=== PATIENT | female | born 1970 | race Caucasian/White ===

== ENCOUNTER 2017-03-06 07:20 | Inpatient (IN) | payer BC, OTHER ==
[~2017-03-06] VITALS: Ht 170.2 cm; Wt 125.6 kg
[2017-03-06] MEDS ORDERED: DULO30CA47 PO (07:42)
[2017-03-06] MEDS ORDERED: GABA300C16 PO ×2 (07:42→10:13)
[2017-03-06] MEDS ORDERED: METH500T8 PO (07:42)
[2017-03-06] MEDS ORDERED: BUPR300T36 PO ×2 (07:42→10:10)
[2017-03-06] MEDS ORDERED: ZOLP10TA PO (07:42)
[2017-03-06] MEDS ORDERED: GABA-526 PO (07:42)
[2017-03-06] MEDS ORDERED: ETOD400T PO (07:42)
--- NOTE | 2017-03-06 07:56 | ERD ---
ER Documentation Chief Complaint Chief Complaint C/o lower back pain with pain goes to right leg; hx chronic back problem HPI This is a 46-year-old female who presents the emergency department today complaining of low back pain and right leg pain and numbness and tingling for the past 3 days it is getting worse. Patient states that she has a significant history of back pain and does see Dr. Kee, at the [facility]. States that a year ago she had disc replacement in her neck. States she last saw him 2 months ago. States that she called this morning and he has asked me to call him. ROS All systems reviewed and are negative except as per history of present illness. Medications Home Meds Reported Medications Zolpidem Tartrate* (Ambien*) 10 Mg Tablet, 10 MG PO QHS Y for INSOMNIA, TAB 03/06/17 Bupropion Hcl* (Bupropion XL*) 300 Mg Tab.sr.24h, 300 MG PO DAILY, TAB.SA 03/06/17 Duloxetine Hcl* (Duloxetine Hcl*) 30 Mg Capsule.dr, 30 MG PO DAILY, #30 CAP 03/06/17 Etodolac (Etodolac) 400 Mg Tablet, 400 MG PO Q6 Y for BID, TAB 03/06/17 Methocarbamol* (Methocarbamol*) 500 Mg Tablet, 1000 MG PO Q6, TAB 03/06/17 Gabapentin* (Gabapentin*) 600 Mg Tablet, 600 MG PO QID, #60 TAB 03/06/17 Gabapentin* (Gabapentin*) 300 Mg Capsule, 300 MG PO QID, #60 CAP 03/06/17 Allergies Allergies: Coded Allergies: No Known Allergy (Unverified , 03/06/17) PMhx/Soc History of Surgery: Yes (GALBLADER, , ANKLE, HERNIA, HMORRHOIDS, SPINE /NECK) Anesthesia Reaction: No Hx Neurological Disorder: No Hx Respiratory Disorders: No Hx Cardiac Disorders: No Hx Psychiatric Problems: No Hx Miscellaneous Medical Probl: Yes (CHRONIC BACK PAIN) Hx Alcohol Use: No Hx Substance Use: No Hx Tobacco Use: No Smoking Status: Never smoker Physical Exam Vitals Vital Signs Date Time Temp Pulse Resp B/P Pulse Ox O2 Delivery O2 Flow Rate FiO2 03/06/17 07:22 97.7 104 20 159/89 97 Physical Exam Const: obese, NAD Head: Atraumatic Eyes: Normal Conjunctiva ENT: Normal External Ears, Nose and Mouth. Neck: Full range of motion..~ No meningismus. Resp: Clear to auscultation bilaterally Cardio: Regular rate and rhythm, no murmurs Abd: Soft, non tender, non distended. Normal bowel sounds Skin: No petechiae or rashes Back: lumbar spine midline tenderness. Decreased range of motion secondary to pain. Positive straight leg raise. Pulses 2+. Distal neurovascularly intact. Ext: No cyanosis, or edema Neur: Awake and alert Psych: Normal Mood and Affect Results 24 hrs Current Medications Medications (Trade) Dose Ordered Sig/Merly Route PRN Reason Start Time Stop Time Status Last Admin Dose Admin Hydromorphone HCl (Dilaudid) 2 mg ONCE STAT IM 03/06/17 08:11 03/06/17 08:12 DC 03/06/17 08:16 Procedures/MDM This is a 46-year-old female who presents the emergency department today complaining of pain and right-sided leg pain that started 3 days ago and is getting worse. Patient has a long history of chronic back pain. She takes Percocet 01/27/2025 and 900 mg of gabapentin 4 times a day. 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 Patient brought her MRI with her and she does have a 5-6 mm disc protrusion at L4 and L5. I did do an Boody report has had no other visits to the emergency department. Cures report also shows patient's prescriptions for Percocet and zolpidem. She is getting them from the same provider Dr. Piedra, who she states is her pain management doctor. Symptoms at this time most consistent with acute exacerbation of chronic back pain. She has had no new trauma. Low suspicion for acute fracture or dislocation. Patient is afebrile and otherwise well-appearing. They have no loss of bowel or bladder control. Low suspicion for cauda equina or abscess. I discussed the patient with Dr. Gamble and he feels comfortable with me giving the patient IM Dilaudid. Patient was given 2 milligrams IM Dilaudid here in the emergency department . I spoke to her surgeon, Dr. Kee, who has asked the patient to be admitted to Dr. Davis, and that he will perform surgery over the weekend for the patient. I discussed the plan with the patient and she has agreed to be admitted. Any further orders placed will be placed will be placed by Dr. Gamble , the admitting physician, or Dr Parmar. Departure Diagnosis: Primary Impression: Back pain Back pain location: low back pain Chronicity: chronic Back pain laterality : right Sciatica presence: with sciatica Sciatica laterality: sciatica of right side Qualified Code: M54.41 - Chronic right-sided low back pain with right-sided sciatica Condition: LAUREEN Rosas PA-C Mar 06, 2017 07:56
[2017-03-06] MEDS ORDERED: HYDROmorphONE 2 MG/ML SYG IM STA (08:11)
[2017-03-06 09:11] LABS: BASOPHIL # 0.1 10^3/ul (0.0-0.1); BASOPHILS % 0.5 % (0.0-2.0); EOSINOPHILS # 0.2 10^3/ul (0.0-0.5); EOSINOPHILS % 1.8 % (0.0-7.0); HEMATOCRIT 42.9 % (37.0-47.0); HEMOGLOBIN 14.3 g/dl (12.0-16.0); LYMPHOCYTES # 2.6 10^3/ul (0.8-2.9); LYMPHOCYTES % 24.3 % (15.0-51.0); MEAN CORPUSCULAR HEMOGLOBIN 28.9 pg (29.0-33.0); MEAN CORPUSCULAR HGB CONC 33.3 g/dl (32.0-37.0); MEAN CORPUSCULAR VOLUME 86.8 fl (82.0-101.0); MEAN PLATELET VOLUME 10.3 fl (7.4-10.4); MONOCYTE # 0.6 10^3/ul (0.3-0.9); MONOCYTES % 5.9 % (0.0-11.0); NEUTROPHIL # 7.2 10^3/ul (1.6-7.5); PLATELET COUNT 369 10^3/UL (140-415); RED BLOOD COUNT 4.94 10^6/ul (4.20-5.40); RED CELL DISTRIBUTION WIDTH 13.9 % (11.5-14.5); WHITE BLOOD COUNT 10.7 10^3/ul (4.8-10.8)
--- NOTE | 2017-03-06 09:18 | RADRPT ---
PROCEDURE: XR Chest. CLINICAL INDICATION: Back pain. TECHNIQUE: Single frontal view of the chest was obtained. COMPARISON: None. FINDINGS: The heart and mediastinum are within normal limits. The lungs are clear. There is no pleural effusion or pneumothorax. The osseous structures are unremarkable. IMPRESSION: No acute pulmonary disease. RPTAT: HRSR Physician Nneka Date Time Electronically viewed and signed by Jess Chavira Physician on 03/06/2017 09:18 RR/
[2017-03-06] MEDS ORDERED: ONDANSETRON 4 MG INJ IV PRN (09:30)
[2017-03-06] MEDS ORDERED: ACETAMINOPHEN 325 MG TAB PO PRN (09:30)
[2017-03-06] MEDS ORDERED: PANTOPRAZOLE (EC) 40 MG TAB PO ONE (09:30)
[2017-03-06 09:34] LABS: INR 0.91; PROTIME 12.3 Sec (12.2-14.2)
[2017-03-06 09:35] LABS: PARTIAL THROMBOPLASTIN TIME 26.9 Sec (25.0-35.0)
[2017-03-06 09:36] LABS: ANION GAP 16 (8-16); BLOOD UREA NITROGEN 18 mg/dl (7-20); CARBON DIOXIDE 28 mmol/L (21-31); CHLORIDE 104 mmol/L (97-110); CREATININE 0.78 mg/dl (0.44-1.00); GLUCOSE 103 mg/dl (70-220); SODIUM 144 mmol/L (135-144)
[2017-03-06 09:49] LABS: TROPONIN-I < 0.012 ng/ml (0.00-0.12)
[2017-03-06] MEDS ORDERED: GABA-528 PO (10:11)
[2017-03-06] MEDS ORDERED: HYDROmorphONE 1 MG/ML SYG IV STA (10:32)
--- NOTE | 2017-03-06 11:26 | HP ---
DATE OF ADMISSION: 03/06/2017 CHIEF COMPLAINT: Severe back pain with radiculopathy. HISTORY OF PRESENT ILLNESS: This is a 46-year-old female with a past medical history of chronic low er back pain due to L3, L5, L4 disk herniation with underlying radiculopathy who presents to [facility] with worsening pain and inability to stand and numbness. The patient states t hat she has had ongoing chronic back pain for the last 3-1/2 years; however, over the course of the last several days and weeks, she has had worsening symptoms with acute severity and pain of her back radiating down to her leg with associated numbness, weakness, inability to walk. The patient, as a result, came into [facility] with plans for acute neurosurgical evaluation. The patient has been followed in the past by Dr. Morrison, neurosurgeon. The patient otherwise denies any hemoptysis, hematemesis or hematochezia. PAST MEDICAL HISTORY: History of depression, history of radiculopathy with chronic back pain, histo ry of neuropathy. PAST SURGICAL HISTORY: The patient has had previous surgery at her neck with disk replacement, gall bladder surgery, , hernia repair, hemorrhoid surgery. FAMILY HISTORY: Noncontributory. SOCIAL HISTORY: Does not drink, smoke or do drugs. ALLERGIES: NONE. MEDICATIONS: Reviewed and reconciled. REVIEW OF SYSTEMS: A 14-point review of systems was conducted. Pertinent positives stated in HPI, otherwise negative. PHYSICAL EXAMINATION: VITAL SIGNS: Blood pressure 135/77, respiration 18, pulse 90, temperature 98.2. HEENT: Head is normocephalic. NECK: Supple. HEART: Regular rate. LUNGS: Show diminished breath sounds at the base. ABDOMEN: Soft, nontender to palpation without rebound or guarding. EXTREMITIES: Negative for clubbing, cyanosis, no edema. DERMATOLOGIC: No rashes. MUSCULOSKELETAL: The patient has noted pain in her lower back lumbar region. The patient has pain in her lower extremities. NEUROLOGIC: Limited exam due to underlying pain, but no obvious focal deficits. LABORATORY DATA: Shows a BMP within normal limits. CBC: White count 7.7, hemoglobin 14.3, platele t count 369. Patient had a chest x-ray which showed no acute findings. ASSESSMENT AND PLAN: This is a 46-year-old female who presents with: 1. Acute on chronic lumbar radiculopathy with symptoms of paraesthesia, numbness and foot drop. Pl an is for the patient to undergo urgent neurosurgical evaluation by Dr. Morrison for consideration of p ossible surgical intervention. Would otherwise continue pain control with opiates. Would continue to monitor closely and follow up recommendations with neurosurgery. 2. History of depression. Continue Wellbutrin and Cymbalta. 3. Neuropathy. Continue Neurontin. 4. Gastrointestinal and deep venous thrombosis prophylaxis. Continue proton pump inhibitor and Kenia enox. 5. Insomnia. Continue Ambien. 6. Previous history of spinal and neck surgery. Please note I spent up to 25 minutes of face to face time with the patient. The patient is FULL COD E. Dictated By: SEBASTIAN RIVERO DO NR/CANDE Conf#: [id number] DID#: [id number]
[2017-03-06 11:43] LABS: ALBUMIN 4.9 g/dl (3.3-4.9); BILIRUBIN,INDIRECT 0.2 mg/dl (0-1.1); BILIRUBIN,TOTAL 0.2 mg/dl (0.2-1.3); TOTAL PROTEIN 7.9 g/dl (6.1-8.1)
[2017-03-06] MEDS ORDERED: GABAPENTIN 300 MG CAP PO SCH (13:00)
[2017-03-06] MEDS: METHOCARBAMOL 500 MG TAB PO SCH ×3 (13:12→23:54)
[2017-03-06] MEDS: GABAPENTIN 300 MG CAP PO SCH ×4 (14:21→21:48)
[2017-03-06] MEDS: HYDROCODONE/APAP (5/325) TAB PO PRN ×3 (14:25→20:16)
[2017-03-06 14:28] VITALS: TEMP 98.3
[2017-03-06 15:00] VITALS: BP 134/63; PULSE 101; RESP 16
[2017-03-06 15:09] VITALS: Ht 170.2 cm; Wt 125.6 kg
--- NOTE | 2017-03-06 15:34 | RADRPT ---
Echocardiogram Report Patient Name: MIGEL SOLIS Gender: Female Date: 1970 Study Date: 06-Mar-2017 Catering Truck Driver: Robert [facility] Location: [facility] Ref. Physician: SEBASTIAN RIVERO Quality: Adequate Procedures: Transthoracic echocardiogram with complete 2D, M-Mode, and doppler examination. Indications: R/O CHF. 2D/M Mode Doppler Measurement Value Normal Ranges Measurement Value Normal Ranges LVIDd 2D 4.3 3.5 - 5.6 cm AV Peak Kyler 1.8 m/sec LVIDs 2D 3.0 2.1 - 4.1 cm AV Peak PG 12.0 mmHg FS 2D 32.0 % LVOT Peak Kyler 1.3 m/sec LVPWd 2D 1.1 0.6 - 1.1 cm LVOT Peak PG 7.0 mmHg IVSd 2D 1.1 0.6 - 1.1 cm MV E Peak Kyler 0.9 m/sec IVS/LVPW 2D 1.0 MV A Peak Kyler 0.7 m/sec AoR Diam 2D 1.9 2.0 - 3.7 cm MV E/A 1.3 LA/Ao 2D 2 0 - 1 MV Decel Time 236 msec EDV 2D 82.3 cm3 MV E/A 1.3 ESV 2D 25.9 cm3 TR Peak Kyler 2.3 m/sec LA Dimen 2D 3.3 2.3 - 4.0 cm TR Peak PG 21.0 mmHg RVSP 24.0 mmHg Findings Left Ventricle: Normal left ventricular systolic function. Normal left ventricular cavity size. Normal left ventricular wall thickness. Ejection fraction is visually estimated at 60 %. Tissue Doppler/Mitral Doppler indices are consistent with impaired relaxation (Stage I diastolic dysfunction). Right Ventricle: Normal right ventricular size. Normal right ventricular systolic function. Left Atrium: The left atrium is normal in size. Right Atrium: The right atrium is normal in size. Mitral Valve: Normal appearance and function of the mitral valve with trace physiologic regurgitation. Aortic Valve: Normal appearance of the aortic valve. No significant aortic stenosis or insufficiency. Tricuspid Valve: Normal appearance of the tricuspid valve. Estimated peak PA systolic pressure 24 mmHg. There is trace tricuspid regurgitation. Pulmonic Valve: Pulmonic valve not well visualized. There is trace pulmonic regurgitation. Pericardium: Normal pericardium with no significant pericardial effusion. Aorta: Normal aortic root. IVC: Normal size and normal respiratory collapse consistent with normal right atrial pressure. Conclusions 1.Normal left ventricular systolic function. Normal left ventricular cavity size. Normal left ventricular wall thickness. Ejection fraction is visually estimated at 60 %. Tissue Doppler/Mitral Doppler indices are consistent with impaired relaxation (Stage I diastolic dysfunction). 2.Normal appearance and function of the mitral valve with trace physiologic regurgitation. 3.Normal appearance of the aortic valve. No significant aortic stenosis or insufficiency. 4.Normal appearance of the tricuspid valve. Estimated peak PA systolic pressure 24 mmHg. There is trace tricuspid regurgitation. Electronically Signed By: Delio Antonio 06-Mar-2017 15:33:17 -0800 Patient Name: MIGEL SOLIS Study Date: 06-Mar-[id number]
[2017-03-06] MEDS ORDERED: HYDROmorphONE 1 MG/ML SYG IV PRN (16:00)
--- NOTE | 2017-03-06 16:10 | CONS ---
Date/Time of Note Date/Time of Note DATE: 03/06/17 TIME: 16:01 Assessment/Plan Assessment/Plan Chief Complaint/Hosp Course 1. CV preop evaluation 2. severe LBP and radiculopathy 3. mildly abnormal ECG 4. Hx depression 5. obesity. Recommendations: At this point patient denied any anginal chest pain and has no major cardiac risk factor. No further cardiac workup would be indicated. Her echocardiogram showed normal LV systolic function as well. Patient however would have mild to moderate risk of cardiovascular events due to her poor exercise tolerance. I will give the patient empirically magnesium given her prolonged QT. Recommend avoidance of medication I will prolong QT. Other than that no further cardiac workup would be needed and patient will be considered optimized from the cardiac standpoint. Thank you for his referral. We will continue to follow along with you as needed basis. ERIKA HERNANDEZ MD FACC : Problems: Consultation Date/Type/Reason Admit Date/Time Mar 06, 2017 at 09:29 Date of Consultation: Mar 06, 2017 Type of Consultation: cardiology Reason for Consultation CV preop evaluation Referring Provider: SEBASTIAN RIVERO DO Hx of Present Illness CC: LBP HPI: Thank you for his referral. This is a pleasant 46-year-old female with reported history of back injury and severe back pain who was admitted through emergency room with complaint of severe lower back pain. Patient is being evaluated by neurosurgeon and is planned for neurosurgical intervention tomorrow. I was kindly asked to evaluate optimized from the cardiac standpoint prior to the surgery. Patient denies any left-sided chest pain or pressure to me. Denies any palpitation to me. She is unable to walk much due to her severe back pain over the past 2-1/2 years. However she is states that she has been able to swim quite a bit with no chest pain or pressure. She denies any history of cardiac disorder to me. Denies any palpitations syncope presyncope to me. She has had multiple surgeries before and denies any cardiac or anesthesia related complications during the surgeries. Allergies no known drug allergies PAST MEDICAL HISTORY: History of depression, history of radiculopathy with chronic back pain, history of neuropathy. PAST SURGICAL HISTORY: The patient has had previous surgery at her neck with disk replacement, gallbladder surgery, , hernia repair, hemorrhoid surgery. FAMILY HISTORY: Noncontributory. SOCIAL HISTORY: Does not drink, smoke or do drugs. MEDICATIONS: Reviewed as per medical reconciliation sheet which was personally reviewed. ROS: as above only Social History Smoking Status: Never smoker Exam/Review of Systems Vital Signs Vitals Vital Signs Date Time Temp Pulse Resp B/P Pulse Ox O2 Delivery O2 Flow Rate FiO2 03/06/17 15:00 98.2 101 16 134/63 96 Room Air Exam General: obese. no acute distress HEENT: NC/AT. pupils are equal. round. NECK: NO JVD. no stridor. CV: RRR. systolic murmur; no gallop or rubs. PULM: no wheezing or rhonchi. GI: SOFT, obese. NT, ND, no rebound or guarding Extremity: trace B/L LE edema. no clubbing. neuro: awake and alert, OX3. Psych: calm and pleasant rectal: deferred ECG: NSR and nonspecific T-wave abnormalities. Prolonged QT ECHO reviewed: 1. Normal left ventricular systolic function. Normal left ventricular cavity size. Normal left ventricular wall thickness. Ejection fraction is visually estimated at 60 %. Tissue Doppler/Mitral Doppler indices are consistent with impaired relaxation (Stage I diastolic dysfunction). 2. Normal appearance and function of the mitral valve with trace physiologic regurgitation. 3. Normal appearance of the aortic valve. No significant aortic stenosis or insufficiency. 4. Normal appearance of the tricuspid valve. Estimated peak PA systolic pressure 24 mmHg. There is trace tricuspid regurgitation. Results Result Diagram: 03/06/17 0855 03/06/17 0855 Results 24 hrs Laboratory Tests Test 03/06/17 08:35 03/06/17 08:55 Total Bilirubin 0.2 Direct Bilirubin 0.00 Indirect Bilirubin 0.2 Aspartate Amino Transf (AST/SGOT) 29 Alanine Aminotransferase (ALT/SGPT) 37 Alkaline Phosphatase 102 Total Protein 7.9 Albumin 4.9 White Blood Count 10.7 Red Blood Count 4.94 Hemoglobin 14.3 Hematocrit 42.9 Mean Corpuscular Volume 86.8 Mean Corpuscular Hemoglobin 28.9 L Mean Corpuscular Hemoglobin Concent 33.3 Red Cell Distribution Width 13.9 Platelet Count 369 Mean Platelet Volume 10.3 Neutrophils % 67.0 Lymphocytes % 24.3 Monocytes % 5.9 Eosinophils % 1.8 Basophils % 0.5 Nucleated Red Blood Cells % 0.0 Neutrophils # 7.2 Lymphocytes # 2.6 Monocytes # 0.6 Eosinophils # 0.2 Basophils # 0.1 Nucleated Red Blood Cells # 0.0 Prothrombin Time 12.3 Prothrombin Time Ratio 1.0 INR International Normalized Ratio 0.91 Activated Partial Thromboplast Time 26.9 Sodium Level 144 Potassium Level 4.0 Chloride Level 104 Carbon Dioxide Level 28 Anion Gap 16 Blood Urea Nitrogen 18 Creatinine 0.78 Glucose Level 103 Calcium Level 10.0 Troponin I < 0.012 Serum HCG, Qualitative NEGATIVE Medications Medications Current Medications Bupropion HCl (Wellbutrin Xl) 300 mg DAILY PO ; Start 03/07/17 at 09:00 Duloxetine HCl (Cymbalta) 30 mg DAILY PO ; Start 03/07/17 at 09:00 Gabapentin (Neurontin) 900 mg QID PO Last administered on 03/06/17 14:21; Admin Dose 900 MG; Start 03/06/17 at 13:00 Methocarbamol (Robaxin) 1,000 mg Q6 PO Last administered on 03/06/17 13:12; Admin Dose 1,000 MG; Start 03/06/17 at 12:00 Zolpidem Tartrate (Ambien) 10 mg QHS PRN PO INSOMNIA; Start 03/06/17 at 09:30 Enoxaparin Sodium (Lovenox) 40 mg DAILY SC ; Start 03/07/17 at 09:00 Acetaminophen/ Hydrocodone Bitart (Neal (5/325)) 1 tab Q4 PRN PO pain Last administered on 03/06/17 14:25; Admin Dose 1 TAB; Start 03/06/17 at 10:30 Hydromorphone HCl (Dilaudid) 1 mg Q6H PRN IV PAIN Last administered on 15:59; Admin Dose 1 MG; Start 03/06/17 at 16:00 ERIKA HERNANDEZ MD Mar 06, 2017 16:09
[2017-03-06] MEDS: ONDANSETRON 4 MG INJ IV PRN ×2 (17:14→23:54)
[2017-03-06] MEDS ORDERED: MAGNESIUM SULFATE 2 GM/50 ML 50 ML IVPB ONE (18:00)
[2017-03-06 19:40] VITALS: BP 123/65; RESP 18
[2017-03-06] MEDS: HYDROmorphONE 1 MG/ML SYG IV PRN (20:20)
--- NOTE | 2017-03-06 23:36 | CONS ---
Date/Time of Note Date/Time of Note DATE: 03/06/17 TIME: 19:00 Assessment/Plan Assessment/Plan Additional Assessment/Plan Date of consultation: 03/06/2017 Requesting physician: Emergency department Consulting service: Neurosurgery This is a 46-year-old female with chronic history of axial neck pain and low back pain for more than 2 years with associated upper and lower extremity radiating pain and numbness. The patient previously underwent C4-C5 and C5-C6 artificial disc replacement by me over a year ago and has done very well where she has had near full resolution of her preoperative axial neck pain, headaches as well as radiating pain and numbness to her shoulders and down her upper extremities. However, she has continued to have progressively increasing intractable axial low back pain with associated bilateral lower extremity pain and numbness in the L5 versus S1 distribution. Her symptoms are worsened with prolonged standing and walking and partially improved with sitting. The patient 's symptoms have increased to a point where she has now gone on disability and no longer able to continue work. Her pain is being managed partialy with the use of NSAIDs and Oxycodone. The patient has undergone extensive conservative management including physical therapy with focus on core strengthening over the past 2 years and has been evaluated and treated by at least 2 different interventional pain management physicians over the past year and half to 2 years. The interventional pain management procedures have included lumbar epidural steroid injections as well as trigger point injections with the most recent injections having occurred just a couple months ago. However, these treatment modalities have not been able to provide the patient with any meaningful improvement of her symptoms. The patient has been evaluated by me multiple times in clinic in regards to the above symptoms over the past year and a half. When the patient was evaluated by me initially, after reviewing her MR images of the lumbar spine and her signs and symptoms and her relatively young age, we discussed possible L4-L5 artificial disc replacement rather than L4-L5 fusion. The patient wanted to proceed with that procedure as soon as possible at the time, however, despite multiple requests from her insurance, the artificial disc replacement was denied with the insurance saying that lumbar artificial disc replacement was not covered under her insurance and the procedure was considered "experimental. " Since a year ago, the patient's symptoms have significantly worsened. The patient was last seen in my clinic about a month and a half ago and after reviewing her most recent MRI of the lumbar spine, it was determined that the patient's degenerative changes at L4-L5 had further deteriorated including further L4-L5 disc herniation and facet hypertrophy that together with some focal lumbar epidural lipomatosis was causing central and to a greater degree lateral recess stenosis greater on the right than the left. As a result the patient was now deemed to be a more suitable candidate for L4-L5 fusion rather than artificial disc replacement. Request for authorization was submitted to the insurance for this surgery and the authorization is currently pending. The patient also was being evaluated by her primary care physician for preoperative clearance. Since her last visit with me in clinic, the patient has developed further weakness of bilateral lower extremities specifically further foot drop greater on the right than the left over the past week with increased numbness. This was very concerning to the patient as a result the patient has presented to the [facility] emergency department for further evaluation and management. Over the past week, the patient has also developed further difficulty with walking as a result of the foot drop. The patient denies bowel or bladder dysfunction. Past medical history: Ankle surgery, cholecystectomy, hernia surgery, section, C4-C5 C5-C6 artificial disc replacement Allergies: No known drug allergies Family history: Noncontributory Medications: The patient's outside medications have been noted and reviewed Social history: The patient lives with her . She denies use of tobacco, alcohol, illicit or recreational drugs. Review of systems: Please see above for pertinent positives and negatives. The patient denies chest pain, shortness of breath or heartburn. Physical examination: Patient is seen at bedside. She is a pleasant female lying down in bed. She is obese. She is awake, alert and oriented 4. Her language is fluent. Face is symmetric. Muscle bulk and tone is normal bilateral upper and lower extremities. Motor strength in bilateral upper extremities is 5 minus out of 5 proximally and distally. Motor strength in bilateral lower extremities Is 5 minus out of 5 except for right EHL that is now 3+ out of 5, left EHL 4 out of 5, right ankle dorsiflexion 4 minus out of 5 and left ankle dorsiflexion 4 out of 5. Sensation to light touch is decreased involving the L5 versus S1 distribution bilaterally more severely on the right than the left and more specifically involving the lateral part of the right leg and the dorsum of the right foot. Straight leg raise greater than 30 Bilaterally causes pain radiating down the patients right and left lower extremities as well as axial low back pain. The patient has moderate tenderness involving the midline and the paraspinal regions at the lower lumbar and lumbosacral areas. Her lumbar flexion is decreased by 40-50% compared to baseline and the lumbar extension is decreased by 20-30% compared to baseline. The patient's gait demonstrates gross partial right footdrop. She has a kyphotic posture. IMAGING: The patient's recent MRI lumbar spine without contrast done at outside facility shows severe degeneration and collapse of the L4-L5 disc space with associated further disc herniation and facet arthropathy and hypertrophy. These changes together with focal epidural lipomatosis causes moderate to severe right and moderate left lateral recess stenosis impinging on the traversing bilateral L5 nerve roots. There is also moderate central canal stenosis at L4-L5. The patient also subsequently received an MRI of the thoracic spine at an outside facility at my request to further evaluate and incidentally found possible subcutaneous thoracolumbar mass thought to be a possible lipoma. However the dedicated MRI of the thoracic spine does not show an gross subcutaneous mass. Assessment/plan: As discussed above, since her last visit with me about a month and half ago the patient has developed further sensory motor loss mainly involving the L5 distribution with further foot drop greater on the right than the left indicating further irritation and injury to the L5 nerve root as a result of L4-L5 central lateral recess stenosis. This development further alarmed the patient brought her to the emergency department. I have had another very detailed discussion with the patient and her about her condition: lumbar radiculopathy in the L5 with further foot drop as well as neurogenic claudication. I have again discussed the various treatment options with the patient at this point that include continued conservative management including further physical therapy and more interventional pain management versus surgical intervention. The patient can wait and receive oral steroids however given the increased oot drop and numbness, she may be left with permanent foot drop and nerve injury if the thecal sac and traversing nerve roots are not decompressed. In regards to surgical intervention, the patient would be a good candidate for a minimally invasive L4-L5 transforaminal lumbar interbody arthrodesis and direct decompression of the lateral recesses and spinal canal with placement of intervertebral cage and posterior instrumented fusion with use of morcellized local autologous bone graft and allograft. A stand alone, decompressive lumbar surgery can remove pressure over the thecal sac and nerve roots but can further destabilize her lumbar spine and int he setting of lumbar facet hypertrophy and arthropathy can increase her continued intractable axial LBP. I have discussed the risk and benefits of the above operation in great detail with the patient and her with the risks including bleeding, infection, weakness, numbness, paralysis, bowel or bladder dysfunction, injury to the surrounding organs and tissues, cerebrospinal fluid leak, failure of improvement of symptoms or worsening of her symptoms, need for further surgeries including redo decompression or revision of the fusion or extension of the fusion and instrumentation as well as those risks associated with surgery and general anesthesia including deep venous thrombosis, palmar any embolism, heart attack, stroke, and . Also explained to the patient and her that in general with the above types of surgeries, patients can have about 60-80% improvement of their preoperative axial low back pain and further improvement of their radicular and neurogenic claudication symptoms. However, these results can vary amongst different patients. It'll also be very critical for the patient to receive aggressive postoperative physical therapy with focus placed on further core strengthening that can be started several months after surgery. The patient and her fully understand the above discussion and wish to proceed with the above surgery as soon as possible especially in light of the partial foot drop and numbness. The patient will be admitted by internal medicine and preoperative clearance will be obtained. The surgery will be scheduled for tomorrow. MIKE RUSSO MD Mar 06, 2017 23:36
[2017-03-06] MEDS: ZOLPIDEM 5 MG TAB PO PRN (23:54)
[2017-03-07] MEDS ORDERED: DEXTROSE 5%-0.45% NACL 1,000 ML IV SCH
[2017-03-07] MEDS: HYDROmorphONE 1 MG/ML SYG IV PRN ×2 (00:30→09:24)
[2017-03-07] MEDS: ZOLPIDEM 5 MG TAB PO PRN ×2 (01:00→01:32)
[2017-03-07 02:25] VITALS: BP 115/67; RESP 18
[2017-03-07] MEDS: METHOCARBAMOL 500 MG TAB PO SCH ×3 (05:29→17:22)
[2017-03-07 05:57] LABS: BASOPHIL # 0.1 10^3/ul (0.0-0.1); BASOPHILS % 0.6 % (0.0-2.0); EOSINOPHILS # 0.3 10^3/ul (0.0-0.5); EOSINOPHILS % 2.6 % (0.0-7.0); HEMATOCRIT 36.8 % (37.0-47.0); HEMOGLOBIN 12.1 g/dl (12.0-16.0); LYMPHOCYTES % 30.6 % (15.0-51.0); MEAN CORPUSCULAR HEMOGLOBIN 29.2 pg (29.0-33.0); MEAN CORPUSCULAR HGB CONC 32.9 g/dl (32.0-37.0); MEAN CORPUSCULAR VOLUME 88.7 fl (82.0-101.0); MEAN PLATELET VOLUME 10.7 fl (7.4-10.4); MONOCYTE # 0.9 10^3/ul (0.3-0.9); MONOCYTES % 8.8 % (0.0-11.0); NEUTROPHIL # 5.6 10^3/ul (1.6-7.5); PLATELET COUNT 316 10^3/UL (140-415); RED BLOOD COUNT 4.15 10^6/ul (4.20-5.40); RED CELL DISTRIBUTION WIDTH 13.8 % (11.5-14.5); WHITE BLOOD COUNT 9.8 10^3/ul (4.8-10.8)
[2017-03-07 06:31] LABS: CALCIUM 8.7 mg/dl (8.4-10.2); CREATININE 1.07 mg/dl (0.44-1.00); MAGNESIUM 2.4 mg/dl (1.7-2.5); PHOSPHORUS 4.8 mg/dl (2.5-4.9); POTASSIUM 3.4 mmol/L (3.5-5.1)
[2017-03-07] MEDS ORDERED: METOCLOPRAMIDE 10 MG INJ ONE ×2 (07:00→16:46)
[2017-03-07] MEDS ORDERED: EPHEDrine SULFATE 50 MG/5 ML SYG ONE (07:00)
[2017-03-07] MEDS ORDERED: CEFAZOLIN 1 GM INJ ONE (07:00)
[2017-03-07] MEDS ORDERED: ROCURONIUM 50 MG INJ ONE ×5 (07:00→22:19)
--- NOTE | 2017-03-07 07:06 | RADRPT ---
PROCEDURE: XR Lumbar Spine. CLINICAL INDICATION: Back pain. TECHNIQUE: Three views. AP, lateral and cone-down lateral view of the lumbar spine were obtained. COMPARISON: No prior studies are available for comparison. FINDINGS: There is transitional anatomy. For the purposes of this report, the last apparent true disc level is considered to be L5-S1. There is normal stature and alignment of the vertebrae. There is no fracture. There is no lytic or blastic lesion. There is disc space narrowing and osteophytes at L4-5. Surgical clips are present in the right upper quadrant of the abdomen. IMPRESSION: 1. Transitional anatomy as described above. Prior to any intervention, careful correlation with any accompanying imaging studies is required. 2. Disc space narrowing and osteophytes at L4-5. 3. Prior right upper quadrant abdomen surgery. RPTAT: QQ .Feliberto Joseph MD, MD Date Time Electronically viewed and signed by .Feliberto Joseph MD, on 03/07/2017 07:06 .R/
[2017-03-07] MEDS ORDERED: BUPIVACAINE 0.5% (SDV) 30 ML INJ ONE (07:10)
[2017-03-07] MEDS ORDERED: POLYMYXIN/BACITRACIN 1L IRRIG ONE ×2 (07:11→18:33)
[2017-03-07] MEDS ORDERED: BUPIVACAINE 0.5%/EPI (SDV) 30 ML INJ ONE (07:13)
[2017-03-07] MEDS ORDERED: LIDOCAINE 0.5% (MDV) 50 ML INJ ONE (07:13)
[2017-03-07 07:38] VITALS: BP 112/55; RESP 18
[2017-03-07] MEDS: GABAPENTIN 300 MG CAP PO SCH ×4 (08:37→21:00)
--- NOTE | 2017-03-07 08:42 | RADRPT ---
PROCEDURE: XR Chest. CLINICAL INDICATION: Preop evaluation. TECHNIQUE: PA and Lateral views of the chest were obtained. COMPARISON: Chest radiograph dated March 06, 2017. FINDINGS: The cardiomediastinal silhouette is within normal limits. The lungs are clear. No signs of pleural f luid or pneumothorax are seen. The osseous structures and soft tissues are unremarkable. IMPRESSION: No evidence for active cardiopulmonary disease. RPTAT:AAJJ Suman Rajan Physician Date Time Electronically viewed and signed by Suman Rajan Physician on 03/07/2017 08:42 QL/
[2017-03-07] MEDS: DULOXETINE 30 MG CAP DR PO SCH (08:51)
[2017-03-07] MEDS: BUPROPION (XL) 150 MG TAB PO SCH (08:51)
[2017-03-07] MEDS ORDERED: POTASSIUM CHLORIDE 20 MEQ in DEXTROSE 5% 100 ML IVPB ONE (09:00)
[2017-03-07] MEDS ORDERED: INFLUENZA VIRUS VACCINE 0.5 ML SYG IM* ONE (09:00)
[2017-03-07] MEDS ORDERED: ENOXAPARIN 40 MG/0.4 ML SYG SC SCH (09:00)
[2017-03-07] MEDS: ONDANSETRON 4 MG INJ IV PRN (10:46)
[2017-03-07] MEDS ORDERED: MIDAZOLAM 1 MG/ML 2 ML INJ ONE (16:45)
[2017-03-07] MEDS ORDERED: GELATIN SIZE 100 SPONGE ONE (16:48)
[2017-03-07] MEDS ORDERED: PROPOFOL 20 ML ONE (16:59)
[2017-03-07] MEDS ORDERED: FENTAnyl 50 MCG/ML VIAL ONE ×2 (16:59→23:03)
[2017-03-07] MEDS ORDERED: SUCCINYLCHOLINE CHLORIDE 100 MG/5 ML SYG IV ONE (17:43)
[2017-03-07] MEDS ORDERED: HYDROmorphONE 2 MG/ML SYG ONE (18:08)
[2017-03-07] MEDS ORDERED: ACETAMINOPHEN 1000MG/100ML IV 100 ML ONE (18:09)
[2017-03-07] MEDS ORDERED: DEXAMETHASONE 4 MG/ML 1 ML INJ ONE (18:13)
[2017-03-07] MEDS ORDERED: HYDROmorphONE (0.2 MG/ML) 10ML SYG IV PRN ×3 (18:30)
[2017-03-07] MEDS ORDERED: ONDANSETRON 4 MG INJ IV PRN (18:30)
[2017-03-07] MEDS ORDERED: DIPHENHYDRAMINE 50 MG INJ IV PRN (18:30)
[2017-03-07] MEDS ORDERED: MEPERIDINE 25 MG INJ IV PRN (18:30)
[2017-03-07 20:02] VITALS: PULSE 110
[2017-03-07] MEDS: THROMBIN 5000 UNIT VIAL ONE ×2 (20:14→20:16)
[2017-03-07] MEDS ORDERED: HEMOSTATIC MATRIX SYG ZFS ONE (20:15)
[2017-03-07] MEDS ORDERED: METOPROLOL 5 MG INJ ONE (22:20)
[2017-03-08] VITALS (27 sets, daily range): BP systolic 99–131; BP diastolic 52–83; PULSE 72–108; RESP 15–28
[2017-03-08] MEDS ORDERED: NEOSTIGMINE 3 MG/3 ML SYRINGE ONE (00:17)
[2017-03-08] MEDS ORDERED: GLYCOPYRROLATE 0.4 MG INJ ONE (00:17)
--- NOTE | 2017-03-08 00:54 | SIPON ---
Date/Time of Note Date/Time of Note DATE: 03/08/17 TIME: 00:53 Operative Report Preoperative Diagnosis L4-5 DDD, Stenosis and partial foot drop Postoperative Diagnosis Same as above Operation/Procedure Performed L4-5 TLIF Surgeon see signature line office services assistant N/A Anesthesia: general Estimated blood loss: 50 - 100 ml's Transfusion Required none Specimen None Grafts/Implants See OP report Complications none MIKE RUSSO MD Mar 08, 2017 00:54
[2017-03-08] MEDS ORDERED: NALOXONE (0.4 MG/ML) INJ IV PRN (01:00)
[2017-03-08] MEDS ORDERED: HYDROCODONE/APAP (10/325) TAB PO PRN (01:00)
[2017-03-08] MEDS: CEFAZOLIN 1 GM/50 ML (PMX) 50 ML IVPB SCH ×3 (01:00→18:29)
[2017-03-08] MEDS ORDERED: traMADol 50 MG TAB PO PRN (01:00)
[2017-03-08] MEDS ORDERED: BISACODYL 10 MG SUPP PR PRN (01:00)
[2017-03-08] MEDS ORDERED: HYDROmorphONE (0.2 MG/ML) 10ML SYG IV ONE (01:01)
[2017-03-08] MEDS: HYDROmorphONE (0.2 MG/ML) 10ML SYG IV PRN ×10 (01:18→02:10)
[2017-03-08] MEDS: MEPERIDINE 25 MG INJ IV PRN ×2 (01:21→02:16)
[2017-03-08] MEDS ORDERED: LABETALOL HCL 20MG INJ IV PRN (01:30)
[2017-03-08] MEDS ORDERED: hydrALAzine 20 MG INJ IV PRN (01:30)
[2017-03-08] MEDS ORDERED: ONDANSETRON 4 MG INJ IV PRN (01:30)
[2017-03-08] MEDS ORDERED: DIPHENHYDRAMINE 50 MG INJ IV PRN (01:30)
[2017-03-08] MEDS: D5W-0.45 NACL + KCL 20 MEQ 1,000 ML IV SCH ×3 (03:07→21:33)
[2017-03-08 03:10] LABS: ADD UMIC NO; UR ASCORBIC ACID NEGATIVE (NEGATIVE); UR BILIRUBIN (Dip) NEGATIVE (NEGATIVE); UR BLOOD (Dip) NEGATIVE (NEGATIVE); UR CLARITY CLEAR (CLEAR); UR COLOR YELLOW (YELLOW); UR GLUCOSE (Dip) NEGATIVE (NEGATIVE); UR KETONES (Dip) 1+ mg/dL (NEGATIVE); UR LEUKOCYTE ESTERASE (Dip) NEGATIVE Leu/ul (NEGATIVE); UR NITRITE (Dip) NEGATIVE (NEGATIVE); UR SPECIFIC GRAVITY (Dip) 1.013 (1.003-1.030); UR TOTAL PROTEIN (Dip) NEGATIVE (NEGATIVE); UR UROBILINOGEN (Dip) NEGATIVE (NEGATIVE)
[2017-03-08] MEDS: HYDROmorphONE 0.5 MG/0.5 ML SYG IV PRN ×7 (05:20→21:42)
[2017-03-08] MEDS: METHOCARBAMOL 500 MG TAB PO SCH ×2 (06:22)
--- NOTE | 2017-03-08 08:40 | RADRPT ---
PROCEDURE: X-ray fluoroscopy guidance CLINICAL INDICATION: L4-5 interbody fusion procedure. TECHNIQUE: Fluoroscopic guidance was utilized for an intraoperative procedure. Fluoro time: 49 seconds Number of images/sequences: 15 COMPARISON: None available FINDINGS: Surgical hardware seen overlapping the lumbar spine. L4-5 interbody fusion procedure was performed. This implant appears to be in appropriate location. Alignment is anatomic. Bony mineralization is no rmal. The normal lumbar lordosis is preserved. No other abnormality is identified. The bowel gas pat tern is unremarkable. IMPRESSION: 1. X-ray fluoroscopic guidance utilized for intraoperative procedure. 2. Lumbar spine interbody fusion procedure. RPTAT: HMJB .Estuardo Almeida MD, Date Time Electronically viewed and signed by .Estuardo Almeida MD, on 03/08/2017 07:07 .B/
[2017-03-08] MEDS: GABAPENTIN 300 MG CAP PO SCH ×4 (08:44→21:32)
[2017-03-08] MEDS: DULOXETINE 30 MG CAP DR PO SCH (08:44)
[2017-03-08] MEDS: DOCUSATE SODIUM 100 MG CAP PO SCH ×2 (08:44→21:32)
[2017-03-08] MEDS: BACLOFEN 10 MG TAB PO SCH ×3 (08:44→21:32)
[2017-03-08] MEDS: BUPROPION (XL) 150 MG TAB PO SCH (08:45)
[2017-03-08] MEDS: FAMOTIDINE 20 MG INJ IV SCH ×2 (08:45→21:32)
[2017-03-08] MEDS ORDERED: INFLUENZA VIRUS VACCINE 0.5 ML SYG IM* ONE (09:00)
--- NOTE | 2017-03-08 09:54 | CONS ---
Date/Time of Note Date/Time of Note DATE: 03/08/17 TIME: 09:41 Consult Date/Type/Reason Admit Date/Time Mar 06, 2017 at 09:29 Initial Consult Date 03/06/17 Type of Consultation: neph Ordering Provider: SEBASTIAN SHEEHAN DO Subjective This is a 46-year-old female with a past medical history of chronic lower back pain due to L3, L5, L4 disk herniation with underlying radiculopathy who presents to [facility] with worsening pain and inability to stand and numbness. The patient states that she has had ongoing chronic back pain for the last 3-1/2 years; however, over the course of the last several days and weeks, she has had worsening symptoms with acute severity and pain of her back radiating down to her leg with associated numbness, weakness, inability to walk. The patient, as a result, came into [facility] with plans for acute neurosurgical evaluation. The patient has been followed in the past by Dr. Morrison, neurosurgeon. The patient otherwise denies any hemoptysis, hematemesis or hematochezia. she is postop day 1 sp L4-5 TLIF. doing well. co muscle spasms and incisional pain. poc reviewed with dr. sheehan. MEDICATIONS: Reviewed. REVIEW OF SYSTEMS: A 14-point review of systems was conducted. Pertinent positives stated in HPI, otherwise negative. PHYSICAL EXAMINATION: HEENT: Head is normocephalic. NECK: Supple. HEART: Regular rate. LUNGS: Show diminished breath sounds at the base. ABDOMEN: Soft, nontender to palpation without rebound or guarding. EXTREMITIES: Negative for clubbing, cyanosis, no edema. DERMATOLOGIC: No rashes. MUSCULOSKELETAL: The patient has noted pain in her lower back lumbar region. The patient has pain in her lower extremities. NEUROLOGIC: Limited exam due to underlying pain, but no obvious focal deficits. Objective Vital Signs Date Time Temp Pulse Resp B/P Pulse Ox O2 Delivery O2 Flow Rate FiO2 03/08/17 08:08 87 03/08/17 07:57 98.0 18 108/56 98 03/08/17 03:00 Nasal Cannula 3.0 Intake and Output 03/07/17 03/07/17 03/08/17 15:00 23:00 07:00 Intake Total 410 ml 50 ml 600 ml Output Total 1100 ml 1400 ml Balance 410 ml -1050 ml -800 ml Results/Medications Result Diagram: 03/07/174 03/07/17 0434 Results 24 hrs Laboratory Tests Test 03/08/17 01:41 Urine Color YELLOW Urine Clarity CLEAR Urine pH 5.0 Urine Specific [place] 1.013 Urine Ketones 1+ H Urine Nitrite NEGATIVE Urine Bilirubin NEGATIVE Urine Urobilinogen NEGATIVE Urine Leukocyte Esterase NEGATIVE Urine Hemoglobin NEGATIVE Urine Random Creatinine 85.68 Urine Random Sodium 26 L Urine Glucose NEGATIVE Urine Total Protein NEGATIVE Medications Current Medications Bupropion HCl (Wellbutrin Xl) 300 mg DAILY PO Last administered on 03/08/17 08:45; Admin Dose 300 MG; Start 03/07/17 at 09:00 Duloxetine HCl (Cymbalta) 30 mg DAILY PO Last administered on 03/08/17 08:44 ; Admin Dose 30 MG; Start 03/07/17 at 09:00 Gabapentin (Neurontin) 900 mg QID PO Last administered on 03/08/17 08:44; Admin Dose 900 MG; Start 03/06/17 at 13:00 Zolpidem Tartrate (Ambien) 10 mg QHS PRN PO INSOMNIA Last administered on 03/07 01:32; Admin Dose 10 MG; Start 03/06/17 at 09:30 Ondansetron HCl 4 mg 4 mg Q6H PRN IV NAUSEA AND/OR VOMITING Last administered on 03/07/17 10:46; Admin Dose 4 MG; Start 03/06/17 at 16:30 Potassium Chloride/Dextrose/ Sod Cl 1,000 ml @ 100 mls/hr Q10H IV Last administered on 03/08/17 03:07; Admin Dose 100 MLS/HR; Start 03/08/17 at 00: 38 Cefazolin Sodium (Ancef 1 Gm/50 ml (Pmx)) 50 ml @ 100 mls/hr Q8H IVPB Last administered on 03/08/17 08:44; Admin Dose 100 MLS/HR; Start 03/08/17 at 01: 00; Stop 03/08/17 at 17:29 Bisacodyl (Dulcolax Supp) 10 mg DAILY PRN LA CONSTIPATION; Start 03/08/17 at 01:00 Docusate Sodium (Colace) 100 mg BID PO Last administered on 03/08/17 08:44; Admin Dose 100 MG; Start 03/08/17 at 09:00 Famotidine (Pepcid Iv) 20 mg BID IV Last administered on 03/08/17 08:45; Admin Dose 20 MG; Start 03/08/17 at 09:00 Naloxone HCl (Narcan) 0.2 mg Q2M PRN IV RR 8 BREATHS/MIN OR LESS; Start at 01:00 Acetaminophen/ Hydrocodone Bitart ([place] (10/325)) 2 tab Q6 PO ; Start at 12:00 Hydromorphone HCl (Dilaudid) 0.4 mg Q2H PRN IV BREAKTHROUGH PAIN Last administered on 03/08/17 08:30; Admin Dose 0.2 MG; Start 03/08/17 at 08:15 Tramadol HCl (Ultram) 50 mg Q6 PO ; Start 03/08/17 at 12:00 Baclofen (Lioresal) 10 mg TID PO Last administered on 03/08/17 08:44; Admin Dose 10 MG; Start 03/08/17 at 09:00 Assessment/Plan Chief Complaint/Hosp Course 1. Acute on chronic lumbar radiculopathy with symptoms of paraesthesia, numbness and foot drop. Plan is for the patient to undergo urgent neurosurgical evaluation by Dr. Morrison and is now pod #1 for L4-5 TLIF. Add flexeril for spasms. neurosurg fu. 2. History of depression. Continue Wellbutrin and Cymbalta. 3. Neuropathy. Continue Neurontin. 4. Gastrointestinal and deep venous thrombosis prophylaxis. Continue proton pump inhibitor and Lovenox. 5. Insomnia. Continue Ambien. 6. Previous history of spinal and neck surgery. Problems: HALEY CALERO MD Mar 08, 2017 09:54
[2017-03-08] MEDS: TIZANIDINE 2 MG TAB PO PRN (11:29)
[2017-03-08] MEDS ORDERED: HYDROmorphONE 0.2 MG/ML PCA IV SCH (12:00)
[2017-03-08] MEDS: HYDROCODONE/APAP (10/325) TAB PO SCH ×2 (12:00→16:24)
--- NOTE | 2017-03-08 12:04 | PN ---
DATE: 03/07/2017 The patient is a 46-year-old female with past medical history of chronic low back pain due to L3, L4 , L5 disk herniation, underlying radiculopathy, presented to [facility] with worse alison pain, inability to stand with numbness, foot drop. The patient had previous back surgery. See n by Dr. Morrison who went over the options and recommended to have L4-L5 laminectomy, fusion. The pat iekim has elected to do the surgical route instead of the medical route, made aware of the options an d is scheduled for procedure later today, and answered all of her questions regarding possibilities of pain and the like. Her past medical history, medications are all reviewed. A 14-point review of systems is conducted and pertinent positives and negatives are as stated in the HPI, otherwise nega tive. PHYSICAL EXAMINATION: VITAL SIGNS: Temperature 97.5, blood pressure 115/67. HEENT: Head is normocephalic, atraumatic. Pupils equal, round, reactive to light and accommodatio n. NECK: Supple. HEART: Regular rate and rhythm. LUNGS: Clear to auscultation. ABDOMEN: Soft, nontender, nondistended, with normal bowel sounds. EXTREMITIES: LABORATORY DATA: White count 9.8, hemoglobin 12, hematocrit 37. Sodium 139, potassium 3.4, BUN 20, creatinine 1.1. UA is reviewed on microscopy. Chest x-ray reviewed. IMPRESSION: 1. Acute on chronic lumbar radiculopathy with complication of paresthesia, numbness and foot drop. The patient is planned to go for L4-L5 laminectomy, fusion per Dr. Morrison's recommendations. The pa tiekim is medically optimized. Low risk for surgery. 2. History of depression. Continue Wellbutrin and Cymbalta. 3. Neuropathy. Continue Neurontin. 4. Insomnia. Continue Ambien. 5. Previous history of spinal and neck surgery. Followup for help with pump. Dictated By: HALEY CALERO MD DF/NTS Conf#: [id number] DID#: [id number] CC: SEBASTIAN RIVERO DO;*EndCC*
[2017-03-08] MEDS: oxyCODONE 5 MG TAB PO SCH ×2 (12:31→18:29)
[2017-03-08] MEDS: traMADol 50 MG TAB PO SCH ×2 (12:31→18:00)
[2017-03-08] MEDS: HYDROmorphONE 0.2 MG/ML PCA IV SCH ×3 (14:30→22:30)
--- NOTE | 2017-03-08 23:43 | OPR ---
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 Preoperative diagnosis: L4-L5 degenerative disc disease, disc herniation and stenosis with progressively increasing L5 radiculopathy with partial foot drop Postoperative diagnosis: Same as above Procedure performed: 1. Minimally invasive L4 decompressive laminectomy (more laminectomy performed than would be needed for a simple transforaminal lumbar interbody fusion) 2. Minimally invasive right L4-L5 total facetectomy for transforaminal lumbar interbody arthrodesis 3. Placement of intervertebral cage at L4-L5 (titanium 10 mm height lordotic TLIF cage) 4. L4-L5 minimally invasive posterior instrumentation (RTI Ackley 6.5 mm pedicle screws) 5. L4-L5 posterior arthrodesis 6. Intraoperative fluoroscopy with professional interpretation 7. Intraoperative microscope with microdissection 8. Intraoperative neurophysiologic monitoring including SSEP, MEP and EMG 9. CPT code modifier 22 for excess of difficulty in performing the L4-L5 facetectomy for L4-L5 interbody arthrodesis given the fact that the patient is morbidly obese with the depth from skin to bone being 10 cm. It took an additional 2 hours more than would be required for a traditional facetectomy for transforaminal lumbar interbody fusion given the above difficulty. 10. Bone marrow aspirate harvest 11. Local autologous morcellized bone graft harvest 12. Morcellized allograft demineralized bone matrix putty. Indication for procedure: Please see the inpatient consultation note during the same hospitalization for a full set of indications. Description of operative procedure: The patient was brought to the operating room. After general anesthesia was obtained she was placed prone on top of the open Edis table. Her arms were abducted less than 90 and placed in Superman position. All pressure points including the patient's breasts were noted and padded appropriately. The midline lumbar spine was marked. Then vertical paraspinal lumbar lines approximately 4-1/2-5 cm lateral to midline was marked on each side. After the skin was prepped and draped understands old- fashioned, the L4 and L5 pedicle entry points were located under AP and lateral fluoroscopy. Then a small linear incision connecting the spinal needle entry points was marked on each side. Local anesthetics were infiltrated into the marked incisions. The skin was incised down to the level of the fascia. Jamshidi needles were used in order to cannulate the L4 and L5 pedicles under combination of AP and lateral fluoroscopy. When the Jamshidi needle tip was at the junction of the pedicle vertebral body, another AP fluoroscopy was done to confirm that the medial wall of the pedicle was not breached. Then the Jamshidi needles were slightly advanced into the L4 and L5 vertebral bodies. She needles were then exchanged with K wires and the K wires were then tested with EMG stimulation and all the stimulation thresholds were greater than 12 mA. Then 6.5 mm diameter pedicle screws were placed at left L4 and L5 under direct lateral fluoroscopy. No screws were placed on the right side yet because he were doing the transforaminal lumbar interbody fusion from this side. The K wires were then bent to the side and stapled to the drapes. The sharp K wire was inserted under direct lateral fluoroscopy and placed over the right L4-L5 facet and Parallel to the L4-L5 disc space. Serial tube dilators were inserted and the posterior soft tissue was dissected off the facet complex. The final working tube which was the longest tube available, 9 cm that was still a bit short given the patient's large body habitus was inserted, medialized and placed parallel to the L4-L5 disc space. The L4-L5 disc space was significantly degenerated and collapsed when compared to the adjacent disc spaces. The tube was locked to the table in that position. The operating microscope was brought into the field. The soft tissue was dissected off the right L4-L5 facet complex and denuded. There was right L4-L5 facet arthropathy and hypertrophy. Using a combination of the high-speed drill, Kerrison rongeurs and curettes we then performed a total right L4-L5 facetectomy and foraminotomy. Right L4 decompressive laminectomy was also performed. The right L4-L5 neural foramen was completely decompressed. Soft tissue covering the exiting right L4 nerve was kept in tact to protect the nerve root. The ligamentum flavum was Intact as much as possible to protect the dura. However, due to the patient's extreme depth, doing the decompression and the facetectomy was extremely difficult. The L4-L5 annulus was then located and cut. Using a combination of increasing height pattern rajeev, the L4-L5 disc material was then mobilized and removed. Using the upgoing pituitary more disc material central and contralaterally was removed. The ventral epidural space was completely decompressed. The endplates were decorticated. The disc space was completely irrigated with antibiotic solution. The patient's bone quality overall appeared to be quite good. We were able to distract the disc space to a height of 10 mm with the rajeev. We decided to use the 12 mm height titanium lordotic cage. The cage was then packed with a combination of the locally harvested morcellized autologous bone graft, bone marrow aspirate that was harvested during the cannulation of the pedicles and demineralized bone matrix allograft putty. Some of the remaining combination of biologic material was packed into the anterior L4-L5 disc space. The titanium cage was then inserted under direct lateral fluoroscopy and medialized. It was then countersunk and we achieved excellent distraction of the collapsed L4-L5 disc space. However, when we attempted to unscrew the cage sales administration manager and disengage the sales administration manager from the cage, it became apparent that the disengaging screw was completely jammed and even with the use of pliers and vice-braille and talking books clerk, it was impossible to disengage the cage sales administration manager from the cage. The spine rep who was present intraoperatively even managed to contact the associate professor of biology of the cage and they were unable to provide us with any additional assistance. After spending over 1.5 hours trying to troubleshoot the jammed cage sales administration manager, we then had no choice but to try to remove the cage. We inserted a properly sized fabian on the contralateral side, the left side percutaneously. The setscrews were inserted and the disc space was then slightly distracted. This slight distraction then allowed the cage to become mobilized and loosened and then fortunately we were able to easily remove the cage. On examining the the sales administration manager it became obvious that the sales administration manager was completely jammed into the cage and even with the cage sales administration manager removed from the patient it was still impossible to disengage it from the cage. In order to minimize the chance of another jamming, a new sales administration manager that was available was then used to insert a 10 mm height lordotic titanium cage packed with the same combination of biologic material from the previous cage and it was inserted and medialized and countersunk under direct lateral fluoroscopy. The sales administration manager was then easily able to be disengaged from the cage. The ligamentum flavum over the thecal sac was then removed. The thecal sac was completely decompressed. There was an area of dural thinning was noted with the arachnoid layer visible. Once the thecal sac was completely decompressed, complete hemostasis was obtained, the wound was copiously irrigated with antibiotic solution. Then a piece of Surgicel was placed over the area of dural thinning. DuraSeal was applied over the exposed dura and the right L4-L5 neural foramen. Then the remaining biologic material was placed over the right L4-L5 foramen for posterior arthrodesis. The tube was then removed. 6.5 mm pedicle screws were also placed on the right side at L4 and L5. The percutaneous fabian was also inserted on the right side. Set screws were inserted. Both sides were then compressed. Screws were then fully tightened with the torque and counter torque wrench devices. The pedicle screw posts were then removed. A final AP and lateral x- ray showed good positioning of the hardware and excellent distraction of the collapsed disc space. The muscle and fascial layers were then reapproximated with interrupted sutures. A right epifascial medium Danial drain was inserted and the other end of the drain was brought out of the skin away from the incision site. The dermal layer was reapproximated with interrupted sutures on both sides. The skin was reapproximated with a simple running Rapide 3-0 suture. The Danial drain was secured at its exit site to the skin with a suture and connected to a ESSIE bulb. Sterile dressings were placed over the incision sites. The patient was then placed supine on the hospital bed. She was woken up, extubated and transported to the recovery room in stable condition. She was moving her upper and lower extremities in the PACU. Estimated blood loss: 100 cc Blood products administered: None Specimen removed: None Anesthesia: Gen. Incision: Bilateral paraspinal lumbar Skin closure: Rapide 3-0 simple running Patient condition: Stable Prognosis: Good Wound classification: ALOK Ron MD Mar 08, 2017 23:43
[2017-03-09] VITALS (14 sets, daily range): BP systolic 94–126; BP diastolic 46–71; PULSE 38–97; RESP 16–21
[2017-03-09] MEDS: TIZANIDINE 2 MG TAB PO PRN ×2 (00:12→08:30)
[2017-03-09] MEDS: oxyCODONE 5 MG TAB PO SCH ×4 (00:12→19:19)
[2017-03-09] MEDS: HYDROCODONE/APAP (10/325) TAB PO SCH ×4 (00:13→21:56)
[2017-03-09] MEDS: traMADol 50 MG TAB PO SCH ×4 (00:13→21:58)
[2017-03-09] MEDS: HYDROmorphONE 0.2 MG/ML PCA IV SCH ×7 (02:30→22:30)
[2017-03-09] MEDS: ONDANSETRON 4 MG INJ IV PRN ×2 (04:15→14:02)
[2017-03-09] MEDS: D5W-0.45 NACL + KCL 20 MEQ 1,000 ML IV SCH ×2 (08:35→16:38)
[2017-03-09] MEDS: BUPROPION (XL) 150 MG TAB PO SCH (08:52)
[2017-03-09] MEDS: DOCUSATE SODIUM 100 MG CAP PO SCH ×2 (08:53→21:39)
[2017-03-09] MEDS: GABAPENTIN 300 MG CAP PO SCH ×4 (08:53→21:39)
[2017-03-09] MEDS: BACLOFEN 10 MG TAB PO SCH ×3 (08:53→21:39)
[2017-03-09] MEDS: FAMOTIDINE 20 MG TAB PO SCH ×2 (08:53→21:39)
[2017-03-09] MEDS: DULOXETINE 30 MG CAP DR PO SCH (08:53)
--- NOTE | 2017-03-09 08:54 | PN ---
DATE: 03/09/2017 SUBJECTIVE: The patient is stable, complaining about pain which is controlled with current pain regimen. No other events noted. The patient denies any radicular pain or numbness in lower extremity. pt with wound on chin, a blister she stated that has denuded. OBJECTIVE: VITAL SIGNS: Blood pressure is 94/46, respiration 18, pulse 80, temperature 98.8. HEENT: Head is normocephalic. + wound on chin with denuded skin, and white exudate NECK: Supple. HEART: Regular rate. LUNGS: Show diminished breath sounds at the base. ABDOMEN: Soft, nontender to palpation without rebound or guarding. EXTREMITIES: Negative for clubbing, cyanosis. No edema. DERMATOLOGIC: No rashes. MUSCULOSKELETAL: No joint effusions. NEUROLOGIC: No change in exam. MEDICATIONS: Have been reviewed. LABORATORY DATA: Has been reviewed. ASSESSMENT AND PLAN: 1. Acute on chronic lumbar radiculopathy. The patient is status post L4-L5 laminectomy with fusion. The patient currently has underlying pain at the surgical site, but no radicular symptoms. We will continue current treatment plan. Follow up with surgery for any further recommendations. 2. Hypokalemia. We will continue to monitor and replete. 3. Renal insufficiency, likely due to hemodynamics, repeat a BNP level. Continue gentle IV hydration. 4. Chronic pain syndrome. Continue current pain regimen. Defer to neurosurgery for pain management. 5. Neuropathy. Continue Neurontin. 6. Insomnia. Continue Ambien. 7. Gastrointestinal and deep venous thrombosis prophylaxis. Continue proton pump inhibitor and sequential leg squeezers 8. Depression. Continue Cymbalta. 9. Chin wound with denuded skin and white exudate. ? infection. Will place wound care evaluation, get culture. Consider ID evaluation Dictated By: SEBASTIAN RIVERO DO NR/NTS Conf#: [id number] DID#: [id number]
[2017-03-09] MEDS: HYDROmorphONE 0.5 MG/0.5 ML SYG IV PRN ×2 (11:00→16:24)
[2017-03-09 13:15] LABS: BASOPHIL # 0.1 10^3/ul (0.0-0.1); BASOPHILS % 0.4 % (0.0-2.0); EOSINOPHILS # 0.1 10^3/ul (0.0-0.5); EOSINOPHILS % 0.9 % (0.0-7.0); HEMATOCRIT 31.2 % (37.0-47.0); HEMOGLOBIN 10.1 g/dl (12.0-16.0); LYMPHOCYTES # 2.4 10^3/ul (0.8-2.9); LYMPHOCYTES % 17.4 % (15.0-51.0); MEAN CORPUSCULAR HEMOGLOBIN 29.3 pg (29.0-33.0); MEAN CORPUSCULAR HGB CONC 32.4 g/dl (32.0-37.0); MEAN CORPUSCULAR VOLUME 90.4 fl (82.0-101.0); MEAN PLATELET VOLUME 10.2 fl (7.4-10.4); MONOCYTE # 1.4 10^3/ul (0.3-0.9); MONOCYTES % 9.7 % (0.0-11.0); NEUTROPHILS % 71.2 % (39.0-77.0); PLATELET COUNT 270 10^3/UL (140-415); RED BLOOD COUNT 3.45 10^6/ul (4.20-5.40); RED CELL DISTRIBUTION WIDTH 13.6 % (11.5-14.5)
[2017-03-09 13:32] LABS: CALCIUM 8.5 mg/dl (8.4-10.2); CREATININE 0.7 mg/dl (0.44-1.00); POTASSIUM 3.8 mmol/L (3.5-5.1)
[2017-03-09 14:47] LABS: MICROALBUMIN 0.7 mg/dL
--- NOTE | 2017-03-09 17:28 | CONS ---
Date/Time of Note Date/Time of Note DATE: 03/09/17 TIME: 17:22 Consult Date/Type/Reason Admit Date/Time Mar 06, 2017 at 09:29 Initial Consult Date 03/06/17 Type of Consultation: CARDIOLOGY Ordering Provider: SEBASTIAN RIVERO DO Subjective CARDIOLOGY FOLLOW UP NOTE: S: D/W STAFF and rhythm was reviewed. pt remains in NSR. s/p spinal surgery 03/07/17 she c/o severe back pain. no cp or pressure. no sob. O: General: obese. no acute distress HEENT: NC/AT. pupils are equal. round. NECK: NO JVD. no stridor. CV: RRR. systolic murmur; no gallop or rubs. PULM: no wheezing or rhonchi. GI: SOFT, obese. NT, ND, no rebound or guarding Extremity: trace B/L LE edema. no clubbing. neuro: awake and alert, OX3. Psych: calm and pleasant rectal: deferred ECG: NSR and nonspecific T-wave abnormalities. Prolonged QT ECHO reviewed: 1. Normal left ventricular systolic function. Normal left ventricular cavity size. Normal left ventricular wall thickness. Ejection fraction is visually estimated at 60 %. Tissue Doppler/Mitral Doppler indices are consistent with impaired relaxation (Stage I diastolic dysfunction). 2. Normal appearance and function of the mitral valve with trace physiologic regurgitation. 3. Normal appearance of the aortic valve. No significant aortic stenosis or insufficiency. 4. Normal appearance of the tricuspid valve. Estimated peak PA systolic pressure 24 mmHg. There is trace tricuspid regurgitation. Objective Vital Signs Date Time Temp Pulse Resp B/P Pulse Ox O2 Delivery O2 Flow Rate FiO2 03/09/17 16:11 82 03/09/17 15:34 98.2 18 98/54 96 03/09/17 15:28 Room Air 03/09/17 08:10 2.0 Intake and Output 03/08/17 03/08/17 03/09/17 15:00 23:00 07:00 Intake Total 1850 ml 1250 ml Output Total 900 ml 860 ml Balance 950 ml 390 ml Results/Medications Result Diagram: 03/09/17 1303 03/09/17 1303 Results 24 hrs Laboratory Tests Test 03/09/17 13:03 White Blood Count 14.0 #H Red Blood Count 3.45 L Hemoglobin 10.1 L Hematocrit 31.2 L Mean Corpuscular Volume 90.4 Mean Corpuscular Hemoglobin 29.3 Mean Corpuscular Hemoglobin Concent 32.4 Red Cell Distribution Width 13.6 Platelet Count 270 Mean Platelet Volume 10.2 Neutrophils % 71.2 Lymphocytes % 17.4 Monocytes % 9.7 Eosinophils % 0.9 Basophils % 0.4 Nucleated Red Blood Cells % 0.0 Neutrophils # 10.0 H Lymphocytes # 2.4 Monocytes # 1.4 H Eosinophils # 0.1 Basophils # 0.1 Nucleated Red Blood Cells # 0.0 Sodium Level 137 Potassium Level 3.8 Chloride Level 101 Carbon Dioxide Level 31 Anion Gap 9 Blood Urea Nitrogen 9 Creatinine 0.70 Glucose Level 104 Calcium Level 8.5 Medications Current Medications Bupropion HCl (Wellbutrin Xl) 300 mg DAILY PO Last administered on 03/09/17 08:52; Admin Dose 300 MG; Start 03/07/17 at 09:00 Duloxetine HCl (Cymbalta) 30 mg DAILY PO Last administered on 03/09/17 08:53 ; Admin Dose 30 MG; Start 03/07/17 at 09:00 Gabapentin (Neurontin) 900 mg QID PO Last administered on 03/09/17 14:02; Admin Dose 900 MG; Start 03/06/17 at 13:00 Zolpidem Tartrate (Ambien) 10 mg QHS PRN PO INSOMNIA Last administered on 03/07 01:32; Admin Dose 10 MG; Start 03/06/17 at 09:30 Ondansetron HCl 4 mg 4 mg Q6H PRN IV NAUSEA AND/OR VOMITING Last administered on 03/09/17 14:02; Admin Dose 4 MG; Start 03/06/17 at 16:30 Potassium Chloride/Dextrose/ Sod Cl (D5-1/2ns + KCl 20 Meq) 1,000 ml @ 100 mls/ hr Q10H IV Last administered on 03/09/17 08:35; Admin Dose 100 MLS/HR; Start 03/08/17 at 00:38 Bisacodyl (Dulcolax Supp) 10 mg DAILY PRN PA CONSTIPATION; Start 03/08/17 at 01:00 Docusate Sodium (Colace) 100 mg BID PO Last administered on 03/09/17 08:53; Admin Dose 100 MG; Start 03/08/17 at 09:00 Naloxone HCl (Narcan) 0.2 mg Q2M PRN IV RR 8 BREATHS/MIN OR LESS; Start at 01:00 Acetaminophen/ Hydrocodone Bitart ([place] (10/325)) 2 tab Q6 PO Last administered on 03/09/17 12:15; Admin Dose 2 TAB; Start 03/08/17 at 12:00 Tramadol HCl (Ultram) 50 mg Q6 PO Last administered on 03/09/17 13:01; Admin Dose 50 MG; Start 03/08/17 at 12:00 Baclofen (Lioresal) 10 mg TID PO Last administered on 03/09/17 14:01; Admin Dose 10 MG; Start 03/08/17 at 09:00 Tizanidine HCl (Zanaflex) 2 mg Q8H PRN PO muscle spasm Last administered on 08:30; Admin Dose 2 MG; Start 03/08/17 at 10:30 Hydromorphone HCl (Dilaudid) 0.4 mg Q1H PRN IV BREAKTHROUGH PAIN Last administered on 03/09/17 16:24; Admin Dose 0.4 MG; Start 03/08/17 at 11:30 Oxycodone HCl (Roxicodone) 5 mg Q6 PO Last administered on 03/09/17 15:01; Admin Dose 5 MG; Start 03/08/17 at 12:00 Hydromorphone HCl (Dilaudid FIELD CONTRACTOR) 0 MG/HR CONTINUOUS R... Q4H IV Last administered on 03/09/17 15:15; Admin Dose 6 MG; Start 03/08/17 at 14:30 Famotidine (Pepcid) 20 mg BID PO Last administered on 03/09/17 08:53; Admin Dose 20 MG; Start 03/09/17 at 09:00 Silver Sulfadiazine (Thermazene 1% 25 Gm) 1 applic DAILY TOP ; Start 03/10/17 at 09:00 Assessment/Plan Chief Complaint/Hosp Course 1. CV preop evaluation 2. severe LBP and radiculopathy; s/p surgery now 3. mildly abnormal ECG 4. Hx depression 5. obesity. Recommendations: cont current cardiac care post op care and pain management as per neurosurgery team DVT prophylaxis as per neurosurgery team, Thank you for his referral. We will continue to follow along with you as needed basis. ERIKA HERNANDEZ MD FACC : Problems: ERIKA HERNANDEZ MD Mar 09, 2017 17:28
[2017-03-10] VITALS (13 sets, daily range): BP systolic 95–120; BP diastolic 50–69; PULSE 73–90; RESP 17–20
[2017-03-10] MEDS: traMADol 50 MG TAB PO SCH ×5 (00:54→23:20)
[2017-03-10] MEDS: HYDROCODONE/APAP (10/325) TAB PO SCH ×5 (00:54→23:20)
[2017-03-10] MEDS: HYDROmorphONE 0.2 MG/ML PCA IV SCH ×7 (02:30→22:29)
[2017-03-10] MEDS: D5W-0.45 NACL + KCL 20 MEQ 1,000 ML IV SCH (03:06)
[2017-03-10] MEDS: TIZANIDINE 2 MG TAB PO PRN (04:50)
[2017-03-10] MEDS: oxyCODONE 5 MG TAB PO SCH ×5 (04:50→23:20)
[2017-03-10 08:16] LABS: BASOPHIL # 0.1 10^3/ul (0.0-0.1); BASOPHILS % 0.4 % (0.0-2.0); EOSINOPHILS # 0.3 10^3/ul (0.0-0.5); EOSINOPHILS % 2.5 % (0.0-7.0); HEMOGLOBIN 9.8 g/dl (12.0-16.0); LYMPHOCYTES % 17.3 % (15.0-51.0); MEAN CORPUSCULAR HEMOGLOBIN 28.8 pg (29.0-33.0); MEAN CORPUSCULAR HGB CONC 31.6 g/dl (32.0-37.0); MEAN CORPUSCULAR VOLUME 91.2 fl (82.0-101.0); MONOCYTE # 1.2 10^3/ul (0.3-0.9); MONOCYTES % 10.4 % (0.0-11.0); NEUTROPHILS % 68.8 % (39.0-77.0); PLATELET COUNT 253 10^3/UL (140-415); RED CELL DISTRIBUTION WIDTH 13.6 % (11.5-14.5); WHITE BLOOD COUNT 11.6 10^3/ul (4.8-10.8)
[2017-03-10 08:37] LABS: CALCIUM 8.3 mg/dl (8.4-10.2); CREATININE 0.77 mg/dl (0.44-1.00); MAGNESIUM 2.1 mg/dl (1.7-2.5); PHOSPHORUS 3.5 mg/dl (2.5-4.9)
[2017-03-10] MEDS: SILVER SULFADIAZINE 1% 25 GM CR TOP SCH (09:07)
[2017-03-10] MEDS: DULOXETINE 30 MG CAP DR PO SCH (09:08)
[2017-03-10] MEDS: BUPROPION (XL) 150 MG TAB PO SCH (09:08)
[2017-03-10] MEDS: GABAPENTIN 300 MG CAP PO SCH ×4 (09:08→20:01)
[2017-03-10] MEDS: FAMOTIDINE 20 MG TAB PO SCH ×2 (09:08→20:01)
[2017-03-10] MEDS: DOCUSATE SODIUM 100 MG CAP PO SCH ×2 (09:08→20:01)
[2017-03-10] MEDS: BACLOFEN 10 MG TAB PO SCH ×3 (09:08→20:01)
--- NOTE | 2017-03-10 09:19 | PN ---
DATE: 03/10/2017 SUBJECTIVE: The patient is stable. No events overnight. VITAL SIGNS: Blood pressure 103/58, respiration 18, pulse 75, temperature 98.8. HEENT: Head is normocephalic. The patient's chin has had noted wound which is improving. No activ e drainage. HEART: Regular rate. LUNGS: Show diminished breath sounds at base. ABDOMEN: Soft, nontender to palpation without rebound or guarding. EXTREMITIES: Negative for clubbing, cyanosis. No edema. DERMATOLOGIC: No rashes. MUSCULOSKELETAL: No joint effusions. NEUROLOGIC: No change in exam. MEDICATIONS: Reviewed. LABORATORY DATA: Shows white count 11.6, hemoglobin 9.8, platelet count is 253. BMP was within nor mal limits. ASSESSMENT AND PLAN: 1. Acute on chronic lumbar radiculopathy, status post L4-L5 laminectomy with fusion. The patient i s currently still having severe pain on TOWER CONTROL OPERATOR pump, will continue. Follow up with surgery for further recommendations and wean off TOWER CONTROL OPERATOR pump if possible. 2. Leukocytosis, etiology may be secondary to underlying facial wound. Will continue to monitor. We will place an Infectious Diseases consult for evaluation. 3. Chin wound with denuded skin, white exudate. Etiology may be infection versus an allergic react ion. Cultures have been sent. Follow up with wound care. Follow up with Infectious Disease. 4. Hypokalemia, improved. 5. Renal insufficiency. Etiology is secondary to hemodynamics. Renal function has improved. 6. Chronic pain syndrome. Continue current pain regimen. 7. Neuropathy. Continue Neurontin. 8. Insomnia. Continue Ambien. 9. Depression. Continue Zoloft. 10. Gastrointestinal and deep venous thrombosis prophylaxis. Dictated By: SEBASTIAN RIVERO DO NR/NTS Conf#: [id number] DID#: [id number] CC: SEBASTIAN RIVERO DO;*EndCC*
--- NOTE | 2017-03-10 12:02 | CONS ---
DATE OF ADMISSION: 03/06/2017 DATE OF CONSULTATION: 03/10/2017 TYPE OF CONSULTATION: Infectious Disease. REASON FOR CONSULTATION: Antibiotic management. HISTORY OF PRESENT ILLNESS: Dionne Schwartz is a 46-year-old female who comes in with severe back pa in and radiculopathy. PAST PROBLEMS: Include chronic low back pain due to L3, L4, L5 disk herniation with underlying radi culopathy. She presents with worsening pain and inability to stand, as well as numbness. She has h ad chronic back pain for the last 3-1/2 years; however, over the last few weeks she has had worsenin g symptoms and severity of her back pain. She came to [facility] for acute neurosurgical e valuation. She has been seen by Dr. Morrison, neurosurgery. Past problems also include history of depression, history of neuropathy. PAST SURGICAL HISTORY: She had disk replacement in her neck. She is status post cholecystectomy, s tatus post , status post hernia repair, status post hemorrhoid surgery. PAST MEDICAL HISTORY: Otherwise noncontributory. FAMILY HISTORY: Noncontributory. SOCIAL HISTORY: She does not smoke, drink or abuse drugs. ALLERGIES: NONE TO PENICILLIN, SULFA OR FOODS. MEDICATIONS: Per chart. REVIEW OF SYSTEMS: As per HPI. On admission, her white count was 7.7, hemoglobin 14.3, platelet count 369,000. HOSPITAL COURSE: The patient was noted to have foot drop. She was seen by Dr. Morrison, who took her to surgery. She had L4-L5 transforaminal interbody fusion, severity level III. She had L4-L5 trans foraminal interbody fusion level IV for acute back pain and for L4-L5 stenosis. According to Dr. Ra greenberg, she had acute on chronic lumbar radiculopathy. She has no radicular symptoms at this time. Her wounds are pending. She received cefazolin for her surgery and her white count today is 11.6. PHYSICAL EXAMINATION: GENERAL: The patient is a well-developed, well-nourished female who is alert, responsive, in no acu te distress. VITAL SIGNS: Stable. She is afebrile. SKIN: Without generalized rash. HEENT: Within normal limits. NECK: Supple. LYMPH NODES: None palpable. CHEST: Decreased breath sounds at the bases. HEART: Without murmur or gallop. ABDOMEN: Soft, nontender, without organosplenomegaly or masses. EXTREMITIES: Without cyanosis, clubbing, or edema. RECTAL AND GENITAL: Deferred. NEUROLOGIC AND PLAN: The patient status post neurosurgery. The wound itself is covered. IMPRESSION AND PLAN: At this point, there is no reason for antibiotic therapy. Aside from prophyla xis for surgery, which is already done. I will dictate my findings to Dr. Davis and to Dr. Morrison. Dictated By: ANNALEE MARES MD, JD/CANDE Conf#: [id number] DID#: [id number]
--- NOTE | 2017-03-10 13:51 | PN ---
Date/Time of Note Date/Time of Note DATE: 03/10/17 TIME: 13:51 Assessment/Plan VTE Prophylaxis VTE Prophylaxis Intervention: SCD's Lines/Catheters IV Catheter Type (from Nrsg): Peripheral IV Central line still needed: No Urinary Cath still in place: No Assessment/Plan Assessment/Plan Date of progress note: 03/09/2017 The patient is postop day 1 status post minimally invasive L4-L5 transforaminal lumbar interbody fusion and decompression. Her preoperative lower extremity radicular pain is almost fully resolved. The patient's bilateral ankle dorsiflexion motor strength has increased compared to preoperative status with a motor strength being 4+ out of 5 with bilateral EHLs and ankle dorsiflexion. She still has some numbness in the L5 versus S1 distribution bilaterally greater on the right than the left similar to preoperative status. The patient has postsurgical incisional low back pain. Her pain is being better controlled now with a combination of oral and IV pain medications. Her epifascial drain has had small serosanguineous discharge. The patient's strict bedrest flat in bed order has now been discontinued. The patient will be starting physical therapy this afternoon. Her bilateral lumbar incisions are clean dry and intact with dressing. The pending on how the patient does with physical therapy she may need to be transferred to acute rehabilitation versus home. The epifascial drain will be Kept in place for 1 week and it could be removed in an outpatient basis. MIKE RUSSO MD Mar 10, 2017 13:51
--- NOTE | 2017-03-10 16:02 | CONS ---
Date/Time of Note Date/Time of Note DATE: 03/10/17 TIME: 16:01 Consult Date/Type/Reason Admit Date/Time Mar 06, 2017 at 09:29 Initial Consult Date 03/06/17 Type of Consultation: CARDIOLOGY Ordering Provider: SEBASTIAN RIVERO DO Subjective CARDIOLOGY FOLLOW UP NOTE: S: D/W STAFF and rhythm was reviewed. pt remains in NSR. no significant arrhythmia over night. s/p spinal surgery 03/07/17 she c/o severe back pain. no cp or pressure. no sob. O: General: obese. no acute distress HEENT: NC/AT. pupils are equal. round. NECK: NO JVD. no stridor. CV: RRR. systolic murmur; no gallop or rubs. PULM: no wheezing or rhonchi. GI: SOFT, obese. NT, ND, no rebound or guarding Extremity: trace B/L LE edema. no clubbing. neuro: awake and alert, OX3. Psych: calm and pleasant rectal: deferred ECG: NSR and nonspecific T-wave abnormalities. Prolonged QT ECHO reviewed: 1. Normal left ventricular systolic function. Normal left ventricular cavity size. Normal left ventricular wall thickness. Ejection fraction is visually estimated at 60 %. Tissue Doppler/Mitral Doppler indices are consistent with impaired relaxation (Stage I diastolic dysfunction). 2. Normal appearance and function of the mitral valve with trace physiologic regurgitation. 3. Normal appearance of the aortic valve. No significant aortic stenosis or insufficiency. 4. Normal appearance of the tricuspid valve. Estimated peak PA systolic pressure 24 mmHg. There is trace tricuspid regurgitation. Objective Vital Signs Date Time Temp Pulse Resp B/P Pulse Ox O2 Delivery O2 Flow Rate FiO2 03/10/17 15:21 98.8 92 18 95/54 94 03/09/17 20:00 Nasal Cannula 2.0 Intake and Output 03/09/17 03/09/17 03/10/17 14:59 22:59 06:59 Intake Total 500 ml 1000 ml Output Total 590 ml Balance -90 ml 1000 ml Results/Medications Result Diagram: 03/10/17 0709 03/10/17 0709 Results 24 hrs Laboratory Tests Test 03/10/17 07:09 White Blood Count 11.6 H Red Blood Count 3.40 L Hemoglobin 9.8 L Hematocrit 31.0 L Mean Corpuscular Volume 91.2 Mean Corpuscular Hemoglobin 28.8 L Mean Corpuscular Hemoglobin Concent 31.6 L Red Cell Distribution Width 13.6 Platelet Count 253 Mean Platelet Volume 11.0 H Neutrophils % 68.8 Lymphocytes % 17.3 Monocytes % 10.4 Eosinophils % 2.5 Basophils % 0.4 Nucleated Red Blood Cells % 0.0 Neutrophils # 8.0 H Lymphocytes # 2.0 Monocytes # 1.2 H Eosinophils # 0.3 Basophils # 0.1 Nucleated Red Blood Cells # 0.0 Sodium Level 140 Potassium Level 4.0 Chloride Level 100 Carbon Dioxide Level 32 H Anion Gap 12 Blood Urea Nitrogen 7 Creatinine 0.77 Glucose Level 100 Calcium Level 8.3 L Phosphorus Level 3.5 Magnesium Level 2.1 Medications Current Medications Bupropion HCl (Wellbutrin Xl) 300 mg DAILY PO Last administered on 03/10/17 09:08; Admin Dose 300 MG; Start 03/07/17 at 09:00 Duloxetine HCl (Cymbalta) 30 mg DAILY PO Last administered on 03/10/17 09:08 ; Admin Dose 30 MG; Start 03/07/17 at 09:00 Gabapentin (Neurontin) 900 mg QID PO Last administered on 03/10/17 14:19; Admin Dose 900 MG; Start 03/06/17 at 13:00 Zolpidem Tartrate (Ambien) 10 mg QHS PRN PO INSOMNIA Last administered on 03/07 01:32; Admin Dose 10 MG; Start 03/06/17 at 09:30 Ondansetron HCl (Zofran Inj) 4 mg Q6H PRN IV NAUSEA AND/OR VOMITING Last administered on 03/09/17 14:02; Admin Dose 4 MG; Start 03/06/17 at 16:30 Bisacodyl (Dulcolax Supp) 10 mg DAILY PRN [place] CONSTIPATION; Start 03/08/17 at 01:00 Docusate Sodium (Colace) 100 mg BID PO Last administered on 03/10/17 09:08; Admin Dose 100 MG; Start 03/08/17 at 09:00 Naloxone HCl (Narcan) 0.2 mg Q2M PRN IV RR 8 BREATHS/MIN OR LESS; Start at 01:00 Acetaminophen/ Hydrocodone Bitart ([place] (325)) 2 tab Q6 PO Last administered on 03/10/17 14:19; Admin Dose 2 TAB; Start 03/08/17 at 12:00 Tramadol HCl (Ultram) 50 mg Q6 PO Last administered on 03/10/17 14:19; Admin Dose 50 MG; Start 03/08/17 at 12:00 Baclofen (Lioresal) 10 mg TID PO Last administered on 03/10/17 14:19; Admin Dose 10 MG; Start 03/08/17 at 09:00 Tizanidine HCl (Zanaflex) 2 mg Q8H PRN PO muscle spasm Last administered on 04:50; Admin Dose 2 MG; Start 03/08/17 at 10:30 Hydromorphone HCl (Dilaudid) 0.4 mg Q1H PRN IV BREAKTHROUGH PAIN Last administered on 03/09/17 16:24; Admin Dose 0.4 MG; Start 03/08/17 at 11:30 Oxycodone HCl (Roxicodone) 5 mg Q6 PO Last administered on 03/10/17 14:18; Admin Dose 5 MG; Start 03/08/17 at 12:00 Hydromorphone HCl (Dilaudid PATRON ATTENDANT) 0 MG/HR CONTINUOUS R... Q4H IV Last administered on 03/10/17 06:54; Admin Dose 6 MG; Start 03/08/17 at 14:30 Famotidine (Pepcid) 20 mg BID PO Last administered on 03/10/17 09:08; Admin Dose 20 MG; Start 03/09/17 at 09:00 Silver Sulfadiazine (Thermazene 1% 25 Gm) 1 applic DAILY TOP Last administered on 03/10/17 09:07; Admin Dose 1 APPLIC; Start 03/10/17 at 09:00 Assessment/Plan Chief Complaint/Hosp Course 1. CV preop evaluation 2. severe LBP and radiculopathy; s/p surgery now 3. mildly abnormal ECG 4. Hx depression 5. obesity. Recommendations: cont current cardiac care post op care and pain management as per neurosurgery team DVT prophylaxis as per neurosurgery team, Thank you for his referral. We will continue to follow along with you as needed basis. ERIKA HERNANDEZ MD FACC : Problems: ERIKA HERNANDEZ MD Mar 10, 2017 16:02
[2017-03-11] MEDS: HYDROmorphONE 0.2 MG/ML PCA IV SCH ×6 (02:30→22:30)
[2017-03-11 02:45] VITALS: BP 115/58; RESP 19
[2017-03-11] MEDS: HYDROCODONE/APAP (10/325) TAB PO SCH ×3 (05:03→17:37)
[2017-03-11] MEDS: traMADol 50 MG TAB PO SCH ×3 (05:03→17:36)
[2017-03-11] MEDS: oxyCODONE 5 MG TAB PO SCH ×3 (05:04→17:37)
[2017-03-11] MEDS: BACLOFEN 10 MG TAB PO SCH ×3 (07:48→20:46)
[2017-03-11 08:07] VITALS: BP 113/59; RESP 18
--- NOTE | 2017-03-11 08:35 | CONS ---
Date/Time of Note Date/Time of Note DATE: 03/11/17 TIME: 08:33 Consult Date/Type/Reason Admit Date/Time Mar 06, 2017 at 09:29 Initial Consult Date 03/06/17 Type of Consultation: CARDIOLOGY Ordering Provider: SEBASTIAN DAVIS DO Subjective CARDIOLOGY FOLLOW UP NOTE: S: D/W STAFF and dr Davis Pt is off of tele now pt remains in NSR. no significant arrhythmia over night. s/p spinal surgery 03/07/17 she still c/o severe back pain. no cp or pressure. no sob. O: General: obese. no acute distress HEENT: NC/AT. pupils are equal. round. NECK: NO JVD. no stridor. CV: RRR. systolic murmur; no gallop or rubs. PULM: no wheezing or rhonchi. GI: SOFT, obese. NT, ND, no rebound or guarding Extremity: trace B/L LE edema. no clubbing. neuro: awake and alert, OX3. Psych: calm and pleasant rectal: deferred ECG: NSR and nonspecific T-wave abnormalities. Prolonged QT ECHO reviewed: 1. Normal left ventricular systolic function. Normal left ventricular cavity size. Normal left ventricular wall thickness. Ejection fraction is visually estimated at 60 %. Tissue Doppler/Mitral Doppler indices are consistent with impaired relaxation (Stage I diastolic dysfunction). 2. Normal appearance and function of the mitral valve with trace physiologic regurgitation. 3. Normal appearance of the aortic valve. No significant aortic stenosis or insufficiency. 4. Normal appearance of the tricuspid valve. Estimated peak PA systolic pressure 24 mmHg. There is trace tricuspid regurgitation. Objective Vital Signs Date Time Temp Pulse Resp B/P Pulse Ox O2 Delivery O2 Flow Rate FiO2 03/11/17 08:07 97.8 96 18 113/59 96 03/09/17 20:00 Nasal Cannula 2.0 Intake and Output 03/10/17 03/10/17 03/11/17 14:59 22:59 06:59 Intake Total 700 ml 1000 ml Output Total 2205 ml 1000 ml 1305 ml Balance -1505 ml -1000 ml -305 ml Results/Medications Result Diagram: 03/10/17 0709 03/10/17 0709 Medications Current Medications Bupropion HCl (Wellbutrin Xl) 300 mg DAILY PO Last administered on 03/10/17t 09:08; Admin Dose 300 MG; Start 03/07/17 at 09:00 Duloxetine HCl (Cymbalta) 30 mg DAILY PO Last administered on 03/10/17 09:08 ; Admin Dose 30 MG; Start 03/07/17 at 09:00 Gabapentin (Neurontin) 900 mg QID PO Last administered on 03/10/17 20:01; Admin Dose 900 MG; Start 03/06/17 at 13:00 Zolpidem Tartrate (Ambien) 10 mg QHS PRN PO INSOMNIA Last administered on 03/07 01:32; Admin Dose 10 MG; Start 03/06/17 at 09:30 Ondansetron HCl (Zofran Inj) 4 mg Q6H PRN IV NAUSEA AND/OR VOMITING Last administered on 03/09/17 14:02; Admin Dose 4 MG; Start 03/06/17 at 16:30 Bisacodyl (Dulcolax Supp) 10 mg DAILY PRN [place] CONSTIPATION; Start 03/08/17 at 01:00 Docusate Sodium (Colace) 100 mg BID PO Last administered on 03/10/17 20:01; Admin Dose 100 MG; Start 03/08/17 at 09:00 Naloxone HCl (Narcan) 0.2 mg Q2M PRN IV RR 8 BREATHS/MIN OR LESS; Start at 01:00 Acetaminophen/ Hydrocodone Bitart ([place] (10/325)) 2 tab Q6 PO Last administered on 03/11/17 05:03; Admin Dose 2 TAB; Start 03/08/17 at 12:00 Tramadol HCl (Ultram) 50 mg Q6 PO Last administered on 03/11/17 05:03; Admin Dose 50 MG; Start 03/08/17 at 12:00 Baclofen (Lioresal) 10 mg TID PO Last administered on 03/11/17 07:48; Admin Dose 10 MG; Start 03/08/17 at 09:00 Tizanidine HCl (Zanaflex) 2 mg Q8H PRN PO muscle spasm Last administered on 04:50; Admin Dose 2 MG; Start 03/08/17 at 10:30 Hydromorphone HCl (Dilaudid) 0.4 mg Q1H PRN IV BREAKTHROUGH PAIN Last administered on 03/09/17 16:24; Admin Dose 0.4 MG; Start 03/08/17 at 11:30 Oxycodone HCl (Roxicodone) 5 mg Q6 PO Last administered on 03/11/17 05:04; Admin Dose 5 MG; Start 03/08/17 at 12:00 Hydromorphone HCl (Dilaudid BELT NOTCHER) 0 MG/HR CONTINUOUS R... Q4H IV Last administered on 03/10/17 20:30; Admin Dose 6 MG; Start 03/08/17 at 14:30 Famotidine (Pepcid) 20 mg BID PO Last administered on 03/10/17 20:01; Admin Dose 20 MG; Start 03/09/17 at 09:00 Silver Sulfadiazine (Thermazene 1% 25 Gm) 1 applic DAILY TOP Last administered on 03/10/17 09:07; Admin Dose 1 APPLIC; Start 03/10/17 at 09:00 Assessment/Plan Chief Complaint/Hosp Course 1. CV preop evaluation 2. severe LBP and radiculopathy; s/p surgery now 3. mildly abnormal ECG 4. Hx depression 5. obesity. Recommendations: cont current cardiac care post op care and pain management as per neurosurgery team DVT prophylaxis as per IM/ neurosurgery team, currently on SCD. consider adding lovenox once ok with neurosurgery Thank you for his referral. We will continue to follow along with you as needed basis. ERIKA HERNANDEZ MD FACC : Problems: ERIKA HERNANDEZ MD Mar 11, 2017 08:35
[2017-03-11] MEDS: FAMOTIDINE 20 MG TAB PO SCH ×2 (09:00→20:46)
[2017-03-11] MEDS ORDERED: ENOXAPARIN 40 MG/0.4 ML SYG SC SCH (09:00)
[2017-03-11] MEDS ORDERED: POLYETHYLENE GLYCOL 17 GM PACKET GTB PRN (09:00)
[2017-03-11] MEDS: DULOXETINE 30 MG CAP DR PO SCH (09:00)
[2017-03-11] MEDS: BUPROPION (XL) 150 MG TAB PO SCH (09:00)
[2017-03-11] MEDS: GABAPENTIN 300 MG CAP PO SCH ×4 (09:01→21:00)
[2017-03-11] MEDS: DOCUSATE SODIUM 100 MG CAP PO SCH ×2 (09:01→20:46)
[2017-03-11] MEDS: SENNA TAB PO SCH ×2 (09:04→20:46)
--- NOTE | 2017-03-11 09:36 | PN ---
DATE: 03/11/2017 SUBJECTIVE: The patient continues to complain of pain. I placed an acute rehabilitation regulation yesterday. The patient has worked minimally with physical therapy. No other events noted. OBJECTIVE: VITAL SIGNS: Blood pressure 113/59, respiration 18, pulse 76, temperature 97.8. HEENT: Head is normocephalic. NECK: Supple. HEART: Regular rate. LUNGS: Show diminished breath sounds at the base. ABDOMEN: Soft, nontender to palpation without rebound or guarding. EXTREMITIES: Negative for clubbing, cyanosis. No edema. DERMATOLOGIC: No rashes. MUSCULOSKELETAL: No joint effusions. NEUROLOGIC: No change in exam. MEDICATIONS: The patient's medications have been reviewed. LABORATORY DATA: From 03/10/2017 was reviewed. The patient had a white count of 11.6, hemoglobin 9 .8, hematocrit 35.0, platelet count 253. ASSESSMENT AND PLAN: 1. Acute on chronic lumbar radiculopathy, status post L4-L5 laminectomy and fusion. Patient radha fung continues to have severe pain on patient controlled analgesia pump. Patient has pain medication s. Continue Barn[place], continue Ultram, continue Neurontin and Baclofen. Monitor closely. Follow up [facility] neurosurgery for recommendations. 2. Leukocytosis, likely reactive. The patient's white count has been improving. Appreciate infect ious disease evaluation. No indication for antibiotics at this time. 3. with denuded skin, continue current wound care. 4. Renal insufficiency, resolved. 5. Chronic pain syndrome. Continue current pain regimen. We will adjust medications as stated abo ve. 6. Neuropathy. Continue Neurontin. 7. Insomnia, continue Ambien. 8. Depression. Continue Zoloft. 9. Gastrointestinal and deep venous thrombosis prophylaxis. DISPOSITION: Waiting for acute rehab evaluation. Otherwise, continue physical therapy. Dictated By: SEBASTIAN SIMMS/CANDE Conf#: [id number] DID#: [id number]
[2017-03-11] MEDS: SILVER SULFADIAZINE 1% 25 GM CR TOP SCH (11:44)
[2017-03-11] MEDS: SOD CHLORIDE 0.9% IVPB SCH ×2 (12:00→14:08)
[2017-03-11] MEDS: DAPTOMYCIN IVPB SCH ×2 (12:00→14:08)
--- NOTE | 2017-03-11 12:10 | PN ---
DATE: 03/11/2017 SUBJECTIVE: No acute changes. The patient is alert, up with PT, looks comfortable, no fevers. WBC today 11.6, platelets 253, neutrophils 68.8, BUN 7, creatinine 0.77. MICROBIOLOGY: The culture of the chain grew enterococcus species and alpha hemolytic strep species. PHYSICAL EXAMINATION: GENERAL: This is a morbidly obese, well-developed, middle-aged woman who is alert, in no distress. HEENT: Head atraumatic, normocephalic. Sclerae anicteric. Buccal mucosa pink. The patient has sw elling of her chin, painful on palpation with an open lesion. No drainage. NECK: Obese. CHEST: Rise symmetrical. Breath sounds diminished to bases. HEART: S1, S2. ABDOMEN: Soft, bowel tones present. EXTREMITIES: With trace edema. ASSESSMENT: 1. Chin cellulitis with possible underlying abscess, cultures grew enterococcus species and alpha h emolytic strep species. 2. Morbid obesity. 3. Chronic back pain, status post L4-L5 transforaminal interbody fusion done by Dr. Morrison on 2016 4. Acute kidney insufficiency, resolving. 5. Chronic pain syndrome. PLAN: We are going to start patient on daptomycin and observe. Consider ultrasound of the chin to rule out abscess formation. Follow orthopedic recommendations. Dictated By: JOHANNA GAXIOLA AUTOMATIC BOW MAKER MACHINE TENDER for ANNALEE HOLDER/CANDE Conf#: [id number] DID#: [id number]
[2017-03-11 14:58] VITALS: BP 119/59; RESP 18
--- NOTE | 2017-03-11 17:16 | RADRPT ---
PROCEDURE: Ultrasound of the soft tissues of the chin. CLINICAL INDICATION: Palpable lesion in the chin. TECHNIQUE: High-resolution sonography of the chin at the site of the palpable lesion was performed in the axial and sagittal planes. COMPARISON: None FINDINGS: At the site of the palpable lesion in the chin, there is a benign-appearing lymph node measuring 0.5 x 0.5 cm. There is no other cystic or solid abnormality at the site of the palpable lesion. IMPRESSION: 1. Benign-appearing 0.5 cm lymph node at the site of the palpable lesion in the chin. 2. Any further management regarding the palpable lesion should be based on clinical grounds. RPTAT: QQ .Feliberto Joseph MD, Date Time Electronically viewed and signed by .Feliberto Joseph MD, on 03/11/2017 17:15 .R/
[2017-03-11 19:40] VITALS: BP 113/59; RESP 20
[2017-03-11] MEDS: ZOLPIDEM 5 MG TAB PO PRN (20:46)
[2017-03-12] MEDS: HYDROmorphONE 0.2 MG/ML PCA IV SCH ×2 (02:30→04:33)
[2017-03-12 02:32] VITALS: BP 104/55; RESP 20
[2017-03-12] MEDS: oxyCODONE 5 MG TAB PO SCH ×3 (03:42→11:30)
[2017-03-12] MEDS: HYDROCODONE/APAP (10/325) TAB PO SCH ×5 (03:42→16:08)
[2017-03-12] MEDS: traMADol 50 MG TAB PO SCH ×3 (03:42→11:31)
[2017-03-12 05:17] LABS: BASOPHILS % 0.3 % (0.0-2.0); EOSINOPHILS # 0.2 10^3/ul (0.0-0.5); EOSINOPHILS % 2.1 % (0.0-7.0); HEMATOCRIT 29.8 % (37.0-47.0); HEMOGLOBIN 9.7 g/dl (12.0-16.0); LYMPHOCYTES # 1.5 10^3/ul (0.8-2.9); LYMPHOCYTES % 14.5 % (15.0-51.0); MEAN CORPUSCULAR HGB CONC 32.6 g/dl (32.0-37.0); MEAN PLATELET VOLUME 10.4 fl (7.4-10.4); MONOCYTE # 1.1 10^3/ul (0.3-0.9); MONOCYTES % 11.2 % (0.0-11.0); NEUTROPHIL # 7.1 10^3/ul (1.6-7.5); NEUTROPHILS % 71.6 % (39.0-77.0); PLATELET COUNT 285 10^3/UL (140-415); RED BLOOD COUNT 3.35 10^6/ul (4.20-5.40); RED CELL DISTRIBUTION WIDTH 13.4 % (11.5-14.5)
[2017-03-12 05:41] LABS: CALCIUM 8.3 mg/dl (8.4-10.2); CREATININE 0.58 mg/dl (0.44-1.00); MAGNESIUM 2.1 mg/dl (1.7-2.5); PHOSPHORUS 3.8 mg/dl (2.5-4.9); POTASSIUM 3.5 mmol/L (3.5-5.1)
--- NOTE | 2017-03-12 07:55 | CONS ---
Date/Time of Note Date/Time of Note DATE: 03/12/17 TIME: 07:53 Consult Date/Type/Reason Admit Date/Time Mar 06, 2017 at 09:29 Initial Consult Date 03/06/17 Type of Consultation: CARDIOLOGY Ordering Provider: SEBASTIAN DAVIS DO Subjective CARDIOLOGY FOLLOW UP NOTE: S: D/W STAFF and dr Davis s/p spinal surgery 03/07/17 she still c/o severe back pain. improves with pain meds only no cp or pressure. no sob. O: General: obese. no acute distress HEENT: NC/AT. pupils are equal. round. NECK: NO JVD. no stridor. CV: RRR. systolic murmur; no gallop or rubs. PULM: no wheezing or rhonchi. GI: SOFT, obese. NT, ND, no rebound or guarding Extremity: trace B/L LE edema. no clubbing. neuro: awake and alert, OX3. Psych: calm and pleasant rectal: deferred ECG: NSR and nonspecific T-wave abnormalities. Prolonged QT ECHO reviewed: 1. Normal left ventricular systolic function. Normal left ventricular cavity size. Normal left ventricular wall thickness. Ejection fraction is visually estimated at 60 %. Tissue Doppler/Mitral Doppler indices are consistent with impaired relaxation (Stage I diastolic dysfunction). 2. Normal appearance and function of the mitral valve with trace physiologic regurgitation. 3. Normal appearance of the aortic valve. No significant aortic stenosis or insufficiency. 4. Normal appearance of the tricuspid valve. Estimated peak PA systolic pressure 24 mmHg. There is trace tricuspid regurgitation. Objective Vital Signs Date Time Temp Pulse Resp B/P Pulse Ox O2 Delivery O2 Flow Rate FiO2 03/12/17 05:31 20 03/12/17 02:32 98.4 97 104/55 98 03/11/17 20:10 Nasal Cannula 2.0 Intake and Output 03/11/17 03/11/17 03/12/17 15:00 23:00 07:00 Intake Total 100 ml 680 ml 550 ml Output Total 500 ml 1101 ml Balance 100 ml 180 ml -551 ml Results/Medications Result Diagram: 03/12/17 0430 03/12/17 0430 Results 24 hrs Laboratory Tests Test 03/12/17 04:30 White Blood Count 10.0 Red Blood Count 3.35 L Hemoglobin 9.7 L Hematocrit 29.8 L Mean Corpuscular Volume 89.0 Mean Corpuscular Hemoglobin 29.0 Mean Corpuscular Hemoglobin Concent 32.6 Red Cell Distribution Width 13.4 Platelet Count 285 Mean Platelet Volume 10.4 Neutrophils % 71.6 Lymphocytes % 14.5 L Monocytes % 11.2 H Eosinophils % 2.1 Basophils % 0.3 Nucleated Red Blood Cells % 0.0 Neutrophils # 7.1 Lymphocytes # 1.5 Monocytes # 1.1 H Eosinophils # 0.2 Basophils # 0.0 Nucleated Red Blood Cells # 0.0 Sodium Level 138 Potassium Level 3.5 Chloride Level 99 Carbon Dioxide Level 34 H Anion Gap 9 Blood Urea Nitrogen 6 L Creatinine 0.58 Glucose Level 105 Calcium Level 8.3 L Phosphorus Level 3.8 Magnesium Level 2.1 Creatine Kinase 652 H Medications Current Medications Bupropion HCl (Wellbutrin Xl) 300 mg DAILY PO Last administered on 03/11/17 09:00; Admin Dose 300 MG; Start 03/07/17 at 09:00 Duloxetine HCl (Cymbalta) 30 mg DAILY PO Last administered on 03/11/17 09:00 ; Admin Dose 30 MG; Start 03/07/17 at 09:00 Gabapentin (Neurontin) 900 mg QID PO Last administered on 03/11/17 17:36; Admin Dose 900 MG; Start 03/06/17 at 13:00 Zolpidem Tartrate (Ambien) 10 mg QHS PRN PO INSOMNIA Last administered on 03/11 20:46; Admin Dose 10 MG; Start 03/06/17 at 09:30 Ondansetron HCl (Zofran Inj) 4 mg Q6H PRN IV NAUSEA AND/OR VOMITING Last administered on 03/09/17 14:02; Admin Dose 4 MG; Start 03/06/17 at 16:30 Bisacodyl (Dulcolax Supp) 10 mg DAILY PRN [place] CONSTIPATION; Start 03/08/17 at 01:00 Docusate Sodium (Colace) 100 mg BID PO Last administered on 03/11/17 20:46; Admin Dose 100 MG; Start 03/08/17 at 09:00 Naloxone HCl (Narcan) 0.2 mg Q2M PRN IV RR 8 BREATHS/MIN OR LESS; Start at 01:00 Tramadol HCl (Ultram) 50 mg Q6 PO Last administered on 03/12/17 03:42; Admin Dose 50 MG; Start 03/08/17 at 12:00 Baclofen (Lioresal) 10 mg TID PO Last administered on 03/11/17 20:46; Admin Dose 10 MG; Start 03/08/17 at 09:00 Tizanidine HCl (Zanaflex) 2 mg Q8H PRN PO muscle spasm Last administered on 04:50; Admin Dose 2 MG; Start 03/08/17 at 10:30 Hydromorphone HCl (Dilaudid) 0.4 mg Q1H PRN IV BREAKTHROUGH PAIN Last administered on 03/09/17 16:24; Admin Dose 0.4 MG; Start 03/08/17 at 11:30 Famotidine (Pepcid) 20 mg BID PO Last administered on 03/11/17 20:46; Admin Dose 20 MG; Start 03/09/17 at 09:00 Silver Sulfadiazine (Thermazene 1% 25 Gm) 1 applic DAILY TOP Last administered on 03/11/17 11:44; Admin Dose 1 APPLIC; Start 03/10/17 at 09:00 Oxycodone HCl (Roxicodone) 10 mg Q6 PO Last administered on 03/12/17 03:42; Admin Dose 10 MG; Start 03/11/17 at 12:00 Senna (Senokot) 1 tab BID PO Last administered on 03/11/17 20:46; Admin Dose 1 TAB; Start 03/11/17 at 09:00 Polyethylene Glycol 17 gm 17 gm DAILY PRN [place] CONSTIPATION; Start 03/11/17 at 09:00 Daptomycin/Sodium Chloride (Cubicin/NS) 100 ml @ 200 mls/hr Q24H IVPB Last administered on 03/11/17 14:08; Admin Dose 200 MLS/HR; Start 03/11/17 at 12: 00 Acetaminophen/ Hydrocodone Bitart ([place] (10325)) 2 tab Q4 PO ; Start at 09:00 Assessment/Plan Chief Complaint/Hosp Course 1. CV preop evaluation 2. severe LBP and radiculopathy; s/p surgery now 3. mildly abnormal ECG 4. Hx depression 5. obesity. Recommendations: cont current cardiac care post op care and pain management as per neurosurgery team DVT prophylaxis as per IM/ neurosurgery team, currently on SCD. consider adding lovenox once ok with neurosurgery awaiting acute rehab eval and treatment Thank you for his referral. We will continue to follow along with you as needed basis. ERIKA HERNANDEZ MD FACC : Problems: ERIKA HERNANDEZ MD Mar 12, 2017 07:54
[2017-03-12 08:06] VITALS: BP 107/50; RESP 20
[2017-03-12] MEDS: BUPROPION (XL) 150 MG TAB PO SCH (08:18)
[2017-03-12] MEDS: DULOXETINE 30 MG CAP DR PO SCH (08:18)
[2017-03-12] MEDS: BACLOFEN 10 MG TAB PO SCH ×2 (08:19→12:53)
[2017-03-12] MEDS: DOCUSATE SODIUM 100 MG CAP PO SCH (08:19)
[2017-03-12] MEDS: FAMOTIDINE 20 MG TAB PO SCH (08:27)
[2017-03-12] MEDS: GABAPENTIN 300 MG CAP PO SCH ×2 (08:27→12:53)
[2017-03-12] MEDS: SENNA TAB PO SCH (08:28)
[2017-03-12] MEDS: SILVER SULFADIAZINE 1% 25 GM CR TOP SCH (08:29)
--- NOTE | 2017-03-12 08:52 | PN ---
DATE: 03/12/2017 SUBJECTIVE: Patient is currently stable, continues to have pain. The patient was accepted to acute rehabilitation and anticipate possible transfer today. OBJECTIVE: VITAL SIGNS: Blood pressure is 107/50, respiratory rate 20, pulse 74, temperature 98.1. HEENT: Head is normocephalic. NECK: Supple. HEART: Regular rate. LUNGS: Show diminished breath sounds at the base. ABDOMEN: Soft, nontender to palpation. No rebound or guarding. EXTREMITIES: Negative for clubbing, cyanosis, no edema. DERMATOLOGIC: No rashes. MUSCULOSKELETAL: No joint effusions. NEUROLOGIC: No change in exam. MEDICATIONS: The patient's medications have been reviewed. LABORATORY DATA: Shows sodium 138, potassium 3.5, BUN 6, creatinine 0.58. White count 7.0, hemoglo bin 9.7, hematocrit 29.8, platelet count is 285. ASSESSMENT AND PLAN: 1. Acute on chronic lumbar radiculopathy, status post L4-L5 transforaminal fusion. The patient is currently stable, continues to have severe pain. Pain medications were adjusted. Will discontinue Dilaudid pump. Continue to monitor. 2. Leukocytosis secondary to chin cellulitis. Continue current antibiotic regimen. 3. Acute kidney injury secondary to hemodynamics, resolved. 4. Chronic pain syndrome. Continue current pain regimen. 5. Neuropathy. Continue Neurontin. 6. Insomnia. Continue Ambien. 7. Depression. Continue Zoloft. 8. Gastrointestinal and deep venous thrombosis prophylaxis. DISPOSITION: Anticipate transfer to acute rehabilitation. Dictated By: SEBASTIAN SIMMS/CANDE Conf#: [id number] DID#: [id number]
[2017-03-12] MEDS: HYDROmorphONE 0.5 MG/0.5 ML SYG IV PRN ×3 (10:12→12:54)
[2017-03-12] MEDS: SOD CHLORIDE 0.9% IVPB SCH (11:34)
[2017-03-12] MEDS: DAPTOMYCIN IVPB SCH (11:34)
--- NOTE | 2017-03-12 14:17 | PN ---
DATE: 03/12/2017 SUBJECTIVE: No events overnight. Patient is awake. Complaining of pain, looks comfortable, no fev ers. MICROBIOLOGY: The culture of the open area of the chin grew alpha hemolytic strep species, enteroco ccus and staph species. ANTIMICROBIALS: The patient is on daptomycin. ALLERGIES: NONE. PHYSICAL EXAMINATION: GENERAL: This is an obese, well-developed, middle-aged woman who is alert, in no distress. HEENT: Head atraumatic, normocephalic. Sclerae anicteric. Buccal mucosa pink. NECK: Supple. CHEST: Rise symmetrical. Breath sounds clear. HEART: S1, S2. ABDOMEN: Soft. Bowel sounds present. ASSESSMENT: 1. Facial cellulitis, specifically the chin, ultrasound revealed no evidence of abscess. 2. Chronic back pain status post spinal surgery on 03/08/2017. 3. Morbid obesity. 4. Chronic pain syndrome. PLAN: The patient remains stable. Continue present care, antibiotics, pain management and follow o rtho recommendations. Dictated By: JOHANNA GAXIOAL SHIPPING ASSOCIATE for ANNALEE HOLDER/CANDE Conf#: [id number] DID#: [id number] CC: SEBASTIAN RIVERO DO;*EndCC*
[2017-03-12] MEDS: HYDROmorphONE 2 MG/ML SYG IV PRN ×2 (14:51→16:15)
--- NOTE | 2017-03-13 08:36 | CONS ---
Date/Time of Note Date/Time of Note DATE: 03/13/17 TIME: 08:35 Consult Date/Type/Reason Admit Date/Time Mar 06, 2017 at 09:29 Initial Consult Date 03/06/17 Type of Consultation: CARDIOLOGY Ordering Provider: SEBASTIAN DAVIS DO Subjective CARDIOLOGY FOLLOW UP NOTE: S: D/W STAFF and dr Davis Pt is off of tele now and in rehab. s/p spinal surgery 03/07/17 she still c/o severe back pain. no cp or pressure. no sob. O: General: obese. no acute distress HEENT: NC/AT. pupils are equal. round. NECK: NO JVD. no stridor. CV: RRR. systolic murmur; no gallop or rubs. PULM: no wheezing or rhonchi. GI: SOFT, obese. NT, ND, no rebound or guarding Extremity: trace B/L LE edema. no clubbing. neuro: awake and alert, OX3. Psych: calm and pleasant rectal: deferred ECHO reviewed: 1. Normal left ventricular systolic function. Normal left ventricular cavity size. Normal left ventricular wall thickness. Ejection fraction is visually estimated at 60 %. Tissue Doppler/Mitral Doppler indices are consistent with impaired relaxation (Stage I diastolic dysfunction). 2. Normal appearance and function of the mitral valve with trace physiologic regurgitation. 3. Normal appearance of the aortic valve. No significant aortic stenosis or insufficiency. 4. Normal appearance of the tricuspid valve. Estimated peak PA systolic pressure 24 mmHg. There is trace tricuspid regurgitation. Objective Vital Signs Date Time Temp Pulse Resp B/P Pulse Ox O2 Delivery O2 Flow Rate FiO2 03/12/17 08:06 98.0 74 20 107/50 98 03/11/17 20:10 Nasal Cannula 2.0 Intake and Output 03/12/17 03/12/17 03/13/17 14:59 22:59 06:59 Output Total 4 ml Balance -4 ml Results/Medications Result Diagram: 03/12/1742903/12/17429 Assessment/Plan Chief Complaint/Hosp Course 1. s/p spinal surgery: debility in rehab now. 2. severe LBP and radiculopathy; s/p surgery now 3. mildly abnormal ECG 4. Hx depression 5. obesity. Recommendations: cont current cardiac care post op care and pain management as per neurosurgery team DVT prophylaxis as per IM/ neurosurgery team, currently on SCD. consider adding lovenox once ok with neurosurgery awaiting acute rehab eval and treatment Thank you for his referral. We will continue to follow along with you as needed basis. ERIKA HERNANDEZ MD FACC : Problems: ERIKA HERNANDEZ MD Mar 13, 2017 08:36
[2017-03-13] MEDS ORDERED: ENOXAPARIN 40 MG/0.4 ML SYG SC ONE (09:30)
== END 2017-03-12 16:54 | DRG 454 ==
LOC: FTE 07:20 → MS1 09:29 → TEL 03-07 16:49 → MS1 03-10 17:00
PROVIDERS: ADMIT Internal Medicine; ATTEND Internal Medicine
PROC: 0SG0071 Fusion of Lumbar Vertebral Joint with Autologous Tissue Substitute, Posterior Approach, Posterior Column, Open Approach (ICD-10-PCS; 2017-03-07)
PROC: 0SB20ZZ Excision of Lumbar Vertebral Disc, Open Approach (ICD-10-PCS; 2017-03-07)
PROC: 07DS3ZZ Extraction of Vertebral Bone Marrow, Percutaneous Approach (ICD-10-PCS; 2017-03-07)
PROC: 4A11X4G Monitoring of Peripheral Nervous Electrical Activity, Intraoperative, External Approach (ICD-10-PCS; 2017-03-07)
PROC: 0SG00AJ Fusion of Lumbar Vertebral Joint with Interbody Fusion Device, Posterior Approach, Anterior Column, Open Approach (ICD-10-PCS; principal; 2017-03-07 11:00)
DX: M51.16 Intervertebral disc disorders with radiculopathy, lumbar region (principal); N17.9 Acute kidney failure, unspecified; Z68.41 Body mass index [BMI] 40.0-44.9, adult; G62.9 Polyneuropathy, unspecified; L03.211 Cellulitis of face; M54.16 Radiculopathy, lumbar region; F32.9 Major depressive disorder, single episode, unspecified; G47.00 Insomnia, unspecified; E87.6 Hypokalemia; M48.061 Spinal stenosis, lumbar region without neurogenic claudication; E66.01 Morbid (severe) obesity due to excess calories; M21.372 Foot drop, left foot; M21.371 Foot drop, right foot
CPT/HCPCS: 36415; 71010; 71020; 72100; 72114; 76999; 80048; 80076; 81003; 82043; 82247; 82248; 82550; 83735; 84100; 84155; 84300; 84484; 84703; 85025; 85610; 85730; 86850; 86900; 86901; 87070; 90686; 93005; 93306; 96372; 96374; 97116; 97163; 97530; C1713; J0131; J0690; J1100; J1170; J1200; J1644; J1650; J2175; J2250; J2405; J2710; J2765; J3010; J3475; J3480; J7042; L0639

== ENCOUNTER 2017-03-12 17:52 | Inpatient (IN) | payer BC ==
[~2017-03-12] VITALS: Ht 167.6 cm; Wt 137.0 kg
[~2017-03-12 17:52] MED LIST: BUPR300T36 PO; DULO30CA47 PO; ETOD400T PO; GABA300C16 PO; METH500T8 PO; ZOLP10TA PO
[2017-03-12] MEDS ORDERED: NALOXONE (0.4 MG/ML) INJ IV PRN (19:00)
[2017-03-12] MEDS ORDERED: TIZANIDINE 2 MG TAB PO PRN (19:00)
[2017-03-12] MEDS ORDERED: BISACODYL 10 MG SUPP PR PRN (19:00)
[2017-03-12 19:30] VITALS: Ht 167.6 cm; Wt 137.0 kg
[2017-03-12] MEDS: oxyCODONE 5 MG TAB PO SCH (19:55)
[2017-03-12 20:00] VITALS: BP 123/65; RESP 18
[2017-03-12] MEDS: GABAPENTIN 300 MG CAP PO SCH (20:09)
[2017-03-12] MEDS: traMADol 50 MG TAB PO SCH (20:09)
[2017-03-12] MEDS: DOCUSATE SODIUM 100 MG CAP PO SCH (20:10)
[2017-03-12] MEDS: BACLOFEN 10 MG TAB PO SCH (20:10)
[2017-03-12] MEDS: FAMOTIDINE 20 MG TAB PO SCH (20:10)
[2017-03-12] MEDS: HYDROCODONE/APAP (10/325) TAB PO SCH (20:51)
[2017-03-12] MEDS: SENNA TAB PO SCH (21:00)
[2017-03-12] MEDS: ONDANSETRON 4 MG INJ IV PRN (21:32)
[2017-03-12] MEDS: HYDROmorphONE 2 MG/ML SYG IV PRN ×2 (21:35→23:33)
[2017-03-12] MEDS: ZOLPIDEM 5 MG TAB PO PRN (23:57)
[2017-03-13] MEDS: oxyCODONE 5 MG TAB PO SCH ×4 (01:30→17:24)
[2017-03-13] MEDS: traMADol 50 MG TAB PO SCH ×4 (01:30→17:25)
[2017-03-13] MEDS: HYDROCODONE/APAP (10/325) TAB PO SCH ×6 (01:59→21:04)
[2017-03-13 02:00] VITALS: BP 127/72; RESP 18
[2017-03-13] MEDS: HYDROmorphONE 2 MG/ML SYG IV PRN ×8 (03:03→23:16)
[2017-03-13 04:18] LABS: ADD UMIC YES; UR ASCORBIC ACID NEGATIVE (NEGATIVE); UR BACTERIA FEW /HPF (NONE SEEN); UR BILIRUBIN (Dip) NEGATIVE (NEGATIVE); UR BLOOD (Dip) 2+ mg/dL (NEGATIVE); UR CLARITY CLEAR (CLEAR); UR COLOR YELLOW (YELLOW); UR GLUCOSE (Dip) NEGATIVE (NEGATIVE); UR KETONES (Dip) NEGATIVE (NEGATIVE); UR LEUKOCYTE ESTERASE (Dip) NEGATIVE Leu/ul (NEGATIVE); UR NITRITE (Dip) NEGATIVE (NEGATIVE); UR RBC 47 /HPF (0-5); UR SPECIFIC GRAVITY (Dip) 1.004 (1.003-1.030); UR SQUAMOUS EPITHELIAL CELL FEW /HPF (FEW); UR TOTAL PROTEIN (Dip) NEGATIVE (NEGATIVE); UR UROBILINOGEN (Dip) NEGATIVE (NEGATIVE)
[2017-03-13] MEDS: ONDANSETRON 4 MG INJ IV PRN ×3 (05:36→17:48)
[2017-03-13] MEDS ORDERED: ACETAMINOPHEN 325 MG TAB PO PRN (06:30)
[2017-03-13] MEDS ORDERED: MAGNESIUM HYDROXIDE 30ML CUP PO PRN (06:30)
[2017-03-13 07:25] LABS: BASOPHIL # 0.1 10^3/ul (0.0-0.1); BASOPHILS % 0.5 % (0.0-2.0); EOSINOPHILS # 0.3 10^3/ul (0.0-0.5); HEMATOCRIT 29.7 % (37.0-47.0); HEMOGLOBIN 9.4 g/dl (12.0-16.0); LYMPHOCYTES # 2.2 10^3/ul (0.8-2.9); LYMPHOCYTES % 23.3 % (15.0-51.0); MEAN CORPUSCULAR HEMOGLOBIN 28.2 pg (29.0-33.0); MEAN CORPUSCULAR HGB CONC 31.6 g/dl (32.0-37.0); MEAN CORPUSCULAR VOLUME 89.2 fl (82.0-101.0); MEAN PLATELET VOLUME 10.5 fl (7.4-10.4); MONOCYTE # 0.9 10^3/ul (0.3-0.9); MONOCYTES % 9.6 % (0.0-11.0); NEUTROPHIL # 5.9 10^3/ul (1.6-7.5); NEUTROPHILS % 63.2 % (39.0-77.0); PLATELET COUNT 303 10^3/UL (140-415); RED BLOOD COUNT 3.33 10^6/ul (4.20-5.40); RED CELL DISTRIBUTION WIDTH 13.4 % (11.5-14.5); WHITE BLOOD COUNT 9.4 10^3/ul (4.8-10.8)
[2017-03-13 07:30] VITALS: BP 115/56; RESP 18
[2017-03-13 07:44] LABS: BILIRUBIN,INDIRECT 0.1 mg/dl (0-1.1); BILIRUBIN,TOTAL 0.1 mg/dl (0.2-1.3); CALCIUM 8.6 mg/dl (8.4-10.2); CREATININE 0.63 mg/dl (0.44-1.00); MAGNESIUM 2.2 mg/dl (1.7-2.5); PHOSPHORUS 4.3 mg/dl (2.5-4.9); POTASSIUM 3.5 mmol/L (3.5-5.1)
[2017-03-13] MEDS: FAMOTIDINE 20 MG TAB PO SCH ×2 (08:08→21:04)
[2017-03-13] MEDS: BACLOFEN 10 MG TAB PO SCH ×3 (08:08→21:04)
[2017-03-13] MEDS: DOCUSATE SODIUM 100 MG CAP PO SCH ×2 (08:08→21:04)
--- NOTE | 2017-03-13 08:38 | CONS ---
Date/Time of Note Date/Time of Note DATE: 03/13/17 TIME: 08:37 Consult Date/Type/Reason Admit Date/Time Mar 12, 2017 at 17:52 Initial Consult Date Type of Consultation: card Subjective CARDIOLOGY FOLLOW UP NOTE: S: D/W STAFF and dr Davis Pt is off of tele now and in rehab. s/p spinal surgery 03/07/17 she still c/o severe back pain. no cp or pressure. no sob. O: General: obese. no acute distress HEENT: NC/AT. pupils are equal. round. NECK: NO JVD. no stridor. CV: RRR. systolic murmur; no gallop or rubs. PULM: no wheezing or rhonchi. GI: SOFT, obese. NT, ND, no rebound or guarding Extremity: trace B/L LE edema. no clubbing. neuro: awake and alert, OX3. Psych: calm and pleasant rectal: deferred ECHO reviewed: 1. Normal left ventricular systolic function. Normal left ventricular cavity size. Normal left ventricular wall thickness. Ejection fraction is visually estimated at 60 %. Tissue Doppler/Mitral Doppler indices are consistent with impaired relaxation (Stage I diastolic dysfunction). 2. Normal appearance and function of the mitral valve with trace physiologic regurgitation. 3. Normal appearance of the aortic valve. No significant aortic stenosis or insufficiency. 4. Normal appearance of the tricuspid valve. Estimated peak PA systolic pressure 24 mmHg. There is trace tricuspid regurgitation. Objective Vital Signs Date Time Temp Pulse Resp B/P Pulse Ox O2 Delivery O2 Flow Rate FiO2 03/13/17 02:00 98.3 78 18 127/72 96 Intake and Output 03/12/17 03/12/17 03/13/17 15:00 23:00 07:00 Intake Total 1720 ml Output Total 5 ml Balance 1715 ml Results/Medications Result Diagram: 03/13/17 0618 03/13/17 0618 Results 24 hrs Laboratory Tests Test 03/13/17 02:50 03/13/17 06:18 Urine Color YELLOW Urine Clarity CLEAR Urine pH 7.0 Urine Specific [place] 1.004 Urine Ketones NEGATIVE Urine Nitrite NEGATIVE Urine Bilirubin NEGATIVE Urine Urobilinogen NEGATIVE Urine Leukocyte Esterase NEGATIVE Urine Microscopic RBC 47 H Urine Microscopic WBC 6 H Urine Squamous Epithelial Cells FEW Urine Bacteria FEW A Urine Hemoglobin 2+ H Urine Glucose NEGATIVE Urine Total Protein NEGATIVE White Blood Count 9.4 Red Blood Count 3.33 L Hemoglobin 9.4 L Hematocrit 29.7 L Mean Corpuscular Volume 89.2 Mean Corpuscular Hemoglobin 28.2 L Mean Corpuscular Hemoglobin Concent 31.6 L Red Cell Distribution Width 13.4 Platelet Count 303 Mean Platelet Volume 10.5 H Neutrophils % 63.2 Lymphocytes % 23.3 Monocytes % 9.6 Eosinophils % 3.0 Basophils % 0.5 Nucleated Red Blood Cells % 0.0 Neutrophils # 5.9 Lymphocytes # 2.2 Monocytes # 0.9 Eosinophils # 0.3 Basophils # 0.1 Nucleated Red Blood Cells # 0.0 Sodium Level 140 Potassium Level 3.5 Chloride Level 99 Carbon Dioxide Level 35 H Anion Gap 10 Blood Urea Nitrogen 6 L Creatinine 0.63 Glucose Level 88 Calcium Level 8.6 Phosphorus Level 4.3 Magnesium Level 2.2 Total Bilirubin 0.1 L Direct Bilirubin 0.00 Indirect Bilirubin 0.1 Aspartate Amino Transf (AST/SGOT) 38 Alanine Aminotransferase (ALT/SGPT) 56 Alkaline Phosphatase 112 Total Protein 6.0 L Albumin 3.0 L Globulin 3.00 Albumin/Globulin Ratio 1.00 Medications Current Medications Acetaminophen/ Hydrocodone Bitart ([place] (10)) 2 tab Q4 PO Last administered on 03/13/17 05:36; Admin Dose 2 TAB; Start 03/12/17 at 21:00 Baclofen (Lioresal) 10 mg TID PO Last administered on 03/13/17 08:08; Admin Dose 10 MG; Start 03/12/17 at 21:00 Bisacodyl 10 mg 10 mg DAILY PRN [place] CONSTIPATION; Start 03/12/17 at 19:00 Daptomycin/Sodium Chloride (Cubicin/NS) 100 ml @ 200 mls/hr Q24H IVPB ; Start 03/13/17 at 12:00 Docusate Sodium (Colace) 100 mg BID PO Last administered on 03/13/17 08:08; Admin Dose 100 MG; Start 03/12/17 at 21:00 Duloxetine HCl (Cymbalta) 30 mg DAILY PO ; Start 03/13/17 at 09:00 Famotidine (Pepcid) 20 mg BID PO Last administered on 03/13/17 08:08; Admin Dose 20 MG; Start 03/12/17 at 21:00 Gabapentin (Neurontin) 900 mg QID PO Last administered on 03/12/17 20:09; Admin Dose 900 MG; Start 03/12/17 at 21:00 Bupropion HCl (Wellbutrin Xl) 300 mg DAILY PO ; Start 03/13/17 at 09:00 Hydromorphone HCl (Dilaudid) 2 mg Q2H PRN IV BREAKTHROUGH PAIN Last administered on 03/13/17 08:08; Admin Dose 2 MG; Start 03/12/17 at 19:00 Naloxone HCl (Narcan) 0.2 mg Q2M PRN IV RR 8 BREATHS/MIN OR LESS; Start at 19:00 Ondansetron HCl (Zofran Inj) 4 mg Q6H PRN IV NAUSEA AND/OR VOMITING Last administered on 03/13/17 05:36; Admin Dose 4 MG; Start 03/12/17 at 19:00 Oxycodone HCl (Roxicodone) 10 mg Q6 PO Last administered on 03/13/17 06:35; Admin Dose 10 MG; Start 03/12/17 at 20:00 Polyethylene Glycol (Miralax) 17 gm DAILY PRN GTB CONSTIPATION; Start at 19:00 Senna (Senokot) 1 tab BID PO ; Start 03/12/17 at 21:00 Silver Sulfadiazine (Thermazene 1% 25 Gm) 1 applic DAILY TOP ; Start 03/13/17 at 09:00 Tizanidine HCl (Zanaflex) 2 mg Q8H PRN PO muscle spasm; Start 03/12/17 at 19: 00 Tramadol HCl (Ultram) 50 mg Q6 PO Last administered on 03/13/17 06:36; Admin Dose 50 MG; Start 03/12/17 at 20:00 Zolpidem Tartrate (Ambien) 10 mg QHS PRN PO INSOMNIA Last administered on 03/12 23:57; Admin Dose 10 MG; Start 03/12/17 at 19:00 Acetaminophen (Tylenol Tab) 650 mg Q4H PRN PO PAIN; Start 03/13/17 at 06:30 Magnesium Hydroxide (Milk Of Mag) 30 ml BID PRN PO CONSTIPATION; Start at 06:30 Lactulose (Enulose) 20 gm DAILY PRN PO CONSTIPATION; Start 03/13/17 at 06:30 Miscellaneous Information (Flu Vaccine Previously Dispensed) FLU VACCINE PREVIOU... NOTE PRN XX NOTE; Start 03/13/17 at 07:00 Assessment/Plan Chief Complaint/Hosp Course 1. s/p spinal surgery: debility in rehab now. 2. severe LBP and radiculopathy; s/p surgery now 3. mildly abnormal ECG 4. Hx depression 5. obesity. Recommendations: cont current cardiac care post op care and pain management as per neurosurgery team DVT prophylaxis as per IM/ neurosurgery team, currently on SCD. consider adding lovenox once ok with neurosurgery cont acute rehab eval and treatment Thank you for his referral. We will continue to follow along with you as needed basis. ERIKA HERNANDEZ MD [facility] Problems: ERIKA HERNANDEZ MD Mar 13, 2017 08:38
[2017-03-13] MEDS: DULOXETINE 30 MG CAP DR PO SCH (09:07)
[2017-03-13] MEDS: GABAPENTIN 300 MG CAP PO SCH ×3 (09:07→21:03)
[2017-03-13] MEDS: BUPROPION (XL) 150 MG TAB PO SCH (09:08)
[2017-03-13] MEDS: SENNA TAB PO SCH ×2 (09:08→21:00)
[2017-03-13] MEDS: SILVER SULFADIAZINE 1% 25 GM CR TOP SCH ×2 (09:08→17:47)
--- NOTE | 2017-03-13 11:42 | HP ---
DATE OF ADMISSION: 03/12/2017 CHIEF COMPLAINT: Status post L4-L5 transforaminal fusion. HISTORY OF PRESENT ILLNESS: A 46-year-old female with a past medical history of chronic lower back pain due to L3 to L5 disk herniation with underlying radiculopathy. The patient had significant wor sening of underlying pain over the last several days and as a result was brought to [facility] emergently. The patient was seen by the neurosurgeon, Dr. Morrison and underwent an L4-L5 transforaminal fusion. Postoperatively, the patient's course was complicated with cellulitis of he r chin, which is being treated with antibiotic therapy by infectious disease. Additionally, the barry malloy's postoperative course was complicated by severe pain. The patient was previously on a [employer] pum p, which was discontinued. Patient given a significant decline in his premorbid stable, was transfe rred to [facility] [place] for continued care. Upon my evaluation of the patient at this time, she is currently stable. Denies any fevers, chills, nausea, vomiting. PAST MEDICAL HISTORY: History of depression, history of chronic back pain, history of neuropathy. PAST SURGICAL HISTORY: Status post previous surgery for neck disk herniation, gallbladder surgery, , hernia repair. FAMILY HISTORY: Noncontributory. SOCIAL HISTORY: Does not drink, smoke or do drugs. ALLERGIES: NONE. MEDICATIONS: Have been reviewed and reconciled. REVIEW OF SYSTEMS: A 14-point review of systems was conducted. Pertinent positives stated in HPI, otherwise negative. PHYSICAL EXAMINATION: VITAL SIGNS: Blood pressure is 130/72, respirations 16, pulse 90. HEENT: Head is normocephalic. Pupils are reactive to light. The patient has underlying erythema o f the chin, which is improving. NECK: Supple. HEART: Regular rate. LUNGS: Show diminished breath sounds at the base. ABDOMEN: Soft, nontender to palpation without rebound or guarding. EXTREMITIES: Negative for clubbing, cyanosis, no edema. DERMATOLOGIC: The patient has no rashes. NEUROLOGIC: No focal deficits, although exam is somewhat limited due to lack of patient cooperation . MUSCULOSKELETAL: The patient has pain in the lower back with dressings clean, intact. LABORATORY DATA: Shows white count 9.4, hemoglobin 9.4, platelet count 303. Sodium 140, BUN 6, cre atinine 0.63, bicarb 35. ASSESSMENT AND PLAN: 1. Acute on chronic lumbar radiculopathy. The patient is status post L4-L5 transforaminal fusion. The patient is currently stable, continues to have pain. Continue physical therapy, occupational t herapy. Continue pain control. 2. Leukocytosis secondary to cellulitis, improving. Continue current antibiotic regimen. 3. Acute kidney injury secondary to hemodynamics, resolved. 4. Chronic pain syndrome. Continue current pain regimen. 5. Neuropathy. Continue Neurontin. 6. Insomnia. Continue Ambien. 7. Depression. Continue Zoloft. 8. Gastrointestinal and deep venous thrombosis prophylaxis. The patient is on proton pump inhibito r and will start the patient on Lovenox. Please note I spent up to 25 minutes of hyej-aj-keik time with the patient. The patient is FULL COD E. Dictated By: SEBASTIAN RIVERO DO NR/NTS Conf#: [id number] DID#: [id number] CC: CORAZON BETH MD;*EndCC*
--- NOTE | 2017-03-13 11:55 | CONS ---
DATE OF ADMISSION: 03/12/2017 DATE OF CONSULTATION: 03/13/2017 REHABILITATION POST ADMISSION PHYSICIAN EVALUATION REHABILITATION IMPAIRMENT CATEGORY: Lumbar spinal stenosis, radiculopathy and foot drop, status post decompressive laminectomy. ACTIVE COMORBIDITIES: 1. Polyneuropathy. 2. Acute pain syndrome. 3. History of depression. 4. History of cervical surgery. 5. Impairments in self-care and mobility. HISTORY OF PRESENT ILLNESS: The patient is a 46-year-old female with a history of chronic low back pain which had been worsening, in addition to the inability to stand despite conservative measures. The patient underwent a decompressive lumbar laminectomy at [facility]. Her postoperative course has been notable for significant pain, constipation, and significant impairments in self-care and mobility as compared to baseline. Patient has been cleared to transfer to the rehabilitation unit for comprehensive interdisciplinary rehab care. FUNCTIONAL HISTORY: Prior to recent events, she was independent in self-care tasks and mobility. Currently, she requires moderate assist for self-care and mobility tasks. I have reviewed the preadmission screen and the patient's current functional status is consistent with the preadmission screen. SOCIAL HISTORY: The patient lives at home and hopes to return there upon discharge. PAST MEDICAL HISTORY: 1. Chronic low back pain. 2. Polyneuropathy. 3. Depression. 4. History of cervical surgery. 5. History of gallbladder surgery. CURRENT MEDICATIONS: 1. [place] 2 tabs p.o. q.4h. 2. Baclofen 10 mg p.o. t.i.d. 3. Wellbutrin 300 mg p.o. daily. 4. Colace 100 mg p.o. b.i.d. 5. Cymbalta 30 mg p.o. daily. 6. Pepcid 20 mg p.o. b.i.d. 7. Neurontin 900 mg p.o. q.i.d 8. Dilaudid p.r.n. 9. Roxicodone 10 mg p.o. q.6h. 10. Senokot 1 p.o. b.i.d. 11. Zanaflex 2 mg p.o. q. p.r.n. 12. Ultram 50 mg p.o. q.6h 13. Ambien 10 mg p.o. at bedtime. ALLERGIES: THE PATIENT WITH NO KNOWN DRUG ALLERGIES. PHYSICAL EXAMINATION: VITAL SIGNS: The patient is currently afebrile with stable vital signs. HEENT: The extraocular motions are intact. Oropharynx is clear. NECK: Supple. LUNGS: Clear anteriorly. CARDIAC: S1, S2. ABDOMEN: Soft, nontender, positive bowel sounds. NEUROLOGIC: She is awake and alert. She is oriented x3. She can follow simple 1-step commands. Her cranial nerves are grossly intact. She demonstrates antigravity strength in bilateral upper extremity and lower extremity. PLAN: The patient has been admitted for comprehensive interdisciplinary acute rehab and is anticipated to tolerate 3 hours of daily therapy in divided doses for at least 5/7 days a week. The treatment plan will include: 1. Physical therapy to focus on bed mobility, transfers, and household ambulation with the goal of having the patient reach a standby assist level. 2. Occupational therapy to focus on hygiene, grooming, dressing, bathing, and toileting activities with the goal of having the patient reach a standby assist level. 3. Rehabilitation nursing for carryover of therapeutic interventions, the goal of continent of bowel and bladder, the goal of pain adequately managed on oral medications. ESTIMATED LENGTH OF STAY: 10 days. DISPOSITION GOAL: Home. Rehabilitation Barrier: pain Intervention For Barrier: Interdisciplinary rehabilitation I acknowledge that I performed a full physical examination on this patient within 24 hours of admission to the rehabilitation unit. I believe the patient is a good candidate for comprehensive interdisciplinary rehab care and is anticipated to make reasonable goals in a reasonable period of time as outlined above. Dictated By: CORAZON BEJARANO/CANDE Conf#: [id number] DID#: [id number] MTDD
[2017-03-13] MEDS: DAPTOMYCIN IVPB SCH (13:44)
[2017-03-13] MEDS: SOD CHLORIDE 0.9% IVPB SCH (13:44)
[2017-03-13 14:00] VITALS: BP 116/55; RESP 18
--- NOTE | 2017-03-13 15:15 | CONS ---
Date/Time of Note Date/Time of Note DATE: 03/13/17 TIME: 15:14 Assessment/Plan Assessment/Plan Chief Complaint/Hosp Course SUBJECTIVE: No events overnight. Patient is awake, looks comfortable, no fevers. MICROBIOLOGY: The culture of the open area of the chin grew alpha hemolytic strep species, enterococcus and staph species. ANTIMICROBIALS: The patient is on daptomycin. ALLERGIES: NONE. PHYSICAL EXAMINATION: GENERAL: This is an obese, well-developed, middle-aged woman who is alert, in no distress. HEENT: Head atraumatic, normocephalic. Sclerae anicteric. Buccal mucosa pink. NECK: Supple. CHEST: Rise symmetrical. Breath sounds clear. HEART: S1, S2. ABDOMEN: Soft. Bowel sounds present. ASSESSMENT: 1. Chin cellulitis with drainig wound, ultrasound revealed no evidence of abscess. 2. Chronic back pain status post spinal surgery on 03/08/2017. 3. Morbid obesity. 4. Chronic pain syndrome. PLAN: The patient remains stable. Continue present care, antibiotics. Problems: Consultation Date/Type/Reason Admit Date/Time Mar 12, 2017 at 17:52 Initial Consult Date Type of Consultation: ID Exam/Review of Systems Vital Signs Vitals Vital Signs Date Time Temp Pulse Resp B/P Pulse Ox O2 Delivery O2 Flow Rate FiO2 03/13/17 07:30 98.6 84 18 115/56 91 Intake and Output 03/12/17 03/12/17 03/13/17 15:00 23:00 07:00 Intake Total 1720 ml Output Total 5 ml Balance 1715 ml Results Result Diagram: 03/13/1718 03/13/17 0618 Results 24 hrs Laboratory Tests Test 03/13/17 02:50 03/13/17 06:18 Urine Color YELLOW Urine Clarity CLEAR Urine pH 7.0 Urine Specific [place] 1.004 Urine Ketones NEGATIVE Urine Nitrite NEGATIVE Urine Bilirubin NEGATIVE Urine Urobilinogen NEGATIVE Urine Leukocyte Esterase NEGATIVE Urine Microscopic RBC 47 H Urine Microscopic WBC 6 H Urine Squamous Epithelial Cells FEW Urine Bacteria FEW A Urine Hemoglobin 2+ H Urine Glucose NEGATIVE Urine Total Protein NEGATIVE White Blood Count 9.4 Red Blood Count 3.33 L Hemoglobin 9.4 L Hematocrit 29.7 L Mean Corpuscular Volume 89.2 Mean Corpuscular Hemoglobin 28.2 L Mean Corpuscular Hemoglobin Concent 31.6 L Red Cell Distribution Width 13.4 Platelet Count 303 Mean Platelet Volume 10.5 H Neutrophils % 63.2 Lymphocytes % 23.3 Monocytes % 9.6 Eosinophils % 3.0 Basophils % 0.5 Nucleated Red Blood Cells % 0.0 Neutrophils # 5.9 Lymphocytes # 2.2 Monocytes # 0.9 Eosinophils # 0.3 Basophils # 0.1 Nucleated Red Blood Cells # 0.0 Sodium Level 140 Potassium Level 3.5 Chloride Level 99 Carbon Dioxide Level 35 H Anion Gap 10 Blood Urea Nitrogen 6 L Creatinine 0.63 Glucose Level 88 Calcium Level 8.6 Phosphorus Level 4.3 Magnesium Level 2.2 Total Bilirubin 0.1 L Direct Bilirubin 0.00 Indirect Bilirubin 0.1 Aspartate Amino Transf (AST/SGOT) 38 Alanine Aminotransferase (ALT/SGPT) 56 Alkaline Phosphatase 112 Total Protein 6.0 L Albumin 3.0 L Globulin 3.00 Albumin/Globulin Ratio 1.00 Medications Medications Current Medications Acetaminophen/ Hydrocodone Bitart ([place] (10/325)) 2 tab Q4 PO Last administered on 03/13/17 13:44; Admin Dose 2 TAB; Start 03/12/17 at 21:00 Baclofen (Lioresal) 10 mg TID PO Last administered on 03/13/17 12:44; Admin Dose 10 MG; Start 03/12/17 at 21:00 Bisacodyl 10 mg 10 mg DAILY PRN [place] CONSTIPATION; Start 03/12/17 at 19:00 Daptomycin/Sodium Chloride (Cubicin/NS) 100 ml @ 200 mls/hr Q24H IVPB Last administered on 03/13/17 13:44; Admin Dose 200 MLS/HR; Start 03/13/17 at 12: 00 Docusate Sodium (Colace) 100 mg BID PO Last administered on 03/13/17 08:08; Admin Dose 100 MG; Start 03/12/17 at 21:00 Duloxetine HCl (Cymbalta) 30 mg DAILY PO Last administered on 03/13/17 09:07 ; Admin Dose 30 MG; Start 03/13/17 at 09:00 Famotidine (Pepcid) 20 mg BID PO Last administered on 03/13/17 08:08; Admin Dose 20 MG; Start 03/12/17 at 21:00 Bupropion HCl (Wellbutrin Xl) 300 mg DAILY PO Last administered on 03/13/17 09:08; Admin Dose 300 MG; Start 03/13/17 at 09:00 Hydromorphone HCl (Dilaudid) 2 mg Q2H PRN IV BREAKTHROUGH PAIN Last administered on 03/13/17 13:41; Admin Dose 2 MG; Start 03/12/17 at 19:00 Naloxone HCl (Narcan) 0.2 mg Q2M PRN IV RR 8 BREATHS/MIN OR LESS; Start at 19:00 Ondansetron HCl (Zofran Inj) 4 mg Q6H PRN IV NAUSEA AND/OR VOMITING Last administered on 03/13/17 13:45; Admin Dose 4 MG; Start 03/12/17 at 19:00 Oxycodone HCl (Roxicodone) 10 mg Q6 PO Last administered on 03/13/17 12:45; Admin Dose 10 MG; Start 03/12/17 at 20:00 Polyethylene Glycol (Miralax) 17 gm DAILY PRN GTB CONSTIPATION; Start at 19:00 Senna (Senokot) 1 tab BID PO Last administered on 03/13/17 09:08; Admin Dose 1 TAB; Start 03/12/17 at 21:00 Silver Sulfadiazine (Thermazene 1% 25 Gm) 1 applic DAILY TOP Last administered on 03/13/17 09:08; Admin Dose 1 APPLIC; Start 03/13/17 at 09:00 Tramadol HCl (Ultram) 50 mg Q6 PO Last administered on 03/13/17 13:45; Admin Dose 50 MG; Start 03/12/17 at 20:00 Zolpidem Tartrate (Ambien) 10 mg QHS PRN PO INSOMNIA Last administered on 03/12 23:57; Admin Dose 10 MG; Start 03/12/17 at 19:00 Acetaminophen (Tylenol Tab) 650 mg Q4H PRN PO PAIN; Start 03/13/17 at 06:30 Magnesium Hydroxide (Milk Of Mag) 30 ml BID PRN PO CONSTIPATION; Start at 06:30 Lactulose (Enulose) 20 gm DAILY PRN PO CONSTIPATION; Start 03/13/17 at 06:30 Miscellaneous Information (Flu Vaccine Previously Dispensed) FLU VACCINE PREVIOU... NOTE PRN XX NOTE; Start 03/13/17 at 07:00 Gabapentin (Neurontin) 600 mg TID PO Last administered on 03/13/17t 12:45; Admin Dose 600 MG; Start 03/13/17 at 13:00 Tizanidine HCl (Zanaflex) 2 mg BID PRN PO muscle spasm; Start 03/13/17 at 11: 00 JOHANNA GAXIOLA NP Mar 13, 2017 15:15
[2017-03-13] MEDS: TIZANIDINE 2 MG TAB PO PRN (15:51)
[2017-03-13 20:00] VITALS: BP 101/58; RESP 18
[2017-03-14] MEDS: HYDROCODONE/APAP (10/325) TAB PO SCH ×6 (01:00→20:36)
[2017-03-14 02:00] VITALS: BP 110/65; RESP 18
[2017-03-14] MEDS: ONDANSETRON 4 MG INJ IV PRN ×5 (02:27→17:34)
[2017-03-14] MEDS: HYDROmorphONE 2 MG/ML SYG IV PRN ×8 (02:27→21:53)
[2017-03-14] MEDS: TIZANIDINE 2 MG TAB PO PRN ×3 (02:33→10:58)
[2017-03-14] MEDS: oxyCODONE 5 MG TAB PO SCH ×5 (06:01→23:36)
[2017-03-14] MEDS: traMADol 50 MG TAB PO SCH ×2 (06:01)
[2017-03-14 07:30] VITALS: BP 103/53; RESP 18
--- NOTE | 2017-03-14 08:16 | CONS ---
Date/Time of Note Date/Time of Note DATE: 03/14/17 TIME: 08:16 Consult Date/Type/Reason Admit Date/Time Mar 12, 2017 at 17:52 Initial Consult Date Type of Consultation: ID Subjective participating with rehab Objective puylm-cta abd-soft mod assist Vital Signs Date Time Temp Pulse Resp B/P Pulse Ox O2 Delivery O2 Flow Rate FiO2 03/14/17 02:00 98.5 82 18 110/65 95 Intake and Output 03/13/17 03/13/17 03/14/17 15:00 23:00 07:00 Intake Total 100 ml 1600 ml 1500 ml Output Total 1410 ml Balance 100 ml 190 ml 1500 ml Results/Medications Result Diagram: 03/13/1761703/13/17617 Medications Current Medications Acetaminophen/ Hydrocodone Bitart ([place] (10/325)) 2 tab Q4 PO Last administered on 03/14/17 05:05; Admin Dose 2 TAB; Start 03/12/17 at 21:00 Baclofen (Lioresal) 10 mg TID PO Last administered on 03/13/17 21:04; Admin Dose 10 MG; Start 03/12/17 at 21:00 Bisacodyl 10 mg 10 mg DAILY PRN [place] CONSTIPATION; Start 03/12/17 at 19:00 Daptomycin/Sodium Chloride (Cubicin/NS) 100 ml @ 200 mls/hr Q24H IVPB Last administered on 03/13/17 13:44; Admin Dose 200 MLS/HR; Start 03/13/17 at 12: 00 Docusate Sodium (Colace) 100 mg BID PO Last administered on 03/13/17 21:04; Admin Dose 100 MG; Start 03/12/17 at 21:00 Duloxetine HCl (Cymbalta) 30 mg DAILY PO Last administered on 03/13/17 09:07 ; Admin Dose 30 MG; Start 03/13/17 at 09:00 Famotidine (Pepcid) 20 mg BID PO Last administered on 03/13/17 21:04; Admin Dose 20 MG; Start 03/12/17 at 21:00 Bupropion HCl (Wellbutrin Xl) 300 mg DAILY PO Last administered on 03/13/17 09:08; Admin Dose 300 MG; Start 03/13/17 at 09:00 Hydromorphone HCl (Dilaudid) 2 mg Q2H PRN IV BREAKTHROUGH PAIN Last administered on 03/14/17 07:23; Admin Dose 2 MG; Start 03/12/17 at 19:00 Naloxone HCl (Narcan) 0.2 mg Q2M PRN IV RR 8 BREATHS/MIN OR LESS; Start at 19:00 Oxycodone HCl (Roxicodone) 10 mg Q6 PO Last administered on 03/14/17 06:01; Admin Dose 10 MG; Start 03/12/17 at 20:00 Polyethylene Glycol (Miralax) 17 gm DAILY PRN GTB CONSTIPATION; Start at 19:00 Senna (Senokot) 1 tab BID PO Last administered on 03/13/17 09:08; Admin Dose 1 TAB; Start 03/12/17 at 21:00 Silver Sulfadiazine (Thermazene 1% 25 Gm) 1 applic DAILY TOP Last administered on 03/13/17 17:47; Admin Dose 1 APPLIC; Start 03/13/17 at 09:00 Zolpidem Tartrate (Ambien) 10 mg QHS PRN PO INSOMNIA Last administered on 03/12 23:57; Admin Dose 10 MG; Start 03/12/17 at 19:00 Acetaminophen (Tylenol Tab) 650 mg Q4H PRN PO PAIN; Start 03/13/17 at 06:30 Magnesium Hydroxide (Milk Of Mag) 30 ml BID PRN PO CONSTIPATION; Start at 06:30 Lactulose (Enulose) 20 gm DAILY PRN PO CONSTIPATION; Start 03/13/17 at 06:30 Miscellaneous Information (Flu Vaccine Previously Dispensed) FLU VACCINE PREVIOU... NOTE PRN XX NOTE; Start 03/13/17 at 07:00 Gabapentin (Neurontin) 600 mg TID PO Last administered on 03/13/17 21:03; Admin Dose 600 MG; Start 03/13/17 at 13:00 Tizanidine HCl (Zanaflex) 2 mg BID PRN PO muscle spasm Last administered on 02:33; Admin Dose 2 MG; Start 03/13/17 at 11:00 Ondansetron HCl (Zofran Inj) 4 mg Q4H PRN IV NAUSEA AND/OR VOMITING; Start at 07:58 Tramadol HCl (Ultram) 50 mg Q6H PRN PO PAIN; Start 03/14/17 at 08:30 Assessment/Plan Additional Assessment/Plan rehab- Lumbar spinal stenosis, radiculopathy and foot drop, status post decompressive laminectomy. Increase activities as tolerated Polyneuropathy. Acute pain syndrome-adjusting to pain meds. History of depression. History of cervical surgery. CORAZON BETH MD Mar 14, 2017 08:16
[2017-03-14] MEDS: DULOXETINE 30 MG CAP DR PO SCH (08:41)
[2017-03-14] MEDS: DOCUSATE SODIUM 100 MG CAP PO SCH ×2 (08:41→20:36)
[2017-03-14] MEDS: SENNA TAB PO SCH ×2 (08:42→20:36)
[2017-03-14] MEDS: BUPROPION (XL) 150 MG TAB PO SCH (08:42)
[2017-03-14] MEDS: BACLOFEN 10 MG TAB PO SCH ×3 (08:42→20:36)
[2017-03-14] MEDS: FAMOTIDINE 20 MG TAB PO SCH ×2 (08:43→20:36)
[2017-03-14] MEDS: GABAPENTIN 300 MG CAP PO SCH ×3 (08:43→20:36)
[2017-03-14] MEDS: LACTULOSE 30ML CUP PO PRN (10:20)
[2017-03-14] MEDS: SILVER SULFADIAZINE 1% 25 GM CR TOP SCH (10:59)
--- NOTE | 2017-03-14 11:26 | PN ---
Date/Time of Note Date/Time of Note DATE: 03/14/17 TIME: 11:25 Assessment/Plan VTE Prophylaxis VTE Prophylaxis Intervention: other Lines/Catheters IV Catheter Type (from Nrs): Saline Lock Urinary Cath still in place: Yes Reason Cath still needed: urinary retention Assessment/Plan Chief Complaint/Hosp Course A 46-year-old female with a past medical history of chronic lower back pain due to L3 to L5 disk herniation with underlying radiculopathy. The patient had significant worsening of underlying pain over the last several days and as a result was brought to [facility] emergently. The patient was seen by the neurosurgeon, Dr. Morrison and underwent an L4-L5 transforaminal fusion. Postoperatively, the patient's course was complicated with cellulitis of her chin, which is being treated with antibiotic therapy by infectious disease. Additionally, the patient's postoperative course was complicated by severe pain. The patient was previously on a [employer] pump, which was discontinued. Patient given a significant decline in his premorbid stable, was transferred to [facility] acute rehab for continued care. Upon my evaluation of the patient at this time, she is currently stable. Denies any fevers, chills, nausea, vomiting. REVIEW OF SYSTEMS: A 14-point review of systems was conducted. Pertinent positives stated in HPI, otherwise negative. PHYSICAL EXAMINATION: HEENT: Head is normocephalic. Pupils are reactive to light. The patient has underlying erythema of the chin, which is improving. NECK: Supple. HEART: Regular rate. LUNGS: Show diminished breath sounds at the base. ABDOMEN: Soft, nontender to palpation without rebound or guarding. EXTREMITIES: Negative for clubbing, cyanosis, no edema. DERMATOLOGIC: The patient has no rashes. NEUROLOGIC: No focal deficits, although exam is somewhat limited due to lack of patient cooperation. MUSCULOSKELETAL: The patient has pain in the lower back with dressings clean, intact. 1. Acute on chronic lumbar radiculopathy. The patient is status post L4-L5 transforaminal fusion. The patient is currently stable, continues to have pain. Continue physical therapy, occupational therapy. Continue pain control. 2. Leukocytosis secondary to cellulitis, improving. Continue current antibiotic regimen. 3. Acute kidney injury secondary to hemodynamics, resolved. 4. Chronic pain syndrome. Continue current pain regimen. 5. Neuropathy. Continue Neurontin. 6. Insomnia. Continue Ambien. 7. Depression. Continue Zoloft. 8. Gastrointestinal and deep venous thrombosis prophylaxis. The patient is on proton pump inhibitor and will start the patient on Lovenox. Problems: Exam/Review of Systems Vital Signs Vitals Vital Signs Date Time Temp Pulse Resp B/P Pulse Ox O2 Delivery O2 Flow Rate FiO2 03/14/17 07:30 98.6 77 18 103/53 98 Intake and Output 03/13/17 03/13/17 03/14/17 15:00 23:00 07:00 Intake Total 100 ml 1600 ml 1500 ml Output Total 1410 ml Balance 100 ml 190 ml 1500 ml Results Result Diagram: 03/13/1761703/13/17617 Medications Medications Current Medications Acetaminophen/ Hydrocodone Bitart ([place] (10/325)) 2 tab Q4 PO Last administered on 03/14/17 08:41; Admin Dose 2 TAB; Start 03/12/17 at 21:00 Baclofen (Lioresal) 10 mg TID PO Last administered on 03/14/17 08:42; Admin Dose 10 MG; Start 03/12/17 at 21:00 Bisacodyl 10 mg 10 mg DAILY PRN [place] CONSTIPATION; Start 03/12/17 at 19:00 Daptomycin/Sodium Chloride (Cubicin/NS) 100 ml @ 200 mls/hr Q24H IVPB Last administered on 03/13/17 13:44; Admin Dose 200 MLS/HR; Start 03/13/17 at 12: 00 Docusate Sodium (Colace) 100 mg BID PO Last administered on 03/14/17 08:41; Admin Dose 100 MG; Start 03/12/17 at 21:00 Duloxetine HCl (Cymbalta) 30 mg DAILY PO Last administered on 03/14/17 08:41 ; Admin Dose 30 MG; Start 03/13/17 at 09:00 Famotidine (Pepcid) 20 mg BID PO Last administered on 03/14/17 08:43; Admin Dose 20 MG; Start 03/12/17 at 21:00 Bupropion HCl (Wellbutrin Xl) 300 mg DAILY PO Last administered on 03/14/17 08:42; Admin Dose 300 MG; Start 03/13/17 at 09:00 Hydromorphone HCl (Dilaudid) 2 mg Q2H PRN IV BREAKTHROUGH PAIN Last administered on 03/14/17 10:19; Admin Dose 2 MG; Start 03/12/17 at 19:00 Naloxone HCl (Narcan) 0.2 mg Q2M PRN IV RR 8 BREATHS/MIN OR LESS; Start at 19:00 Oxycodone HCl (Roxicodone) 10 mg Q6 PO Last administered on 03/14/17 11:07; Admin Dose 10 MG; Start 03/12/17 at 20:00 Polyethylene Glycol (Miralax) 17 gm DAILY PRN GTB CONSTIPATION; Start at 19:00 Senna (Senokot) 1 tab BID PO Last administered on 03/14/17 08:42; Admin Dose 1 TAB; Start 03/12/17 at 21:00 Silver Sulfadiazine (Thermazene 1% 25 Gm) 1 applic DAILY TOP Last administered on 03/14/17 10:59; Admin Dose 1 APPLIC; Start 03/13/17 at 09:00 Zolpidem Tartrate (Ambien) 10 mg QHS PRN PO INSOMNIA Last administered on 03/12 23:57; Admin Dose 10 MG; Start 03/12/17 at 19:00 Acetaminophen (Tylenol Tab) 650 mg Q4H PRN PO PAIN; Start 03/13/17 at 06:30 Magnesium Hydroxide (Milk Of Mag) 30 ml BID PRN PO CONSTIPATION; Start at 06:30 Lactulose (Enulose) 20 gm DAILY PRN PO CONSTIPATION Last administered on 10:20; Admin Dose 20 GM; Start 03/13/17 at 06:30 Miscellaneous Information (Flu Vaccine Previously Dispensed) FLU VACCINE PREVIOU... NOTE PRN XX NOTE; Start 03/13/17 at 07:00 Gabapentin (Neurontin) 600 mg TID PO Last administered on 03/14/17 08:43; Admin Dose 600 MG; Start 03/13/17 at 13:00 Tizanidine HCl (Zanaflex) 2 mg BID PRN PO muscle spasm Last administered on 10:58; Admin Dose 2 MG; Start 03/13/17 at 11:00 Ondansetron HCl (Zofran Inj) 4 mg Q4H PRN IV NAUSEA AND/OR VOMITING; Start at 07:58 Tramadol HCl (Ultram) 50 mg Q6H PRN PO PAIN; Start 03/14/17 at 08:30 OBDULIA MONTAGUE DO Mar 14, 2017 11:26
[2017-03-14] MEDS: DAPTOMYCIN IVPB SCH (12:34)
[2017-03-14] MEDS: SOD CHLORIDE 0.9% IVPB SCH (12:34)
[2017-03-14] MEDS: POLYETHYLENE GLYCOL 17 GM PACKET GTB PRN (13:12)
[2017-03-14] MEDS: traMADol 50 MG TAB PO PRN ×2 (13:16→19:34)
--- NOTE | 2017-03-14 13:46 | CONS ---
Date/Time of Note Date/Time of Note DATE: 03/14/17 TIME: 13:44 Consult Date/Type/Reason Admit Date/Time Mar 12, 2017 at 17:52 Type of Consultation: cardiology Subjective CARDIOLOGY FOLLOW UP NOTE: S: D/W STAFF Pt is off of tele now and in rehab. s/p spinal surgery 03/07/17 she still c/o severe back pain. also c/o right toe numbness which now states has had for a few days no cp or pressure. no sob. O: General: obese. no acute distress HEENT: NC/AT. pupils are equal. round. NECK: NO JVD. no stridor. CV: RRR. systolic murmur; no gallop or rubs. PULM: no wheezing or rhonchi. GI: SOFT, obese. NT, ND, no rebound or guarding Extremity: trace B/L LE edema. no clubbing. neuro: awake and alert, OX3. Psych: calm and pleasant rectal: deferred ECHO reviewed: 1. Normal left ventricular systolic function. Normal left ventricular cavity size. Normal left ventricular wall thickness. Ejection fraction is visually estimated at 60 %. Tissue Doppler/Mitral Doppler indices are consistent with impaired relaxation (Stage I diastolic dysfunction). 2. Normal appearance and function of the mitral valve with trace physiologic regurgitation. 3. Normal appearance of the aortic valve. No significant aortic stenosis or insufficiency. 4. Normal appearance of the tricuspid valve. Estimated peak PA systolic pressure 24 mmHg. There is trace tricuspid regurgitation. Objective Vital Signs Date Time Temp Pulse Resp B/P Pulse Ox O2 Delivery O2 Flow Rate FiO2 03/14/17 07:30 98.6 77 18 103/53 98 Intake and Output 03/13/17 03/13/17 03/14/17 15:00 23:00 07:00 Intake Total 100 ml 1600 ml 1500 ml Output Total 1410 ml Balance 100 ml 190 ml 1500 ml Results/Medications Result Diagram: 03/13/1761703/13/17617 Medications Current Medications Acetaminophen/ Hydrocodone Bitart ([place] (10/325)) 2 tab Q4 PO Last administered on 03/14/17 12:59; Admin Dose 2 TAB; Start 03/12/17 at 21:00 Baclofen (Lioresal) 10 mg TID PO Last administered on 03/14/17 13:19; Admin Dose 10 MG; Start 03/12/17 at 21:00 Bisacodyl 10 mg 10 mg DAILY PRN AR CONSTIPATION; Start 03/12/17 at 19:00 Daptomycin/Sodium Chloride (Cubicin/NS) 100 ml @ 200 mls/hr Q24H IVPB Last administered on 03/14/17 12:34; Admin Dose 200 MLS/HR; Start 03/13/17 at 12: 00 Docusate Sodium (Colace) 100 mg BID PO Last administered on 03/14/17 08:41; Admin Dose 100 MG; Start 03/12/17 at 21:00 Duloxetine HCl (Cymbalta) 30 mg DAILY PO Last administered on 03/14/17 08:41 ; Admin Dose 30 MG; Start 03/13/17 at 09:00 Famotidine (Pepcid) 20 mg BID PO Last administered on 03/14/17 08:43; Admin Dose 20 MG; Start 03/12/17 at 21:00 Bupropion HCl (Wellbutrin Xl) 300 mg DAILY PO Last administered on 03/14/17 08:42; Admin Dose 300 MG; Start 03/13/17 at 09:00 Hydromorphone HCl (Dilaudid) 2 mg Q2H PRN IV BREAKTHROUGH PAIN Last administered on 03/14/17 12:35; Admin Dose 2 MG; Start 03/12/17 at 19:00 Naloxone HCl (Narcan) 0.2 mg Q2M PRN IV RR 8 BREATHS/MIN OR LESS; Start at 19:00 Oxycodone HCl (Roxicodone) 10 mg Q6 PO Last administered on 03/14/17 11:07; Admin Dose 10 MG; Start 03/12/17 at 20:00 Polyethylene Glycol (Miralax) 17 gm DAILY PRN GTB CONSTIPATION Last administered on 03/14/17 13:12; Admin Dose 17 GM; Start 03/12/17 at 19:00 Senna (Senokot) 1 tab BID PO Last administered on 03/14/17 08:42; Admin Dose 1 TAB; Start 03/12/17 at 21:00 Silver Sulfadiazine (Thermazene 1% 25 Gm) 1 applic DAILY TOP Last administered on 03/14/17 10:59; Admin Dose 1 APPLIC; Start 03/13/17 at 09:00 Zolpidem Tartrate (Ambien) 10 mg QHS PRN PO INSOMNIA Last administered on 03/12 23:57; Admin Dose 10 MG; Start 03/12/17 at 19:00 Acetaminophen (Tylenol Tab) 650 mg Q4H PRN PO PAIN; Start 03/13/17 at 06:30 Magnesium Hydroxide (Milk Of Mag) 30 ml BID PRN PO CONSTIPATION; Start at 06:30 Lactulose (Enulose) 20 gm DAILY PRN PO CONSTIPATION Last administered on 10:20; Admin Dose 20 GM; Start 03/13/17 at 06:30 Miscellaneous Information (Flu Vaccine Previously Dispensed) FLU VACCINE PREVIOU... NOTE PRN XX NOTE; Start 03/13/17 at 07:00 Gabapentin (Neurontin) 600 mg TID PO Last administered on 03/14/17 12:59; Admin Dose 600 MG; Start 03/13/17 at 13:00 Tizanidine HCl (Zanaflex) 2 mg BID PRN PO muscle spasm Last administered on 10:58; Admin Dose 2 MG; Start 03/13/17 at 11:00 Ondansetron HCl (Zofran Inj) 4 mg Q4H PRN IV NAUSEA AND/OR VOMITING Last administered on 03/14/17 13:15; Admin Dose 4 MG; Start 03/14/17 at 07:58 Tramadol HCl (Ultram) 50 mg Q6H PRN PO PAIN Last administered on 03/14/17 13: 16; Admin Dose 50 MG; Start 03/14/17 at 08:30 Assessment/Plan Chief Complaint/Hosp Course 1. s/p spinal surgery: debility in rehab now. 2. severe LBP and radiculopathy; s/p surgery now 3. mildly abnormal ECG 4. Hx depression 5. obesity. Recommendations: cont current cardiac care post op care and pain management as per neurosurgery team. DVT prophylaxis as per IM/ neurosurgery team, currently on SCD. consider adding lovenox once ok with neurosurgery cont acute rehab eval and treatment as tolerated Thank you for his referral. We will continue to follow along with you as needed basis. ERIKA HERNANDEZ MD [facility] Problems: ERIKA HERNANDEZ MD Mar 14, 2017 13:46
[2017-03-14 14:00] VITALS: BP 110/55; RESP 18
[2017-03-14 19:36] VITALS: BP 126/80; RESP 18
[2017-03-14] MEDS: ZOLPIDEM 5 MG TAB PO PRN (23:36)
[2017-03-15] MEDS: HYDROCODONE/APAP (10/325) TAB PO SCH ×7 (01:00→21:28)
[2017-03-15] MEDS: HYDROmorphONE 2 MG/ML SYG IV PRN ×6 (01:23→22:22)
[2017-03-15] MEDS: oxyCODONE 5 MG TAB PO SCH ×3 (06:19→18:04)
[2017-03-15 07:00] VITALS: BP 104/50; RESP 18
[2017-03-15] MEDS: SILVER SULFADIAZINE 1% 25 GM CR TOP SCH (08:36)
[2017-03-15] MEDS: GABAPENTIN 300 MG CAP PO SCH ×3 (08:37→20:16)
[2017-03-15] MEDS: DOCUSATE SODIUM 100 MG CAP PO SCH ×2 (08:37→20:36)
[2017-03-15] MEDS: BUPROPION (XL) 150 MG TAB PO SCH (08:37)
[2017-03-15] MEDS: DULOXETINE 30 MG CAP DR PO SCH (08:37)
[2017-03-15] MEDS: FAMOTIDINE 20 MG TAB PO SCH ×2 (08:37→20:16)
[2017-03-15] MEDS: BACLOFEN 10 MG TAB PO SCH ×3 (08:37→20:16)
[2017-03-15] MEDS: SENNA TAB PO SCH ×2 (08:37→21:00)
[2017-03-15] MEDS: POLYETHYLENE GLYCOL 17 GM PACKET GTB PRN (10:09)
[2017-03-15] MEDS: LACTULOSE 30ML CUP PO PRN (10:09)
--- NOTE | 2017-03-15 10:15 | PN ---
Date/Time of Note Date/Time of Note DATE: 03/15/17 TIME: 10:14 Assessment/Plan VTE Prophylaxis VTE Prophylaxis Intervention: other Lines/Catheters IV Catheter Type (from Nrs): Saline Lock Urinary Cath still in place: Yes Reason Cath still needed: urinary retention Assessment/Plan Chief Complaint/Hosp Course A 46-year-old female with a past medical history of chronic lower back pain due to L3 to L5 disk herniation with underlying radiculopathy. The patient had significant worsening of underlying pain over the last several days and as a result was brought to [facility] emergently. The patient was seen by the neurosurgeon, Dr. Morrison and underwent an L4-L5 transforaminal fusion. Postoperatively, the patient's course was complicated with cellulitis of her chin, which is being treated with antibiotic therapy by infectious disease. Additionally, the patient's postoperative course was complicated by severe pain. The patient was previously on a [employer] pump, which was discontinued. Patient given a significant decline in his premorbid stable, was transferred to [facility] acute rehab for continued care. Upon my evaluation of the patient at this time, she is currently stable. Denies any fevers, chills, nausea, vomiting. REVIEW OF SYSTEMS: A 14-point review of systems was conducted. Pertinent positives stated in HPI, otherwise negative. PHYSICAL EXAMINATION: HEENT: Head is normocephalic. Pupils are reactive to light. The patient has underlying erythema of the chin, which is improving. NECK: Supple. HEART: Regular rate. LUNGS: Show diminished breath sounds at the base. ABDOMEN: Soft, nontender to palpation without rebound or guarding. EXTREMITIES: Negative for clubbing, cyanosis, no edema. DERMATOLOGIC: The patient has no rashes. NEUROLOGIC: No focal deficits, although exam is somewhat limited due to lack of patient cooperation. MUSCULOSKELETAL: The patient has pain in the lower back with dressings clean, intact. 1. Acute on chronic lumbar radiculopathy. The patient is status post L4-L5 transforaminal fusion. The patient is currently stable, continues to have pain. Continue physical therapy, occupational therapy. Continue pain control. 2. Leukocytosis secondary to cellulitis, improving. Continue current antibiotic regimen. 3. Acute kidney injury secondary to hemodynamics, resolved. 4. Chronic pain syndrome. Continue current pain regimen. 5. Neuropathy. Continue Neurontin. 6. Insomnia. Continue Ambien. 7. Depression. Continue Zoloft. 8. Gastrointestinal and deep venous thrombosis prophylaxis. The patient is on proton pump inhibitor and will start the patient on Lovenox. Problems: Exam/Review of Systems Vital Signs Vitals Vital Signs Date Time Temp Pulse Resp B/P Pulse Ox O2 Delivery O2 Flow Rate FiO2 03/15/17 07:00 98.5 79 18 104/50 96 Intake and Output 03/14/17 03/14/17 03/15/17 15:00 23:00 07:00 Intake Total 550 ml 2600 ml 1400 ml Output Total 300 ml 1250 ml 2000 ml Balance 250 ml 1350 ml -600 ml Results Result Diagram: 03/13/1761703/13/17617 Medications Medications Current Medications Acetaminophen/ Hydrocodone Bitart ([place] (10/325)) 2 tab Q4 PO Last administered on 03/15/17 10:09; Admin Dose 2 TAB; Start 03/12/17 at 21:00 Baclofen (Lioresal) 10 mg TID PO Last administered on 03/15/17 08:37; Admin Dose 10 MG; Start 03/12/17 at 21:00 Bisacodyl 10 mg 10 mg DAILY PRN [place] CONSTIPATION; Start 03/12/17 at 19:00 Daptomycin/Sodium Chloride (Cubicin/NS) 100 ml @ 200 mls/hr Q24H IVPB Last administered on 03/14/17 12:34; Admin Dose 200 MLS/HR; Start 03/13/17 at 12: 00 Docusate Sodium (Colace) 100 mg BID PO Last administered on 03/15/17 08:37; Admin Dose 100 MG; Start 03/12/17 at 21:00 Duloxetine HCl (Cymbalta) 30 mg DAILY PO Last administered on 03/15/17 08:37 ; Admin Dose 30 MG; Start 03/13/17 at 09:00 Famotidine (Pepcid) 20 mg BID PO Last administered on 03/15/17 08:37; Admin Dose 20 MG; Start 03/12/17 at 21:00 Bupropion HCl (Wellbutrin Xl) 300 mg DAILY PO Last administered on 03/15/17 08:37; Admin Dose 300 MG; Start 03/13/17 at 09:00 Hydromorphone HCl (Dilaudid) 2 mg Q2H PRN IV BREAKTHROUGH PAIN Last administered on 03/15/17 08:36; Admin Dose 2 MG; Start 03/12/17 at 19:00 Naloxone HCl (Narcan) 0.2 mg Q2M PRN IV RR 8 BREATHS/MIN OR LESS; Start at 19:00 Oxycodone HCl (Roxicodone) 10 mg Q6 PO Last administered on 03/15/17 06:19; Admin Dose 10 MG; Start 03/12/17 at 20:00 Polyethylene Glycol (Miralax) 17 gm DAILY PRN GTB CONSTIPATION Last administered on 03/15/17 10:09; Admin Dose 17 GM; Start 03/12/17 at 19:00 Senna (Senokot) 1 tab BID PO Last administered on 03/15/17 08:37; Admin Dose 1 TAB; Start 03/12/17 at 21:00 Silver Sulfadiazine (Thermazene 1% 25 Gm) 1 applic DAILY TOP Last administered on 03/15/17 08:36; Admin Dose 1 APPLIC; Start 03/13/17 at 09:00 Zolpidem Tartrate (Ambien) 10 mg QHS PRN PO INSOMNIA Last administered on 03/14 23:36; Admin Dose 10 MG; Start 03/12/17 at 19:00 Acetaminophen (Tylenol Tab) 650 mg Q4H PRN PO PAIN; Start 03/13/17 at 06:30 Magnesium Hydroxide (Milk Of Mag) 30 ml BID PRN PO CONSTIPATION; Start at 06:30 Lactulose (Enulose) 20 gm DAILY PRN PO CONSTIPATION Last administered on 10:09; Admin Dose 20 GM; Start 03/13/17 at 06:30 Miscellaneous Information (Flu Vaccine Previously Dispensed) FLU VACCINE PREVIOU... NOTE PRN XX NOTE; Start 03/13/17 at 07:00 Gabapentin (Neurontin) 600 mg TID PO Last administered on 03/15/17 08:37; Admin Dose 600 MG; Start 03/13/17 at 13:00 Tizanidine HCl (Zanaflex) 2 mg BID PRN PO muscle spasm Last administered on 10:42; Admin Dose 2 MG; Start 03/13/17 at 11:00 Ondansetron HCl (Zofran Inj) 4 mg Q4H PRN IV NAUSEA AND/OR VOMITING Last administered on 03/14/17 17:34; Admin Dose 4 MG; Start 03/14/17 at 07:58 Tramadol HCl (Ultram) 50 mg Q6H PRN PO PAIN Last administered on 03/14/17 19: 34; Admin Dose 50 MG; Start 03/14/17 at 08:30 OBDULIA MONTAGUE DO Mar 15, 2017 10:15
--- NOTE | 2017-03-15 12:45 | CONS ---
Date/Time of Note Date/Time of Note DATE: 03/15/17 TIME: 12:44 Consult Date/Type/Reason Admit Date/Time Mar 12, 2017 at 17:52 Type of Consultation: cardiology Subjective CARDIOLOGY FOLLOW UP NOTE: S: D/W STAFF Pt is still in rehab. s/p spinal surgery 03/07/17 she still c/o severe back pain. no cp or pressure. no sob. O: General: obese. no acute distress HEENT: NC/AT. pupils are equal. round. NECK: NO JVD. no stridor. CV: RRR. systolic murmur; no gallop or rubs. PULM: no wheezing or rhonchi. GI: SOFT, obese. NT, ND, no rebound or guarding Extremity: trace B/L LE edema. no clubbing. neuro: awake and alert, OX3. Psych: calm and pleasant rectal: deferred ECHO reviewed: 1. Normal left ventricular systolic function. Normal left ventricular cavity size. Normal left ventricular wall thickness. Ejection fraction is visually estimated at 60 %. Tissue Doppler/Mitral Doppler indices are consistent with impaired relaxation (Stage I diastolic dysfunction). 2. Normal appearance and function of the mitral valve with trace physiologic regurgitation. 3. Normal appearance of the aortic valve. No significant aortic stenosis or insufficiency. 4. Normal appearance of the tricuspid valve. Estimated peak PA systolic pressure 24 mmHg. There is trace tricuspid regurgitation. Objective Vital Signs Date Time Temp Pulse Resp B/P Pulse Ox O2 Delivery O2 Flow Rate FiO2 03/15/17 07:00 98.5 79 18 104/50 96 Intake and Output 03/14/17 03/14/17 03/15/17 15:00 23:00 07:00 Intake Total 550 ml 2600 ml 1400 ml Output Total 300 ml 1250 ml 2000 ml Balance 250 ml 1350 ml -600 ml Results/Medications Result Diagram: 03/13/1718 03/13/1718 Medications Current Medications Acetaminophen/ Hydrocodone Bitart ([place] (10/325)) 2 tab Q4 PO Last administered on 03/15/17 10:09; Admin Dose 2 TAB; Start 03/12/17 at 21:00 Baclofen (Lioresal) 10 mg TID PO Last administered on 03/15/17 08:37; Admin Dose 10 MG; Start 03/12/17 at 21:00 Bisacodyl 10 mg 10 mg DAILY PRN [place] CONSTIPATION; Start 03/12/17 at 19:00 Daptomycin/Sodium Chloride (Cubicin/NS) 100 ml @ 200 mls/hr Q24H IVPB Last administered on 03/14/17 12:34; Admin Dose 200 MLS/HR; Start 03/13/17 at 12: 00 Docusate Sodium (Colace) 100 mg BID PO Last administered on 03/15/17 08:37; Admin Dose 100 MG; Start 03/12/17 at 21:00 Duloxetine HCl (Cymbalta) 30 mg DAILY PO Last administered on 03/15/17 08:37 ; Admin Dose 30 MG; Start 03/13/17 at 09:00 Famotidine (Pepcid) 20 mg BID PO Last administered on 03/15/17 08:37; Admin Dose 20 MG; Start 03/12/17 at 21:00 Bupropion HCl (Wellbutrin Xl) 300 mg DAILY PO Last administered on 03/15/17 08:37; Admin Dose 300 MG; Start 03/13/17 at 09:00 Hydromorphone HCl (Dilaudid) 2 mg Q2H PRN IV BREAKTHROUGH PAIN Last administered on 03/15/17 08:36; Admin Dose 2 MG; Start 03/12/17 at 19:00 Naloxone HCl (Narcan) 0.2 mg Q2M PRN IV RR 8 BREATHS/MIN OR LESS; Start at 19:00 Oxycodone HCl (Roxicodone) 10 mg Q6 PO Last administered on 03/15/17 12:06; Admin Dose 10 MG; Start 03/12/17 at 20:00 Polyethylene Glycol (Miralax) 17 gm DAILY PRN GTB CONSTIPATION Last administered on 03/15/17 10:09; Admin Dose 17 GM; Start 03/12/17 at 19:00 Senna (Senokot) 1 tab BID PO Last administered on 03/15/17 08:37; Admin Dose 1 TAB; Start 03/12/17 at 21:00 Silver Sulfadiazine (Thermazene 1% 25 Gm) 1 applic DAILY TOP Last administered on 03/15/17 08:36; Admin Dose 1 APPLIC; Start 03/13/17 at 09:00 Zolpidem Tartrate (Ambien) 10 mg QHS PRN PO INSOMNIA Last administered on 03/14 23:36; Admin Dose 10 MG; Start 03/12/17 at 19:00 Acetaminophen (Tylenol Tab) 650 mg Q4H PRN PO PAIN; Start 03/13/17 at 06:30 Magnesium Hydroxide (Milk Of Mag) 30 ml BID PRN PO CONSTIPATION; Start at 06:30 Lactulose (Enulose) 20 gm DAILY PRN PO CONSTIPATION Last administered on 10:09; Admin Dose 20 GM; Start 03/13/17 at 06:30 Miscellaneous Information (Flu Vaccine Previously Dispensed) FLU VACCINE PREVIOU... NOTE PRN XX NOTE; Start 03/13/17 at 07:00 Gabapentin (Neurontin) 600 mg TID PO Last administered on 03/15/17 08:37; Admin Dose 600 MG; Start 03/13/17 at 13:00 Tizanidine HCl (Zanaflex) 2 mg BID PRN PO muscle spasm Last administered on 10:42; Admin Dose 2 MG; Start 03/13/17 at 11:00 Ondansetron HCl (Zofran Inj) 4 mg Q4H PRN IV NAUSEA AND/OR VOMITING Last administered on 03/14/17 17:34; Admin Dose 4 MG; Start 03/14/17 at 07:58 Tramadol HCl (Ultram) 50 mg Q6H PRN PO PAIN Last administered on 03/14/17 19: 34; Admin Dose 50 MG; Start 03/14/17 at 08:30 Assessment/Plan Chief Complaint/Hosp Course 1. s/p spinal surgery: debility in rehab now. 2. severe LBP and radiculopathy; s/p surgery now 3. mildly abnormal ECG 4. Hx depression 5. obesity. Recommendations: cont current cardiac care post op care and pain management as per neurosurgery team. DVT prophylaxis as per IM/ neurosurgery team, currently on SCD. consider adding lovenox once ok with neurosurgery cont acute rehab eval and treatment as tolerated Thank you for his referral. We will continue to follow along with you as needed basis. ERIKA HERNANDEZ MD [facility] Problems: ERIKA HERNANDEZ MD Mar 15, 2017 12:45
[2017-03-15] MEDS: DAPTOMYCIN IVPB SCH (13:01)
[2017-03-15] MEDS: SOD CHLORIDE 0.9% IVPB SCH (13:01)
[2017-03-15 14:00] VITALS: BP 117/58; RESP 18
[2017-03-15] MEDS: ONDANSETRON 4 MG INJ IV PRN ×2 (14:00→20:20)
--- NOTE | 2017-03-15 17:58 | CONS ---
Date/Time of Note Date/Time of Note DATE: 03/15/17 TIME: 17:49 Assessment/Plan Assessment/Plan Chief Complaint/Hosp Course ID PROGRESS NOTE CURRENT ABX: DAY #5 => Daptomycin 24H INTERVAL SUMMARY * Fluid collection on chin not draining, not much improvement, "numb" when she touches it, likely needs to be drained by surgeon. * Facial WOUND CULTURE Final Organism 1 ENTEROCOCCUS SPECIES QUANTITY 3+ Organism 2 ALPHA HEMOLYTIC STREP SPP QUANTITY 1+ . VIRIDANS GROUP Organism 3 COAGULASE NEGATIVE STAPH QUANTITY SCANT GROWTH PHYSICAL EXAMINATION: GENERAL: VSS, afebrile, NAD HEENT: Large fluid collection subcutaneous chin w/erythema, not draining NECK: Supple, trach midline CHEST: Equal chest rise bilaterally, without dyspnea on observation ABDOMEN: Large, Soft, NT EXT: Warm, moves all ext SKIN: No rash, no diaphoresis ID ASSESSMENT: 46 yo morbid obese F admit with: 1. SIRS w/resolving leukocytosis 2. Facial/chin cellulitis w/fluid collection on chin no longer draining * Ultrasound revealed no evidence of abscess. 3. Lumbar spinal stenosis -> severe DJD/DDD w/BLEXT radiculopathy, peripheral neuropathy-> s/p decompression surgery on 03/08/2017. 4. Chronic pain syndrome, mobility limiting 5. Acute kidney injury secondary to hemodynamics, resolved. ABX ALLERGIES: None INVASIVES: PIV CURRENT ABX: DAY #5 => Daptomycin ID RECOMMENDATIONS/PLAN: 1. Fluid collection chin not much improvement, "numb" when she touches it, no longer draining on its own -> likely needs to be drained by surgeon 2. Continue ABX, consider surgical consult, ID team consultants will continue to follow . Problems: Consultation Date/Type/Reason Admit Date/Time Mar 12, 2017 at 17:52 Initial Consult Date Exam/Review of Systems Vital Signs Vitals Vital Signs Date Time Temp Pulse Resp B/P Pulse Ox O2 Delivery O2 Flow Rate FiO2 03/15/17 14:00 97.8 81 18 117/58 96 Intake and Output 03/14/17 03/14/17 03/15/17 15:00 23:00 07:00 Intake Total 550 ml 2600 ml 1400 ml Output Total 300 ml 1250 ml 2000 ml Balance 250 ml 1350 ml -600 ml Results Result Diagram: 03/13/1718 03/13/1718 Medications Medications Current Medications Acetaminophen/ Hydrocodone Bitart ([place] ()) 2 tab Q4 PO Last administered on 03/15/17 17:11; Admin Dose 2 TAB; Start 03/12/17 at 21:00 Baclofen (Lioresal) 10 mg TID PO Last administered on 03/15/17 13:01; Admin Dose 10 MG; Start 03/12/17 at 21:00 Bisacodyl 10 mg 10 mg DAILY PRN [place] CONSTIPATION Last administered on 15:50; Admin Dose 10 MG; Start 03/12/17 at 19:00 Daptomycin/Sodium Chloride (Cubicin/NS) 100 ml @ 200 mls/hr Q24H IVPB Last administered on 03/15/17 13:01; Admin Dose 200 MLS/HR; Start 03/13/17 at 12: 00 Docusate Sodium (Colace) 100 mg BID PO Last administered on 03/15/17 08:37; Admin Dose 100 MG; Start 03/12/17 at 21:00 Duloxetine HCl (Cymbalta) 30 mg DAILY PO Last administered on 03/15/17 08:37 ; Admin Dose 30 MG; Start 03/13/17 at 09:00 Famotidine (Pepcid) 20 mg BID PO Last administered on 03/15/17 08:37; Admin Dose 20 MG; Start 03/12/17 at 21:00 Bupropion HCl (Wellbutrin Xl) 300 mg DAILY PO Last administered on 03/15/17 08:37; Admin Dose 300 MG; Start 03/13/17 at 09:00 Hydromorphone HCl (Dilaudid) 2 mg Q2H PRN IV BREAKTHROUGH PAIN Last administered on 03/15/17 15:56; Admin Dose 2 MG; Start 03/12/17 at 19:00 Naloxone HCl (Narcan) 0.2 mg Q2M PRN IV RR 8 BREATHS/MIN OR LESS; Start at 19:00 Oxycodone HCl (Roxicodone) 10 mg Q6 PO Last administered on 03/15/17 12:06; Admin Dose 10 MG; Start 03/12/17 at 20:00 Polyethylene Glycol (Miralax) 17 gm DAILY PRN GTB CONSTIPATION Last administered on 03/15/17 10:09; Admin Dose 17 GM; Start 03/12/17 at 19:00 Senna (Senokot) 1 tab BID PO Last administered on 03/15/17 08:37; Admin Dose 1 TAB; Start 03/12/17 at 21:00 Silver Sulfadiazine (Thermazene 1% 25 Gm) 1 applic DAILY TOP Last administered on 03/15/17 08:36; Admin Dose 1 APPLIC; Start 03/13/17 at 09:00 Zolpidem Tartrate (Ambien) 10 mg QHS PRN PO INSOMNIA Last administered on 03/14 23:36; Admin Dose 10 MG; Start 03/12/17 at 19:00 Acetaminophen (Tylenol Tab) 650 mg Q4H PRN PO PAIN; Start 03/13/17 at 06:30 Magnesium Hydroxide (Milk Of Mag) 30 ml BID PRN PO CONSTIPATION; Start at 06:30 Miscellaneous Information (Flu Vaccine Previously Dispensed) FLU VACCINE PREVIOU... NOTE PRN XX NOTE; Start 03/13/17 at 07:00 Gabapentin (Neurontin) 600 mg TID PO Last administered on 03/15/17 13:01; Admin Dose 600 MG; Start 03/13/17 at 13:00 Tizanidine HCl (Zanaflex) 2 mg BID PRN PO muscle spasm Last administered on 10:42; Admin Dose 2 MG; Start 03/13/17 at 11:00 Ondansetron HCl (Zofran Inj) 4 mg Q4H PRN IV NAUSEA AND/OR VOMITING Last administered on 03/15/17 14:00; Admin Dose 4 MG; Start 03/14/17 at 07:58 Tramadol HCl (Ultram) 50 mg Q6H PRN PO PAIN Last administered on 03/14/17 19: 34; Admin Dose 50 MG; Start 03/14/17 at 08:30 Lactulose (Enulose) 20 gm BID PRN PO CONSTIPATION; Start 03/15/17 at 21:00 LING ADAMES NP Mar 15, 2017 17:58
[2017-03-15] MEDS: TIZANIDINE 2 MG TAB PO PRN (18:04)
[2017-03-15 20:00] VITALS: BP 102/53; RESP 18
[2017-03-15] MEDS ORDERED: LACTULOSE 30ML CUP PO PRN (21:00)
[2017-03-16] MEDS: ZOLPIDEM 5 MG TAB PO PRN ×2 (00:05→23:16)
[2017-03-16] MEDS: HYDROmorphONE 2 MG/ML SYG IV PRN ×9 (00:22→21:50)
[2017-03-16] MEDS: HYDROCODONE/APAP (10/325) TAB PO SCH ×6 (01:00→21:54)
[2017-03-16 02:00] VITALS: BP 107/54; RESP 20
[2017-03-16] MEDS: ONDANSETRON 4 MG INJ IV PRN ×2 (05:09→10:11)
[2017-03-16] MEDS: TIZANIDINE 2 MG TAB PO PRN ×2 (05:09→13:19)
[2017-03-16] MEDS: oxyCODONE 5 MG TAB PO SCH ×5 (06:06→23:17)
[2017-03-16 07:00] VITALS: BP 95/45; RESP 18
[2017-03-16] MEDS: SENNA TAB PO SCH ×2 (08:35→20:10)
[2017-03-16] MEDS: FAMOTIDINE 20 MG TAB PO SCH ×2 (08:35→20:10)
[2017-03-16] MEDS: DULOXETINE 30 MG CAP DR PO SCH (08:35)
[2017-03-16] MEDS: BACLOFEN 10 MG TAB PO SCH ×3 (08:35→20:09)
[2017-03-16] MEDS: DOCUSATE SODIUM 100 MG CAP PO SCH ×2 (08:35→20:10)
[2017-03-16] MEDS: GABAPENTIN 300 MG CAP PO SCH ×3 (08:35→20:10)
[2017-03-16] MEDS: traMADol 50 MG TAB PO PRN ×2 (08:42→18:31)
[2017-03-16] MEDS: BUPROPION (XL) 150 MG TAB PO SCH (09:00)
--- NOTE | 2017-03-16 10:13 | PN ---
DATE: 03/16/2017 SUBJECTIVE: The patient's pain is still present, although slowly improving. No other events noted. OBJECTIVE: VITAL SIGNS: Blood pressure is 95/45, respiration 18, pulse 73, temperature 98.2. HEENT: Head is normocephalic. NECK: Supple. HEART: Regular rate. LUNGS: Show diminished breath sounds at the base. ABDOMEN: Soft, nontender to palpation. No rebound or guarding. EXTREMITIES: Negative for clubbing, cyanosis, no edema. DERMATOLOGIC: No rashes. MUSCULOSKELETAL: No joint effusions. NEUROLOGIC: No change in exam. MEDICATIONS: Have been reviewed. LABORATORY DATA: Has been reviewed. No new labs. ASSESSMENT AND PLAN: 1. Acute on chronic lumbar radiculopathy. The patient is status post L4-L5 transforaminal fusion. The patient is currently stable. Continue physical therapy, occupational therapy, continue pain co ntrol. 2. Cellulitis, improving. Continue current antibiotic regimen. 3. Acute kidney injury. Etiology is secondary to hemodynamics, resolved. 4. Chronic pain syndrome. Continue current pain regimen. 5. Neuropathy. Continue Neurontin. 6. Insomnia. Continue Ambien. 7. Depression. Continue Zoloft. 8. Gastrointestinal and deep venous thrombosis prophylaxis. Continue proton pump inhibitor and [place] enox. Dictated By: SEBASTIAN SIMMS/CANDE Conf#: [id number] DID#: [id number]
[2017-03-16] MEDS: SILVER SULFADIAZINE 1% 25 GM CR TOP SCH (10:21)
--- NOTE | 2017-03-16 12:43 | CONS ---
Date/Time of Note Date/Time of Note DATE: 03/16/17 TIME: 12:43 Consult Date/Type/Reason Admit Date/Time Mar 12, 2017 at 17:52 Objective Vital Signs Date Time Temp Pulse Resp B/P Pulse Ox O2 Delivery O2 Flow Rate FiO2 03/16/17 07:00 98.2 73 18 95/45 99 03/16/17 02:00 Room Air Intake and Output 03/15/17 03/15/17 03/16/17 15:00 23:00 07:00 Intake Total 100 ml 2400 ml 1200 ml Output Total 1 ml 2001 ml 1001 ml Balance 99 ml 399 ml 199 ml INTERDISCIPLINARY TEAM CONFERENCE BOWEL- Cont [id number]-Emmtk-rb today or tomorrow SKIN- intact OT- DRESSING-min/mod BATHING-min/mod TOILETING-min/mod PT- BED MOBILITY-min/mod TRANSFERS-min/mod AMBULATION-min/mod 40 feet A/P- Interdisciplinary team conference held today. Please see interdisciplinary sheet. Working toward d.c. on 03/26 with post discharge follow up of physical therapy, occupational therapy. Results/Medications Result Diagram: 03/13/17 0618 03/13/17 0618 Medications Current Medications Acetaminophen/ Hydrocodone Bitart ([place] (10/325)) 2 tab Q4 PO Last administered on 03/16/17 08:41; Admin Dose 2 TAB; Start 03/12/17 at 21:00 Baclofen (Lioresal) 10 mg TID PO Last administered on 03/16/17 08:35; Admin Dose 10 MG; Start 03/12/17 at 21:00 Bisacodyl 10 mg 10 mg DAILY PRN [place] CONSTIPATION Last administered on 15:50; Admin Dose 10 MG; Start 03/12/17 at 19:00 Daptomycin/Sodium Chloride (Cubicin/NS) 100 ml @ 200 mls/hr Q24H IVPB Last administered on 03/15/17 13:01; Admin Dose 200 MLS/HR; Start 03/13/17 at 12: 00 Docusate Sodium (Colace) 100 mg BID PO Last administered on 03/16/17 08:35; Admin Dose 100 MG; Start 03/12/17 at 21:00 Duloxetine HCl (Cymbalta) 30 mg DAILY PO Last administered on 03/16/17 08:35 ; Admin Dose 30 MG; Start 03/13/17 at 09:00 Famotidine (Pepcid) 20 mg BID PO Last administered on 03/16/17 08:35; Admin Dose 20 MG; Start 03/12/17 at 21:00 Bupropion HCl (Wellbutrin Xl) 300 mg DAILY PO Last administered on 03/16/17 09:00; Admin Dose 300 MG; Start 03/13/17 at 09:00 Hydromorphone HCl (Dilaudid) 2 mg Q2H PRN IV BREAKTHROUGH PAIN Last administered on 03/16/17 12:16; Admin Dose 2 MG; Start 03/12/17 at 19:00 Naloxone HCl (Narcan) 0.2 mg Q2M PRN IV RR 8 BREATHS/MIN OR LESS; Start at 19:00 Oxycodone HCl (Roxicodone) 10 mg Q6 PO Last administered on 03/16/17 12:05; Admin Dose 10 MG; Start 03/12/17 at 20:00 Polyethylene Glycol (Miralax) 17 gm DAILY PRN GTB CONSTIPATION Last administered on 03/15/17 10:09; Admin Dose 17 GM; Start 03/12/17 at 19:00 Senna (Senokot) 1 tab BID PO Last administered on 03/16/17 08:35; Admin Dose 1 TAB; Start 03/12/17 at 21:00 Silver Sulfadiazine (Thermazene 1% 25 Gm) 1 applic DAILY TOP Last administered on 03/16/17 10:21; Admin Dose 1 APPLIC; Start 03/13/17 at 09:00 Zolpidem Tartrate (Ambien) 10 mg QHS PRN PO INSOMNIA Last administered on 03/16 00:05; Admin Dose 10 MG; Start 03/12/17 at 19:00 Acetaminophen (Tylenol Tab) 650 mg Q4H PRN PO PAIN; Start 03/13/17 at 06:30 Magnesium Hydroxide (Milk Of Mag) 30 ml BID PRN PO CONSTIPATION; Start at 06:30 Miscellaneous Information (Flu Vaccine Previously Dispensed) FLU VACCINE PREVIOU... NOTE PRN XX NOTE; Start 03/13/17 at 07:00 Gabapentin (Neurontin) 600 mg TID PO Last administered on 03/16/17 08:35; Admin Dose 600 MG; Start 03/13/17 at 13:00 Tizanidine HCl (Zanaflex) 2 mg BID PRN PO muscle spasm Last administered on 05:09; Admin Dose 2 MG; Start 03/13/17 at 11:00 Ondansetron HCl (Zofran Inj) 4 mg Q4H PRN IV NAUSEA AND/OR VOMITING Last administered on 03/16/17 10:11; Admin Dose 4 MG; Start 03/14/17 at 07:58 Tramadol HCl (Ultram) 50 mg Q6H PRN PO PAIN Last administered on 03/16/17 08: 42; Admin Dose 50 MG; Start 03/14/17 at 08:30 Lactulose (Enulose) 20 gm BID PRN PO CONSTIPATION; Start 03/15/17 at 21:00 CORAZON BETH MD Mar 16, 2017 12:43
[2017-03-16] MEDS: SOD CHLORIDE 0.9% IVPB SCH (13:09)
[2017-03-16] MEDS: DAPTOMYCIN IVPB SCH (13:09)
[2017-03-16 14:00] VITALS: BP 111/59; RESP 18
--- NOTE | 2017-03-16 14:33 | CONS ---
Date/Time of Note Date/Time of Note DATE: 03/16/17 TIME: 14:31 Consult Date/Type/Reason Admit Date/Time Mar 12, 2017 at 17:52 Type of Consultation: id Objective Vital Signs Date Time Temp Pulse Resp B/P Pulse Ox O2 Delivery O2 Flow Rate FiO2 03/16/17 07:00 98.2 73 18 95/45 99 03/16/17 02:00 Room Air Intake and Output 03/15/17 03/15/17 03/16/17 15:00 23:00 07:00 Intake Total 100 ml 2400 ml 1200 ml Output Total 1 ml 2001 ml 1001 ml Balance 99 ml 399 ml 199 ml Results/Medications Result Diagram: 03/13/1761703/13/17617 Medications Current Medications Acetaminophen/ Hydrocodone Bitart ([place] (10325)) 2 tab Q4 PO Last administered on 03/16/17 13:10; Admin Dose 2 TAB; Start 03/12/17 at 21:00 Baclofen (Lioresal) 10 mg TID PO Last administered on 03/16/17 13:09; Admin Dose 10 MG; Start 03/12/17 at 21:00 Bisacodyl 10 mg 10 mg DAILY PRN [place] CONSTIPATION Last administered on 15:50; Admin Dose 10 MG; Start 03/12/17 at 19:00 Daptomycin/Sodium Chloride (Cubicin/NS) 100 ml @ 200 mls/hr Q24H IVPB Last administered on 03/16/17 13:09; Admin Dose 200 MLS/HR; Start 03/13/17 at 12: 00 Docusate Sodium (Colace) 100 mg BID PO Last administered on 03/16/17 08:35; Admin Dose 100 MG; Start 03/12/17 at 21:00 Duloxetine HCl (Cymbalta) 30 mg DAILY PO Last administered on 03/16/17 08:35 ; Admin Dose 30 MG; Start 03/13/17 at 09:00 Famotidine (Pepcid) 20 mg BID PO Last administered on 03/16/17 08:35; Admin Dose 20 MG; Start 03/12/17 at 21:00 Bupropion HCl (Wellbutrin Xl) 300 mg DAILY PO Last administered on 03/16/17 09:00; Admin Dose 300 MG; Start 03/13/17 at 09:00 Hydromorphone HCl (Dilaudid) 2 mg Q2H PRN IV BREAKTHROUGH PAIN Last administered on 03/16/17 14:04; Admin Dose 2 MG; Start 03/12/17 at 19:00 Naloxone HCl (Narcan) 0.2 mg Q2M PRN IV RR 8 BREATHS/MIN OR LESS; Start at 19:00 Oxycodone HCl (Roxicodone) 10 mg Q6 PO Last administered on 03/16/17 12:05; Admin Dose 10 MG; Start 03/12/17 at 20:00 Polyethylene Glycol (Miralax) 17 gm DAILY PRN GTB CONSTIPATION Last administered on 03/15/17 10:09; Admin Dose 17 GM; Start 03/12/17 at 19:00 Senna (Senokot) 1 tab BID PO Last administered on 03/16/17 08:35; Admin Dose 1 TAB; Start 03/12/17 at 21:00 Silver Sulfadiazine (Thermazene 1% 25 Gm) 1 applic DAILY TOP Last administered on 03/16/17 10:21; Admin Dose 1 APPLIC; Start 03/13/17 at 09:00 Zolpidem Tartrate (Ambien) 10 mg QHS PRN PO INSOMNIA Last administered on 03/16 00:05; Admin Dose 10 MG; Start 03/12/17 at 19:00 Acetaminophen (Tylenol Tab) 650 mg Q4H PRN PO PAIN; Start 03/13/17 at 06:30 Magnesium Hydroxide (Milk Of Mag) 30 ml BID PRN PO CONSTIPATION; Start at 06:30 Miscellaneous Information (Flu Vaccine Previously Dispensed) FLU VACCINE PREVIOU... NOTE PRN XX NOTE; Start 03/13/17 at 07:00 Gabapentin (Neurontin) 600 mg TID PO Last administered on 03/16/17 13:09; Admin Dose 600 MG; Start 03/13/17 at 13:00 Tizanidine HCl (Zanaflex) 2 mg BID PRN PO muscle spasm Last administered on 13:19; Admin Dose 2 MG; Start 03/13/17 at 11:00 Ondansetron HCl (Zofran Inj) 4 mg Q4H PRN IV NAUSEA AND/OR VOMITING Last administered on 03/16/17 10:11; Admin Dose 4 MG; Start 03/14/17 at 07:58 Tramadol HCl (Ultram) 50 mg Q6H PRN PO PAIN Last administered on 03/16/17 08: 42; Admin Dose 50 MG; Start 03/14/17 at 08:30 Lactulose (Enulose) 20 gm BID PRN PO CONSTIPATION; Start 03/15/17 at 21:00 Assessment/Plan Chief Complaint/Hosp Course SUBJECTIVE: No events overnight. Patient is awake, looks comfortable, no fevers. MICROBIOLOGY: The culture of the open area of the chin grew alpha hemolytic strep species, enterococcus and staph species. ANTIMICROBIALS: The patient is on daptomycin. ALLERGIES: NONE. PHYSICAL EXAMINATION: GENERAL: This is an obese, well-developed, middle-aged woman who is alert, in no distress. HEENT: Head atraumatic, normocephalic. Sclerae anicteric. Buccal mucosa pink. NECK: Supple. CHEST: Rise symmetrical. Breath sounds clear. HEART: S1, S2. ABDOMEN: Soft. Bowel sounds present. ASSESSMENT: 1. Cellulitis of the chin. 2. Chronic back pain status post spinal surgery on 03/08/2017. 3. Morbid obesity. 4. Chronic pain syndrome. PLAN: The patient remains stable. Continue present care, antibiotics, consider surgical eval as patient has significant firmness and numbness of the chin despite abx. [facility] staff Problems: JOHANNA GAXIOLA NP Mar 16, 2017 14:33
--- NOTE | 2017-03-16 18:31 | CONS ---
Date/Time of Note Date/Time of Note DATE: 03/16/17 TIME: 18:30 Consult Date/Type/Reason Admit Date/Time Mar 12, 2017 at 17:52 Type of Consultation: card Subjective CARDIOLOGY FOLLOW UP NOTE: S: D/W STAFF Pt is still in rehab. s/p spinal surgery 03/07/17 she still c/o severe back pain. c/o pain at IV site no cp or pressure. no sob. O: General: obese. no acute distress HEENT: NC/AT. pupils are equal. round. NECK: NO JVD. no stridor. CV: RRR. systolic murmur; no gallop or rubs. PULM: no wheezing or rhonchi. GI: SOFT, obese. NT, ND, no rebound or guarding Extremity: trace B/L LE edema. no clubbing. neuro: awake and alert, OX3. Psych: calm and pleasant rectal: deferred ECHO reviewed: 1. Normal left ventricular systolic function. Normal left ventricular cavity size. Normal left ventricular wall thickness. Ejection fraction is visually estimated at 60 %. Tissue Doppler/Mitral Doppler indices are consistent with impaired relaxation (Stage I diastolic dysfunction). 2. Normal appearance and function of the mitral valve with trace physiologic regurgitation. 3. Normal appearance of the aortic valve. No significant aortic stenosis or insufficiency. 4. Normal appearance of the tricuspid valve. Estimated peak PA systolic pressure 24 mmHg. There is trace tricuspid regurgitation. Objective Vital Signs Date Time Temp Pulse Resp B/P Pulse Ox O2 Delivery O2 Flow Rate FiO2 03/16/17 14:00 97.9 85 18 111/59 97 03/16/17 02:00 Room Air Intake and Output 03/15/17 03/15/17 03/16/17 15:00 23:00 07:00 Intake Total 100 ml 2400 ml 1200 ml Output Total 1 ml 2001 ml 1001 ml Balance 99 ml 399 ml 199 ml Results/Medications Result Diagram: 03/13/1718 03/13/17 0618 Medications Current Medications Acetaminophen/ Hydrocodone Bitart ([place] (10/325)) 2 tab Q4 PO Last administered on 03/16/17 17:54; Admin Dose 2 TAB; Start 03/12/17 at 21:00 Baclofen (Lioresal) 10 mg TID PO Last administered on 03/16/17 13:09; Admin Dose 10 MG; Start 03/12/17 at 21:00 Bisacodyl 10 mg 10 mg DAILY PRN [place] CONSTIPATION Last administered on 15:50; Admin Dose 10 MG; Start 03/12/17 at 19:00 Daptomycin/Sodium Chloride (Cubicin/NS) 100 ml @ 200 mls/hr Q24H IVPB Last administered on 03/16/17 13:09; Admin Dose 200 MLS/HR; Start 03/13/17 at 12: 00 Docusate Sodium (Colace) 100 mg BID PO Last administered on 03/16/17 08:35; Admin Dose 100 MG; Start 03/12/17 at 21:00 Duloxetine HCl (Cymbalta) 30 mg DAILY PO Last administered on 03/16/17 08:35 ; Admin Dose 30 MG; Start 03/13/17 at 09:00 Famotidine (Pepcid) 20 mg BID PO Last administered on 03/16/17 08:35; Admin Dose 20 MG; Start 03/12/17 at 21:00 Bupropion HCl (Wellbutrin Xl) 300 mg DAILY PO Last administered on 03/16/17 09:00; Admin Dose 300 MG; Start 03/13/17 at 09:00 Hydromorphone HCl (Dilaudid) 2 mg Q2H PRN IV BREAKTHROUGH PAIN Last administered on 03/16/17 17:49; Admin Dose 2 MG; Start 03/12/17 at 19:00 Naloxone HCl (Narcan) 0.2 mg Q2M PRN IV RR 8 BREATHS/MIN OR LESS; Start at 19:00 Oxycodone HCl (Roxicodone) 10 mg Q6 PO Last administered on 03/16/17 17:53; Admin Dose 10 MG; Start 03/12/17 at 20:00 Polyethylene Glycol (Miralax) 17 gm DAILY PRN GTB CONSTIPATION Last administered on 03/15/17 10:09; Admin Dose 17 GM; Start 03/12/17 at 19:00 Senna (Senokot) 1 tab BID PO Last administered on 03/16/17 08:35; Admin Dose 1 TAB; Start 03/12/17 at 21:00 Silver Sulfadiazine (Thermazene 1% 25 Gm) 1 applic DAILY TOP Last administered on 03/16/17 10:21; Admin Dose 1 APPLIC; Start 03/13/17 at 09:00 Zolpidem Tartrate (Ambien) 10 mg QHS PRN PO INSOMNIA Last administered on 03/16 00:05; Admin Dose 10 MG; Start 03/12/17 at 19:00 Acetaminophen (Tylenol Tab) 650 mg Q4H PRN PO PAIN; Start 03/13/17 at 06:30 Magnesium Hydroxide (Milk Of Mag) 30 ml BID PRN PO CONSTIPATION; Start at 06:30 Miscellaneous Information (Flu Vaccine Previously Dispensed) FLU VACCINE PREVIOU... NOTE PRN XX NOTE; Start 03/13/17 at 07:00 Gabapentin (Neurontin) 600 mg TID PO Last administered on 03/16/17 13:09; Admin Dose 600 MG; Start 03/13/17 at 13:00 Tizanidine HCl (Zanaflex) 2 mg BID PRN PO muscle spasm Last administered on 13:19; Admin Dose 2 MG; Start 03/13/17 at 11:00 Ondansetron HCl (Zofran Inj) 4 mg Q4H PRN IV NAUSEA AND/OR VOMITING Last administered on 03/16/17 10:11; Admin Dose 4 MG; Start 03/14/17 at 07:58 Tramadol HCl (Ultram) 50 mg Q6H PRN PO PAIN Last administered on 03/16/17 08: 42; Admin Dose 50 MG; Start 03/14/17 at 08:30 Lactulose (Enulose) 20 gm BID PRN PO CONSTIPATION; Start 03/15/17 at 21:00 Assessment/Plan Chief Complaint/Hosp Course 1. s/p spinal surgery: debility in rehab now. 2. severe LBP and radiculopathy; s/p surgery now 3. mildly abnormal ECG 4. Hx depression 5. obesity. Recommendations: cont current cardiac care cont post op care and pain management as per neurosurgery team. DVT prophylaxis as per IM/ neurosurgery team, currently on SCD. consider adding lovenox/ heparin once ok with neurosurgery cont acute rehab eval and treatment as tolerated Thank you for his referral. We will continue to follow along with you as needed basis. ERIKA HERNANDEZ MD [facility] Problems: ERIKA HERNANDEZ MD 20, 2017 18:31
[2017-03-16] MEDS ORDERED: ENOXAPARIN 40 MG/0.4 ML SYG SC ONE (19:00)
[2017-03-16 20:00] VITALS: BP 100/50; RESP 18
[2017-03-16] MEDS: ENOXAPARIN 40 MG/0.4 ML SYG SC SCH (20:19)
[2017-03-17] MEDS: HYDROmorphONE 2 MG/ML SYG IV PRN ×8 (04:13→22:32)
[2017-03-17] MEDS: HYDROCODONE/APAP (10/325) TAB PO SCH ×6 (04:13→23:54)
[2017-03-17] MEDS: oxyCODONE 5 MG TAB PO SCH ×4 (05:31→23:33)
[2017-03-17] MEDS: TIZANIDINE 2 MG TAB PO PRN ×2 (05:52→15:21)
[2017-03-17] MEDS: traMADol 50 MG TAB PO PRN ×2 (05:52→21:04)
[2017-03-17 05:55] VITALS: BP 96/52; PULSE 77; RESP 16
[2017-03-17 08:00] VITALS: BP 108/60; RESP 19
[2017-03-17] MEDS: DOCUSATE SODIUM 100 MG CAP PO SCH ×2 (08:40→20:40)
[2017-03-17] MEDS: ENOXAPARIN 40 MG/0.4 ML SYG SC SCH (08:41)
[2017-03-17] MEDS: FAMOTIDINE 20 MG TAB PO SCH ×2 (08:42→20:40)
[2017-03-17] MEDS: BACLOFEN 10 MG TAB PO SCH ×3 (08:42→20:40)
[2017-03-17] MEDS: DULOXETINE 30 MG CAP DR PO SCH (08:42)
[2017-03-17] MEDS: BUPROPION (XL) 150 MG TAB PO SCH (08:43)
[2017-03-17] MEDS: SENNA TAB PO SCH ×2 (08:43→20:40)
[2017-03-17] MEDS: GABAPENTIN 300 MG CAP PO SCH ×3 (08:43→20:40)
[2017-03-17] MEDS: SILVER SULFADIAZINE 1% 25 GM CR TOP SCH (08:44)
[2017-03-17] MEDS: DIPHENHYDRAMINE 25 MG CAP PO PRN ×2 (08:47→19:29)
--- NOTE | 2017-03-17 09:43 | PN ---
DATE: 03/17/2017 SUBJECTIVE: The patient is stable. No events overnight. The patient continues to have fluid colle ction on her chin without any significant change. OBJECTIVE: VITAL SIGNS: Blood pressure is 96/52, respirations 16, pulse 77, temperature 98.8. HEENT: Head is normocephalic. Patient's chin has noted fluctuant lesion. NECK: Supple. HEART: Regular rate. LUNGS: Show diminished breath sounds at the base. ABDOMEN: Soft, nontender to palpation. No rebound or guarding. EXTREMITIES: Negative for clubbing, cyanosis, no edema. DERMATOLOGIC: No rashes. MUSCULOSKELETAL: No joint effusions. NEUROLOGIC: No change in exam. MEDICATIONS: Have been reviewed. LABORATORY DATA: Has been reviewed. No new labs. ASSESSMENT AND PLAN: 1. Acute on chronic lumbar radiculopathy. The patient is status post L4-L5 transforaminal effusion . The patient is currently stable. Continue physical therapy and occupational therapy, continue pa in control. 2. Cellulitis of the chin with possible abscess. The patient is currently on IV antibiotics. The patient may require drainage. We will follow up with infectious disease. 3. Acute kidney injury secondary to hemodynamics. Renal function is improved. 4. Chronic pain syndrome. Continue current pain regimen. 5. Neuropathy. Continue Neurontin. 6. Insomnia. Continue Ambien. 7. Depression. Continue Zoloft. 8. Gastrointestinal and deep venous thrombosis prophylaxis. Continue proton pump inhibitor and [place] enox. Dictated By: SEBASTIAN SIMMS/CANDE Conf#: [id number] DID#: [id number]
--- NOTE | 2017-03-17 10:41 | CONS ---
Date/Time of Note Date/Time of Note DATE: 03/17/17 TIME: 10:05 Consult Date/Type/Reason Admit Date/Time Mar 12, 2017 at 17:52 Type of Consultation: card Subjective Patient still receiving IV pain medications however overall pain control continues to improve Objective Lungs clear abdomen soft Minimal assist ambulation Vital Signs Date Time Temp Pulse Resp B/P Pulse Ox O2 Delivery O2 Flow Rate FiO2 03/17/17 05:55 98.8 77 16 96/52 100 Room Air Intake and Output 03/16/17 03/16/17 03/17/17 15:00 23:00 07:00 Intake Total 100 ml 1600 ml 800 ml Output Total 0 ml 1000 ml Balance 100 ml 600 ml 800 ml Results/Medications Result Diagram: 03/13/1761703/13/17617 Medications Current Medications Acetaminophen/ Hydrocodone Bitart ([place] (10/325)) 2 tab Q4 PO Last administered on 03/17/17 08:40; Admin Dose 2 TAB; Start 03/12/17 at 21:00 Baclofen (Lioresal) 10 mg TID PO Last administered on 03/17/17 08:42; Admin Dose 10 MG; Start 03/12/17 at 21:00 Bisacodyl 10 mg 10 mg DAILY PRN [place] CONSTIPATION Last administered on 15:50; Admin Dose 10 MG; Start 03/12/17 at 19:00 Daptomycin/Sodium Chloride (Cubicin/NS) 100 ml @ 200 mls/hr Q24H IVPB Last administered on 03/16/17 13:09; Admin Dose 200 MLS/HR; Start 03/13/17 at 12: 00 Docusate Sodium (Colace) 100 mg BID PO Last administered on 03/17/17 08:40; Admin Dose 100 MG; Start 03/12/17 at 21:00 Duloxetine HCl (Cymbalta) 30 mg DAILY PO Last administered on 03/17/17 08:42 ; Admin Dose 30 MG; Start 03/13/17 at 09:00 Famotidine (Pepcid) 20 mg BID PO Last administered on 03/17/17 08:42; Admin Dose 20 MG; Start 03/12/17 at 21:00 Bupropion HCl (Wellbutrin Xl) 300 mg DAILY PO Last administered on 03/17/17 08:43; Admin Dose 300 MG; Start 03/13/17 at 09:00 Hydromorphone HCl (Dilaudid) 2 mg Q2H PRN IV BREAKTHROUGH PAIN Last administered on 03/17/17 09:24; Admin Dose 2 MG; Start 03/12/17 at 19:00 Naloxone HCl (Narcan) 0.2 mg Q2M PRN IV RR 8 BREATHS/MIN OR LESS; Start at 19:00 Oxycodone HCl (Roxicodone) 10 mg Q6 PO Last administered on 03/17/17 05:31; Admin Dose 10 MG; Start 03/12/17 at 20:00 Polyethylene Glycol (Miralax) 17 gm DAILY PRN GTB CONSTIPATION Last administered on 03/15/17 10:09; Admin Dose 17 GM; Start 03/12/17 at 19:00 Senna (Senokot) 1 tab BID PO Last administered on 03/17/17 08:43; Admin Dose 1 TAB; Start 03/12/17 at 21:00 Silver Sulfadiazine (Thermazene 1% 25 Gm) 1 applic DAILY TOP Last administered on 03/17/17 08:44; Admin Dose 1 APPLIC; Start 03/13/17 at 09:00 Zolpidem Tartrate (Ambien) 10 mg QHS PRN PO INSOMNIA Last administered on 03/16 23:16; Admin Dose 10 MG; Start 03/12/17 at 19:00 Acetaminophen (Tylenol Tab) 650 mg Q4H PRN PO PAIN; Start 03/13/17 at 06:30 Magnesium Hydroxide (Milk Of Mag) 30 ml BID PRN PO CONSTIPATION; Start at 06:30 Miscellaneous Information (Flu Vaccine Previously Dispensed) FLU VACCINE PREVIOU... NOTE PRN XX NOTE; Start 03/13/17 at 07:00 Gabapentin (Neurontin) 600 mg TID PO Last administered on 03/17/17 08:43; Admin Dose 600 MG; Start 03/13/17 at 13:00 Tizanidine HCl (Zanaflex) 2 mg BID PRN PO muscle spasm Last administered on 05:52; Admin Dose 2 MG; Start 03/13/17 at 11:00 Ondansetron HCl (Zofran Inj) 4 mg Q4H PRN IV NAUSEA AND/OR VOMITING Last administered on 03/16/17 10:11; Admin Dose 4 MG; Start 03/14/17 at 07:58 Tramadol HCl (Ultram) 50 mg Q6H PRN PO PAIN Last administered on 03/17/17 05: 52; Admin Dose 50 MG; Start 03/14/17 at 08:30 Lactulose (Enulose) 20 gm BID PRN PO CONSTIPATION; Start 03/15/17 at 21:00 Enoxaparin Sodium (Lovenox) 40 mg DAILY SC Last administered on 03/17/17 08: 41; Admin Dose 40 MG; Start 03/16/17 at 19:00 Diphenhydramine HCl (Benadryl) 25 mg Q6H PRN PO ITCHING Last administered on 08:47; Admin Dose 25 MG; Start 03/17/17 at 08:30 Assessment/Plan Additional Assessment/Plan rehab- Lumbar spinal stenosis, radiculopathy and foot drop, status post decompressive laminectomy. Continue treatment plan, patient continues to progress with the treatment plan Polyneuropathy. Acute pain syndrome-work on transition to oral pain meds -Lee discontinued today. Patient voiding History of depression. History of cervical surgery. CORAZON BETH MD Mar 17, 2017 10:41
[2017-03-17] MEDS: SOD CHLORIDE 0.9% IVPB SCH (13:16)
[2017-03-17] MEDS: DAPTOMYCIN IVPB SCH (13:16)
--- NOTE | 2017-03-17 15:00 | CONS ---
Date/Time of Note Date/Time of Note DATE: 03/17/17 TIME: 14:59 Assessment/Plan Assessment/Plan Chief Complaint/Hosp Course SUBJECTIVE: No events overnight. Patient is awake, looks comfortable MICROBIOLOGY: The culture of the open area of the chin grew alpha hemolytic strep species, enterococcus and staph species. ANTIMICROBIALS: Daptomycin. ALLERGIES: NONE. PHYSICAL EXAMINATION: GENERAL: This is an obese, well-developed, middle-aged woman who is alert, in no distress. HEENT: Head atraumatic, normocephalic. Sclerae anicteric. Buccal mucosa pink. NECK: Supple. CHEST: Rise symmetrical. Breath sounds clear. HEART: S1, S2. ABDOMEN: Soft. Bowel sounds present. ASSESSMENT: 1. Cellulitis of the chin. 2. Chronic back pain status post spinal surgery on 03/08/2017. 3. Morbid obesity. 4. Chronic pain syndrome. PLAN: The patient remains stable. Continue present care, antibiotics, await for surgical input. dw staff Problems: Consultation Date/Type/Reason Admit Date/Time Mar 12, 2017 at 17:52 Type of Consultation: ID Exam/Review of Systems Vital Signs Vitals Vital Signs Date Time Temp Pulse Resp B/P Pulse Ox O2 Delivery O2 Flow Rate FiO2 03/17/17 08:00 98.5 86 19 108/60 96 03/17/17 05:55 Room Air Intake and Output 03/16/17 03/16/17 03/17/17 15:00 23:00 07:00 Intake Total 100 ml 1600 ml 800 ml Output Total 0 ml 1000 ml Balance 100 ml 600 ml 800 ml Results Result Diagram: 03/13/1718 03/13/17 0618 Medications Medications Current Medications Acetaminophen/ Hydrocodone Bitart ([employer] (10/325)) 2 tab Q4 PO Last administered on 03/17/17 14:54; Admin Dose 2 TAB; Start 03/12/17 at 21:00 Baclofen (Lioresal) 10 mg TID PO Last administered on 03/17/17 12:48; Admin Dose 10 MG; Start 03/12/17 at 21:00 Bisacodyl 10 mg 10 mg DAILY PRN [place] CONSTIPATION Last administered on 15:50; Admin Dose 10 MG; Start 03/12/17 at 19:00 Daptomycin/Sodium Chloride (Cubicin/NS) 100 ml @ 200 mls/hr Q24H IVPB Last administered on 03/17/17 13:16; Admin Dose 200 MLS/HR; Start 03/13/17 at 12: 00 Docusate Sodium (Colace) 100 mg BID PO Last administered on 03/17/17 08:40; Admin Dose 100 MG; Start 03/12/17 at 21:00 Duloxetine HCl (Cymbalta) 30 mg DAILY PO Last administered on 03/17/17 08:42 ; Admin Dose 30 MG; Start 03/13/17 at 09:00 Famotidine (Pepcid) 20 mg BID PO Last administered on 03/17/17 08:42; Admin Dose 20 MG; Start 03/12/17 at 21:00 Bupropion HCl (Wellbutrin Xl) 300 mg DAILY PO Last administered on 03/17/17 08:43; Admin Dose 300 MG; Start 03/13/17 at 09:00 Hydromorphone HCl (Dilaudid) 2 mg Q2H PRN IV BREAKTHROUGH PAIN Last administered on 03/17/17 12:40; Admin Dose 2 MG; Start 03/12/17 at 19:00 Naloxone HCl (Narcan) 0.2 mg Q2M PRN IV RR 8 BREATHS/MIN OR LESS; Start at 19:00 Oxycodone HCl (Roxicodone) 10 mg Q6 PO Last administered on 03/17/17 13:16; Admin Dose 10 MG; Start 03/12/17 at 20:00 Polyethylene Glycol (Miralax) 17 gm DAILY PRN GTB CONSTIPATION Last administered on 03/15/17 10:09; Admin Dose 17 GM; Start 03/12/17 at 19:00 Senna (Senokot) 1 tab BID PO Last administered on 03/17/17 08:43; Admin Dose 1 TAB; Start 03/12/17 at 21:00 Silver Sulfadiazine (Thermazene 1% 25 Gm) 1 applic DAILY TOP Last administered on 03/17/17 08:44; Admin Dose 1 APPLIC; Start 03/13/17 at 09:00 Zolpidem Tartrate (Ambien) 10 mg QHS PRN PO INSOMNIA Last administered on 03/16 23:16; Admin Dose 10 MG; Start 03/12/17 at 19:00 Acetaminophen (Tylenol Tab) 650 mg Q4H PRN PO PAIN; Start 03/13/17 at 06:30 Magnesium Hydroxide (Milk Of Mag) 30 ml BID PRN PO CONSTIPATION; Start at 06:30 Miscellaneous Information (Flu Vaccine Previously Dispensed) FLU VACCINE PREVIOU... NOTE PRN XX NOTE; Start 03/13/17 at 07:00 Gabapentin (Neurontin) 600 mg TID PO Last administered on 03/17/17 13:17; Admin Dose 600 MG; Start 03/13/17 at 13:00 Tizanidine HCl (Zanaflex) 2 mg BID PRN PO muscle spasm Last administered on 05:52; Admin Dose 2 MG; Start 03/13/17 at 11:00 Ondansetron HCl (Zofran Inj) 4 mg Q4H PRN IV NAUSEA AND/OR VOMITING Last administered on 03/16/17 10:11; Admin Dose 4 MG; Start 03/14/17 at 07:58 Tramadol HCl (Ultram) 50 mg Q6H PRN PO PAIN Last administered on 03/17/17 05: 52; Admin Dose 50 MG; Start 03/14/17 at 08:30 Lactulose (Enulose) 20 gm BID PRN PO CONSTIPATION; Start 03/15/17 at 21:00 Enoxaparin Sodium (Lovenox) 40 mg DAILY SC Last administered on 03/17/17 08: 41; Admin Dose 40 MG; Start 03/16/17 at 19:00 Diphenhydramine HCl (Benadryl) 25 mg Q6H PRN PO ITCHING Last administered on 08:47; Admin Dose 25 MG; Start 03/17/17 at 08:30 JOHANNA GAXIOLA NP Mar 17, 2017 14:59
[2017-03-17] MEDS: ONDANSETRON 4 MG INJ IV PRN (16:06)
--- NOTE | 2017-03-17 17:36 | CONS ---
Date/Time of Note Date/Time of Note DATE: 03/17/17 TIME: 17:36 Assessment/Plan Assessment/Plan Chief Complaint/Hosp Course 1. Chin cellulitis/pressure injury -abx -monitor -hot packs 2. Anemia -monitor 3. BMI 49 -diet optimization encouraged -exercise encouraged 4. Chronic pain syndrome -medical management 5. S/p back surgery -cont pain management -cont acute rehab therapy 6. Depression history: -cont medical management Thank you. Patient seen and examined in collaboration with Dr. Tay Varela. Problems: Consultation Date/Type/Reason Admit Date/Time Mar 12, 2017 at 17:52 Date of Consultation: Mar 17, 2017 Type of Consultation: surgical Reason for Consultation Possible chin abscess Referring Provider: SEBASTIAN RIVERO DO Hx of Present Illness Dionne Schwartz is a 46-year-old female with a past medical history of chronic lower back pain due to L3 to L5 disk herniation with underlying radiculopathy. She then underwent an L4-L5 transforaminal fusion. During her hospitalization, she was also placed on [employer] pump for pain management, which was subsequently discontinued. She is currently in the acute rehab for ongoing physical therapy. She was also noted to have cellulitis of her chin postoperatively. She is being treated with antibiotic therapy by infectious disease. Constitutional: No chills, No diaphoresis, No febrile Eyes: No visual change ENT: No sore throat Respiratory: No cough, No shortness of breath Cardiovascular: No chest pain, No lightheadedness Gastrointestinal: No constipation, No decreased appetite, No nausea Genitourinary: No dysuria, No flank pain Musculoskeletal: back pain (improved) Skin: other Neurologic: No focal-weakness Psychological: No confusion, No depression Past Medical History depression, history of chronic back pain, history of neuropathy. Past Surgical History gallbladder surgery, , hernia repair, back surgery Family History Significant Family History: no pertinent family hx Social History Alcohol Use: none Smoking Status: Never smoker Drug Use: none Exam/Review of Systems Vital Signs Vitals Vital Signs Date Time Temp Pulse Resp B/P Pulse Ox O2 Delivery O2 Flow Rate FiO2 03/17/17 08:00 98.5 86 19 108/60 96 03/17/17 05:55 Room Air Intake and Output 03/16/17 03/16/17 03/17/17 15:00 23:00 07:00 Intake Total 100 ml 1600 ml 800 ml Output Total 0 ml 1000 ml Balance 100 ml 600 ml 800 ml Exam Constitutional: alert, obese, oriented, No distress Psych: nl mood/affect, No anxiety, No confusion Head: atraumatic, normocephalic Eyes: EOMI, nl conjunctiva, No PERRL ENMT: mucosa pink and moist, nl external ears & nose, other (Chin erythema) Neck: non-tender, supple Respiratory: normal air movement, No congested cough Cardiovascular: regular rate and rhythm, No edema Gastrointestinal: non-tender, soft, No rebound or guarding Musculoskeletal: nl gait and stance, No nl extremities to inspection Extremities: No calf tenderness, No edema Neurological: nl mental status, nl speech, nl strength Skin: nl turgor, rash or lesions (chin erythema/induration: no open areas) Lymph: nl lymph nodes Results Result Diagram: 03/13/1761703/13/17617 Medications Medications Current Medications Acetaminophen/ Hydrocodone Bitart ([place] (10/325)) 2 tab Q4 PO Last administered on 03/17/17 14:54; Admin Dose 2 TAB; Start 03/12/17 at 21:00 Baclofen (Lioresal) 10 mg TID PO Last administered on 03/17/17 12:48; Admin Dose 10 MG; Start 03/12/17 at 21:00 Bisacodyl 10 mg 10 mg DAILY PRN [place] CONSTIPATION Last administered on 15:50; Admin Dose 10 MG; Start 03/12/17 at 19:00 Daptomycin/Sodium Chloride (Cubicin/NS) 100 ml @ 200 mls/hr Q24H IVPB Last administered on 03/17/17 13:16; Admin Dose 200 MLS/HR; Start 03/13/17 at 12: 00 Docusate Sodium (Colace) 100 mg BID PO Last administered on 03/17/17 08:40; Admin Dose 100 MG; Start 03/12/17 at 21:00 Duloxetine HCl (Cymbalta) 30 mg DAILY PO Last administered on 03/17/17 08:42 ; Admin Dose 30 MG; Start 03/13/17 at 09:00 Famotidine (Pepcid) 20 mg BID PO Last administered on 03/17/17 08:42; Admin Dose 20 MG; Start 03/12/17 at 21:00 Bupropion HCl (Wellbutrin Xl) 300 mg DAILY PO Last administered on 03/17/17 08:43; Admin Dose 300 MG; Start 03/13/17 at 09:00 Hydromorphone HCl (Dilaudid) 2 mg Q2H PRN IV BREAKTHROUGH PAIN Last administered on 03/17/17 15:49; Admin Dose 2 MG; Start 03/12/17 at 19:00 Naloxone HCl (Narcan) 0.2 mg Q2M PRN IV RR 8 BREATHS/MIN OR LESS; Start at 19:00 Oxycodone HCl (Roxicodone) 10 mg Q6 PO Last administered on 03/17/17 13:16; Admin Dose 10 MG; Start 03/12/17 at 20:00 Polyethylene Glycol (Miralax) 17 gm DAILY PRN GTB CONSTIPATION Last administered on 03/15/17 10:09; Admin Dose 17 GM; Start 03/12/17 at 19:00 Senna (Senokot) 1 tab BID PO Last administered on 03/17/17 08:43; Admin Dose 1 TAB; Start 03/12/17 at 21:00 Silver Sulfadiazine (Thermazene 1% 25 Gm) 1 applic DAILY TOP Last administered on 03/17/17 08:44; Admin Dose 1 APPLIC; Start 03/13/17 at 09:00 Zolpidem Tartrate (Ambien) 10 mg QHS PRN PO INSOMNIA Last administered on 03/16 23:16; Admin Dose 10 MG; Start 03/12/17 at 19:00 Acetaminophen (Tylenol Tab) 650 mg Q4H PRN PO PAIN; Start 03/13/17 at 06:30 Magnesium Hydroxide (Milk Of Mag) 30 ml BID PRN PO CONSTIPATION; Start at 06:30 Miscellaneous Information (Flu Vaccine Previously Dispensed) FLU VACCINE PREVIOU... NOTE PRN XX NOTE; Start 03/13/17 at 07:00 Gabapentin (Neurontin) 600 mg TID PO Last administered on 03/17/17 13:17; Admin Dose 600 MG; Start 03/13/17 at 13:00 Tizanidine HCl (Zanaflex) 2 mg BID PRN PO muscle spasm Last administered on 15:21; Admin Dose 2 MG; Start 03/13/17 at 11:00 Ondansetron HCl (Zofran Inj) 4 mg Q4H PRN IV NAUSEA AND/OR VOMITING Last administered on 03/17/17 16:06; Admin Dose 4 MG; Start 03/14/17 at 07:58 Tramadol HCl (Ultram) 50 mg Q6H PRN PO PAIN Last administered on 03/17/17 05: 52; Admin Dose 50 MG; Start 03/14/17 at 08:30 Lactulose (Enulose) 20 gm BID PRN PO CONSTIPATION; Start 03/15/17 at 21:00 Enoxaparin Sodium (Lovenox) 40 mg DAILY SC Last administered on 03/17/17 08: 41; Admin Dose 40 MG; Start 03/16/17 at 19:00 Diphenhydramine HCl (Benadryl) 25 mg Q6H PRN PO ITCHING Last administered on 08:47; Admin Dose 25 MG; Start 03/17/17 at 08:30 RANDOLPH GANN [employer] Mar 17, 2017 17:36
--- NOTE | 2017-03-17 18:51 | CONS ---
Date/Time of Note Date/Time of Note DATE: 03/17/17 TIME: 18:50 Consult Date/Type/Reason Admit Date/Time Mar 12, 2017 at 17:52 Type of Consultation: card Subjective CARDIOLOGY FOLLOW UP NOTE: S: D/W STAFF Pt is still in rehab. s/p spinal surgery 03/07/17 she still c/o back pain but she is able to do PT no cp or pressure. no sob. O: General: obese. no acute distress HEENT: NC/AT. pupils are equal. round. NECK: NO JVD. no stridor. CV: RRR. systolic murmur; no gallop or rubs. PULM: no wheezing or rhonchi. GI: SOFT, obese. NT, ND, no rebound or guarding Extremity: trace B/L LE edema. no clubbing. neuro: awake and alert, OX3. Psych: calm and pleasant rectal: deferred ECHO reviewed: 1. Normal left ventricular systolic function. Normal left ventricular cavity size. Normal left ventricular wall thickness. Ejection fraction is visually estimated at 60 %. Tissue Doppler/Mitral Doppler indices are consistent with impaired relaxation (Stage I diastolic dysfunction). 2. Normal appearance and function of the mitral valve with trace physiologic regurgitation. 3. Normal appearance of the aortic valve. No significant aortic stenosis or insufficiency. 4. Normal appearance of the tricuspid valve. Estimated peak PA systolic pressure 24 mmHg. There is trace tricuspid regurgitation. Objective Vital Signs Date Time Temp Pulse Resp B/P Pulse Ox O2 Delivery O2 Flow Rate FiO2 03/17/17 08:00 98.5 86 19 108/60 96 03/17/17 05:55 Room Air Intake and Output 03/16/17 03/16/17 03/17/17 14:59 22:59 06:59 Intake Total 100 ml 1600 ml 800 ml Output Total 0 ml 1000 ml Balance 100 ml 600 ml 800 ml Results/Medications Result Diagram: 03/13/1761703/13/17617 Medications Current Medications Acetaminophen/ Hydrocodone Bitart ([place] (10/325)) 2 tab Q4 PO Last administered on 03/17/17 14:54; Admin Dose 2 TAB; Start 03/12/17 at 21:00 Baclofen (Lioresal) 10 mg TID PO Last administered on 03/17/17 12:48; Admin Dose 10 MG; Start 03/12/17 at 21:00 Bisacodyl 10 mg 10 mg DAILY PRN [place] CONSTIPATION Last administered on 15:50; Admin Dose 10 MG; Start 03/12/17 at 19:00 Daptomycin/Sodium Chloride (Cubicin/NS) 100 ml @ 200 mls/hr Q24H IVPB Last administered on 03/17/17 13:16; Admin Dose 200 MLS/HR; Start 03/13/17 at 12: 00 Docusate Sodium (Colace) 100 mg BID PO Last administered on 03/17/17 08:40; Admin Dose 100 MG; Start 03/12/17 at 21:00 Duloxetine HCl (Cymbalta) 30 mg DAILY PO Last administered on 03/17/17 08:42 ; Admin Dose 30 MG; Start 03/13/17 at 09:00 Famotidine (Pepcid) 20 mg BID PO Last administered on 03/17/17 08:42; Admin Dose 20 MG; Start 03/12/17 at 21:00 Bupropion HCl (Wellbutrin Xl) 300 mg DAILY PO Last administered on 03/17/17 08:43; Admin Dose 300 MG; Start 03/13/17 at 09:00 Hydromorphone HCl (Dilaudid) 2 mg Q2H PRN IV BREAKTHROUGH PAIN Last administered on 03/17/17 18:40; Admin Dose 2 MG; Start 03/12/17 at 19:00 Naloxone HCl (Narcan) 0.2 mg Q2M PRN IV RR 8 BREATHS/MIN OR LESS; Start at 19:00 Oxycodone HCl (Roxicodone) 10 mg Q6 PO Last administered on 03/17/17 17:46; Admin Dose 10 MG; Start 03/12/17 at 20:00 Polyethylene Glycol (Miralax) 17 gm DAILY PRN GTB CONSTIPATION Last administered on 03/15/17 10:09; Admin Dose 17 GM; Start 03/12/17 at 19:00 Senna (Senokot) 1 tab BID PO Last administered on 03/17/17 08:43; Admin Dose 1 TAB; Start 03/12/17 at 21:00 Silver Sulfadiazine (Thermazene 1% 25 Gm) 1 applic DAILY TOP Last administered on 03/17/17 08:44; Admin Dose 1 APPLIC; Start 03/13/17 at 09:00 Zolpidem Tartrate (Ambien) 10 mg QHS PRN PO INSOMNIA Last administered on 03/16 23:16; Admin Dose 10 MG; Start 03/12/17 at 19:00 Acetaminophen (Tylenol Tab) 650 mg Q4H PRN PO PAIN; Start 03/13/17 at 06:30 Magnesium Hydroxide (Milk Of Mag) 30 ml BID PRN PO CONSTIPATION; Start at 06:30 Miscellaneous Information (Flu Vaccine Previously Dispensed) FLU VACCINE PREVIOU... NOTE PRN XX NOTE; Start 03/13/17 at 07:00 Gabapentin (Neurontin) 600 mg TID PO Last administered on 03/17/17 13:17; Admin Dose 600 MG; Start 03/13/17 at 13:00 Tizanidine HCl (Zanaflex) 2 mg BID PRN PO muscle spasm Last administered on 15:21; Admin Dose 2 MG; Start 03/13/17 at 11:00 Ondansetron HCl (Zofran Inj) 4 mg Q4H PRN IV NAUSEA AND/OR VOMITING Last administered on 03/17/17 16:06; Admin Dose 4 MG; Start 03/14/17 at 07:58 Tramadol HCl (Ultram) 50 mg Q6H PRN PO PAIN Last administered on 03/17/17 05: 52; Admin Dose 50 MG; Start 03/14/17 at 08:30 Lactulose (Enulose) 20 gm BID PRN PO CONSTIPATION; Start 03/15/17 at 21:00 Enoxaparin Sodium (Lovenox) 40 mg DAILY SC Last administered on 03/17/17 08: 41; Admin Dose 40 MG; Start 03/16/17 at 19:00 Diphenhydramine HCl (Benadryl) 25 mg Q6H PRN PO ITCHING Last administered on 08:47; Admin Dose 25 MG; Start 03/17/17 at 08:30 Assessment/Plan Chief Complaint/Hosp Course 1. s/p spinal surgery: debility in rehab now. 2. severe LBP and radiculopathy; s/p surgery now 3. mildly abnormal ECG 4. Hx depression 5. obesity. Recommendations: cont current cardiac care cont post op care and pain management as per neurosurgery team. DVT prophylaxis as per IM/ neurosurgery team, currently on lovenox cont acute rehab and PT treatment as tolerated Thank you for his referral. We will continue to follow along with you as needed basis. ERIKA HERNANDEZ MD FAC Problems: ERIKA HERNANDEZ MD Mar 17, 2017 18:51
[2017-03-17 20:00] VITALS: BP 106/56; RESP 18
[2017-03-17] MEDS: ZOLPIDEM 5 MG TAB PO PRN (23:33)
[2017-03-18] MEDS: HYDROCODONE/APAP (10/325) TAB PO SCH ×6 (01:00→20:34)
[2017-03-18 03:00] VITALS: BP 98/56; PULSE 80; RESP 16
[2017-03-18] MEDS: HYDROmorphONE 2 MG/ML SYG IV PRN ×8 (05:45→21:49)
[2017-03-18] MEDS: TIZANIDINE 2 MG TAB PO PRN ×2 (06:01→13:32)
[2017-03-18] MEDS: DIPHENHYDRAMINE 25 MG CAP PO PRN ×2 (06:15→20:31)
[2017-03-18] MEDS: oxyCODONE 5 MG TAB PO SCH ×4 (06:24→23:20)
[2017-03-18 07:30] VITALS: BP 104/55; RESP 18
[2017-03-18 07:40] LABS: BASOPHILS % 0.6 % (0.0-2.0); EOSINOPHILS # 0.3 10^3/ul (0.0-0.5); EOSINOPHILS % 3.8 % (0.0-7.0); HEMATOCRIT 29.6 % (37.0-47.0); HEMOGLOBIN 9.4 g/dl (12.0-16.0); LYMPHOCYTES # 2.5 10^3/ul (0.8-2.9); LYMPHOCYTES % 38.2 % (15.0-51.0); MEAN CORPUSCULAR HEMOGLOBIN 28.6 pg (29.0-33.0); MEAN CORPUSCULAR HGB CONC 31.8 g/dl (32.0-37.0); MEAN PLATELET VOLUME 9.9 fl (7.4-10.4); MONOCYTE # 0.6 10^3/ul (0.3-0.9); MONOCYTES % 8.6 % (0.0-11.0); NEUTROPHIL # 3.1 10^3/ul (1.6-7.5); NEUTROPHILS % 47.9 % (39.0-77.0); PLATELET COUNT 302 10^3/UL (140-415); RED BLOOD COUNT 3.29 10^6/ul (4.20-5.40); RED CELL DISTRIBUTION WIDTH 13.8 % (11.5-14.5); WHITE BLOOD COUNT 6.5 10^3/ul (4.8-10.8)
[2017-03-18] MEDS: SILVER SULFADIAZINE 1% 25 GM CR TOP SCH (07:47)
[2017-03-18] MEDS: FAMOTIDINE 20 MG TAB PO SCH ×2 (07:48→20:31)
[2017-03-18] MEDS: DOCUSATE SODIUM 100 MG CAP PO SCH ×2 (07:48→20:35)
[2017-03-18] MEDS: DULOXETINE 30 MG CAP DR PO SCH (07:48)
[2017-03-18] MEDS: BACLOFEN 10 MG TAB PO SCH ×3 (07:48→20:31)
[2017-03-18] MEDS: SENNA TAB PO SCH ×2 (07:49→20:35)
[2017-03-18] MEDS: BUPROPION (XL) 150 MG TAB PO SCH (07:49)
[2017-03-18] MEDS: GABAPENTIN 300 MG CAP PO SCH ×3 (07:49→20:31)
[2017-03-18] MEDS: ENOXAPARIN 40 MG/0.4 ML SYG SC SCH (07:52)
[2017-03-18 08:06] LABS: CREATININE 0.7 mg/dl (0.44-1.00); PHOSPHORUS 5.1 mg/dl (2.5-4.9)
--- NOTE | 2017-03-18 08:44 | CONS ---
Date/Time of Note Date/Time of Note DATE: 03/18/17 TIME: 08:43 Consult Date/Type/Reason Admit Date/Time Mar 12, 2017 at 17:52 Type of Consultation: card Subjective CARDIOLOGY FOLLOW UP NOTE: S: D/W STAFF Pt is still in rehab. s/p spinal surgery 03/07/17 she still c/o back pain which is worse after PT. but it is getting overall better. no cp or pressure. no sob. O: General: obese. no acute distress HEENT: NC/AT. pupils are equal. round. NECK: NO JVD. no stridor. CV: RRR. systolic murmur; no gallop or rubs. PULM: no wheezing or rhonchi. GI: SOFT, obese. NT, ND, no rebound or guarding Extremity: trace B/L LE edema. no clubbing. neuro: awake and alert, OX3. Psych: calm and pleasant rectal: deferred ECHO reviewed: 1. Normal left ventricular systolic function. Normal left ventricular cavity size. Normal left ventricular wall thickness. Ejection fraction is visually estimated at 60 %. Tissue Doppler/Mitral Doppler indices are consistent with impaired relaxation (Stage I diastolic dysfunction). 2. Normal appearance and function of the mitral valve with trace physiologic regurgitation. 3. Normal appearance of the aortic valve. No significant aortic stenosis or insufficiency. 4. Normal appearance of the tricuspid valve. Estimated peak PA systolic pressure 24 mmHg. There is trace tricuspid regurgitation. Objective Vital Signs Date Time Temp Pulse Resp B/P Pulse Ox O2 Delivery O2 Flow Rate FiO2 03/18/17 03:00 98.7 80 16 98/56 98 Room Air Intake and Output 03/17/17 03/17/17 03/18/17 15:00 23:00 07:00 Intake Total 600 ml 200 ml Balance 600 ml 200 ml Results/Medications Result Diagram: 03/18/17 0652 03/18/17 0652 Results 24 hrs Laboratory Tests Test 03/18/17 06:52 White Blood Count 6.5 # Red Blood Count 3.29 L Hemoglobin 9.4 L Hematocrit 29.6 L Mean Corpuscular Volume 90.0 Mean Corpuscular Hemoglobin 28.6 L Mean Corpuscular Hemoglobin Concent 31.8 L Red Cell Distribution Width 13.8 Platelet Count 302 Mean Platelet Volume 9.9 Neutrophils % 47.9 Lymphocytes % 38.2 Monocytes % 8.6 Eosinophils % 3.8 Basophils % 0.6 Nucleated Red Blood Cells % 0.0 Neutrophils # 3.1 Lymphocytes # 2.5 Monocytes # 0.6 Eosinophils # 0.3 Basophils # 0.0 Nucleated Red Blood Cells # 0.0 Sodium Level 142 Potassium Level 4.0 Chloride Level 103 Carbon Dioxide Level 30 Anion Gap 13 Blood Urea Nitrogen 9 Creatinine 0.70 Glucose Level 81 Calcium Level 9.0 Phosphorus Level 5.1 H Magnesium Level 2.0 Medications Current Medications Acetaminophen/ Hydrocodone Bitart ([place] (10325)) 2 tab Q4 PO Last administered on 03/18/17 06:24; Admin Dose 2 TAB; Start 03/12/17 at 21:00 Baclofen (Lioresal) 10 mg TID PO Last administered on 03/18/17 07:48; Admin Dose 10 MG; Start 03/12/17 at 21:00 Bisacodyl 10 mg 10 mg DAILY PRN [place] CONSTIPATION Last administered on 15:50; Admin Dose 10 MG; Start 03/12/17 at 19:00 Daptomycin/Sodium Chloride (Cubicin/NS) 100 ml @ 200 mls/hr Q24H IVPB Last administered on 03/17/17 13:16; Admin Dose 200 MLS/HR; Start 03/13/17 at 12: 00 Docusate Sodium (Colace) 100 mg BID PO Last administered on 03/18/17 07:48; Admin Dose 100 MG; Start 03/12/17 at 21:00 Duloxetine HCl (Cymbalta) 30 mg DAILY PO Last administered on 03/18/17 07:48 ; Admin Dose 30 MG; Start 03/13/17 at 09:00 Famotidine (Pepcid) 20 mg BID PO Last administered on 03/18/17 07:48; Admin Dose 20 MG; Start 03/12/17 at 21:00 Bupropion HCl (Wellbutrin Xl) 300 mg DAILY PO Last administered on 03/18/17 07:49; Admin Dose 300 MG; Start 03/13/17 at 09:00 Hydromorphone HCl (Dilaudid) 2 mg Q2H PRN IV BREAKTHROUGH PAIN Last administered on 03/18/17 07:47; Admin Dose 2 MG; Start 03/12/17 at 19:00 Naloxone HCl (Narcan) 0.2 mg Q2M PRN IV RR 8 BREATHS/MIN OR LESS; Start at 19:00 Oxycodone HCl (Roxicodone) 10 mg Q6 PO Last administered on 03/18/17 06:24; Admin Dose 10 MG; Start 03/12/17 at 20:00 Polyethylene Glycol (Miralax) 17 gm DAILY PRN GTB CONSTIPATION Last administered on 03/15/17 10:09; Admin Dose 17 GM; Start 03/12/17 at 19:00 Senna (Senokot) 1 tab BID PO Last administered on 03/18/17 07:49; Admin Dose 1 TAB; Start 03/12/17 at 21:00 Silver Sulfadiazine (Thermazene 1% 25 Gm) 1 applic DAILY TOP Last administered on 03/18/17 07:47; Admin Dose 1 APPLIC; Start 03/13/17 at 09:00 Zolpidem Tartrate (Ambien) 10 mg QHS PRN PO INSOMNIA Last administered on 03/17 23:33; Admin Dose 10 MG; Start 03/12/17 at 19:00 Acetaminophen (Tylenol Tab) 650 mg Q4H PRN PO PAIN; Start 03/13/17 at 06:30 Magnesium Hydroxide (Milk Of Mag) 30 ml BID PRN PO CONSTIPATION; Start at 06:30 Miscellaneous Information (Flu Vaccine Previously Dispensed) FLU VACCINE PREVIOU... NOTE PRN XX NOTE; Start 03/13/17 at 07:00 Gabapentin (Neurontin) 600 mg TID PO Last administered on 03/18/17 07:49; Admin Dose 600 MG; Start 03/13/17 at 13:00 Tizanidine HCl (Zanaflex) 2 mg BID PRN PO muscle spasm Last administered on 06:01; Admin Dose 2 MG; Start 03/13/17 at 11:00 Ondansetron HCl (Zofran Inj) 4 mg Q4H PRN IV NAUSEA AND/OR VOMITING Last administered on 03/17/17 16:06; Admin Dose 4 MG; Start 03/14/17 at 07:58 Tramadol HCl (Ultram) 50 mg Q6H PRN PO PAIN Last administered on 03/17/17 21: 04; Admin Dose 50 MG; Start 03/14/17 at 08:30 Lactulose (Enulose) 20 gm BID PRN PO CONSTIPATION; Start 03/15/17 at 21:00 Enoxaparin Sodium (Lovenox) 40 mg DAILY SC Last administered on 03/18/17 07: 52; Admin Dose 40 MG; Start 03/16/17 at 19:00 Diphenhydramine HCl (Benadryl) 25 mg Q6H PRN PO ITCHING Last administered on 06:15; Admin Dose 25 MG; Start 03/17/17 at 08:30 Assessment/Plan Chief Complaint/Hosp Course 1. s/p spinal surgery: debility in rehab now. 2. severe LBP and radiculopathy; s/p surgery now 3. mildly abnormal ECG 4. Hx depression 5. obesity. 6. anemia: stable. will monitor. Recommendations: cont current cardiac care cont post op care and pain management as per neurosurgery team. DVT prophylaxis as per IM/ neurosurgery team, currently on lovenox cont acute rehab and PT treatment as tolerated Thank you for his referral. We will continue to follow along with you as needed basis. ERIKA HERNANDEZ MD [facility] Problems: ERIKA HERNANDEZ MD Mar 18, 2017 08:44
--- NOTE | 2017-03-18 09:08 | CONS ---
Date/Time of Note Date/Time of Note DATE: 03/18/17 TIME: 09:06 Consult Date/Type/Reason Admit Date/Time Mar 12, 2017 at 17:52 Type of Consultation: card Subjective Patient pleased with her progress Objective Lungs clear to him and soft sba 75 feet Vital Signs Date Time Temp Pulse Resp B/P Pulse Ox O2 Delivery O2 Flow Rate FiO2 03/18/17 03:00 98.7 80 16 98/56 98 Room Air Intake and Output 03/17/17 03/17/17 03/18/17 15:00 23:00 07:00 Intake Total 600 ml 200 ml Balance 600 ml 200 ml Results/Medications Result Diagram: 03/18/17 0652 03/18/17 0652 Results 24 hrs Laboratory Tests Test 03/18/17 06:52 White Blood Count 6.5 # Red Blood Count 3.29 L Hemoglobin 9.4 L Hematocrit 29.6 L Mean Corpuscular Volume 90.0 Mean Corpuscular Hemoglobin 28.6 L Mean Corpuscular Hemoglobin Concent 31.8 L Red Cell Distribution Width 13.8 Platelet Count 302 Mean Platelet Volume 9.9 Neutrophils % 47.9 Lymphocytes % 38.2 Monocytes % 8.6 Eosinophils % 3.8 Basophils % 0.6 Nucleated Red Blood Cells % 0.0 Neutrophils # 3.1 Lymphocytes # 2.5 Monocytes # 0.6 Eosinophils # 0.3 Basophils # 0.0 Nucleated Red Blood Cells # 0.0 Sodium Level 142 Potassium Level 4.0 Chloride Level 103 Carbon Dioxide Level 30 Anion Gap 13 Blood Urea Nitrogen 9 Creatinine 0.70 Glucose Level 81 Calcium Level 9.0 Phosphorus Level 5.1 H Magnesium Level 2.0 Medications Current Medications Acetaminophen/ Hydrocodone Bitart ([place] (10/325)) 2 tab Q4 PO Last administered on 03/18/17 09:04; Admin Dose 2 TAB; Start 03/12/17 at 21:00 Baclofen (Lioresal) 10 mg TID PO Last administered on 03/18/17 07:48; Admin Dose 10 MG; Start 03/12/17 at 21:00 Bisacodyl 10 mg 10 mg DAILY PRN [place] CONSTIPATION Last administered on 15:50; Admin Dose 10 MG; Start 03/12/17 at 19:00 Daptomycin/Sodium Chloride (Cubicin/NS) 100 ml @ 200 mls/hr Q24H IVPB Last administered on 03/17/17 13:16; Admin Dose 200 MLS/HR; Start 03/13/17 at 12: 00 Docusate Sodium (Colace) 100 mg BID PO Last administered on 03/18/17 07:48; Admin Dose 100 MG; Start 03/12/17 at 21:00 Duloxetine HCl (Cymbalta) 30 mg DAILY PO Last administered on 03/18/17 07:48 ; Admin Dose 30 MG; Start 03/13/17 at 09:00 Famotidine (Pepcid) 20 mg BID PO Last administered on 03/18/17 07:48; Admin Dose 20 MG; Start 03/12/17 at 21:00 Bupropion HCl (Wellbutrin Xl) 300 mg DAILY PO Last administered on 03/18/17 07:49; Admin Dose 300 MG; Start 03/13/17 at 09:00 Hydromorphone HCl (Dilaudid) 2 mg Q2H PRN IV BREAKTHROUGH PAIN Last administered on 03/18/17 07:47; Admin Dose 2 MG; Start 03/12/17 at 19:00 Naloxone HCl (Narcan) 0.2 mg Q2M PRN IV RR 8 BREATHS/MIN OR LESS; Start at 19:00 Oxycodone HCl (Roxicodone) 10 mg Q6 PO Last administered on 03/18/17 06:24; Admin Dose 10 MG; Start 03/12/17 at 20:00 Polyethylene Glycol (Miralax) 17 gm DAILY PRN GTB CONSTIPATION Last administered on 03/15/17 10:09; Admin Dose 17 GM; Start 03/12/17 at 19:00 Senna (Senokot) 1 tab BID PO Last administered on 03/18/17 07:49; Admin Dose 1 TAB; Start 03/12/17 at 21:00 Silver Sulfadiazine (Thermazene 1% 25 Gm) 1 applic DAILY TOP Last administered on 03/18/17 07:47; Admin Dose 1 APPLIC; Start 03/13/17 at 09:00 Zolpidem Tartrate (Ambien) 10 mg QHS PRN PO INSOMNIA Last administered on 03/17 23:33; Admin Dose 10 MG; Start 03/12/17 at 19:00 Acetaminophen (Tylenol Tab) 650 mg Q4H PRN PO PAIN; Start 03/13/17 at 06:30 Magnesium Hydroxide (Milk Of Mag) 30 ml BID PRN PO CONSTIPATION; Start at 06:30 Miscellaneous Information (Flu Vaccine Previously Dispensed) FLU VACCINE PREVIOU... NOTE PRN XX NOTE; Start 03/13/17 at 07:00 Gabapentin (Neurontin) 600 mg TID PO Last administered on 03/18/17 07:49; Admin Dose 600 MG; Start 03/13/17 at 13:00 Tizanidine HCl (Zanaflex) 2 mg BID PRN PO muscle spasm Last administered on 06:01; Admin Dose 2 MG; Start 03/13/17 at 11:00 Ondansetron HCl (Zofran Inj) 4 mg Q4H PRN IV NAUSEA AND/OR VOMITING Last administered on 03/17/17 16:06; Admin Dose 4 MG; Start 03/14/17 at 07:58 Tramadol HCl (Ultram) 50 mg Q6H PRN PO PAIN Last administered on 03/17/17 21: 04; Admin Dose 50 MG; Start 03/14/17 at 08:30 Lactulose (Enulose) 20 gm BID PRN PO CONSTIPATION; Start 03/15/17 at 21:00 Enoxaparin Sodium (Lovenox) 40 mg DAILY SC Last administered on 03/18/17 07: 52; Admin Dose 40 MG; Start 03/16/17 at 19:00 Diphenhydramine HCl (Benadryl) 25 mg Q6H PRN PO ITCHING Last administered on 06:15; Admin Dose 25 MG; Start 03/17/17 at 08:30 Assessment/Plan Additional Assessment/Plan rehab- Lumbar spinal stenosis, radiculopathy and foot drop, status post decompressive laminectomy. continued steady progress with rehab program Polyneuropathy. Acute pain syndrome-work on transition to oral pain meds - voiding History of depression. History of cervical surgery Integ- healing. CORAZON BETH MD Mar 18, 2017 09:08
--- NOTE | 2017-03-18 09:50 | PN ---
DATE: 03/18/2017 SUBJECTIVE: The patient is stable. No events overnight. OBJECTIVE: VITAL SIGNS: Blood pressure is 98/56, respirations 16, pulse 80, temperature 98.6. HEENT: Head is normocephalic. NECK: Supple. HEART: Regular rate. LUNGS: Show diminished breath sounds at the base. ABDOMEN: Soft, nontender to palpation without rebound or guarding. EXTREMITIES: Negative for clubbing, cyanosis, no edema. DERMATOLOGIC: No rashes. MUSCULOSKELETAL: No joint effusions. NEUROLOGIC: No change in exam. MEDICATIONS: The patient's medications have been reviewed. LABORATORY DATA: Showed sodium 142, potassium 4.0, BUN 9, creatinine 0.70. White count 6.5, hemogl obin 9.4, platelet count is 302. ASSESSMENT AND PLAN: 1. Acute on chronic lumbar radiculopathy. The patient is status post L4 to L5 transforaminal fusio n. The patient is currently stable. Continue physical therapy, continue pain control. 2. Cellulitis of right chin with possible abscess. Continue antibiotic therapy. Appreciate surger y's evaluation. Continue warm compresses. 3. Chronic pain syndrome. Continue current pain regimen. 4. Neuropathy. Continue Neurontin. 5. Insomnia. Continue Ambien. 6. Depression. Continue Zoloft. 7. Status post acute kidney injury. 8. Anemia. Monitor hemoglobin and hematocrit levels. 9. Gastrointestinal and deep venous thrombosis prophylaxis. Continue proton pump inhibitor and [place] enox. Dictated By: SEBASTIAN SIMMS/NTS Conf#: [id number] DID#: [id number] CC: CORAZON BETH MD;*EndCC*
[2017-03-18] MEDS: SOD CHLORIDE 0.9% IVPB SCH (12:00)
[2017-03-18] MEDS ORDERED: INFLUENZA VIRUS VACCINE 0.5 ML (DISPENSING) IM* ONE (12:00)
[2017-03-18] MEDS: DAPTOMYCIN IVPB SCH (12:00)
[2017-03-18] MEDS: traMADol 50 MG TAB PO PRN (13:31)
[2017-03-18 14:00] VITALS: BP 105/52; RESP 18
[2017-03-18 20:00] VITALS: BP 118/62; RESP 18
--- NOTE | 2017-03-18 21:26 | PN ---
Date/Time of Note Date/Time of Note DATE: 03/18/17 TIME: 21:26 Assessment/Plan Lines/Catheters IV Catheter Type (from Nrsg): Saline [place] in Place (from Nrsg): No Assessment/Plan Chief Complaint/Hosp Course 1. Chin cellulitis/pressure injury -abx -monitor -hot packs 2. Anemia -monitor 3. BMI 49 -diet optimization encouraged -exercise encouraged 4. Chronic pain syndrome -medical management 5. S/p back surgery -cont pain management -cont acute rehab therapy 6. Depression history: -cont medical management Thank you. Patient seen and examined in collaboration with Dr. Tay Varela. Problems: Subjective 24 Hr Interval Summary Chin with some improvement with hot pack. No fevers, chills, sob, congested cough, cp, palpitations, morales, dizziness, n/v/d/dysuria. Exam/Review of Systems Vital Signs Vitals Vital Signs Date Time Temp Pulse Resp B/P Pulse Ox O2 Delivery O2 Flow Rate FiO2 03/21/17 19:59 97.8 75 18 110/62 97 03/21/17 13:35 Room Air Intake and Output 03/21/17 03/21/17 03/22/17 15:00 23:00 07:00 Intake Total 100 ml 1600 ml Balance 100 ml 1600 ml Exam Free Text/Dictation Constitutional: alert, obese, oriented, No distress Psych: nl mood/affect, No anxiety, No confusion Head: atraumatic, normocephalic Eyes: EOMI, nl conjunctiva, No PERRL ENMT: mucosa pink and moist, nl external ears & nose, other (Chin erythema) Neck: non-tender, supple Respiratory: normal air movement, No congested cough Cardiovascular: regular rate and rhythm, No edema Gastrointestinal: non-tender, soft, No rebound or guarding Musculoskeletal: nl gait and stance, No nl extremities to inspection Extremities: No calf tenderness, No edema Neurological: nl mental status, nl speech, nl strength Skin: nl turgor, rash or lesions (chin erythema/induration-min improved: no open areas) Lymph: nl lymph nodes Results Result Diagram: 03/18/17 0652 03/18/17 0652 RANDOLPH GANN NP Mar 18, 2017 21:26
[2017-03-19] MEDS: HYDROmorphONE 2 MG/ML SYG IV PRN ×11 (00:15→23:33)
[2017-03-19] MEDS: TIZANIDINE 2 MG TAB PO PRN ×3 (00:16→18:21)
[2017-03-19] MEDS: ZOLPIDEM 5 MG TAB PO PRN (00:18)
[2017-03-19] MEDS: HYDROCODONE/APAP (10/325) TAB PO SCH ×6 (01:00→20:32)
[2017-03-19 02:06] VITALS: BP 114/60; RESP 18
[2017-03-19 07:00] VITALS: BP 107/55; RESP 18
[2017-03-19] MEDS: oxyCODONE 5 MG TAB PO SCH ×3 (07:33→17:54)
[2017-03-19] MEDS: ONDANSETRON 4 MG INJ IV PRN (07:39)
[2017-03-19] MEDS: BACLOFEN 10 MG TAB PO SCH ×3 (09:11→20:31)
[2017-03-19] MEDS: DOCUSATE SODIUM 100 MG CAP PO SCH ×2 (09:11→20:34)
[2017-03-19] MEDS: FAMOTIDINE 20 MG TAB PO SCH ×2 (09:11→20:30)
[2017-03-19] MEDS: DULOXETINE 30 MG CAP DR PO SCH (09:12)
[2017-03-19] MEDS: GABAPENTIN 300 MG CAP PO SCH ×3 (09:12→20:30)
[2017-03-19] MEDS: BUPROPION (XL) 150 MG TAB PO SCH (09:12)
[2017-03-19] MEDS: SENNA TAB PO SCH ×2 (09:12→20:34)
[2017-03-19] MEDS: ENOXAPARIN 40 MG/0.4 ML SYG SC SCH (09:16)
[2017-03-19] MEDS: SILVER SULFADIAZINE 1% 25 GM CR TOP SCH (09:32)
--- NOTE | 2017-03-19 10:15 | CONS ---
Date/Time of Note Date/Time of Note DATE: 03/19/17 TIME: 10:14 Consult Date/Type/Reason Admit Date/Time Mar 12, 2017 at 17:52 Type of Consultation: card Subjective Patient with no new complaints Objective pulm-cta cga/sba ambulation Vital Signs Date Time Temp Pulse Resp B/P Pulse Ox O2 Delivery O2 Flow Rate FiO2 03/19/17 02:06 98.3 72 18 114/60 94 03/18/17 03:00 Room Air Intake and Output 03/18/17 03/18/17 03/19/17 15:00 23:00 07:00 Intake Total 400 ml 1150 ml 1160 ml Balance 400 ml 1150 ml 1160 ml Results/Medications Result Diagram: 03/18/17 0652 03/18/17 0652 Results 24 hrs Laboratory Tests Test 03/19/17 08:09 Creatine Kinase 966 H Medications Current Medications Acetaminophen/ Hydrocodone Bitart ([place] (10/325)) 2 tab Q4 PO Last administered on 03/19/17 07:34; Admin Dose 2 TAB; Start 03/12/17 at 21:00 Baclofen (Lioresal) 10 mg TID PO Last administered on 03/19/17 09:11; Admin Dose 10 MG; Start 03/12/17 at 21:00 Bisacodyl 10 mg 10 mg DAILY PRN [place] CONSTIPATION Last administered on 15:50; Admin Dose 10 MG; Start 03/12/17 at 19:00 Daptomycin/Sodium Chloride (Cubicin/NS) 100 ml @ 200 mls/hr Q24H IVPB Last administered on 03/18/17 12:00; Admin Dose 200 MLS/HR; Start 03/13/17 at 12: 00 Docusate Sodium (Colace) 100 mg BID PO Last administered on 03/19/17 09:11; Admin Dose 100 MG; Start 03/12/17 at 21:00 Duloxetine HCl (Cymbalta) 30 mg DAILY PO Last administered on 03/19/17 09:12 ; Admin Dose 30 MG; Start 03/13/17 at 09:00 Famotidine (Pepcid) 20 mg BID PO Last administered on 03/19/17 09:11; Admin Dose 20 MG; Start 03/12/17 at 21:00 Bupropion HCl (Wellbutrin Xl) 300 mg DAILY PO Last administered on 03/19/17 09:12; Admin Dose 300 MG; Start 03/13/17 at 09:00 Hydromorphone HCl (Dilaudid) 2 mg Q2H PRN IV BREAKTHROUGH PAIN Last administered on 03/19/17 09:29; Admin Dose 2 MG; Start 03/12/17 at 19:00 Naloxone HCl (Narcan) 0.2 mg Q2M PRN IV RR 8 BREATHS/MIN OR LESS; Start at 19:00 Oxycodone HCl (Roxicodone) 10 mg Q6 PO Last administered on 03/19/17 07:33; Admin Dose 10 MG; Start 03/12/17 at 20:00 Polyethylene Glycol (Miralax) 17 gm DAILY PRN GTB CONSTIPATION Last administered on 03/15/17 10:09; Admin Dose 17 GM; Start 03/12/17 at 19:00 Senna (Senokot) 1 tab BID PO Last administered on 03/19/17 09:12; Admin Dose 1 TAB; Start 03/12/17 at 21:00 Silver Sulfadiazine (Thermazene 1% 25 Gm) 1 applic DAILY TOP Last administered on 03/19/17 09:32; Admin Dose 1 APPLIC; Start 03/13/17 at 09:00 Zolpidem Tartrate (Ambien) 10 mg QHS PRN PO INSOMNIA Last administered on 03/19 00:18; Admin Dose 10 MG; Start 03/12/17 at 19:00 Acetaminophen (Tylenol Tab) 650 mg Q4H PRN PO PAIN; Start 03/13/17 at 06:30 Magnesium Hydroxide (Milk Of Mag) 30 ml BID PRN PO CONSTIPATION; Start at 06:30 Gabapentin (Neurontin) 600 mg TID PO Last administered on 03/19/17 09:12; Admin Dose 600 MG; Start 03/13/17 at 13:00 Tizanidine HCl (Zanaflex) 2 mg BID PRN PO muscle spasm Last administered on 05:39; Admin Dose 2 MG; Start 03/13/17 at 11:00 Ondansetron HCl (Zofran Inj) 4 mg Q4H PRN IV NAUSEA AND/OR VOMITING Last administered on 03/19/17 07:39; Admin Dose 4 MG; Start 03/14/17 at 07:58 Tramadol HCl (Ultram) 50 mg Q6H PRN PO PAIN Last administered on 03/18/17 13: 31; Admin Dose 50 MG; Start 03/14/17 at 08:30 Lactulose (Enulose) 20 gm BID PRN PO CONSTIPATION; Start 03/15/17 at 21:00 Enoxaparin Sodium (Lovenox) 40 mg DAILY SC Last administered on 03/19/17 09: 16; Admin Dose 40 MG; Start 03/16/17 at 19:00 Diphenhydramine HCl (Benadryl) 25 mg Q6H PRN PO ITCHING Last administered on 20:31; Admin Dose 25 MG; Start 03/17/17 at 08:30 Assessment/Plan Additional Assessment/Plan rehab- Lumbar spinal stenosis, radiculopathy and foot drop, status post decompressive laminectomy. continued rehab program Polyneuropathy. Acute pain syndrome-continue current meds History of depression. History of cervical surgery Integ- healing. CORAZON BETH MD Mar 19, 2017 10:15
--- NOTE | 2017-03-19 11:18 | PN ---
DATE: 03/19/2017 SUBJECTIVE: The patient is stable. No events overnight. No fevers, chills, nausea, vomiting. OBJECTIVE: VITAL SIGNS: Blood pressure 114/60, respiration 18, pulse 72, temperature 98.3. HEENT: Head is normocephalic. NECK: Supple. HEART: Regular rate. LUNGS: Show diminished breath sounds at base. ABDOMEN: Soft, nontender to palpation without rebound or guarding. EXTREMITIES: Negative for clubbing, cyanosis, no edema. DERMATOLOGIC: No rashes. MUSCULOSKELETAL: No joint effusions. NEUROLOGIC: No change in exam. MEDICATIONS: Have been reviewed. LABORATORY DATA: Has been reviewed. ASSESSMENT AND PLAN: 1. Acute on chronic radiculopathy. The patient is status post L4-L5 transforaminal fusion. The pa tient is currently stable. Continue physical therapy. 2. Cellulitis of right chin with possible abscess. Continue current antibiotic regimen. Appreciat e surgical evaluation. Continue warm compresses; continue follow up with infectious disease. 3. Chronic pain syndrome. Continue current pain regimen. 4. Neuropathy. Continue Neurontin. 5. Insomnia. Continue Ambien. 6. Depression. Continue Zoloft. 7. Status post-acute kidney injury. 8. Anemia. Monitor hemoglobin and hematocrit levels. 9. Gastrointestinal and deep venous thrombosis prophylaxis. Continue proton pump inhibitor and [place] enox. Dictated By: SEBASTIAN SIMMS/CANDE Conf#: [id number] DID#: [id number]
--- NOTE | 2017-03-19 12:56 | CONS ---
Date/Time of Note Date/Time of Note DATE: 03/19/17 TIME: 12:56 Assessment/Plan Assessment/Plan Chief Complaint/Hosp Course SUBJECTIVE: No events overnight. Patient is awake, looks comfortable MICROBIOLOGY: The culture of the open area of the chin grew alpha hemolytic strep species, enterococcus and staph species. ANTIMICROBIALS: Daptomycin. ALLERGIES: NONE. PHYSICAL EXAMINATION: GENERAL: This is an obese, well-developed, middle-aged woman who is alert, in no distress. HEENT: Head atraumatic, normocephalic. Sclerae anicteric. Buccal mucosa pink. NECK: Supple. CHEST: Rise symmetrical. Breath sounds clear. HEART: S1, S2. ABDOMEN: Soft. Bowel sounds present. ASSESSMENT: 1. Cellulitis of the chin. 2. Chronic back pain status post spinal surgery on 03/08/2017. 3. Morbid obesity. 4. Chronic pain syndrome. PLAN: The patient remains stable. Continue present care, antibiotics, f/u surgical rec-s. dw staff Problems: Consultation Date/Type/Reason Admit Date/Time Mar 12, 2017 at 17:52 Type of Consultation: ID Exam/Review of Systems Vital Signs Vitals Vital Signs Date Time Temp Pulse Resp B/P Pulse Ox O2 Delivery O2 Flow Rate FiO2 03/19/17 07:00 97.8 79 18 107/55 93 03/18/17 03:00 Room Air Intake and Output 03/18/17 03/18/17 03/19/17 15:00 23:00 07:00 Intake Total 400 ml 1150 ml 1160 ml Balance 400 ml 1150 ml 1160 ml Results Result Diagram: 03/18/17 0652 03/18/17 0652 Results 24 hrs Laboratory Tests Test 03/19/17 08:09 Creatine Kinase 966 H Medications Medications Current Medications Acetaminophen/ Hydrocodone Bitart ([place] (10/325)) 2 tab Q4 PO Last administered on 03/19/17 11:54; Admin Dose 2 TAB; Start 03/12/17 at 21:00 Baclofen (Lioresal) 10 mg TID PO Last administered on 03/19/17 11:56; Admin Dose 10 MG; Start 03/12/17 at 21:00 Bisacodyl 10 mg 10 mg DAILY PRN [place] CONSTIPATION Last administered on 15:50; Admin Dose 10 MG; Start 03/12/17 at 19:00 Daptomycin/Sodium Chloride (Cubicin/NS) 100 ml @ 200 mls/hr Q24H IVPB Last administered on 03/18/17 12:00; Admin Dose 200 MLS/HR; Start 03/13/17 at 12: 00 Docusate Sodium (Colace) 100 mg BID PO Last administered on 03/19/17 09:11; Admin Dose 100 MG; Start 03/12/17 at 21:00 Duloxetine HCl (Cymbalta) 30 mg DAILY PO Last administered on 03/19/17 09:12 ; Admin Dose 30 MG; Start 03/13/17 at 09:00 Famotidine (Pepcid) 20 mg BID PO Last administered on 03/19/17 09:11; Admin Dose 20 MG; Start 03/12/17 at 21:00 Bupropion HCl (Wellbutrin Xl) 300 mg DAILY PO Last administered on 03/19/17 09:12; Admin Dose 300 MG; Start 03/13/17 at 09:00 Hydromorphone HCl (Dilaudid) 2 mg Q2H PRN IV BREAKTHROUGH PAIN Last administered on 03/19/17 12:01; Admin Dose 2 MG; Start 03/12/17 at 19:00 Naloxone HCl (Narcan) 0.2 mg Q2M PRN IV RR 8 BREATHS/MIN OR LESS; Start at 19:00 Oxycodone HCl (Roxicodone) 10 mg Q6 PO Last administered on 03/19/17 11:56; Admin Dose 10 MG; Start 03/12/17 at 20:00 Polyethylene Glycol (Miralax) 17 gm DAILY PRN GTB CONSTIPATION Last administered on 03/15/17 10:09; Admin Dose 17 GM; Start 03/12/17 at 19:00 Senna (Senokot) 1 tab BID PO Last administered on 03/19/17 09:12; Admin Dose 1 TAB; Start 03/12/17 at 21:00 Silver Sulfadiazine (Thermazene 1% 25 Gm) 1 applic DAILY TOP Last administered on 03/19/17 09:32; Admin Dose 1 APPLIC; Start 03/13/17 at 09:00 Zolpidem Tartrate (Ambien) 10 mg QHS PRN PO INSOMNIA Last administered on 03/19 00:18; Admin Dose 10 MG; Start 03/12/17 at 19:00 Acetaminophen (Tylenol Tab) 650 mg Q4H PRN PO PAIN; Start 03/13/17 at 06:30 Magnesium Hydroxide (Milk Of Mag) 30 ml BID PRN PO CONSTIPATION; Start at 06:30 Gabapentin (Neurontin) 600 mg TID PO Last administered on 03/19/17 11:55; Admin Dose 600 MG; Start 03/13/17 at 13:00 Tizanidine HCl (Zanaflex) 2 mg BID PRN PO muscle spasm Last administered on 05:39; Admin Dose 2 MG; Start 03/13/17 at 11:00 Ondansetron HCl (Zofran Inj) 4 mg Q4H PRN IV NAUSEA AND/OR VOMITING Last administered on 03/19/17 07:39; Admin Dose 4 MG; Start 03/14/17 at 07:58 Tramadol HCl (Ultram) 50 mg Q6H PRN PO PAIN Last administered on 03/18/17 13: 31; Admin Dose 50 MG; Start 03/14/17 at 08:30 Lactulose (Enulose) 20 gm BID PRN PO CONSTIPATION; Start 03/15/17 at 21:00 Enoxaparin Sodium (Lovenox) 40 mg DAILY SC Last administered on 03/19/17 09: 16; Admin Dose 40 MG; Start 03/16/17 at 19:00 Diphenhydramine HCl (Benadryl) 25 mg Q6H PRN PO ITCHING Last administered on 20:31; Admin Dose 25 MG; Start 03/17/17 at 08:30 JOHANNA GAXIOLA NP Mar 19, 2017 12:56
[2017-03-19 14:00] VITALS: BP 111/51; RESP 18
[2017-03-19] MEDS: DAPTOMYCIN IVPB SCH (15:07)
[2017-03-19] MEDS: SOD CHLORIDE 0.9% IVPB SCH (15:07)
[2017-03-19] MEDS: traMADol 50 MG TAB PO PRN (18:21)
[2017-03-19] MEDS: DIPHENHYDRAMINE 25 MG CAP PO PRN ×2 (18:21→20:30)
[2017-03-19 19:31] VITALS: BP 108/57; RESP 19
--- NOTE | 2017-03-19 23:59 | PN ---
Date/Time of Note Date/Time of Note DATE: 03/19/17 TIME: 23:59 Assessment/Plan Lines/Catheters IV Catheter Type (from Nrsg): Mid Line Lee in Place (from Nrsg): No Assessment/Plan Chief Complaint/Hosp Course 1. Chin cellulitis/pressure injury -abx -monitor -US 2. Anemia -monitor 3. BMI 49 -diet optimization encouraged -exercise encouraged 4. Chronic pain syndrome -medical management Thank you, Problems: Subjective 24 Hr Interval Summary No f/c/n/v. No cp/sob. No cough. No morales/dizzy/visual or acute neuro changes. No dysuria. Chin stable and improving. Exam/Review of Systems Vital Signs Vitals Vital Signs Date Time Temp Pulse Resp B/P Pulse Ox O2 Delivery O2 Flow Rate FiO2 03/21/17 13:35 97.7 79 18 107/55 95 Room Air Intake and Output 03/20/17 03/20/17 03/21/17 14:59 22:59 06:59 Intake Total 1800 ml 1510 ml Balance 1800 ml 1510 ml Exam Constitutional: alert, obese, oriented, No distress Psych: nl mood/affect, No anxiety, No confusion Head: atraumatic, normocephalic Eyes: EOMI, nl conjunctiva, No PERRL ENMT: mucosa pink and moist, nl external ears & nose, other (Chin erythema with small scab) Neck: non-tender, supple Respiratory: normal air movement, No congested cough Cardiovascular: regular rate and rhythm, No edema Gastrointestinal: non-tender, soft, No rebound or guarding Musculoskeletal: nl gait and stance, No nl extremities to inspection Extremities: No calf tenderness, No edema Neurological: nl mental status, nl speech, nl strength Skin: nl turgor, rash or lesions (chin erythema) Lymph: nl lymph nodes Results Result Diagram: 03/18/17 0652 03/18/17 0652 SHAYY MONTAGUE MD Mar 19, 2017 23:59
[2017-03-20] MEDS: HYDROCODONE/APAP (10/325) TAB PO SCH ×6 (01:00→20:13)
[2017-03-20] MEDS: HYDROmorphONE 2 MG/ML SYG IV PRN ×6 (01:35→23:46)
[2017-03-20] MEDS: ZOLPIDEM 5 MG TAB PO PRN (01:39)
[2017-03-20 02:28] VITALS: BP 116/54; RESP 18
[2017-03-20] MEDS: TIZANIDINE 2 MG TAB PO PRN (06:24)
[2017-03-20] MEDS: DIPHENHYDRAMINE 25 MG CAP PO PRN ×2 (06:24→13:50)
[2017-03-20] MEDS: oxyCODONE 5 MG TAB PO SCH ×5 (06:55→23:43)
[2017-03-20 07:30] VITALS: BP 119/59; RESP 18
[2017-03-20] MEDS: BACLOFEN 10 MG TAB PO SCH ×3 (08:09→20:12)
--- NOTE | 2017-03-20 08:28 | CONS ---
Date/Time of Note Date/Time of Note DATE: 03/20/17 TIME: 08:27 Consult Date/Type/Reason Admit Date/Time Mar 12, 2017 at 17:52 Type of Consultation: ID Subjective Overall improving Objective Lungs clear Standby assist ambulation Vital Signs Date Time Temp Pulse Resp B/P Pulse Ox O2 Delivery O2 Flow Rate FiO2 03/20/17 02:28 98.5 72 18 116/54 95 03/18/17 03:00 Room Air Intake and Output 03/19/17 03/19/17 03/20/17 15:00 23:00 07:00 Intake Total 2700 ml 250 ml Output Total 1601 ml Balance 1099 ml 250 ml Results/Medications Result Diagram: 03/18/1752 03/18/17 0652 Medications Current Medications Acetaminophen/ Hydrocodone Bitart ([place] (10/325)) 2 tab Q4 PO Last administered on 03/19/17 20:32; Admin Dose 2 TAB; Start 03/12/17 at 21:00 Baclofen (Lioresal) 10 mg TID PO Last administered on 03/20/17 08:09; Admin Dose 10 MG; Start 03/12/17 at 21:00 Bisacodyl 10 mg 10 mg DAILY PRN [place] CONSTIPATION Last administered on 15:50; Admin Dose 10 MG; Start 03/12/17 at 19:00 Daptomycin/Sodium Chloride (Cubicin/NS) 100 ml @ 200 mls/hr Q24H IVPB Last administered on 03/19/17 15:07; Admin Dose 200 MLS/HR; Start 03/13/17 at 12: 00 Docusate Sodium (Colace) 100 mg BID PO Last administered on 03/19/17 09:11; Admin Dose 100 MG; Start 03/12/17 at 21:00 Duloxetine HCl (Cymbalta) 30 mg DAILY PO Last administered on 03/19/17 09:12 ; Admin Dose 30 MG; Start 03/13/17 at 09:00 Famotidine (Pepcid) 20 mg BID PO Last administered on 03/19/17 20:30; Admin Dose 20 MG; Start 03/12/17 at 21:00 Bupropion HCl (Wellbutrin Xl) 300 mg DAILY PO Last administered on 03/19/17 09:12; Admin Dose 300 MG; Start 03/13/17 at 09:00 Hydromorphone HCl (Dilaudid) 2 mg Q2H PRN IV BREAKTHROUGH PAIN Last administered on 03/20/17 01:35; Admin Dose 2 MG; Start 03/12/17 at 19:00 Naloxone HCl (Narcan) 0.2 mg Q2M PRN IV RR 8 BREATHS/MIN OR LESS; Start at 19:00 Oxycodone HCl (Roxicodone) 10 mg Q6 PO Last administered on 03/20/17 06:55; Admin Dose 10 MG; Start 03/12/17 at 20:00 Polyethylene Glycol (Miralax) 17 gm DAILY PRN GTB CONSTIPATION Last administered on 03/15/17 10:09; Admin Dose 17 GM; Start 03/12/17 at 19:00 Senna (Senokot) 1 tab BID PO Last administered on 03/19/17 09:12; Admin Dose 1 TAB; Start 03/12/17 at 21:00 Silver Sulfadiazine (Thermazene 1% 25 Gm) 1 applic DAILY TOP Last administered on 03/19/17 09:32; Admin Dose 1 APPLIC; Start 03/13/17 at 09:00 Zolpidem Tartrate (Ambien) 10 mg QHS PRN PO INSOMNIA Last administered on 03/20 01:39; Admin Dose 10 MG; Start 03/12/17 at 19:00 Acetaminophen (Tylenol Tab) 650 mg Q4H PRN PO PAIN; Start 03/13/17 at 06:30 Magnesium Hydroxide (Milk Of Mag) 30 ml BID PRN PO CONSTIPATION; Start at 06:30 Gabapentin (Neurontin) 600 mg TID PO Last administered on 03/19/17 20:30; Admin Dose 600 MG; Start 03/13/17 at 13:00 Tizanidine HCl (Zanaflex) 2 mg BID PRN PO muscle spasm Last administered on 06:24; Admin Dose 2 MG; Start 03/13/17 at 11:00 Ondansetron HCl (Zofran Inj) 4 mg Q4H PRN IV NAUSEA AND/OR VOMITING Last administered on 03/19/17 07:39; Admin Dose 4 MG; Start 03/14/17 at 07:58 Tramadol HCl (Ultram) 50 mg Q6H PRN PO PAIN Last administered on 03/19/17 18: 21; Admin Dose 50 MG; Start 03/14/17 at 08:30 Lactulose (Enulose) 20 gm BID PRN PO CONSTIPATION; Start 03/15/17 at 21:00 Enoxaparin Sodium (Lovenox) 40 mg DAILY SC Last administered on 03/19/17 09: 16; Admin Dose 40 MG; Start 03/16/17 at 19:00 Diphenhydramine HCl (Benadryl) 25 mg Q6H PRN PO ITCHING Last administered on 06:24; Admin Dose 25 MG; Start 03/17/17 at 08:30 Hydromorphone HCl (Dilaudid) 2 mg ONCE PRN IV PAIN; Start 03/19/17 at 21:00 Assessment/Plan Additional Assessment/Plan rehab- Lumbar spinal stenosis, radiculopathy and foot drop, status post decompressive laminectomy. continued rehab plan Polyneuropathy. Acute pain syndrome-continue current meds through the weekend, and begin taper of IV medications Thursday History of depression. History of cervical surgery Integ- healing. CORAZON BETH MD Mar 20, 2017 08:28
[2017-03-20] MEDS: BUPROPION (XL) 150 MG TAB PO SCH (09:27)
[2017-03-20] MEDS: SENNA TAB PO SCH ×2 (09:28→20:12)
[2017-03-20] MEDS: DOCUSATE SODIUM 100 MG CAP PO SCH ×2 (09:28→20:11)
[2017-03-20] MEDS: GABAPENTIN 300 MG CAP PO SCH ×3 (09:28→20:12)
[2017-03-20] MEDS: DULOXETINE 30 MG CAP DR PO SCH (09:28)
[2017-03-20] MEDS: FAMOTIDINE 20 MG TAB PO SCH ×2 (09:28→20:11)
[2017-03-20] MEDS: SILVER SULFADIAZINE 1% 25 GM CR TOP SCH (09:29)
[2017-03-20] MEDS: ENOXAPARIN 40 MG/0.4 ML SYG SC SCH (09:33)
[2017-03-20] MEDS: SOD CHLORIDE 0.9% IVPB SCH (12:17)
[2017-03-20] MEDS: DAPTOMYCIN IVPB SCH (12:17)
--- NOTE | 2017-03-20 13:05 | PN ---
DATE: 03/20/2017 SUBJECTIVE: The patient is stable. No events overnight. OBJECTIVE: VITAL SIGNS: Blood pressure 119/59, pulse 74, respiration 18, temperature 98.7. HEENT: Head is normocephalic. NECK: Supple. HEART: Regular rate. LUNGS: Show diminished breath sounds at base. ABDOMEN: Soft, nontender to palpation. No rebound or guarding. EXTREMITIES: Negative for clubbing, cyanosis, no edema. DERMATOLOGIC: No rashes. MUSCULOSKELETAL: No joint effusions. NEUROLOGIC: No change in exam. MEDICATIONS: Have been reviewed. LABORATORY DATA: Has been reviewed. ASSESSMENT AND PLAN: 1. Acute on chronic radiculopathy. The patient is status post L4-L5 transforaminal fusion. The pa tient is currently stable. Continue physical therapy. 2. Cellulitis of right chin with possible fluid collection abscess. The patient has been seen by I nfectious Disease and General Surgery. Continue antibiotic therapy, continue warm compresses. 3. Chronic pain syndrome. Continue current pain regimen. 4. Neuropathy. Continue Neurontin. 5. Insomnia. Continue Ambien. 6. Depression. Continue Zoloft. 7. Status post acute kidney injury. 8. Anemia. Monitor hemoglobin and hematocrit levels. 9. Gastrointestinal and deep venous thrombosis prophylaxis. Continue proton pump inhibitor and [place] enox. Dictated By: SEBASTIAN SIMMS/CANDE Conf#: [id number] DID#: [id number] CC: CORAZON BETH MD;*EndCC*
[2017-03-20 14:00] VITALS: BP 134/63; RESP 18
--- NOTE | 2017-03-20 16:07 | CONS ---
Date/Time of Note Date/Time of Note DATE: 03/20/17 TIME: 16:07 Consult Date/Type/Reason Admit Date/Time Mar 12, 2017 at 17:52 Type of Consultation: card Subjective CARDIOLOGY FOLLOW UP NOTE: S: D/W STAFF Pt is still in rehab. s/p spinal surgery 03/07/17 she still c/o back pain which is worse after PT. but it is getting overall better. no cp or pressure. no sob. O: General: obese. no acute distress HEENT: NC/AT. pupils are equal. round. NECK: NO JVD. no stridor. CV: RRR. systolic murmur; no gallop or rubs. PULM: no wheezing or rhonchi. GI: SOFT, obese. NT, ND, no rebound or guarding Extremity: trace B/L LE edema. no clubbing. neuro: awake and alert, OX3. Psych: calm and pleasant rectal: deferred ECHO reviewed: 1. Normal left ventricular systolic function. Normal left ventricular cavity size. Normal left ventricular wall thickness. Ejection fraction is visually estimated at 60 %. Tissue Doppler/Mitral Doppler indices are consistent with impaired relaxation (Stage I diastolic dysfunction). 2. Normal appearance and function of the mitral valve with trace physiologic regurgitation. 3. Normal appearance of the aortic valve. No significant aortic stenosis or insufficiency. 4. Normal appearance of the tricuspid valve. Estimated peak PA systolic pressure 24 mmHg. There is trace tricuspid regurgitation. Objective Vital Signs Date Time Temp Pulse Resp B/P Pulse Ox O2 Delivery O2 Flow Rate FiO2 03/20/17 14:00 98.5 82 18 134/63 95 03/18/17 03:00 Room Air Intake and Output 03/19/17 03/19/17 03/20/17 15:00 23:00 07:00 Intake Total 2700 ml 250 ml Output Total 1601 ml Balance 1099 ml 250 ml Results/Medications Result Diagram: 03/18/17 0652 03/18/17 0652 Medications Current Medications Acetaminophen/ Hydrocodone Bitart ([place] (10/325)) 2 tab Q4 PO Last administered on 03/20/17 09:29; Admin Dose 2 TAB; Start 03/12/17 at 21:00 Baclofen (Lioresal) 10 mg TID PO Last administered on 03/20/17 13:08; Admin Dose 10 MG; Start 03/12/17 at 21:00 Bisacodyl 10 mg 10 mg DAILY PRN [place] CONSTIPATION Last administered on 15:50; Admin Dose 10 MG; Start 03/12/17 at 19:00 Daptomycin/Sodium Chloride (Cubicin/NS) 100 ml @ 200 mls/hr Q24H IVPB Last administered on 03/20/17 12:17; Admin Dose 200 MLS/HR; Start 03/13/17 at 12: 00 Docusate Sodium (Colace) 100 mg BID PO Last administered on 03/20/17 09:28; Admin Dose 100 MG; Start 03/12/17 at 21:00 Duloxetine HCl (Cymbalta) 30 mg DAILY PO Last administered on 03/20/17 09:28 ; Admin Dose 30 MG; Start 03/13/17 at 09:00 Famotidine (Pepcid) 20 mg BID PO Last administered on 03/20/17 09:28; Admin Dose 20 MG; Start 03/12/17 at 21:00 Bupropion HCl (Wellbutrin Xl) 300 mg DAILY PO Last administered on 03/20/17 09:27; Admin Dose 300 MG; Start 03/13/17 at 09:00 Hydromorphone HCl (Dilaudid) 2 mg Q2H PRN IV BREAKTHROUGH PAIN Last administered on 03/20/17 16:01; Admin Dose 2 MG; Start 03/12/17 at 19:00 Naloxone HCl (Narcan) 0.2 mg Q2M PRN IV RR 8 BREATHS/MIN OR LESS; Start at 19:00 Oxycodone HCl (Roxicodone) 10 mg Q6 PO Last administered on 03/20/17 12:17; Admin Dose 10 MG; Start 03/12/17 at 20:00 Polyethylene Glycol (Miralax) 17 gm DAILY PRN GTB CONSTIPATION Last administered on 03/15/17 10:09; Admin Dose 17 GM; Start 03/12/17 at 19:00 Senna (Senokot) 1 tab BID PO Last administered on 03/20/17 09:28; Admin Dose 1 TAB; Start 03/12/17 at 21:00 Silver Sulfadiazine (Thermazene 1% 25 Gm) 1 applic DAILY TOP Last administered on 03/20/17 09:29; Admin Dose 1 APPLIC; Start 03/13/17 at 09:00 Zolpidem Tartrate (Ambien) 10 mg QHS PRN PO INSOMNIA Last administered on 03/20 01:39; Admin Dose 10 MG; Start 03/12/17 at 19:00 Acetaminophen (Tylenol Tab) 650 mg Q4H PRN PO PAIN; Start 03/13/17 at 06:30 Magnesium Hydroxide (Milk Of Mag) 30 ml BID PRN PO CONSTIPATION; Start at 06:30 Gabapentin (Neurontin) 600 mg TID PO Last administered on 03/20/17 13:08; Admin Dose 600 MG; Start 03/13/17 at 13:00 Tizanidine HCl (Zanaflex) 2 mg BID PRN PO muscle spasm Last administered on 06:24; Admin Dose 2 MG; Start 03/13/17 at 11:00 Ondansetron HCl (Zofran Inj) 4 mg Q4H PRN IV NAUSEA AND/OR VOMITING Last administered on 03/19/17 07:39; Admin Dose 4 MG; Start 03/14/17 at 07:58 Tramadol HCl (Ultram) 50 mg Q6H PRN PO PAIN Last administered on 03/19/17 18: 21; Admin Dose 50 MG; Start 03/14/17 at 08:30 Lactulose (Enulose) 20 gm BID PRN PO CONSTIPATION; Start 03/15/17 at 21:00 Enoxaparin Sodium (Lovenox) 40 mg DAILY SC Last administered on 03/20/17 09: 33; Admin Dose 40 MG; Start 03/16/17 at 19:00 Diphenhydramine HCl (Benadryl) 25 mg Q6H PRN PO ITCHING Last administered on 13:50; Admin Dose 25 MG; Start 03/17/17 at 08:30 Hydromorphone HCl (Dilaudid) 2 mg ONCE PRN IV PAIN; Start 03/19/17 at 21:00 Assessment/Plan Chief Complaint/Hosp Course 1. s/p spinal surgery: debility in rehab now. 2. severe LBP and radiculopathy; s/p surgery now 3. mildly abnormal ECG 4. Hx depression 5. obesity. 6. anemia: stable. will monitor. Recommendations: cont current cardiac care cont post op care and pain management as per neurosurgery team. DVT prophylaxis as per IM/ neurosurgery team, currently on lovenox cont acute rehab and PT treatment as tolerated Thank you for his referral. We will continue to follow along with you as needed basis. ERIKA HERNANDEZ MD [facility] Problems: ERIKA HERNANDEZ MD Mar 20, 2017 16:07
[2017-03-20] MEDS: traMADol 50 MG TAB PO PRN (19:28)
[2017-03-20 20:00] VITALS: BP 112/62; RESP 18
--- NOTE | 2017-03-20 20:29 | CONS ---
Date/Time of Note Date/Time of Note DATE: 03/20/17 TIME: 20:22 Assessment/Plan Assessment/Plan Chief Complaint/Hosp Course ID PROGRESS NOTE CURRENT ABX: DAY #10 => Daptomycin 24H INTERVAL SUMMARY * Not much improvement in chin fluid collection, not draining, still numb to touch, she feels blister forming which I am not able to appreciate on inspection w/flashlight? * Facial WOUND CULTURE Final Organism 1 ENTEROCOCCUS SPECIES QUANTITY 3+ Organism 2 ALPHA HEMOLYTIC STREP SPP QUANTITY 1+ . VIRIDANS GROUP Organism 3 COAGULASE NEGATIVE STAPH QUANTITY SCANT GROWTH PHYSICAL EXAMINATION: GENERAL: VSS, afebrile, NAD HEENT: Large fluid collection subcutaneous chin w/erythema, not draining NECK: Supple, trach midline CHEST: Equal chest rise bilaterally, without dyspnea on observation ABDOMEN: Large, Soft, NT EXT: Warm, moves all ext SKIN: No rash, no diaphoresis ID ASSESSMENT: 46 yo morbid obese F admit with: 1. SIRS w/resolving leukocytosis 2. Facial/chin cellulitis w/fluid collection on chin ?deep tissue injury? => hx of chin pressure trauma during lumbar surgery * Ultrasound revealed no evidence of abscess; rather Benign-appearing 0.5 cm lymph node at the site of the palpable lesion in the chin. 3. Lumbar spinal stenosis -> severe DJD/DDD w/BLEXT radiculopathy, peripheral neuropathy-> s/p decompression surgery on 03/08/2017. 4. Chronic pain syndrome, mobility limiting 5. Acute kidney injury secondary to hemodynamics, resolved. ABX ALLERGIES: None INVASIVES: PIV CURRENT ABX: DAY #10=> Daptomycin ID RECOMMENDATIONS/PLAN: 1. Not much improvement - she is concerned why ? Hx of deep tissue injury during surgery? * US w/lymphadenopathy ? no abscess? => Consider CT soft tissue chin to delineate tissue further. 2. She is waiting surgical f/u; I advised her not an emergency, surgery can f/u next week. . . Problems: Consultation Date/Type/Reason Admit Date/Time Mar 12, 2017 at 17:52 Type of Consultation: ID Exam/Review of Systems Vital Signs Vitals Vital Signs Date Time Temp Pulse Resp B/P Pulse Ox O2 Delivery O2 Flow Rate FiO2 03/20/17 14:00 98.5 82 18 134/63 95 03/18/17 03:00 Room Air Intake and Output 03/19/17 03/19/17 03/20/17 15:00 23:00 07:00 Intake Total 2700 ml 250 ml Output Total 1601 ml Balance 1099 ml 250 ml Results Result Diagram: 03/18/1765103/18/1752 Medications Medications Current Medications Acetaminophen/ Hydrocodone Bitart ([place] (10/325)) 2 tab Q4 PO Last administered on 03/20/17 20:13; Admin Dose 2 TAB; Start 03/12/17 at 21:00 Baclofen (Lioresal) 10 mg TID PO Last administered on 03/20/17 20:12; Admin Dose 10 MG; Start 03/12/17 at 21:00 Bisacodyl 10 mg 10 mg DAILY PRN [place] CONSTIPATION Last administered on 15:50; Admin Dose 10 MG; Start 03/12/17 at 19:00 Daptomycin/Sodium Chloride (Cubicin/NS) 100 ml @ 200 mls/hr Q24H IVPB Last administered on 03/20/17 12:17; Admin Dose 200 MLS/HR; Start 03/13/17 at 12: 00 Docusate Sodium (Colace) 100 mg BID PO Last administered on 03/20/17 20:11; Admin Dose 100 MG; Start 03/12/17 at 21:00 Duloxetine HCl (Cymbalta) 30 mg DAILY PO Last administered on 03/20/17 09:28 ; Admin Dose 30 MG; Start 03/13/17 at 09:00 Famotidine (Pepcid) 20 mg BID PO Last administered on 03/20/17 20:11; Admin Dose 20 MG; Start 03/12/17 at 21:00 Bupropion HCl (Wellbutrin Xl) 300 mg DAILY PO Last administered on 03/20/17 09:27; Admin Dose 300 MG; Start 03/13/17 at 09:00 Hydromorphone HCl (Dilaudid) 2 mg Q2H PRN IV BREAKTHROUGH PAIN Last administered on 03/20/17 16:01; Admin Dose 2 MG; Start 03/12/17 at 19:00 Naloxone HCl (Narcan) 0.2 mg Q2M PRN IV RR 8 BREATHS/MIN OR LESS; Start at 19:00 Oxycodone HCl (Roxicodone) 10 mg Q6 PO Last administered on 03/20/17 18:31; Admin Dose 10 MG; Start 03/12/17 at 20:00 Polyethylene Glycol (Miralax) 17 gm DAILY PRN GTB CONSTIPATION Last administered on 03/15/17 10:09; Admin Dose 17 GM; Start 03/12/17 at 19:00 Senna (Senokot) 1 tab BID PO Last administered on 03/20/17 20:12; Admin Dose 1 TAB; Start 03/12/17 at 21:00 Silver Sulfadiazine (Thermazene 1% 25 Gm) 1 applic DAILY TOP Last administered on 03/20/17 09:29; Admin Dose 1 APPLIC; Start 03/13/17 at 09:00 Zolpidem Tartrate (Ambien) 10 mg QHS PRN PO INSOMNIA Last administered on 03/20 01:39; Admin Dose 10 MG; Start 03/12/17 at 19:00 Acetaminophen (Tylenol Tab) 650 mg Q4H PRN PO PAIN; Start 03/13/17 at 06:30 Magnesium Hydroxide (Milk Of Mag) 30 ml BID PRN PO CONSTIPATION; Start at 06:30 Gabapentin (Neurontin) 600 mg TID PO Last administered on 03/20/17 20:12; Admin Dose 600 MG; Start 03/13/17 at 13:00 Tizanidine HCl (Zanaflex) 2 mg BID PRN PO muscle spasm Last administered on 06:24; Admin Dose 2 MG; Start 03/13/17 at 11:00 Ondansetron HCl (Zofran Inj) 4 mg Q4H PRN IV NAUSEA AND/OR VOMITING Last administered on 03/19/17 07:39; Admin Dose 4 MG; Start 03/14/17 at 07:58 Tramadol HCl (Ultram) 50 mg Q6H PRN PO PAIN Last administered on 03/20/17 19: 28; Admin Dose 50 MG; Start 03/14/17 at 08:30 Lactulose (Enulose) 20 gm BID PRN PO CONSTIPATION; Start 03/15/17 at 21:00 Enoxaparin Sodium (Lovenox) 40 mg DAILY SC Last administered on 03/20/17 09: 33; Admin Dose 40 MG; Start 03/16/17 at 19:00 Diphenhydramine HCl (Benadryl) 25 mg Q6H PRN PO ITCHING Last administered on t 13:50; Admin Dose 25 MG; Start 03/17/17 at 08:30 Hydromorphone HCl (Dilaudid) 2 mg ONCE PRN IV PAIN; Start 03/19/17 at 21:00 LING ADAMES NP Mar 20, 2017 20:29
[2017-03-21] MEDS: HYDROCODONE/APAP (10/325) TAB PO SCH ×6 (00:50→21:17)
[2017-03-21] MEDS: ZOLPIDEM 5 MG TAB PO PRN (00:51)
[2017-03-21] MEDS: DIPHENHYDRAMINE 25 MG CAP PO PRN ×3 (00:58→20:04)
[2017-03-21 02:00] VITALS: BP 120/65; RESP 18
[2017-03-21] MEDS: oxyCODONE 5 MG TAB PO SCH ×3 (05:24→18:07)
[2017-03-21] MEDS: HYDROmorphONE 2 MG/ML SYG IV PRN ×5 (07:01→22:46)
[2017-03-21 07:30] VITALS: BP 116/62; RESP 18
--- NOTE | 2017-03-21 08:44 | PN ---
DATE: 03/21/2017 SUBJECTIVE: The patient is stable. No events overnight. OBJECTIVE: VITAL SIGNS: Blood pressure is 134/63, temperature 98.8, pulse 84, respiration 18. HEENT: Head is normocephalic. NECK: Supple. HEART: Regular rate. LUNGS: Show diminished breath sounds at the base. ABDOMEN: Soft, nontender to palpation. No rebound or guarding. EXTREMITIES: Negative for clubbing, cyanosis, no edema. DERMATOLOGIC: No rashes. MUSCULOSKELETAL: No joint effusions. NEUROLOGIC: No change in exam. MEDICATIONS: The patient's medications have been reviewed. LABORATORY DATA: Has been reviewed. No new labs. ASSESSMENT AND PLAN: 1. Acute on chronic radiculopathy. The patient is status post L4 to L5 fusion. The patient is cur rently stable. Continue physical therapy. 2. Cellulitis, right chin. The patient is clinically improving. Continue current antibiotic regim en. 3. Chronic pain syndrome. Continue current pain regimen. 4. Neuropathy. Continue Neurontin. 5. Insomnia. Continue Ambien. 6. Depression. Continue Zoloft. 7. Status post acute kidney injury. 8. Anemia. Monitor hemoglobin and hematocrit levels. 9. Gastrointestinal and deep venous thrombosis prophylaxis. Continue proton pump inhibitor and [place] enox. Dictated By: SEBASTIAN RIVERO DO NR/NTS Conf#: [id number] DID#: [id number] CC: CORAZON BETH MD;*End*
[2017-03-21] MEDS: BACLOFEN 10 MG TAB PO SCH ×3 (08:56→20:04)
[2017-03-21] MEDS: DOCUSATE SODIUM 100 MG CAP PO SCH ×3 (08:56→21:00)
[2017-03-21] MEDS: SENNA TAB PO SCH ×3 (08:56→21:00)
[2017-03-21] MEDS: DULOXETINE 30 MG CAP DR PO SCH (08:56)
[2017-03-21] MEDS: GABAPENTIN 300 MG CAP PO SCH ×3 (08:57→20:03)
[2017-03-21] MEDS: BUPROPION (XL) 150 MG TAB PO SCH (08:57)
[2017-03-21] MEDS: FAMOTIDINE 20 MG TAB PO SCH ×2 (08:57→20:04)
[2017-03-21] MEDS: SILVER SULFADIAZINE 1% 25 GM CR TOP SCH (09:01)
[2017-03-21] MEDS: ENOXAPARIN 40 MG/0.4 ML SYG SC SCH (09:04)
--- NOTE | 2017-03-21 10:15 | CONS ---
Date/Time of Note Date/Time of Note DATE: 03/21/17 TIME: 10:15 Consult Date/Type/Reason Admit Date/Time Mar 12, 2017 at 17:52 Type of Consultation: ID Subjective Overall pain under good control Objective pulm-cta sba ambulation Vital Signs Date Time Temp Pulse Resp B/P Pulse Ox O2 Delivery O2 Flow Rate FiO2 03/21/17 07:30 99.0 91 18 116/62 95 03/18/17 03:00 Room Air Intake and Output 03/20/17 03/20/17 03/21/17 15:00 23:00 07:00 Intake Total 1800 ml 1510 ml Balance 1800 ml 1510 ml Results/Medications Result Diagram: 03/18/1752 03/18/17 0652 Medications Current Medications Acetaminophen/ Hydrocodone Bitart ([place] (10325)) 2 tab Q4 PO Last administered on 03/21/17 08:57; Admin Dose 2 TAB; Start 03/12/17 at 21:00 Baclofen (Lioresal) 10 mg TID PO Last administered on 03/21/17 08:56; Admin Dose 10 MG; Start 03/12/17 at 21:00 Bisacodyl 10 mg 10 mg DAILY PRN [place] CONSTIPATION Last administered on 15:50; Admin Dose 10 MG; Start 03/12/17 at 19:00 Daptomycin/Sodium Chloride (Cubicin/NS) 100 ml @ 200 mls/hr Q24H IVPB Last administered on 03/20/17 12:17; Admin Dose 200 MLS/HR; Start 03/13/17 at 12: 00 Docusate Sodium (Colace) 100 mg BID PO Last administered on 03/20/17 20:11; Admin Dose 100 MG; Start 03/12/17 at 21:00 Duloxetine HCl (Cymbalta) 30 mg DAILY PO Last administered on 03/21/17 08:56 ; Admin Dose 30 MG; Start 03/13/17 at 09:00 Famotidine (Pepcid) 20 mg BID PO Last administered on 03/21/17 08:57; Admin Dose 20 MG; Start 03/12/17 at 21:00 Bupropion HCl (Wellbutrin Xl) 300 mg DAILY PO Last administered on 03/21/17 08:57; Admin Dose 300 MG; Start 03/13/17 at 09:00 Hydromorphone HCl (Dilaudid) 2 mg Q2H PRN IV BREAKTHROUGH PAIN Last administered on 03/21/17 07:01; Admin Dose 2 MG; Start 03/12/17 at 19:00 Naloxone HCl (Narcan) 0.2 mg Q2M PRN IV RR 8 BREATHS/MIN OR LESS; Start at 19:00 Oxycodone HCl (Roxicodone) 10 mg Q6 PO Last administered on 03/21/17 05:24; Admin Dose 10 MG; Start 03/12/17 at 20:00 Polyethylene Glycol (Miralax) 17 gm DAILY PRN GTB CONSTIPATION Last administered on 03/15/17 10:09; Admin Dose 17 GM; Start 03/12/17 at 19:00 Senna (Senokot) 1 tab BID PO Last administered on 03/20/17 20:12; Admin Dose 1 TAB; Start 03/12/17 at 21:00 Silver Sulfadiazine (Thermazene 1% 25 Gm) 1 applic DAILY TOP Last administered on 03/21/17 09:01; Admin Dose 1 APPLIC; Start 03/13/17 at 09:00 Zolpidem Tartrate (Ambien) 10 mg QHS PRN PO INSOMNIA Last administered on 03/21 00:51; Admin Dose 10 MG; Start 03/12/17 at 19:00 Acetaminophen (Tylenol Tab) 650 mg Q4H PRN PO PAIN; Start 03/13/17 at 06:30 Magnesium Hydroxide (Milk Of Mag) 30 ml BID PRN PO CONSTIPATION; Start at 06:30 Gabapentin (Neurontin) 600 mg TID PO Last administered on 03/21/17 08:57; Admin Dose 600 MG; Start 03/13/17 at 13:00 Tizanidine HCl (Zanaflex) 2 mg BID PRN PO muscle spasm Last administered on 06:24; Admin Dose 2 MG; Start 03/13/17 at 11:00 Ondansetron HCl (Zofran Inj) 4 mg Q4H PRN IV NAUSEA AND/OR VOMITING Last administered on 03/19/17 07:39; Admin Dose 4 MG; Start 03/14/17 at 07:58 Tramadol HCl (Ultram) 50 mg Q6H PRN PO PAIN Last administered on 03/20/17 19: 28; Admin Dose 50 MG; Start 03/14/17 at 08:30 Lactulose (Enulose) 20 gm BID PRN PO CONSTIPATION; Start 03/15/17 at 21:00 Enoxaparin Sodium (Lovenox) 40 mg DAILY SC Last administered on 03/21/17 09: 04; Admin Dose 40 MG; Start 03/16/17 at 19:00 Diphenhydramine HCl (Benadryl) 25 mg Q6H PRN PO ITCHING Last administered on 00:58; Admin Dose 25 MG; Start 03/17/17 at 08:30 Hydromorphone HCl (Dilaudid) 2 mg ONCE PRN IV PAIN; Start 03/19/17 at 21:00 Assessment/Plan Additional Assessment/Plan rehab- Lumbar spinal stenosis /radic with foot drop, s/p lami; polyneuropathy Progressing well with treatment plan. Continue rehab Integ- Chin cellulitis improving CORAZON BETH MD Mar 21, 2017 10:15
[2017-03-21] MEDS: TIZANIDINE 2 MG TAB PO PRN ×2 (10:32→22:46)
[2017-03-21] MEDS: DAPTOMYCIN IVPB SCH (13:24)
[2017-03-21] MEDS: SOD CHLORIDE 0.9% IVPB SCH (13:24)
[2017-03-21 13:35] VITALS: BP 107/55; PULSE 79; RESP 18
--- NOTE | 2017-03-21 18:20 | PN ---
Date/Time of Note Date/Time of Note DATE: 03/20/17 TIME: 18:19 Assessment/Plan Lines/Catheters IV Catheter Type (from Nrsg): Mid Line Lee in Place (from Nrsg): No Assessment/Plan Chief Complaint/Hosp Course 1. Chin cellulitis/pressure injury -abx -monitor -US 2. Anemia -monitor 3. BMI 49 -diet optimization encouraged -exercise encouraged 4. Chronic pain syndrome -medical management Thank you, Late entry 03/20 Problems: Subjective 24 Hr Interval Summary No f/c/n/v. No cp/sob. No cough. No morales/dizzy/visual or acute neuro changes. No dysuria. Chin stable and improving. Exam/Review of Systems Vital Signs Vitals Vital Signs Date Time Temp Pulse Resp B/P Pulse Ox O2 Delivery O2 Flow Rate FiO2 03/21/17 13:35 97.7 79 18 107/55 95 Room Air Intake and Output 03/20/17 03/20/17 03/21/17 14:59 22:59 06:59 Intake Total 1800 ml 1510 ml Balance 1800 ml 1510 ml Exam Free Text/Dictation Constitutional: alert, obese, oriented, No distress Psych: nl mood/affect, No anxiety, No confusion Head: atraumatic, normocephalic Eyes: EOMI, nl conjunctiva, No PERRL ENMT: mucosa pink and moist, nl external ears & nose, other (Chin erythema with small scab) Neck: non-tender, supple Respiratory: normal air movement, No congested cough Cardiovascular: regular rate and rhythm, No edema Gastrointestinal: non-tender, soft, No rebound or guarding Musculoskeletal: nl gait and stance, No nl extremities to inspection Extremities: No calf tenderness, No edema Neurological: nl mental status, nl speech, nl strength Skin: nl turgor, rash or lesions (chin erythema) Lymph: nl lymph nodes Results Result Diagram: 03/18/17 0652 03/18/17 0652 SHAYY MONTAGUE MD Mar 21, 2017 18:20
--- NOTE | 2017-03-21 18:21 | PN ---
Date/Time of Note Date/Time of Note DATE: 03/21/17 TIME: 18:20 Assessment/Plan Lines/Catheters IV Catheter Type (from Nrsg): Mid Line Lee in Place (from Nrsg): No Assessment/Plan Chief Complaint/Hosp Course 1. Chin cellulitis/pressure injury -abx -monitor -US 2. Anemia -monitor 3. BMI 49 -diet optimization encouraged -exercise encouraged 4. Chronic pain syndrome -medical management Thank you, Problems: Subjective 24 Hr Interval Summary No f/c/n/v. No cp/sob. No cough. No morales/dizzy/visual or acute neuro changes. No dysuria. Chin stable and improving. Exam/Review of Systems Vital Signs Vitals Vital Signs Date Time Temp Pulse Resp B/P Pulse Ox O2 Delivery O2 Flow Rate FiO2 03/21/17 13:35 97.7 79 18 107/55 95 Room Air Intake and Output 03/20/17 03/20/17 03/21/17 14:59 22:59 06:59 Intake Total 1800 ml 1510 ml Balance 1800 ml 1510 ml Exam Free Text/Dictation Constitutional: alert, obese, oriented, No distress Psych: nl mood/affect, No anxiety, No confusion Head: atraumatic, normocephalic Eyes: EOMI, nl conjunctiva, No PERRL ENMT: mucosa pink and moist, nl external ears & nose, other (Chin erythema with small scab) Neck: non-tender, supple Respiratory: normal air movement, No congested cough Cardiovascular: regular rate and rhythm, No edema Gastrointestinal: non-tender, soft, No rebound or guarding Musculoskeletal: nl gait and stance, No nl extremities to inspection Extremities: No calf tenderness, No edema Neurological: nl mental status, nl speech, nl strength Skin: nl turgor, rash or lesions (chin erythema) Lymph: nl lymph nodes Results Result Diagram: 03/18/17 0652 03/18/17 0652 SHAYY MONTAGUE MD Mar 21, 2017 18:21
[2017-03-21 19:59] VITALS: BP 110/62; RESP 18
[2017-03-22] MEDS: ZOLPIDEM 5 MG TAB PO PRN (00:16)
[2017-03-22] MEDS: oxyCODONE 5 MG TAB PO SCH ×4 (00:16→17:48)
[2017-03-22] MEDS: HYDROCODONE/APAP (10/325) TAB PO SCH ×6 (00:33→20:37)
[2017-03-22] MEDS: HYDROmorphONE 2 MG/ML SYG IV PRN ×12 (04:08→23:35)
[2017-03-22] MEDS: BACLOFEN 10 MG TAB PO SCH ×3 (07:41→20:37)
[2017-03-22 08:00] VITALS: BP 112/68; PULSE 70; RESP 18
[2017-03-22] MEDS: FAMOTIDINE 20 MG TAB PO SCH ×2 (08:13→20:37)
[2017-03-22] MEDS: DOCUSATE SODIUM 100 MG CAP PO SCH ×2 (08:13→21:00)
[2017-03-22] MEDS: GABAPENTIN 300 MG CAP PO SCH ×3 (08:13→20:36)
[2017-03-22] MEDS: DULOXETINE 30 MG CAP DR PO SCH (08:13)
[2017-03-22] MEDS: SENNA TAB PO SCH ×2 (08:13→20:39)
[2017-03-22] MEDS: SILVER SULFADIAZINE 1% 25 GM CR TOP SCH (09:45)
[2017-03-22] MEDS: ENOXAPARIN 40 MG/0.4 ML SYG SC SCH (09:45)
--- NOTE | 2017-03-22 10:23 | PN ---
DATE: 03/22/2017 SUBJECTIVE: The patient is stable. No events overnight. PHYSICAL EXAMINATION: OBJECTIVE: VITAL SIGNS: Blood pressure is 116/62, temperature 99.0 L, respiration 18, pulse 98.1. HEENT: Head is normocephalic. NECK: Supple. HEART: Regular rate. LUNGS: Show diminished breath sounds at base. ABDOMEN: Soft, nontender to palpation without rebound or guarding. EXTREMITIES: Negative for clubbing, cyanosis, or edema. DERMATOLOGIC: No rashes. MUSCULOSKELETAL: No joint effusions. NEUROLOGIC: No change in exam. MEDICATIONS: The patient's medications have been reviewed. LABORATORY DATA: Has been reviewed. No new labs. ASSESSMENT AND PLAN: 1. Acute on chronic radiculopathy. The patient is status post surgery of L4-L5 transforaminal effu sions. The patient is currently stable. Continue physical therapy. 2. Right carrion cellulitis, improving. Continue current antibiotic regimen. 3. Chronic pain syndrome. Continue current pain regimen. 4. Neuropathy. Continue Neurontin. 5. Insomnia continue Ambien. 6. CMP. 7. Depression. Continue Zoloft. 8. Status post acute kidney injury. 9. Anemia. Monitor hemoglobin and hematocrit levels. 10. Gastrointestinal prophylaxis. Continue proton pump inhibitor and Lovenox. Dictated By: SEBASTIAN SIMMS/CANDE Conf#: [id number] DID#: [id number]
[2017-03-22] MEDS: BUPROPION (XL) 150 MG TAB PO SCH (11:12)
[2017-03-22] MEDS: DAPTOMYCIN IVPB SCH (13:55)
[2017-03-22] MEDS: SOD CHLORIDE 0.9% IVPB SCH (13:55)
[2017-03-22] MEDS: DIPHENHYDRAMINE 25 MG CAP PO PRN ×2 (14:01→21:48)
[2017-03-22] MEDS: TIZANIDINE 2 MG TAB PO PRN ×2 (15:39→21:48)
[2017-03-22] MEDS: traMADol 50 MG TAB PO PRN (17:49)
[2017-03-22 19:35] VITALS: BP 115/62; RESP 18
--- NOTE | 2017-03-22 22:04 | PN ---
Date/Time of Note Date/Time of Note DATE: 03/22/17 TIME: 22:03 Assessment/Plan Lines/Catheters IV Catheter Type (from Nrsg): Mid Line Lee in Place (from Nrsg): No Assessment/Plan Chief Complaint/Hosp Course 1. Chin cellulitis/pressure injury -abx -monitor -US 2. Anemia -monitor 3. BMI 49 -diet optimization encouraged -exercise encouraged 4. Chronic pain syndrome -medical management Thank you, Problems: Subjective 24 Hr Interval Summary No f/c/n/v. No cp/sob. No cough. No morales/dizzy/visual or acute neuro changes. No dysuria. Chin stable and improving. Exam/Review of Systems Vital Signs Vitals Vital Signs Date Time Temp Pulse Resp B/P Pulse Ox O2 Delivery O2 Flow Rate FiO2 03/22/17 19:35 98.3 84 18 115/62 96 03/22/17 08:00 Room Air Intake and Output 03/21/17 03/21/17 03/22/17 15:00 23:00 07:00 Intake Total 100 ml 1600 ml 850 ml Balance 100 ml 1600 ml 850 ml Exam Free Text/Dictation Constitutional: alert, obese, oriented, No distress Psych: nl mood/affect, No anxiety, No confusion Head: atraumatic, normocephalic Eyes: EOMI, nl conjunctiva, No PERRL ENMT: mucosa pink and moist, nl external ears & nose, other (Chin erythema with small scab) Neck: non-tender, supple Respiratory: normal air movement, No congested cough Cardiovascular: regular rate and rhythm, No edema Gastrointestinal: non-tender, soft, No rebound or guarding Musculoskeletal: nl gait and stance, No nl extremities to inspection Extremities: No calf tenderness, No edema Neurological: nl mental status, nl speech, nl strength Skin: nl turgor, rash or lesions (chin erythema) Lymph: nl lymph nodes Results Result Diagram: 03/18/17 0652 03/18/17 0652 SHAYY MONTAGUE MD Mar 22, 2017 22:04
[2017-03-23] MEDS: ZOLPIDEM 5 MG TAB PO PRN ×2 (00:06→22:56)
[2017-03-23] MEDS: oxyCODONE 5 MG TAB PO SCH ×5 (00:06→23:59)
[2017-03-23] MEDS: HYDROCODONE/APAP (10/325) TAB PO SCH ×6 (01:00→20:03)
[2017-03-23 02:00] VITALS: BP 116/58; PULSE 78; RESP 18
[2017-03-23] MEDS: HYDROmorphONE 2 MG/ML SYG IV PRN ×10 (03:58→22:53)
[2017-03-23] MEDS: DIPHENHYDRAMINE 25 MG CAP PO PRN ×3 (04:41→19:22)
[2017-03-23 07:04] LABS: CREATININE 0.71 mg/dl (0.44-1.00)
[2017-03-23 08:09] VITALS: BP 128/60; RESP 20
[2017-03-23] MEDS: ENOXAPARIN 40 MG/0.4 ML SYG SC SCH (08:21)
[2017-03-23] MEDS: BACLOFEN 10 MG TAB PO SCH ×3 (08:22→20:03)
[2017-03-23] MEDS: SENNA TAB PO SCH ×3 (08:22→20:07)
[2017-03-23] MEDS: GABAPENTIN 300 MG CAP PO SCH ×3 (08:22→20:02)
[2017-03-23] MEDS: FAMOTIDINE 20 MG TAB PO SCH ×2 (08:22→20:03)
[2017-03-23] MEDS: DOCUSATE SODIUM 100 MG CAP PO SCH ×3 (08:23→20:06)
[2017-03-23] MEDS: DULOXETINE 30 MG CAP DR PO SCH (08:23)
[2017-03-23] MEDS: BUPROPION (XL) 150 MG TAB PO SCH ×2 (09:00→12:46)
[2017-03-23] MEDS: SILVER SULFADIAZINE 1% 25 GM CR TOP SCH (09:12)
--- NOTE | 2017-03-23 10:27 | PN ---
DATE: 03/23/2017 SUBJECTIVE: The patient is stable. No events overnight. OBJECTIVE: VITAL SIGNS: Blood pressure is 160/58, respiration 18, pulse 78, temperature 98.1. HEENT: Head is normocephalic. NECK: Supple. HEART: Regular rate. LUNGS: Show diminished breath sounds at the base. ABDOMEN: Soft, nontender to palpation without rebound or guarding. EXTREMITIES: Negative for clubbing, cyanosis, no edema. DERMATOLOGIC: No rashes. MUSCULOSKELETAL: No joint effusions. NEUROLOGIC: No change in exam. MEDICATIONS: The patient's medications have been reviewed. LABORATORY DATA: Have been reviewed. No new labs. ASSESSMENT AND PLAN: 1. Acute on chronic radiculopathy status post L4-L5 transforaminal effusions. The patient is curre ntly stable. Continue physical therapy. 2. Right chin cellulitis, improving. Continue current antibiotic regimen. 3. Chronic pain syndrome. Continue current pain regimen. 4. Neuropathy. Continue Neurontin. 5. Insomnia. Continue Ambien. 6. Depression. Continue Zoloft. 7. Status post acute kidney injury. 8. Anemia. Monitor hemoglobin and hematocrit levels. 9. Gastrointestinal and deep venous thrombosis prophylaxis. Continue proton pump inhibitor and [place] enox. Dictated By: SEBASTIAN SIMMS/CANDE Conf#: [id number] DID#: [id number]
--- NOTE | 2017-03-23 11:07 | PN ---
Date/Time of Note Date/Time of Note DATE: 03/23/17 TIME: 11:02 Assessment/Plan Lines/Catheters IV Catheter Type (from Nrsg): Mid Line Lee in Place (from Nrsg): No Assessment/Plan Chief Complaint/Hosp Course 1. Chin cellulitis/pressure injury -cont abx -monitor -hot packs intermittently 2. Anemia -monitor 3. BMI 49 -diet optimization encouraged -exercise encouraged 4. Chronic pain syndrome -medical management 5. S/p back surgery -cont pain management -cont acute rehab therapy 6. Depression history: -cont medical management Thank you. Patient seen and examined in collaboration with Dr. Tay Varela. Problems: Subjective 24 Hr Interval Summary Chin much improved in size. Redness much improved. Intermittent use of hot pack. No fevers, chills, sob, congested cough, cp, palpitations, morales, dizziness, n/v/d/dysuria. Exam/Review of Systems Vital Signs Vitals Vital Signs Date Time Temp Pulse Resp B/P Pulse Ox O2 Delivery O2 Flow Rate FiO2 03/23/17 08:09 98.8 20 128/60 93 Room Air 03/23/17 02:00 78 Intake and Output 03/22/17 03/22/17 03/23/17 15:00 23:00 07:00 Intake Total 100 ml 600 ml 400 ml Balance 100 ml 600 ml 400 ml Exam Free Text/Dictation Constitutional: alert, obese, oriented, No distress Psych: nl mood/affect, No anxiety, No confusion Head: atraumatic, normocephalic Eyes: EOMI, nl conjunctiva, No PERRL ENMT: mucosa pink and moist, nl external ears & nose, other (Chin erythema and induration much improved) Neck: non-tender, supple Respiratory: normal air movement, No congested cough Cardiovascular: regular rate and rhythm, No edema Gastrointestinal: non-tender, soft, No rebound or guarding Musculoskeletal: nl gait and stance, No nl extremities to inspection Extremities: No calf tenderness, No edema Neurological: nl mental status, nl speech, nl strength Skin: nl turgor, rash or lesions (chin erythema-improved) Lymph: nl lymph nodes Results Result Diagram: 03/23/17 0607 RANDOLPH GANN NP Mar 23, 2017 11:07
[2017-03-23] MEDS: SOD CHLORIDE 0.9% IVPB SCH (11:56)
[2017-03-23] MEDS: DAPTOMYCIN IVPB SCH (11:56)
--- NOTE | 2017-03-23 12:16 | CONS ---
Date/Time of Note Date/Time of Note DATE: 03/23/17 TIME: 12:14 Consult Date/Type/Reason Admit Date/Time Mar 12, 2017 at 17:52 Type of Consultation: surgical Ordering Provider: SEBASTIAN RIVERO DO Subjective Tapering of IV meds reviewed with patient Objective Vital Signs Date Time Temp Pulse Resp B/P Pulse Ox O2 Delivery O2 Flow Rate FiO2 03/23/17 08:09 98.8 20 128/60 93 Room Air 03/23/17 02:00 78 Intake and Output 03/22/17 03/22/17 03/23/17 15:00 23:00 07:00 Intake Total 100 ml 600 ml 400 ml Balance 100 ml 600 ml 400 ml INTERDISCIPLINARY TEAM CONFERENCE BOWEL- Cont BLADDER-Cont SKIN- intact OT- DRESSING-sba BATHING-sba TOILETING-sba PT- BED MOBILITY-sba TRANSFERS-sba AMBULATION-sba 150 feet A/P- Interdisciplinary team conference held today. Please see interdisciplinary sheet. Working toward d.c. on 03/26 with post discharge follow up of physical therapy, occupational therapy. Results/Medications Result Diagram: 03/23/17 0607 Results 24 hrs Laboratory Tests Test 03/23/17 06:07 Blood Urea Nitrogen 8 Creatinine 0.71 Medications Current Medications Acetaminophen/ Hydrocodone Bitart ([place] (10/325)) 2 tab Q4 PO Last administered on 03/23/17 09:13; Admin Dose 2 TAB; Start 03/12/17 at 21:00 Baclofen (Lioresal) 10 mg TID PO Last administered on 03/23/17 08:22; Admin Dose 10 MG; Start 03/12/17 at 21:00 Bisacodyl 10 mg 10 mg DAILY PRN [place] CONSTIPATION Last administered on 15:50; Admin Dose 10 MG; Start 03/12/17 at 19:00 Daptomycin/Sodium Chloride (Cubicin/NS) 100 ml @ 200 mls/hr Q24H IVPB Last administered on 03/23/17 11:56; Admin Dose 200 MLS/HR; Start 03/13/17 at 12: 00 Docusate Sodium (Colace) 100 mg BID PO Last administered on 03/23/17 08:23; Admin Dose 100 MG; Start 03/12/17 at 21:00 Duloxetine HCl (Cymbalta) 30 mg DAILY PO Last administered on 03/23/17 08:23 ; Admin Dose 30 MG; Start 03/13/17 at 09:00 Famotidine (Pepcid) 20 mg BID PO Last administered on 03/23/17 08:22; Admin Dose 20 MG; Start 03/12/17 at 21:00 Bupropion HCl (Wellbutrin Xl) 300 mg DAILY PO Last administered on 03/22/17 11:12; Admin Dose 300 MG; Start 03/13/17 at 09:00 Hydromorphone HCl (Dilaudid) 2 mg Q2H PRN IV BREAKTHROUGH PAIN Last administered on 03/23/17 10:35; Admin Dose 2 MG; Start 03/12/17 at 19:00 Naloxone HCl (Narcan) 0.2 mg Q2M PRN IV RR 8 BREATHS/MIN OR LESS; Start at 19:00 Oxycodone HCl (Roxicodone) 10 mg Q6 PO Last administered on 03/23/17 11:57; Admin Dose 10 MG; Start 03/12/17 at 20:00 Polyethylene Glycol (Miralax) 17 gm DAILY PRN GTB CONSTIPATION Last administered on 03/15/17 10:09; Admin Dose 17 GM; Start 03/12/17 at 19:00 Senna (Senokot) 1 tab BID PO Last administered on 03/23/17 08:22; Admin Dose 1 TAB; Start 03/12/17 at 21:00 Silver Sulfadiazine (Thermazene 1% 25 Gm) 1 applic DAILY TOP Last administered on 03/23/17 09:12; Admin Dose 1 APPLIC; Start 03/13/17 at 09:00 Zolpidem Tartrate (Ambien) 10 mg QHS PRN PO INSOMNIA Last administered on 03/23 00:06; Admin Dose 10 MG; Start 03/12/17 at 19:00 Acetaminophen (Tylenol Tab) 650 mg Q4H PRN PO PAIN; Start 03/13/17 at 06:30 Magnesium Hydroxide (Milk Of Mag) 30 ml BID PRN PO CONSTIPATION; Start at 06:30 Gabapentin (Neurontin) 600 mg TID PO Last administered on 03/23/17 08:22; Admin Dose 600 MG; Start 03/13/17 at 13:00 Tizanidine HCl (Zanaflex) 2 mg BID PRN PO muscle spasm Last administered on 21:48; Admin Dose 2 MG; Start 03/13/17 at 11:00 Ondansetron HCl (Zofran Inj) 4 mg Q4H PRN IV NAUSEA AND/OR VOMITING Last administered on 03/19/17 07:39; Admin Dose 4 MG; Start 03/14/17 at 07:58 Tramadol HCl (Ultram) 50 mg Q6H PRN PO PAIN Last administered on 03/22/17 17: 49; Admin Dose 50 MG; Start 03/14/17 at 08:30 Lactulose (Enulose) 20 gm BID PRN PO CONSTIPATION; Start 03/15/17 at 21:00 Enoxaparin Sodium (Lovenox) 40 mg DAILY SC Last administered on 03/23/17 08: 21; Admin Dose 40 MG; Start 03/16/17 at 19:00 Diphenhydramine HCl (Benadryl) 25 mg Q6H PRN PO ITCHING Last administered on 10:36; Admin Dose 25 MG; Start 03/17/17 at 08:30 Hydromorphone HCl (Dilaudid) 2 mg ONCE PRN IV PAIN; Start 03/19/17 at 21:00 CORAZON BETH MD Mar 23, 2017 12:16
--- NOTE | 2017-03-23 13:15 | CONS ---
Date/Time of Note Date/Time of Note DATE: 03/23/17 TIME: 13:14 Assessment/Plan Assessment/Plan Chief Complaint/Hosp Course SUBJECTIVE: No events overnight. Patient is awake, looks comfortable MICROBIOLOGY: The culture of the open area of the chin grew alpha hemolytic strep species, enterococcus and staph species. ANTIMICROBIALS: Daptomycin. ALLERGIES: NONE. PHYSICAL EXAMINATION: GENERAL: This is an obese, well-developed, middle-aged woman who is alert, in no distress. HEENT: Head atraumatic, normocephalic. Sclerae anicteric. Buccal mucosa pink. NECK: Supple. CHEST: Rise symmetrical. Breath sounds clear. HEART: S1, S2. ABDOMEN: Soft. Bowel sounds present. ASSESSMENT: 1. Cellulitis of the chin==> improved. 2. Chronic back pain status post spinal surgery on 03/08/2017. 3. Morbid obesity. 4. Chronic pain syndrome. PLAN: The patient remains stable. Continue present care, anticipate dc on oral Zyvox. dw pt Problems: Consultation Date/Type/Reason Admit Date/Time Mar 12, 2017 at 17:52 Type of Consultation: id Referring Provider: SEBASTIAN RIVERO DO Exam/Review of Systems Vital Signs Vitals Vital Signs Date Time Temp Pulse Resp B/P Pulse Ox O2 Delivery O2 Flow Rate FiO2 03/23/17 08:09 98.8 20 128/60 93 Room Air 03/23/17 02:00 78 Intake and Output 03/22/17 03/22/17 03/23/17 15:00 23:00 07:00 Intake Total 100 ml 600 ml 400 ml Balance 100 ml 600 ml 400 ml Results Result Diagram: 03/23/17 0607 Results 24 hrs Laboratory Tests Test 03/23/17 06:07 Blood Urea Nitrogen 8 Creatinine 0.71 Medications Medications Current Medications Acetaminophen/ Hydrocodone Bitart ([place] (10/325)) 2 tab Q4 PO Last administered on 03/23/17 09:13; Admin Dose 2 TAB; Start 03/12/17 at 21:00 Baclofen (Lioresal) 10 mg TID PO Last administered on 03/23/17 12:44; Admin Dose 10 MG; Start 03/12/17 at 21:00 Bisacodyl 10 mg 10 mg DAILY PRN [place] CONSTIPATION Last administered on 15:50; Admin Dose 10 MG; Start 03/12/17 at 19:00 Daptomycin/Sodium Chloride (Cubicin/NS) 100 ml @ 200 mls/hr Q24H IVPB Last administered on 03/23/17 11:56; Admin Dose 200 MLS/HR; Start 03/13/17 at 12: 00 Docusate Sodium (Colace) 100 mg BID PO Last administered on 03/23/17 08:23; Admin Dose 100 MG; Start 03/12/17 at 21:00 Duloxetine HCl (Cymbalta) 30 mg DAILY PO Last administered on 03/23/17 08:23 ; Admin Dose 30 MG; Start 03/13/17 at 09:00 Famotidine (Pepcid) 20 mg BID PO Last administered on 03/23/17 08:22; Admin Dose 20 MG; Start 03/12/17 at 21:00 Bupropion HCl (Wellbutrin Xl) 300 mg DAILY PO Last administered on 03/23/17 12:46; Admin Dose 300 MG; Start 03/13/17 at 09:00 Hydromorphone HCl (Dilaudid) 2 mg Q2H PRN IV BREAKTHROUGH PAIN Last administered on 03/23/17 12:43; Admin Dose 2 MG; Start 03/12/17 at 19:00 Naloxone HCl (Narcan) 0.2 mg Q2M PRN IV RR 8 BREATHS/MIN OR LESS; Start at 19:00 Oxycodone HCl (Roxicodone) 10 mg Q6 PO Last administered on 03/23/17 11:57; Admin Dose 10 MG; Start 03/12/17 at 20:00 Polyethylene Glycol (Miralax) 17 gm DAILY PRN GTB CONSTIPATION Last administered on 03/15/17 10:09; Admin Dose 17 GM; Start 03/12/17 at 19:00 Senna (Senokot) 1 tab BID PO Last administered on 03/23/17 08:22; Admin Dose 1 TAB; Start 03/12/17 at 21:00 Silver Sulfadiazine (Thermazene 1% 25 Gm) 1 applic DAILY TOP Last administered on 03/23/17 09:12; Admin Dose 1 APPLIC; Start 03/13/17 at 09:00 Zolpidem Tartrate (Ambien) 10 mg QHS PRN PO INSOMNIA Last administered on 03/23 00:06; Admin Dose 10 MG; Start 03/12/17 at 19:00 Acetaminophen (Tylenol Tab) 650 mg Q4H PRN PO PAIN; Start 03/13/17 at 06:30 Magnesium Hydroxide (Milk Of Mag) 30 ml BID PRN PO CONSTIPATION; Start at 06:30 Gabapentin (Neurontin) 600 mg TID PO Last administered on 03/23/17 12:44; Admin Dose 600 MG; Start 03/13/17 at 13:00 Tizanidine HCl (Zanaflex) 2 mg BID PRN PO muscle spasm Last administered on 21:48; Admin Dose 2 MG; Start 03/13/17 at 11:00 Ondansetron HCl (Zofran Inj) 4 mg Q4H PRN IV NAUSEA AND/OR VOMITING Last administered on 03/19/17 07:39; Admin Dose 4 MG; Start 03/14/17 at 07:58 Tramadol HCl (Ultram) 50 mg Q6H PRN PO PAIN Last administered on 03/22/17 17: 49; Admin Dose 50 MG; Start 03/14/17 at 08:30 Lactulose (Enulose) 20 gm BID PRN PO CONSTIPATION; Start 03/15/17 at 21:00 Enoxaparin Sodium (Lovenox) 40 mg DAILY SC Last administered on 03/23/17 08: 21; Admin Dose 40 MG; Start 03/16/17 at 19:00 Diphenhydramine HCl (Benadryl) 25 mg Q6H PRN PO ITCHING Last administered on 10:36; Admin Dose 25 MG; Start 03/17/17 at 08:30 Hydromorphone HCl (Dilaudid) 2 mg ONCE PRN IV PAIN; Start 03/19/17 at 21:00 JOHANNA GAXIOLA NP Mar 23, 2017 13:15
--- NOTE | 2017-03-23 16:16 | CONS ---
Date/Time of Note Date/Time of Note DATE: 03/23/17 TIME: 16:15 Consult Date/Type/Reason Admit Date/Time Mar 12, 2017 at 17:52 Type of Consultation: card Ordering Provider: SEBASTIAN RIVERO DO Subjective CARDIOLOGY FOLLOW UP NOTE: S: D/W STAFF. Pt is still in rehab. s/p spinal surgery 03/07/17 she still c/o back pain but is getting better and is able to do PT. no cp or pressure. no sob. O: General: obese. no acute distress HEENT: NC/AT. pupils are equal. round. NECK: NO JVD. no stridor. CV: RRR. systolic murmur; no gallop or rubs. PULM: no wheezing or rhonchi. GI: SOFT, obese. NT, ND, no rebound or guarding Extremity: trace B/L LE edema. no clubbing. neuro: awake and alert, OX3. Psych: calm and pleasant rectal: deferred ECHO reviewed: 1. Normal left ventricular systolic function. Normal left ventricular cavity size. Normal left ventricular wall thickness. Ejection fraction is visually estimated at 60 %. Tissue Doppler/Mitral Doppler indices are consistent with impaired relaxation (Stage I diastolic dysfunction). 2. Normal appearance and function of the mitral valve with trace physiologic regurgitation. 3. Normal appearance of the aortic valve. No significant aortic stenosis or insufficiency. 4. Normal appearance of the tricuspid valve. Estimated peak PA systolic pressure 24 mmHg. There is trace tricuspid regurgitation. Objective Vital Signs Date Time Temp Pulse Resp B/P Pulse Ox O2 Delivery O2 Flow Rate FiO2 03/23/17 08:09 98.8 20 128/60 93 Room Air 03/23/17 02:00 78 Intake and Output 03/22/17 03/22/17 03/23/17 14:59 22:59 06:59 Intake Total 100 ml 600 ml 400 ml Balance 100 ml 600 ml 400 ml Results/Medications Result Diagram: 03/23/17 0607 Results 24 hrs Laboratory Tests Test 03/23/17 06:07 Blood Urea Nitrogen 8 Creatinine 0.71 Medications Current Medications Acetaminophen/ Hydrocodone Bitart ([place] (10/325)) 2 tab Q4 PO Last administered on 03/23/17t 15:26; Admin Dose 2 TAB; Start 03/12/17 at 21:00 Baclofen (Lioresal) 10 mg TID PO Last administered on 03/23/17 12:44; Admin Dose 10 MG; Start 03/12/17 at 21:00 Bisacodyl 10 mg 10 mg DAILY PRN [place] CONSTIPATION Last administered on 15:50; Admin Dose 10 MG; Start 03/12/17 at 19:00 Daptomycin/Sodium Chloride (Cubicin/NS) 100 ml @ 200 mls/hr Q24H IVPB Last administered on 03/23/17 11:56; Admin Dose 200 MLS/HR; Start 03/13/17 at 12: 00 Docusate Sodium (Colace) 100 mg BID PO Last administered on 03/23/17 08:23; Admin Dose 100 MG; Start 03/12/17 at 21:00 Duloxetine HCl (Cymbalta) 30 mg DAILY PO Last administered on 03/23/17 08:23 ; Admin Dose 30 MG; Start 03/13/17 at 09:00 Famotidine (Pepcid) 20 mg BID PO Last administered on 03/23/17 08:22; Admin Dose 20 MG; Start 03/12/17 at 21:00 Bupropion HCl (Wellbutrin Xl) 300 mg DAILY PO Last administered on 03/23/17 12:46; Admin Dose 300 MG; Start 03/13/17 at 09:00 Hydromorphone HCl (Dilaudid) 2 mg Q2H PRN IV BREAKTHROUGH PAIN Last administered on 03/23/17 14:53; Admin Dose 2 MG; Start 03/12/17 at 19:00 Naloxone HCl (Narcan) 0.2 mg Q2M PRN IV RR 8 BREATHS/MIN OR LESS; Start at 19:00 Oxycodone HCl (Roxicodone) 10 mg Q6 PO Last administered on 03/23/17 11:57; Admin Dose 10 MG; Start 03/12/17 at 20:00 Polyethylene Glycol (Miralax) 17 gm DAILY PRN GTB CONSTIPATION Last administered on 03/15/17 10:09; Admin Dose 17 GM; Start 03/12/17 at 19:00 Senna (Senokot) 1 tab BID PO Last administered on 03/23/17 08:22; Admin Dose 1 TAB; Start 03/12/17 at 21:00 Silver Sulfadiazine (Thermazene 1% 25 Gm) 1 applic DAILY TOP Last administered on 03/23/17 09:12; Admin Dose 1 APPLIC; Start 03/13/17 at 09:00 Zolpidem Tartrate (Ambien) 10 mg QHS PRN PO INSOMNIA Last administered on 03/23 00:06; Admin Dose 10 MG; Start 03/12/17 at 19:00 Acetaminophen (Tylenol Tab) 650 mg Q4H PRN PO PAIN; Start 03/13/17 at 06:30 Magnesium Hydroxide (Milk Of Mag) 30 ml BID PRN PO CONSTIPATION; Start at 06:30 Gabapentin (Neurontin) 600 mg TID PO Last administered on 03/23/17 12:44; Admin Dose 600 MG; Start 03/13/17 at 13:00 Tizanidine HCl (Zanaflex) 2 mg BID PRN PO muscle spasm Last administered on 21:48; Admin Dose 2 MG; Start 03/13/17 at 11:00 Ondansetron HCl (Zofran Inj) 4 mg Q4H PRN IV NAUSEA AND/OR VOMITING Last administered on 03/19/17 07:39; Admin Dose 4 MG; Start 03/14/17 at 07:58 Tramadol HCl (Ultram) 50 mg Q6H PRN PO PAIN Last administered on 03/22/17 17: 49; Admin Dose 50 MG; Start 03/14/17 at 08:30 Lactulose (Enulose) 20 gm BID PRN PO CONSTIPATION; Start 03/15/17 at 21:00 Enoxaparin Sodium (Lovenox) 40 mg DAILY SC Last administered on 03/23/17 08: 21; Admin Dose 40 MG; Start 03/16/17 at 19:00 Diphenhydramine HCl (Benadryl) 25 mg Q6H PRN PO ITCHING Last administered on 10:36; Admin Dose 25 MG; Start 03/17/17 at 08:30 Hydromorphone HCl (Dilaudid) 2 mg ONCE PRN IV PAIN; Start 03/19/17 at 21:00 Assessment/Plan Chief Complaint/Hosp Course 1. s/p spinal surgery: debility in rehab now. 2. severe LBP and radiculopathy; s/p surgery now 3. mildly abnormal ECG 4. Hx depression 5. obesity. 6. anemia: stable. will monitor. Recommendations: cont current cardiac care cont post op care and pain management as per neurosurgery team. DVT prophylaxis as per IM/ neurosurgery team, currently on lovenox cont acute rehab and PT treatment as tolerated Thank you for his referral. We will continue to follow along with you as needed basis. ERIKA HERNANDEZ MD [facility] Problems: ERIKA HERNANDEZ MD Mar 23, 2017 16:16
[2017-03-24] MEDS: HYDROCODONE/APAP (10/325) TAB PO SCH ×7 (01:00→21:46)
[2017-03-24] MEDS: HYDROmorphONE 2 MG/ML SYG IV PRN ×10 (03:12→23:03)
[2017-03-24] MEDS: TIZANIDINE 2 MG TAB PO PRN ×2 (04:24→16:09)
[2017-03-24] MEDS: oxyCODONE 5 MG TAB PO SCH ×3 (06:15→19:25)
--- NOTE | 2017-03-24 08:09 | PN ---
Date/Time of Note Date/Time of Note DATE: 03/24/17 TIME: 08:07 Assessment/Plan Lines/Catheters IV Catheter Type (from Nrsg): Mid Line Lee in Place (from Nrsg): No Assessment/Plan Chief Complaint/Hosp Course 1. Chin cellulitis/pressure injury: much improved -cont abx -monitor -hot packs intermittently 2. Anemia -monitor 3. BMI 49 -diet optimization encouraged -exercise encouraged 4. Chronic pain syndrome -medical management 5. S/p back surgery -cont pain management -cont acute rehab therapy 6. Depression history: -cont medical management Thank you. Patient seen and examined in collaboration with Dr. Tay Varela. Problems: Subjective 24 Hr Interval Summary Chin redness and induration continuing to improve. No open areas noted. No fevers, chills, sob, congested cough, cp, palpitations, morales, dizziness, n/v/d/ dysuria. Exam/Review of Systems Vital Signs Vitals Vital Signs Date Time Temp Pulse Resp B/P Pulse Ox O2 Delivery O2 Flow Rate FiO2 03/23/17 08:09 98.8 20 128/60 93 Room Air 03/23/17 02:00 78 Intake and Output 03/23/17 03/23/17 03/24/17 15:00 23:00 07:00 Intake Total 100 ml 800 ml 650 ml Balance 100 ml 800 ml 650 ml Exam Free Text/Dictation Constitutional: alert, obese, oriented, No distress Psych: nl mood/affect, No anxiety, No confusion Head: atraumatic, normocephalic Eyes: EOMI, nl conjunctiva, No PERRL ENMT: mucosa pink and moist, nl external ears & nose, other (Chin erythema and induration improving) Neck: non-tender, supple Respiratory: normal air movement, No congested cough Cardiovascular: regular rate and rhythm, No edema Gastrointestinal: non-tender, soft, No rebound or guarding Musculoskeletal: nl gait and stance, No nl extremities to inspection Extremities: No calf tenderness, No edema Neurological: nl mental status, nl speech, nl strength Skin: nl turgor, rash or lesions (chin erythema-improved) Lymph: nl lymph nodes Results Result Diagram: 03/23/17 0607 RANDOLPH GANN NP Mar 24, 2017 08:09
[2017-03-24] MEDS: GABAPENTIN 300 MG CAP PO SCH ×3 (08:56→20:49)
[2017-03-24] MEDS: BUPROPION (XL) 150 MG TAB PO SCH (08:56)
[2017-03-24] MEDS: DULOXETINE 30 MG CAP DR PO SCH (08:56)
[2017-03-24] MEDS: FAMOTIDINE 20 MG TAB PO SCH ×2 (08:57→20:49)
[2017-03-24] MEDS: SENNA TAB PO SCH ×2 (08:57→20:49)
[2017-03-24] MEDS: BACLOFEN 10 MG TAB PO SCH ×3 (08:57→20:49)
[2017-03-24] MEDS: DOCUSATE SODIUM 100 MG CAP PO SCH ×2 (08:57→20:49)
[2017-03-24] MEDS: ENOXAPARIN 40 MG/0.4 ML SYG SC SCH (08:58)
[2017-03-24] MEDS: SILVER SULFADIAZINE 1% 25 GM CR TOP SCH (08:59)
--- NOTE | 2017-03-24 09:05 | PN ---
DATE: 03/24/2017 SUBJECTIVE: The patient is stable. No events overnight. OBJECTIVE: VITAL SIGNS: Blood pressure 128/60, respirations 20, temperature 98.8. HEENT: Head is normocephalic. NECK: Supple. HEART: Regular rate. LUNGS: Show diminished breath sounds at the base. ABDOMEN: Soft, nontender to palpation. No rebound or guarding. EXTREMITIES: Negative for clubbing, cyanosis, no edema. DERMATOLOGIC: No rashes. MUSCULOSKELETAL: No joint effusions. NEUROLOGIC: No change in exam. MEDICATIONS: Have been reviewed. LABORATORY DATA: Has been reviewed. No new labs. ASSESSMENT AND PLAN: 1. Acute on chronic radiculopathy, status post L4 to L5 transforaminal fusion. The patient is curr ently stable. Continue physical therapy. 2. Right carrion cellulitis, improving. Continue current antibiotic regimen. 3. Chronic pain syndrome. Continue current pain regimen. 4. Neuropathy. Continue Neurontin. 5. Insomnia. Continue Ambien. 6. Depression. Continue Zoloft. 7. Anemia. Monitor hemoglobin and hematocrit levels. 8. Status post acute kidney injury. 9. Gastrointestinal and deep venous thrombosis prophylaxis. Continue proton pump inhibitor and [place] enox. Dictated By: SEBASTIAN RIVERO DO NR/NTS Conf#: [id number] DID#: [id number] CC: CORAZON BETH MD;*End*
[2017-03-24 10:03] VITALS: BP 141/89; PULSE 92; RESP 20
--- NOTE | 2017-03-24 11:23 | CONS ---
Date/Time of Note Date/Time of Note DATE: 03/24/17 TIME: 11:22 Consult Date/Type/Reason Admit Date/Time Mar 12, 2017 at 17:52 Type of Consultation: card Ordering Provider: SEBASTIAN RIVERO DO Subjective Patient reports overall feeling better Objective pulm-cta sba ambulation and stairs Vital Signs Date Time Temp Pulse Resp B/P Pulse Ox O2 Delivery O2 Flow Rate FiO2 03/24/17 10:03 97.9 92 20 141/89 94 Room Air Intake and Output 03/23/17 03/23/17 03/24/17 15:00 23:00 07:00 Intake Total 100 ml 800 ml 650 ml Balance 100 ml 800 ml 650 ml Results/Medications Result Diagram: 03/23/17 0607 Medications Current Medications Acetaminophen/ Hydrocodone Bitart ([place] (10325)) 2 tab Q4 PO Last administered on 03/24/17 08:56; Admin Dose 2 TAB; Start 03/12/17 at 21:00 Baclofen (Lioresal) 10 mg TID PO Last administered on 03/24/17 08:57; Admin Dose 10 MG; Start 03/12/17 at 21:00 Bisacodyl 10 mg 10 mg DAILY PRN [place] CONSTIPATION Last administered on 15:50; Admin Dose 10 MG; Start 03/12/17 at 19:00 Daptomycin/Sodium Chloride (Cubicin/NS) 100 ml @ 200 mls/hr Q24H IVPB Last administered on 03/23/17 11:56; Admin Dose 200 MLS/HR; Start 03/13/17 at 12: 00 Docusate Sodium (Colace) 100 mg BID PO Last administered on 03/24/17 08:57; Admin Dose 100 MG; Start 03/12/17 at 21:00 Duloxetine HCl (Cymbalta) 30 mg DAILY PO Last administered on 03/24/17 08:56 ; Admin Dose 30 MG; Start 03/13/17 at 09:00 Famotidine (Pepcid) 20 mg BID PO Last administered on 03/24/17 08:57; Admin Dose 20 MG; Start 03/12/17 at 21:00 Bupropion HCl (Wellbutrin Xl) 300 mg DAILY PO Last administered on 03/24/17 08:56; Admin Dose 300 MG; Start 03/13/17 at 09:00 Hydromorphone HCl (Dilaudid) 2 mg Q2H PRN IV BREAKTHROUGH PAIN Last administered on 03/24/17 11:21; Admin Dose 2 MG; Start 03/12/17 at 19:00 Naloxone HCl (Narcan) 0.2 mg Q2M PRN IV RR 8 BREATHS/MIN OR LESS; Start at 19:00 Oxycodone HCl (Roxicodone) 10 mg Q6 PO Last administered on 03/24/17 06:15; Admin Dose 10 MG; Start 03/12/17 at 20:00 Polyethylene Glycol (Miralax) 17 gm DAILY PRN GTB CONSTIPATION Last administered on 03/15/17 10:09; Admin Dose 17 GM; Start 03/12/17 at 19:00 Senna (Senokot) 1 tab BID PO Last administered on 03/24/17 08:57; Admin Dose 1 TAB; Start 03/12/17 at 21:00 Silver Sulfadiazine (Thermazene 1% 25 Gm) 1 applic DAILY TOP Last administered on 03/24/17 08:59; Admin Dose 1 APPLIC; Start 03/13/17 at 09:00 Zolpidem Tartrate (Ambien) 10 mg QHS PRN PO INSOMNIA Last administered on 03/23 22:56; Admin Dose 10 MG; Start 03/12/17 at 19:00 Acetaminophen (Tylenol Tab) 650 mg Q4H PRN PO PAIN; Start 03/13/17 at 06:30 Magnesium Hydroxide (Milk Of Mag) 30 ml BID PRN PO CONSTIPATION; Start at 06:30 Gabapentin (Neurontin) 600 mg TID PO Last administered on 03/24/17 08:56; Admin Dose 600 MG; Start 03/13/17 at 13:00 Tizanidine HCl (Zanaflex) 2 mg BID PRN PO muscle spasm Last administered on 04:24; Admin Dose 2 MG; Start 03/13/17 at 11:00 Ondansetron HCl (Zofran Inj) 4 mg Q4H PRN IV NAUSEA AND/OR VOMITING Last administered on 03/19/17 07:39; Admin Dose 4 MG; Start 03/14/17 at 07:58 Tramadol HCl (Ultram) 50 mg Q6H PRN PO PAIN Last administered on 03/22/17 17: 49; Admin Dose 50 MG; Start 03/14/17 at 08:30 Lactulose (Enulose) 20 gm BID PRN PO CONSTIPATION; Start 03/15/17 at 21:00 Enoxaparin Sodium (Lovenox) 40 mg DAILY SC Last administered on 03/24/17 08: 58; Admin Dose 40 MG; Start 03/16/17 at 19:00 Diphenhydramine HCl (Benadryl) 25 mg Q6H PRN PO ITCHING Last administered on 19:22; Admin Dose 25 MG; Start 03/17/17 at 08:30 Hydromorphone HCl (Dilaudid) 2 mg ONCE PRN IV PAIN Last administered on 04:20; Admin Dose 2 MG; Start 03/19/17 at 21:00 Assessment/Plan Additional Assessment/Plan rehab- Lumbar spinal stenosis, radiculopathy and foot drop, status post decompressive laminectomy. Excellent progress. Anticipate dc on 03/26 Polyneuropathy. Acute pain syndrome-adjusting to pain meds. History of depression. History of cervical surgery. CORAZON BETH MD Mar 24, 2017 11:23
[2017-03-24] MEDS: DIPHENHYDRAMINE 25 MG CAP PO PRN ×2 (11:37→22:01)
[2017-03-24] MEDS: DAPTOMYCIN IVPB SCH (12:19)
[2017-03-24] MEDS: SOD CHLORIDE 0.9% IVPB SCH (12:19)
[2017-03-24] MEDS ORDERED: oxyCODONE 5 MG TAB PO SCH (12:47)
[2017-03-24] MEDS: ONDANSETRON 4 MG INJ IV PRN ×2 (12:52→18:28)
--- NOTE | 2017-03-24 14:58 | CONS ---
Date/Time of Note Date/Time of Note DATE: 03/24/17 TIME: 14:58 Consult Date/Type/Reason Admit Date/Time Mar 12, 2017 at 17:52 Type of Consultation: card Ordering Provider: SEBASTIAN RIVERO DO Subjective CARDIOLOGY FOLLOW UP NOTE: S: D/W STAFF. Pt is still in rehab. s/p spinal surgery 03/07/17 she has less back pain and is able to do PT. no cp or pressure. no sob. O: General: obese. no acute distress HEENT: NC/AT. pupils are equal. round. NECK: NO JVD. no stridor. CV: RRR. systolic murmur; no gallop or rubs. PULM: no wheezing or rhonchi. GI: SOFT, obese. NT, ND, no rebound or guarding Extremity: trace B/L LE edema. no clubbing. neuro: awake and alert, OX3. Psych: calm and pleasant rectal: deferred ECHO reviewed: 1. Normal left ventricular systolic function. Normal left ventricular cavity size. Normal left ventricular wall thickness. Ejection fraction is visually estimated at 60 %. Tissue Doppler/Mitral Doppler indices are consistent with impaired relaxation (Stage I diastolic dysfunction). 2. Normal appearance and function of the mitral valve with trace physiologic regurgitation. 3. Normal appearance of the aortic valve. No significant aortic stenosis or insufficiency. 4. Normal appearance of the tricuspid valve. Estimated peak PA systolic pressure 24 mmHg. There is trace tricuspid regurgitation. Objective Vital Signs Date Time Temp Pulse Resp B/P Pulse Ox O2 Delivery O2 Flow Rate FiO2 03/24/17 10:03 97.9 92 20 141/89 94 Room Air Intake and Output 03/23/17 03/23/17 03/24/17 15:00 23:00 07:00 Intake Total 100 ml 800 ml 650 ml Balance 100 ml 800 ml 650 ml Results/Medications Result Diagram: 03/23/17 0607 Medications Current Medications Acetaminophen/ Hydrocodone Bitart ([place] (10/325)) 2 tab Q4 PO Last administered on 03/24/17 14:19; Admin Dose 2 TAB; Start 03/12/17 at 21:00 Baclofen (Lioresal) 10 mg TID PO Last administered on 03/24/17 13:50; Admin Dose 10 MG; Start 03/12/17 at 21:00 Bisacodyl 10 mg 10 mg DAILY PRN [place] CONSTIPATION Last administered on 15:50; Admin Dose 10 MG; Start 03/12/17 at 19:00 Daptomycin/Sodium Chloride (Cubicin/NS) 100 ml @ 200 mls/hr Q24H IVPB Last administered on 03/24/17 12:19; Admin Dose 200 MLS/HR; Start 03/13/17 at 12: 00 Docusate Sodium (Colace) 100 mg BID PO Last administered on 03/24/17 08:57; Admin Dose 100 MG; Start 03/12/17 at 21:00 Duloxetine HCl (Cymbalta) 30 mg DAILY PO Last administered on 03/24/17 08:56 ; Admin Dose 30 MG; Start 03/13/17 at 09:00 Famotidine (Pepcid) 20 mg BID PO Last administered on 03/24/17 08:57; Admin Dose 20 MG; Start 03/12/17 at 21:00 Bupropion HCl (Wellbutrin Xl) 300 mg DAILY PO Last administered on 03/24/17 08:56; Admin Dose 300 MG; Start 03/13/17 at 09:00 Hydromorphone HCl (Dilaudid) 2 mg Q2H PRN IV BREAKTHROUGH PAIN Last administered on 03/24/17 13:49; Admin Dose 2 MG; Start 03/12/17 at 19:00 Naloxone HCl (Narcan) 0.2 mg Q2M PRN IV RR 8 BREATHS/MIN OR LESS; Start at 19:00 Oxycodone HCl (Roxicodone) 10 mg Q6 PO Last administered on 03/24/17 12:20; Admin Dose 10 MG; Start 03/12/17 at 20:00 Polyethylene Glycol (Miralax) 17 gm DAILY PRN GTB CONSTIPATION Last administered on 03/15/17 10:09; Admin Dose 17 GM; Start 03/12/17 at 19:00 Senna (Senokot) 1 tab BID PO Last administered on 03/24/17 08:57; Admin Dose 1 TAB; Start 03/12/17 at 21:00 Silver Sulfadiazine (Thermazene 1% 25 Gm) 1 applic DAILY TOP Last administered on 03/24/17 08:59; Admin Dose 1 APPLIC; Start 03/13/17 at 09:00 Zolpidem Tartrate (Ambien) 10 mg QHS PRN PO INSOMNIA Last administered on 03/23 22:56; Admin Dose 10 MG; Start 03/12/17 at 19:00 Acetaminophen (Tylenol Tab) 650 mg Q4H PRN PO PAIN; Start 03/13/17 at 06:30 Magnesium Hydroxide (Milk Of Mag) 30 ml BID PRN PO CONSTIPATION; Start at 06:30 Gabapentin (Neurontin) 600 mg TID PO Last administered on 03/24/17 13:50; Admin Dose 600 MG; Start 03/13/17 at 13:00 Tizanidine HCl (Zanaflex) 2 mg BID PRN PO muscle spasm Last administered on 04:24; Admin Dose 2 MG; Start 03/13/17 at 11:00 Ondansetron HCl (Zofran Inj) 4 mg Q4H PRN IV NAUSEA AND/OR VOMITING Last administered on 03/24/17 12:52; Admin Dose 4 MG; Start 03/14/17 at 07:58 Tramadol HCl (Ultram) 50 mg Q6H PRN PO PAIN Last administered on 03/22/17 17: 49; Admin Dose 50 MG; Start 03/14/17 at 08:30 Lactulose (Enulose) 20 gm BID PRN PO CONSTIPATION; Start 03/15/17 at 21:00 Enoxaparin Sodium (Lovenox) 40 mg DAILY SC Last administered on 03/24/17 08: 58; Admin Dose 40 MG; Start 03/16/17 at 19:00 Diphenhydramine HCl (Benadryl) 25 mg Q6H PRN PO ITCHING Last administered on 11:37; Admin Dose 25 MG; Start 03/17/17 at 08:30 Hydromorphone HCl (Dilaudid) 2 mg ONCE PRN IV PAIN Last administered on 04:20; Admin Dose 2 MG; Start 03/19/17 at 21:00 Assessment/Plan Chief Complaint/Hosp Course 1. s/p spinal surgery: debility in rehab now. 2. severe LBP and radiculopathy; s/p surgery now 3. mildly abnormal ECG 4. Hx depression 5. obesity. 6. anemia: stable. will monitor. Recommendations: cont current cardiac care cont post op care and pain management as per neurosurgery team. DVT prophylaxis as per IM/ neurosurgery team, currently on lovenox cont acute rehab and PT treatment as tolerated Thank you for his referral. We will continue to follow along with you as needed basis. ERIKA HERNANDEZ MD [facility] Problems: ERIKA HERNANDEZ MD Mar 24, 2017 14:58
[2017-03-24 20:56] VITALS: BP 122/63; PULSE 91; RESP 18
[2017-03-25] MEDS: ZOLPIDEM 5 MG TAB PO PRN (00:32)
[2017-03-25] MEDS: oxyCODONE 5 MG TAB PO SCH ×5 (00:32→23:28)
[2017-03-25] MEDS: HYDROCODONE/APAP (10/325) TAB PO SCH ×6 (01:32→20:57)
[2017-03-25 02:06] VITALS: BP 110/57; PULSE 87; RESP 16
[2017-03-25] MEDS: HYDROmorphONE 2 MG/ML SYG IV PRN ×4 (04:38→11:38)
[2017-03-25] MEDS: TIZANIDINE 2 MG TAB PO PRN (04:59)
[2017-03-25] MEDS: FAMOTIDINE 20 MG TAB PO SCH ×2 (07:48→20:48)
[2017-03-25] MEDS: SENNA TAB PO SCH ×2 (07:48→20:58)
[2017-03-25 08:00] VITALS: BP 129/79; PULSE 78; RESP 18
--- NOTE | 2017-03-25 08:30 | CONS ---
Date/Time of Note Date/Time of Note DATE: 03/25/17 TIME: 08:30 Consult Date/Type/Reason Admit Date/Time Mar 12, 2017 at 17:52 Type of Consultation: card Ordering Provider: SEBASTIAN RIVERO DO Subjective CARDIOLOGY FOLLOW UP NOTE: S: D/W STAFF. Pt is still in rehab. s/p spinal surgery 03/07/17 her pain is much better controlled. no cp or pressure. no sob. O: General: obese. no acute distress HEENT: NC/AT. pupils are equal. round. NECK: NO JVD. no stridor. CV: RRR. systolic murmur; no gallop or rubs. PULM: no wheezing or rhonchi. GI: SOFT, obese. NT, ND, no rebound or guarding Extremity: trace B/L LE edema. no clubbing. neuro: awake and alert, OX3. Psych: calm and pleasant rectal: deferred ECHO reviewed: 1. Normal left ventricular systolic function. Normal left ventricular cavity size. Normal left ventricular wall thickness. Ejection fraction is visually estimated at 60 %. Tissue Doppler/Mitral Doppler indices are consistent with impaired relaxation (Stage I diastolic dysfunction). 2. Normal appearance and function of the mitral valve with trace physiologic regurgitation. 3. Normal appearance of the aortic valve. No significant aortic stenosis or insufficiency. 4. Normal appearance of the tricuspid valve. Estimated peak PA systolic pressure 24 mmHg. There is trace tricuspid regurgitation. Objective Vital Signs Date Time Temp Pulse Resp B/P Pulse Ox O2 Delivery O2 Flow Rate FiO2 03/25/17 08:00 98.3 78 18 129/79 99 Room Air Intake and Output 03/24/17 03/24/17 03/25/17 15:00 23:00 07:00 Intake Total 800 ml 100 ml 500 ml Balance 800 ml 100 ml 500 ml Results/Medications Result Diagram: 03/23/17 0607 Medications Current Medications Acetaminophen/ Hydrocodone Bitart ([place] (10/325)) 2 tab Q4 PO Last administered on 03/25/17 06:14; Admin Dose 2 TAB; Start 03/12/17 at 21:00 Baclofen (Lioresal) 10 mg TID PO Last administered on 03/24/17 20:49; Admin Dose 10 MG; Start 03/12/17 at 21:00 Bisacodyl 10 mg 10 mg DAILY PRN [place] CONSTIPATION Last administered on 15:50; Admin Dose 10 MG; Start 03/12/17 at 19:00 Daptomycin/Sodium Chloride (Cubicin/NS) 100 ml @ 200 mls/hr Q24H IVPB Last administered on 03/24/17 12:19; Admin Dose 200 MLS/HR; Start 03/13/17 at 12: 00 Docusate Sodium (Colace) 100 mg BID PO Last administered on 03/24/17 20:49; Admin Dose 100 MG; Start 03/12/17 at 21:00 Duloxetine HCl (Cymbalta) 30 mg DAILY PO Last administered on 03/24/17 08:56 ; Admin Dose 30 MG; Start 03/13/17 at 09:00 Famotidine (Pepcid) 20 mg BID PO Last administered on 03/25/17 07:48; Admin Dose 20 MG; Start 03/12/17 at 21:00 Bupropion HCl (Wellbutrin Xl) 300 mg DAILY PO Last administered on 03/24/17 08:56; Admin Dose 300 MG; Start 03/13/17 at 09:00 Hydromorphone HCl (Dilaudid) 2 mg Q2H PRN IV BREAKTHROUGH PAIN Last administered on 03/25/17 07:48; Admin Dose 2 MG; Start 03/12/17 at 19:00 Naloxone HCl (Narcan) 0.2 mg Q2M PRN IV RR 8 BREATHS/MIN OR LESS; Start at 19:00 Oxycodone HCl (Roxicodone) 10 mg Q6 PO Last administered on 03/25/17 05:42; Admin Dose 10 MG; Start 03/12/17 at 20:00 Polyethylene Glycol (Miralax) 17 gm DAILY PRN GTB CONSTIPATION Last administered on 03/15/17 10:09; Admin Dose 17 GM; Start 03/12/17 at 19:00 Senna (Senokot) 1 tab BID PO Last administered on 03/25/17 07:48; Admin Dose 1 TAB; Start 03/12/17 at 21:00 Silver Sulfadiazine (Thermazene 1% 25 Gm) 1 applic DAILY TOP Last administered on 03/24/17 08:59; Admin Dose 1 APPLIC; Start 03/13/17 at 09:00 Zolpidem Tartrate (Ambien) 10 mg QHS PRN PO INSOMNIA Last administered on 03/25 00:32; Admin Dose 10 MG; Start 03/12/17 at 19:00 Acetaminophen (Tylenol Tab) 650 mg Q4H PRN PO PAIN; Start 03/13/17 at 06:30 Magnesium Hydroxide (Milk Of Mag) 30 ml BID PRN PO CONSTIPATION; Start at 06:30 Gabapentin (Neurontin) 600 mg TID PO Last administered on 03/24/17 20:49; Admin Dose 600 MG; Start 03/13/17 at 13:00 Tizanidine HCl (Zanaflex) 2 mg BID PRN PO muscle spasm Last administered on 04:59; Admin Dose 2 MG; Start 03/13/17 at 11:00 Ondansetron HCl (Zofran Inj) 4 mg Q4H PRN IV NAUSEA AND/OR VOMITING Last administered on 03/24/17 18:28; Admin Dose 4 MG; Start 03/14/17 at 07:58 Tramadol HCl (Ultram) 50 mg Q6H PRN PO PAIN Last administered on 03/22/17 17: 49; Admin Dose 50 MG; Start 03/14/17 at 08:30 Lactulose (Enulose) 20 gm BID PRN PO CONSTIPATION; Start 03/15/17 at 21:00 Enoxaparin Sodium (Lovenox) 40 mg DAILY SC Last administered on 03/24/17 08: 58; Admin Dose 40 MG; Start 03/16/17 at 19:00 Diphenhydramine HCl (Benadryl) 25 mg Q6H PRN PO ITCHING Last administered on 22:01; Admin Dose 25 MG; Start 03/17/17 at 08:30 Hydromorphone HCl (Dilaudid) 2 mg ONCE PRN IV PAIN Last administered on 04:20; Admin Dose 2 MG; Start 03/19/17 at 21:00 Assessment/Plan Chief Complaint/Hosp Course 1. s/p spinal surgery: debility in rehab now. 2. severe LBP and radiculopathy; s/p surgery now 3. mildly abnormal ECG 4. Hx depression 5. obesity. 6. anemia: stable. will monitor. Recommendations: cont current cardiac care cont post op care and pain management as per neurosurgery team. DVT prophylaxis as per IM/ neurosurgery team, currently on lovenox cont acute rehab and PT treatment as tolerated dc planning is in process. Thank you for his referral. We will continue to follow along with you as needed basis. ERIKA HERNANDEZ MD [facility] Problems: ERIKA HERNANDEZ MD Mar 25, 2017 08:30
[2017-03-25] MEDS: GABAPENTIN 300 MG CAP PO SCH ×3 (08:43→20:48)
[2017-03-25] MEDS: DOCUSATE SODIUM 100 MG CAP PO SCH ×2 (08:43→20:58)
[2017-03-25] MEDS: DULOXETINE 30 MG CAP DR PO SCH (08:43)
[2017-03-25] MEDS: BUPROPION (XL) 150 MG TAB PO SCH (08:44)
[2017-03-25] MEDS: ENOXAPARIN 40 MG/0.4 ML SYG SC SCH (08:48)
[2017-03-25] MEDS: BACLOFEN 10 MG TAB PO SCH ×3 (09:43→20:48)
[2017-03-25] MEDS: DIPHENHYDRAMINE 25 MG CAP PO PRN (09:52)
--- NOTE | 2017-03-25 10:19 | PN ---
DATE: 03/25/2017 SUBJECTIVE: The patient is stable. No events overnight. No fevers, chills, nausea, vomiting. OBJECTIVE: VITAL SIGNS: Blood pressure is 129/79, pulse 78, respiration 18, temperature 98.3. HEENT: Head is normocephalic. NECK: Supple. HEART: Regular rate. LUNGS: Show diminished breath sounds at the base. ABDOMEN: Soft, nontender to palpation. No rebound or guarding. EXTREMITIES: Negative for clubbing, cyanosis, no edema. DERMATOLOGIC: No rashes. MUSCULOSKELETAL: No joint effusions. NEUROLOGIC: No change in exam. MEDICATIONS: The patient's medications have been reviewed. LABORATORY DATA: Has been reviewed. ASSESSMENT AND PLAN: 1. Acute on chronic radiculopathy, status post L4 to L5 transforaminal fusion. The patient is curr ently stable. Continue physical therapy. 2. Cellulitis, improving. Patient is completing antibiotic course. 3. Chronic pain syndrome. Continue current pain regimen. 4. Neuropathy. Continue Neurontin. 5. Insomnia. Continue Ambien. 6. Depression. Continue Zoloft. 7. Anemia. Continue to monitor hemoglobin and hematocrit levels. 8. Status post acute kidney injury. 9. Gastrointestinal and deep venous thrombosis prophylaxis. Continue proton pump inhibitor and [place]ia enox. Dictated By: SEBASTIAN RIVERO DO NR/NTS Conf#: [id number] DID#: [id number] CC: CORAZON BETH MD;*EndCC*
[2017-03-25] MEDS ORDERED: HYDROmorphONE 2 MG TAB PO PRN (11:00)
--- NOTE | 2017-03-25 12:25 | PN ---
Date/Time of Note Date/Time of Note DATE: 03/25/17 TIME: 12:22 Assessment/Plan Lines/Catheters IV Catheter Type (from Nrsg): Mid Line Lee in Place (from Nrsg): No Assessment/Plan Chief Complaint/Hosp Course 1. Chin cellulitis/pressure injury: much improved -local care -monitor -abx course per ID 2. Anemia -monitor 3. BMI 49 -diet optimization encouraged -exercise encouraged 4. Chronic pain syndrome -medical management 5. S/p back surgery -cont pain management -cont acute rehab therapy 6. Depression history: -cont medical management Thank you. Patient seen and examined in collaboration with Dr. Tay Varela. Problems: Subjective 24 Hr Interval Summary Feels well. Chin continues to improved. Some numbness but some feeling returning. No fevers, chills, sob, congested cough, cp, palpitations, morales, dizziness, n/v/d/dysuria. Exam/Review of Systems Vital Signs Vitals Vital Signs Date Time Temp Pulse Resp B/P Pulse Ox O2 Delivery O2 Flow Rate FiO2 03/25/17 08:00 98.3 78 18 129/79 99 Room Air Intake and Output 03/24/17 03/24/17 03/25/17 14:59 22:59 06:59 Intake Total 800 ml 100 ml 500 ml Balance 800 ml 100 ml 500 ml Exam Free Text/Dictation Constitutional: alert, obese, oriented, No distress Psych: nl mood/affect, No anxiety, No confusion Head: atraumatic, normocephalic Eyes: EOMI, nl conjunctiva, No PERRL ENMT: mucosa pink and moist, nl external ears & nose, other (Chin erythema and induration much improved) Neck: non-tender, supple Respiratory: normal air movement, No congested cough Cardiovascular: regular rate and rhythm, No edema Gastrointestinal: non-tender, soft, No rebound or guarding Musculoskeletal: nl gait and stance, No nl extremities to inspection Extremities: No calf tenderness, No edema Neurological: nl mental status, nl speech, nl strength Skin: nl turgor, rash or lesions (chin erythema almost resolved) Lymph: nl lymph nodes Results Result Diagram: 03/23/17 0607 RANDOLPH GANN NP Mar 25, 2017 12:25
--- NOTE | 2017-03-25 12:53 | CONS ---
Date/Time of Note Date/Time of Note DATE: 03/25/17 TIME: 12:53 Consult Date/Type/Reason Admit Date/Time Mar 12, 2017 at 17:52 Type of Consultation: card Ordering Provider: SEBASTIAN RIVERO DO Subjective Overall improving Objective chin- improved pulm-cta s ambulation Vital Signs Date Time Temp Pulse Resp B/P Pulse Ox O2 Delivery O2 Flow Rate FiO2 03/25/17 08:00 98.3 78 18 129/79 99 Room Air Intake and Output 03/24/17 03/24/17 03/25/17 15:00 23:00 07:00 Intake Total 800 ml 100 ml 500 ml Balance 800 ml 100 ml 500 ml Results/Medications Result Diagram: 03/23/17 0607 Medications Current Medications Acetaminophen/ Hydrocodone Bitart ([place] (10325)) 2 tab Q4 PO Last administered on 03/25/17 08:43; Admin Dose 2 TAB; Start 03/12/17 at 21:00 Baclofen (Lioresal) 10 mg TID PO Last administered on 03/25/17 11:56; Admin Dose 10 MG; Start 03/12/17 at 21:00 Bisacodyl 10 mg 10 mg DAILY PRN [place] CONSTIPATION Last administered on 15:50; Admin Dose 10 MG; Start 03/12/17 at 19:00 Daptomycin/Sodium Chloride (Cubicin/NS) 100 ml @ 200 mls/hr Q24H IVPB Last administered on 03/24/17 12:19; Admin Dose 200 MLS/HR; Start 03/13/17 at 12: 00 Docusate Sodium (Colace) 100 mg BID PO Last administered on 03/25/17 08:43; Admin Dose 100 MG; Start 03/12/17 at 21:00 Duloxetine HCl (Cymbalta) 30 mg DAILY PO Last administered on 03/25/17 08:43 ; Admin Dose 30 MG; Start 03/13/17 at 09:00 Famotidine (Pepcid) 20 mg BID PO Last administered on 03/25/17 07:48; Admin Dose 20 MG; Start 03/12/17 at 21:00 Bupropion HCl (Wellbutrin Xl) 300 mg DAILY PO Last administered on 03/25/17 08:44; Admin Dose 300 MG; Start 03/13/17 at 09:00 Naloxone HCl (Narcan) 0.2 mg Q2M PRN IV RR 8 BREATHS/MIN OR LESS; Start at 19:00 Oxycodone HCl (Roxicodone) 10 mg Q6 PO Last administered on 03/25/17 11:57; Admin Dose 10 MG; Start 03/12/17 at 20:00 Polyethylene Glycol (Miralax) 17 gm DAILY PRN GTB CONSTIPATION Last administered on 03/15/17 10:09; Admin Dose 17 GM; Start 03/12/17 at 19:00 Senna (Senokot) 1 tab BID PO Last administered on 03/25/17 07:48; Admin Dose 1 TAB; Start 03/12/17 at 21:00 Zolpidem Tartrate (Ambien) 10 mg QHS PRN PO INSOMNIA Last administered on 03/25 00:32; Admin Dose 10 MG; Start 03/12/17 at 19:00 Acetaminophen (Tylenol Tab) 650 mg Q4H PRN PO PAIN; Start 03/13/17 at 06:30 Magnesium Hydroxide (Milk Of Mag) 30 ml BID PRN PO CONSTIPATION; Start at 06:30 Gabapentin (Neurontin) 600 mg TID PO Last administered on 03/25/17 08:43; Admin Dose 600 MG; Start 03/13/17 at 13:00 Tizanidine HCl (Zanaflex) 2 mg BID PRN PO muscle spasm Last administered on 04:59; Admin Dose 2 MG; Start 03/13/17 at 11:00 Ondansetron HCl (Zofran Inj) 4 mg Q4H PRN IV NAUSEA AND/OR VOMITING Last administered on 03/24/17 18:28; Admin Dose 4 MG; Start 03/14/17 at 07:58 Tramadol HCl (Ultram) 50 mg Q6H PRN PO PAIN Last administered on 03/22/17 17: 49; Admin Dose 50 MG; Start 03/14/17 at 08:30 Lactulose (Enulose) 20 gm BID PRN PO CONSTIPATION; Start 03/15/17 at 21:00 Enoxaparin Sodium (Lovenox) 40 mg DAILY SC Last administered on 03/25/17 08: 48; Admin Dose 40 MG; Start 03/16/17 at 19:00 Diphenhydramine HCl (Benadryl) 25 mg Q6H PRN PO ITCHING Last administered on t 09:52; Admin Dose 25 MG; Start 03/17/17 at 08:30 Hydromorphone HCl (Dilaudid) 1 mg Q2H PRN PO PAIN LEVEL 7-10; Start 03/25/17 at 14:00 Assessment/Plan Additional Assessment/Plan rehab- Lumbar spinal stenosis, radiculopathy and foot drop, status post decompressive laminectomy. Excellent progress, dc tomorrow Polyneuropathy. Acute pain syndrome-decrease IV pain meds History of depression. History of cervical surgery. CORAZON BETH MD Mar 25, 2017 12:53
[2017-03-25] MEDS: SOD CHLORIDE 0.9% IVPB SCH (13:56)
[2017-03-25] MEDS: DAPTOMYCIN IVPB SCH (13:56)
--- NOTE | 2017-03-25 15:18 | CONS ---
Date/Time of Note Date/Time of Note DATE: 03/25/17 TIME: 15:17 Assessment/Plan Assessment/Plan Chief Complaint/Hosp Course SUBJECTIVE: No events overnight. Patient is awake, feels good, no fevers MICROBIOLOGY: The culture of the open area of the chin grew alpha hemolytic strep species, enterococcus and staph species. ANTIMICROBIALS: Daptomycin. ALLERGIES: NONE. PHYSICAL EXAMINATION: GENERAL: This is an obese, well-developed, middle-aged woman who is alert, in no distress. HEENT: Head atraumatic, normocephalic. Sclerae anicteric. Buccal mucosa pink. NECK: Supple. CHEST: Rise symmetrical. Breath sounds clear. HEART: S1, S2. ABDOMEN: Soft. Bowel sounds present. ASSESSMENT: 1. Cellulitis of the chin==> improving 2. Chronic back pain status post spinal surgery on 03/08/2017. 3. Morbid obesity. 4. Chronic pain syndrome. PLAN: The patient remains stable. Continue present care, recommend dc on oral Zyvox for 7 more days, f/u with surgery and PMD OP. dw pt Problems: Consultation Date/Type/Reason Admit Date/Time Mar 12, 2017 at 17:52 Type of Consultation: id Referring Provider: SEBASTIAN RIVERO DO Exam/Review of Systems Vital Signs Vitals Vital Signs Date Time Temp Pulse Resp B/P Pulse Ox O2 Delivery O2 Flow Rate FiO2 03/25/17 08:00 98.3 78 18 129/79 99 Room Air Intake and Output 03/24/17 03/24/17 03/25/17 15:00 23:00 07:00 Intake Total 800 ml 100 ml 500 ml Balance 800 ml 100 ml 500 ml Results Result Diagram: 03/23/17 0607 Medications Medications Current Medications Acetaminophen/ Hydrocodone Bitart ([place] (10/325)) 2 tab Q4 PO Last administered on 03/25/17 14:11; Admin Dose 2 TAB; Start 03/12/17 at 21:00 Baclofen (Lioresal) 10 mg TID PO Last administered on 03/25/17 11:56; Admin Dose 10 MG; Start 03/12/17 at 21:00 Bisacodyl 10 mg 10 mg DAILY PRN [place] CONSTIPATION Last administered on 15:50; Admin Dose 10 MG; Start 03/12/17 at 19:00 Daptomycin/Sodium Chloride (Cubicin/NS) 100 ml @ 200 mls/hr Q24H IVPB Last administered on 03/25/17 13:56; Admin Dose 200 MLS/HR; Start 03/13/17 at 12: 00 Docusate Sodium (Colace) 100 mg BID PO Last administered on 03/25/17 08:43; Admin Dose 100 MG; Start 03/12/17 at 21:00 Duloxetine HCl (Cymbalta) 30 mg DAILY PO Last administered on 03/25/17 08:43 ; Admin Dose 30 MG; Start 03/13/17 at 09:00 Famotidine (Pepcid) 20 mg BID PO Last administered on 03/25/17 07:48; Admin Dose 20 MG; Start 03/12/17 at 21:00 Bupropion HCl (Wellbutrin Xl) 300 mg DAILY PO Last administered on 03/25/17 08:44; Admin Dose 300 MG; Start 03/13/17 at 09:00 Naloxone HCl (Narcan) 0.2 mg Q2M PRN IV RR 8 BREATHS/MIN OR LESS; Start at 19:00 Oxycodone HCl (Roxicodone) 10 mg Q6 PO Last administered on 03/25/17 11:57; Admin Dose 10 MG; Start 03/12/17 at 20:00 Polyethylene Glycol (Miralax) 17 gm DAILY PRN GTB CONSTIPATION Last administered on 03/15/17 10:09; Admin Dose 17 GM; Start 03/12/17 at 19:00 Senna (Senokot) 1 tab BID PO Last administered on 03/25/17 07:48; Admin Dose 1 TAB; Start 03/12/17 at 21:00 Zolpidem Tartrate (Ambien) 10 mg QHS PRN PO INSOMNIA Last administered on 03/25 00:32; Admin Dose 10 MG; Start 03/12/17 at 19:00 Acetaminophen (Tylenol Tab) 650 mg Q4H PRN PO PAIN; Start 03/13/17 at 06:30 Magnesium Hydroxide (Milk Of Mag) 30 ml BID PRN PO CONSTIPATION; Start at 06:30 Gabapentin (Neurontin) 600 mg TID PO Last administered on 03/25/17 14:11; Admin Dose 600 MG; Start 03/13/17 at 13:00 Tizanidine HCl (Zanaflex) 2 mg BID PRN PO muscle spasm Last administered on 04:59; Admin Dose 2 MG; Start 03/13/17 at 11:00 Ondansetron HCl (Zofran Inj) 4 mg Q4H PRN IV NAUSEA AND/OR VOMITING Last administered on 03/24/17 18:28; Admin Dose 4 MG; Start 03/14/17 at 07:58 Tramadol HCl (Ultram) 50 mg Q6H PRN PO PAIN Last administered on 03/22/17 17: 49; Admin Dose 50 MG; Start 03/14/17 at 08:30 Lactulose (Enulose) 20 gm BID PRN PO CONSTIPATION; Start 03/15/17 at 21:00 Enoxaparin Sodium (Lovenox) 40 mg DAILY SC Last administered on 03/25/17 08: 48; Admin Dose 40 MG; Start 03/16/17 at 19:00 Diphenhydramine HCl (Benadryl) 25 mg Q6H PRN PO ITCHING Last administered on 09:52; Admin Dose 25 MG; Start 03/17/17 at 08:30 Hydromorphone HCl (Dilaudid) 1 mg Q2H PRN PO PAIN LEVEL 7-10; Start 03/25/17 at 14:00 JOHANNA GAXIOLA NP Mar 25, 2017 15:18
--- NOTE | 2017-03-25 15:51 | RADRPT ---
PROCEDURE: XR Right Ankle CLINICAL INDICATION: Twisted TECHNIQUE: Standard 3 view radiographs were submitted. COMPARISON: None FINDINGS: Osseous structures: Well mineralized and intact with no fracture or destructive process identified. Joint spaces: The talus is inverted and there is widening of the lateral superior ankle mortise. Soft tissues: Appear unremarkable. IMPRESSION: 1. No fracture is identified. 2. Talar inversion with widening of the lateral superior ankle mortise. Physician Danae Date Time Electronically viewed and signed by Physician Danae on 03/25/2017 15:51 RH/
--- NOTE | 2017-03-25 15:52 | RADRPT ---
PROCEDURE: XR Right Foot CLINICAL INDICATION: Twisted TECHNIQUE: AP, oblique, and lateral radiographs were submitted. COMPARISON: None FINDINGS: Osseous structures: appear well mineralized and intact with no fracture or destructive process iden tified. Joint spaces: are well maintained, with no significant spurring, erosion or joint effusion evident. Soft tissues: appear unremarkable. IMPRESSION: Unremarkable right foot. Physician Danae Date Time Electronically viewed and signed by Physician Danae on 03/25/2017 15:52 /
[2017-03-25] MEDS: HYDROmorphONE 2 MG TAB PO PRN ×3 (16:31→22:00)
[2017-03-25] MEDS ORDERED: HYDROmorphONE 1 MG/ML SYG IV PRN (17:30)
[2017-03-25] MEDS: traMADol 50 MG TAB PO PRN (17:52)
[2017-03-25] MEDS: HYDROmorphONE 1 MG/ML SYG IV PRN ×3 (18:00→22:53)
[2017-03-25 19:45] VITALS: BP 126/58; PULSE 95; RESP 17
[2017-03-25] MEDS ORDERED: ZYVOX 600 MG TAB PO SCH (21:00)
[2017-03-26] MEDS: ZOLPIDEM 5 MG TAB PO PRN (00:16)
[2017-03-26] MEDS: HYDROmorphONE 2 MG TAB PO PRN ×4 (00:16→15:28)
[2017-03-26] MEDS: HYDROCODONE/APAP (10/325) TAB PO SCH ×4 (01:00→13:17)
[2017-03-26] MEDS: HYDROmorphONE 1 MG/ML SYG IV PRN ×5 (01:40→13:49)
[2017-03-26] MEDS: DIPHENHYDRAMINE 25 MG CAP PO PRN ×2 (01:41→10:20)
[2017-03-26] MEDS: TIZANIDINE 2 MG TAB PO PRN (06:05)
[2017-03-26] MEDS: oxyCODONE 5 MG TAB PO SCH ×2 (06:06→12:06)
[2017-03-26 08:00] VITALS: BP 12/68; PULSE 80; RESP 19
[2017-03-26] MEDS: ENOXAPARIN 40 MG/0.4 ML SYG SC SCH (09:11)
[2017-03-26] MEDS: DOCUSATE SODIUM 100 MG CAP PO SCH (09:11)
[2017-03-26] MEDS: DULOXETINE 30 MG CAP DR PO SCH (09:11)
[2017-03-26] MEDS: BUPROPION (XL) 150 MG TAB PO SCH (09:11)
[2017-03-26] MEDS: BACLOFEN 10 MG TAB PO SCH ×2 (09:11→13:12)
[2017-03-26] MEDS: SENNA TAB PO SCH (09:12)
[2017-03-26] MEDS: FAMOTIDINE 20 MG TAB PO SCH (09:12)
[2017-03-26] MEDS: GABAPENTIN 300 MG CAP PO SCH ×2 (09:12→13:11)
--- NOTE | 2017-03-26 09:32 | CONS ---
Date/Time of Note Date/Time of Note DATE: 03/26/17 TIME: 09:31 Consult Date/Type/Reason Admit Date/Time Mar 12, 2017 at 17:52 Type of Consultation: CARD Ordering Provider: SEBASTIAN RIVERO DO Subjective CARDIOLOGY FOLLOW UP NOTE: S: D/W STAFF. Pt is still in rehab. s/p spinal surgery 03/07/17 she still has back pain no cp or pressure. no sob. O: General: obese. no acute distress HEENT: NC/AT. pupils are equal. round. NECK: NO JVD. no stridor. CV: RRR. systolic murmur; no gallop or rubs. PULM: no wheezing or rhonchi. GI: SOFT, obese. NT, ND, no rebound or guarding Extremity: trace B/L LE edema. no clubbing. neuro: awake and alert, OX3. Psych: calm and pleasant rectal: deferred ECHO reviewed: 1. Normal left ventricular systolic function. Normal left ventricular cavity size. Normal left ventricular wall thickness. Ejection fraction is visually estimated at 60 %. Tissue Doppler/Mitral Doppler indices are consistent with impaired relaxation (Stage I diastolic dysfunction). 2. Normal appearance and function of the mitral valve with trace physiologic regurgitation. 3. Normal appearance of the aortic valve. No significant aortic stenosis or insufficiency. 4. Normal appearance of the tricuspid valve. Estimated peak PA systolic pressure 24 mmHg. There is trace tricuspid regurgitation. Objective Vital Signs Date Time Temp Pulse Resp B/P Pulse Ox O2 Delivery O2 Flow Rate FiO2 03/25/17 19:45 98.7 95 17 126/58 97 Room Air Intake and Output 03/25/17 03/25/17 03/26/17 15:00 23:00 07:00 Intake Total 100 ml 950 ml Output Total 400 ml Balance 100 ml 550 ml Results/Medications Result Diagram: 03/23/17 0607 Results 24 hrs Laboratory Tests Test 03/26/17 06:48 Creatine Kinase 5141 H Medications Current Medications Acetaminophen/ Hydrocodone Bitart ([place] (10/325)) 2 tab Q4 PO Last administered on 03/25/17 20:57; Admin Dose 2 TAB; Start 03/12/17 at 21:00 Baclofen (Lioresal) 10 mg TID PO Last administered on 03/26/17 09:11; Admin Dose 10 MG; Start 03/12/17 at 21:00 Bisacodyl 10 mg 10 mg DAILY PRN [place] CONSTIPATION Last administered on 15:50; Admin Dose 10 MG; Start 03/12/17 at 19:00 Daptomycin/Sodium Chloride (Cubicin/NS) 100 ml @ 200 mls/hr Q24H IVPB Last administered on 03/25/17 13:56; Admin Dose 200 MLS/HR; Start 03/13/17 at 12: 00 Docusate Sodium (Colace) 100 mg BID PO Last administered on 03/26/17 09:11; Admin Dose 100 MG; Start 03/12/17 at 21:00 Duloxetine HCl (Cymbalta) 30 mg DAILY PO Last administered on 03/26/17 09:11 ; Admin Dose 30 MG; Start 03/13/17 at 09:00 Famotidine (Pepcid) 20 mg BID PO Last administered on 03/26/17 09:12; Admin Dose 20 MG; Start 03/12/17 at 21:00 Bupropion HCl (Wellbutrin Xl) 300 mg DAILY PO Last administered on 03/26/17 09:11; Admin Dose 300 MG; Start 03/13/17 at 09:00 Naloxone HCl (Narcan) 0.2 mg Q2M PRN IV RR 8 BREATHS/MIN OR LESS; Start at 19:00 Oxycodone HCl (Roxicodone) 10 mg Q6 PO Last administered on 03/26/17 06:06; Admin Dose 10 MG; Start 03/12/17 at 20:00 Polyethylene Glycol (Miralax) 17 gm DAILY PRN GTB CONSTIPATION Last administered on 03/15/17 10:09; Admin Dose 17 GM; Start 03/12/17 at 19:00 Senna (Senokot) 1 tab BID PO Last administered on 03/26/17 09:12; Admin Dose 1 TAB; Start 03/12/17 at 21:00 Zolpidem Tartrate (Ambien) 10 mg QHS PRN PO INSOMNIA Last administered on 03/26 00:16; Admin Dose 10 MG; Start 03/12/17 at 19:00 Acetaminophen (Tylenol Tab) 650 mg Q4H PRN PO PAIN; Start 03/13/17 at 06:30 Magnesium Hydroxide (Milk Of Mag) 30 ml BID PRN PO CONSTIPATION; Start at 06:30 Gabapentin (Neurontin) 600 mg TID PO Last administered on 03/26/17 09:12; Admin Dose 600 MG; Start 03/13/17 at 13:00 Tizanidine HCl (Zanaflex) 2 mg BID PRN PO muscle spasm Last administered on 06:05; Admin Dose 2 MG; Start 03/13/17 at 11:00 Ondansetron HCl (Zofran Inj) 4 mg Q4H PRN IV NAUSEA AND/OR VOMITING Last administered on 03/24/17 18:28; Admin Dose 4 MG; Start 03/14/17 at 07:58 Tramadol HCl (Ultram) 50 mg Q6H PRN PO PAIN Last administered on 03/25/17 17: 52; Admin Dose 50 MG; Start 03/14/17 at 08:30 Lactulose (Enulose) 20 gm BID PRN PO CONSTIPATION; Start 03/15/17 at 21:00 Enoxaparin Sodium (Lovenox) 40 mg DAILY SC Last administered on 03/26/17 09: 11; Admin Dose 40 MG; Start 03/16/17 at 19:00 Diphenhydramine HCl (Benadryl) 25 mg Q6H PRN PO ITCHING Last administered on 01:41; Admin Dose 25 MG; Start 03/17/17 at 08:30 Hydromorphone HCl (Dilaudid) 1 mg Q2H PRN PO PAIN LEVEL 7-10 Last administered on 03/26/17 06:59; Admin Dose 1 MG; Start 03/25/17 at 14:00 Hydromorphone HCl (Dilaudid) 1 mg Q2 PRN IV PAIN LEVEL 7-10; Start 03/25/17 at 17:30 Hydromorphone HCl (Dilaudid) 1 mg Q2 PRN IV PAIN LEVEL 7-10 Last administered on 03/26/17 09:13; Admin Dose 1 MG; Start 03/25/17 at 18:50 Assessment/Plan Chief Complaint/Hosp Course 1. s/p spinal surgery: debility in rehab now. 2. severe LBP and radiculopathy; s/p surgery now 3. mildly abnormal ECG 4. Hx depression 5. obesity. 6. anemia: stable. will monitor. Recommendations: cont current cardiac care cont post op care and pain management as per neurosurgery team. DVT prophylaxis as per IM/ neurosurgery team, currently on lovenox cont acute rehab and PT treatment as tolerated dc planning is in process. Thank you for his referral. We will continue to follow along with you as needed basis. ERIKA HERNANDEZ MD [facility] Problems: ERIKA HERNANDEZ MD Mar 26, 2017 09:32
--- NOTE | 2017-03-26 10:10 | PN ---
Date/Time of Note Date/Time of Note DATE: 03/26/17 TIME: 10:06 Assessment/Plan Lines/Catheters IV Catheter Type (from Nrsg): Mid Line Lee in Place (from Nrsg): No Assessment/Plan Chief Complaint/Hosp Course 1. Chin cellulitis/pressure injury: much improved: report of popped blister overnight but no open areas noted, no fluctuant areas noted -continue local care -monitor -abx course per ID 2. Anemia -monitor 3. BMI 49 -diet optimization encouraged -exercise encouraged 4. Chronic pain syndrome -medical management 5. S/p back surgery -cont pain management -cont acute rehab therapy 6. Depression history: -cont medical management Thank you. Patient seen and examined in collaboration with Dr. Tay Varela. Problems: Subjective 24 Hr Interval Summary Reports having a blister that popped and drained overnight. No current open areas, no blisters at this time. Numbness continuing to improve. Discoloration and redness improving. Exam/Review of Systems Vital Signs Vitals Vital Signs Date Time Temp Pulse Resp B/P Pulse Ox O2 Delivery O2 Flow Rate FiO2 03/25/17 19:45 98.7 95 17 126/58 97 Room Air Intake and Output 03/25/17 03/25/17 03/26/17 15:00 23:00 07:00 Intake Total 100 ml 950 ml Output Total 400 ml Balance 100 ml 550 ml Exam Free Text/Dictation Constitutional: alert, obese, oriented, No distress Psych: nl mood/affect, No anxiety, No confusion Head: atraumatic, normocephalic Eyes: EOMI, nl conjunctiva, No PERRL ENMT: mucosa pink and moist, nl external ears & nose, other (Chin erythema and induration much improved) Neck: non-tender, supple Respiratory: normal air movement, No congested cough Cardiovascular: regular rate and rhythm, No edema Gastrointestinal: non-tender, soft, No rebound or guarding Musculoskeletal: nl gait and stance, No nl extremities to inspection Extremities: No calf tenderness, No edema Neurological: nl mental status, nl speech, nl strength Skin: nl turgor, rash or lesions (chin erythema almost resolved; no open or fluctuant area noted) Lymph: nl lymph nodes Results Result Diagram: 03/23/17 0607 RANDOLPH GANN NP Mar 26, 2017 10:10
--- NOTE | 2017-03-26 12:04 | PN ---
DATE: 03/26/2017 SUBJECTIVE: The patient is stable. No events overnight. No fevers, chills, nausea, vomiting. OBJECTIVE: VITAL SIGNS: Blood pressure is 126/58, respirations 17, pulse 98, temperature 98.7. HEENT: Head is normocephalic. NECK: Supple. HEART: Regular rate. LUNGS: Show diminished breath sounds at base. ABDOMEN: Soft, nontender to palpation. No rebound or guarding. EXTREMITIES: Negative for clubbing, cyanosis, no edema. DERMATOLOGIC: No rashes. MUSCULOSKELETAL: No joint effusions. NEUROLOGIC: No change in exam. MEDICATIONS: The patient's medications have been reviewed. LABORATORY DATA: Showed a CK level of 5000. ASSESSMENT AND PLAN: 1. Acute on chronic lower back pain with severe radiculopathy. The patient is status post L4-L5 tr ansforaminal fusion. The patient is currently stable. Continue physical therapy. 2. Cellulitis, improving. The patient has completed antibiotic course. Recommended 7 more days of Zyvox. 3. Chronic pain syndrome. Continue current pain regimen. 4. Neuropathy. Continue Neurontin. 5. Insomnia. Continue Ambien. 6. Depression. Continue Zoloft. 7. Anemia. Monitor hemoglobin and hematocrit levels. 8. Status post acute kidney injury. 9. Gastrointestinal and deep venous thrombosis prophylaxis. Continue proton pump inhibitor and [place] enox. Dictated By: SEBASTIAN RIVERO DO NR/NTS Conf#: [id number] DID#: [id number] CC: CORAZON BETH MD;*End*
--- NOTE | 2017-03-26 12:39 | DS ---
Date/Time of Note Date/Time of Note DATE: 03/26/17 TIME: 12:37 Discharge Summary Admission/Discharge Info Admit Date/Time Mar 12, 2017 at 17:52 Discharge Date/Time Discharge Diagnosis 1. Lumbar spinal stenosis, radiculopathy and foot drop, status post decompressive laminectomy. 2. Polyneuropathy. 3. Acute pain syndrome, improved. 3. History of depression. 4. History of cervical surgery. 5. Improvements in self-care and mobility. Patient Condition: Good Hospital Course Patient was admitted for comprehensive interdisciplinary acute rehabilitation. Patient made steady functional gains and improved from a mod level to a Modified Independent level for self care and mobility, including ambulating over 200 feet with the use of a front wheeled walker. Patients overall pain decreased, and patient was agreeable with the discharge plan. Patient is being discharged home with recommendations for home health PT and OT follow up. DME recommendations: FWW; B[facility]; Shower Chair Patient will follow up with PMD upon DC. Home Meds Reported Medications Gabapentin* (Gabapentin*) 300 Mg Capsule, 900 MG PO TID, #270 CAP 03/06/17 Zolpidem Tartrate* (Ambien*) 10 Mg Tablet, 10 MG PO QHS Y for INSOMNIA, TAB 03/06/17 Bupropion Hcl* (Bupropion XL*) 300 Mg Tab.sr.24h, 300 MG PO DAILY, TAB.SA 03/06/17 Duloxetine Hcl* (Duloxetine Hcl*) 30 Mg Capsule.dr, 30 MG PO DAILY, #30 CAP 03/06/17 Etodolac (Etodolac) 400 Mg Tablet, 400 MG PO Q6 Y for BID, TAB 03/06/17 Methocarbamol* (Methocarbamol*) 500 Mg Tablet, 1000 MG PO Q6, TAB 03/06/17 Primary Care Provider Care Physician No Primary Pending Labs Laboratory Tests Test 03/26/17 06:48 Creatine Kinase 5141IU/L (23-200) CORAZON BETH MD Mar 26, 2017 12:39
--- NOTE | 2017-03-26 12:58 | CONS ---
Date/Time of Note Date/Time of Note DATE: 03/26/17 TIME: 12:50 Assessment/Plan Assessment/Plan Chief Complaint/Hosp Course SUBJECTIVE: Patient is awake, feels good, no fevers MICROBIOLOGY: The culture of the open area of the chin grew alpha hemolytic strep species, enterococcus and staph species. ANTIMICROBIALS: Daptomycin. ALLERGIES: NONE. PHYSICAL EXAMINATION: GENERAL: This is an obese, well-developed, middle-aged woman who is alert, in no distress. HEENT: Head atraumatic, normocephalic. Sclerae anicteric. Buccal mucosa pink. NECK: Supple. CHEST: Rise symmetrical. Breath sounds clear. HEART: S1, S2. ABDOMEN: Soft. Bowel sounds present. ASSESSMENT: 1. Cellulitis of the chin==> improving 2. Chronic back pain status post spinal surgery on 03/08/2017. 3. Morbid obesity. 4. Chronic pain syndrome. PLAN: Area on the chin looks better but still with numbness and swelling, will dc Daptomycin 2 to high CK and change abx to PO Zyvox for 7 more days, pt will have to be off antidepressants 2 to drug interaction while on Zyvox. If Zyvox is not covered then she has to be send home with IV Vancomycin/home zainab. dw pt/staff Problems: Consultation Date/Type/Reason Admit Date/Time Mar 12, 2017 at 17:52 Type of Consultation: id Referring Provider: SEBASTIAN RIVERO DO Exam/Review of Systems Vital Signs Vitals Vital Signs Date Time Temp Pulse Resp B/P Pulse Ox O2 Delivery O2 Flow Rate FiO2 03/25/17 19:45 98.7 95 17 126/58 97 Room Air Intake and Output 03/25/17 03/25/17 03/26/17 15:00 23:00 07:00 Intake Total 100 ml 950 ml Output Total 400 ml Balance 100 ml 550 ml Results Result Diagram: 03/23/17 0607 Results 24 hrs Laboratory Tests Test 03/26/17 06:48 Creatine Kinase 5141 H Medications Medications Current Medications Acetaminophen/ Hydrocodone Bitart ([place] (10/325)) 2 tab Q4 PO Last administered on 03/26/17 09:36; Admin Dose 2 TAB; Start 03/12/17 at 21:00 Baclofen (Lioresal) 10 mg TID PO Last administered on 03/26/17 09:11; Admin Dose 10 MG; Start 03/12/17 at 21:00 Bisacodyl (Dulcolax Supp) 10 mg DAILY PRN SC CONSTIPATION Last administered on 03/15/17 15:50; Admin Dose 10 MG; Start 03/12/17 at 19:00 Docusate Sodium (Colace) 100 mg BID PO Last administered on 03/26/17 09:11; Admin Dose 100 MG; Start 03/12/17 at 21:00 Duloxetine HCl (Cymbalta) 30 mg DAILY PO Last administered on 03/26/17 09:11 ; Admin Dose 30 MG; Start 03/13/17 at 09:00 Famotidine (Pepcid) 20 mg BID PO Last administered on 03/26/17 09:12; Admin Dose 20 MG; Start 03/12/17 at 21:00 Bupropion HCl (Wellbutrin Xl) 300 mg DAILY PO Last administered on 03/26/17 09:11; Admin Dose 300 MG; Start 03/13/17 at 09:00 Naloxone HCl (Narcan) 0.2 mg Q2M PRN IV RR 8 BREATHS/MIN OR LESS; Start at 19:00 Oxycodone HCl (Roxicodone) 10 mg Q6 PO Last administered on 03/26/17 12:06; Admin Dose 10 MG; Start 03/12/17 at 20:00 Polyethylene Glycol (Miralax) 17 gm DAILY PRN GTB CONSTIPATION Last administered on 03/15/17 10:09; Admin Dose 17 GM; Start 03/12/17 at 19:00 Senna (Senokot) 1 tab BID PO Last administered on 03/26/17 09:12; Admin Dose 1 TAB; Start 03/12/17 at 21:00 Zolpidem Tartrate (Ambien) 10 mg QHS PRN PO INSOMNIA Last administered on 03/26 00:16; Admin Dose 10 MG; Start 03/12/17 at 19:00 Acetaminophen (Tylenol Tab) 650 mg Q4H PRN PO PAIN; Start 03/13/17 at 06:30 Magnesium Hydroxide (Milk Of Mag) 30 ml BID PRN PO CONSTIPATION; Start at 06:30 Gabapentin (Neurontin) 600 mg TID PO Last administered on 03/26/17 09:12; Admin Dose 600 MG; Start 03/13/17 at 13:00 Tizanidine HCl (Zanaflex) 2 mg BID PRN PO muscle spasm Last administered on 06:05; Admin Dose 2 MG; Start 03/13/17 at 11:00 Ondansetron HCl (Zofran Inj) 4 mg Q4H PRN IV NAUSEA AND/OR VOMITING Last administered on 03/24/17 18:28; Admin Dose 4 MG; Start 03/14/17 at 07:58 Tramadol HCl (Ultram) 50 mg Q6H PRN PO PAIN Last administered on 03/25/17 17: 52; Admin Dose 50 MG; Start 03/14/17 at 08:30 Lactulose (Enulose) 20 gm BID PRN PO CONSTIPATION; Start 03/15/17 at 21:00 Enoxaparin Sodium (Lovenox) 40 mg DAILY SC Last administered on 03/26/17 09: 11; Admin Dose 40 MG; Start 03/16/17 at 19:00 Diphenhydramine HCl (Benadryl) 25 mg Q6H PRN PO ITCHING Last administered on 10:20; Admin Dose 25 MG; Start 03/17/17 at 08:30 Hydromorphone HCl (Dilaudid) 1 mg Q2H PRN PO PAIN LEVEL 7-10 Last administered on 03/26/17 10:18; Admin Dose 1 MG; Start 03/25/17 at 14:00 Hydromorphone HCl (Dilaudid) 1 mg Q2 PRN IV PAIN LEVEL 7-10; Start 03/25/17 at 17:30 Hydromorphone HCl (Dilaudid) 1 mg Q2 PRN IV PAIN LEVEL 7-10 Last administered on 03/26/17 11:29; Admin Dose 1 MG; Start 03/25/17 at 18:50 JOHANNA GAXIOLA NP Mar 26, 2017 12:58
== END 2017-03-26 15:30 | disposition home health service (06) | DRG 560 ==
LOC: VRC 17:52
PROVIDERS: ADMIT Physical Medicine & Rehabilitation; ATTEND Internal Medicine
PROC: F07Z5ZZ Bed Mobility Treatment (ICD-10-PCS; principal; 2017-03-12)
PROC: F08Z2ZZ Grooming/Personal Hygiene Treatment (ICD-10-PCS; 2017-03-12)
DX: Z47.89 Encounter for other orthopedic aftercare (principal); Z68.42 Body mass index [BMI] 45.0-49.9, adult; L03.211 Cellulitis of face; G62.9 Polyneuropathy, unspecified; M48.061 Spinal stenosis, lumbar region without neurogenic claudication; R52 Pain, unspecified; M54.16 Radiculopathy, lumbar region; M21.379 Foot drop, unspecified foot; G89.29 Other chronic pain; M54.9 Dorsalgia, unspecified; E66.01 Morbid (severe) obesity due to excess calories; G47.00 Insomnia, unspecified; D64.9 Anemia, unspecified
CPT/HCPCS: 73600; 73620; 80048; 80053; 81001; 82550; 82565; 83735; 84100; 84520; 85025; 87081; 87086; 90686; 97110; 97112; 97116; 97150; 97163; 97167; 97530; 97535; J1170; J1650; J2405